=== PATIENT | female | born 1965 | race Caucasian/White ===

== ENCOUNTER 2017-01-21 00:20 | Inpatient (IN) | payer OTHER ==
[~2017-01-21] VITALS: Ht 154.9 cm; Wt 83.4 kg
[2017-01-21] VITALS (8 sets, daily range): BP systolic 112–140; BP diastolic 59–79; PULSE 64–104; RESP 18–20; TEMP 99.7; Ht 154.9 cm; Wt 83.4 kg
[2017-01-21] MEDS ORDERED: SODIUM CHLORIDE 0.9% 1L BAG IV* STA (00:45)
[2017-01-21] MEDS ORDERED: ACETAMINOPHEN 650 MG SUPP PR ONE (01:00)
[2017-01-21] MEDS ORDERED: CEFEPIME 1GM/50 ML (PMX) 50 ML IVPB ONE (01:00)
[2017-01-21] MEDS ORDERED: VANCOMYCIN 1 GM (PMX) 250 ML IVPB SCH (01:00)
--- NOTE | 2017-01-21 01:00 | RADRPT ---
PROCEDURE: XR Chest. CLINICAL INDICATION: Sepsis TECHNIQUE: Single AP portable chest. COMPARISON: None. FINDINGS: The cardiomediastinal silhouette is within normal limits of size. Hypoinflation. Tracheostomy tube and right MediPort catheter in place. Atherosclerotic calcification of the aorta. Bibasilar linear subsegmental atelectasis or scarring greater on the left. No pleural effusion or focal consolidatio n. No pneumothorax. The osseous structures and soft tissues are unremarkable. IMPRESSION: 1. No evidence for active cardiopulmonary disease. 2. Support devices in satisfactory position. RPTAT:AAJJ Dov Stephenson Physician Date Time Electronically viewed and signed by Physician Vaishnavi on 01/21/2017 01:00 CORWIN/
[2017-01-21 01:40] LABS: BASOPHIL # 0.1 10^3/ul (0.0-0.1); BASOPHILS % 0.3 % (0.0-2.0); EOSINOPHILS # 0.3 10^3/ul (0.0-0.5); EOSINOPHILS % 1.6 % (0.0-7.0); HEMATOCRIT 29.5 % (37.0-47.0); HEMOGLOBIN 9.2 g/dl (12.0-16.0); LYMPHOCYTES # 1.9 10^3/ul (0.8-2.9); LYMPHOCYTES % 11.3 % (15.0-51.0); MEAN CORPUSCULAR HEMOGLOBIN 25.8 pg (29.0-33.0); MEAN CORPUSCULAR HGB CONC 31.2 g/dl (32.0-37.0); MEAN CORPUSCULAR VOLUME 82.9 fl (82.0-101.0); MEAN PLATELET VOLUME 11.5 fl (7.4-10.4); MONOCYTE # 1.2 10^3/ul (0.3-0.9); MONOCYTES % 7.1 % (0.0-11.0); NEUTROPHIL # 12.6 10^3/ul (1.6-7.5); NEUTROPHILS % 77.4 % (39.0-77.0); PLATELET COUNT 529 10^3/UL (140-415); RED BLOOD COUNT 3.56 10^6/ul (4.20-5.40); RED CELL DISTRIBUTION WIDTH 18.3 % (11.5-14.5); WHITE BLOOD COUNT 16.3 10^3/ul (4.8-10.8)
[2017-01-21 01:46] LABS: INR 0.95; PROTIME 12.7 Sec (12.2-14.2)
[2017-01-21 01:47] LABS: PARTIAL THROMBOPLASTIN TIME 32.7 Sec (25.0-35.0)
[2017-01-21 01:48] LABS: ALANINE AMINOTRANSFERASE 142 IU/L (13-69); ALBUMIN 3.6 g/dl (3.3-4.9); ALBUMIN/GLOBULIN RATIO 0.92; ALKALINE PHOSPHATASE 1493 IU/L (42-121); ANION GAP 18 (8-16); ASPARTATE AMINO TRANSFERASE 166 IU/L (15-46); BILIRUBIN,INDIRECT 0.4 mg/dl (0-1.1); BILIRUBIN,TOTAL 0.7 mg/dl (0.2-1.3); BLOOD UREA NITROGEN 20 mg/dl (7-20); CALCIUM 9.3 mg/dl (8.4-10.2); CARBON DIOXIDE 32 mmol/L (21-31); CHLORIDE 97 mmol/L (97-110); CREATININE 0.44 mg/dl (0.44-1.00); GLUCOSE 156 mg/dl (70-220); POTASSIUM 4.8 mmol/L (3.5-5.1); SODIUM 142 mmol/L (135-144); TOTAL PROTEIN 7.5 g/dl (6.1-8.1)
--- NOTE | 2017-01-21 01:50 | ERA ---
ER Documentation Chief Complaint Date/Time DATE: 01/21/17 TIME: 01:37 Chief Complaint intermittent fever- sent from [facility] HPI 51-year-old woman brought in by EMS from [facility] for intermittent fevers. Patient has chronic encephalopathy and breathes through the tracheostomy. She has had no vomiting or diarrhea. HPI was limited as patient was nonverbal and [facility] records were scant. Patient was transported here by EMS without further complications. ROS All systems reviewed and are negative except as per history of present illness. Allergies Allergies: Coded Allergies: No Known Allergy (Unverified , 01/21/17) PMhx/Soc Chronic encephalopathy, bedbound, diabetes mellitus, hypothyroidism, COPD History of Surgery: Yes (hx of craniotomy, tracheotomy) Anesthesia Reaction: No Hx Neurological Disorder: No Hx Respiratory Disorders: Yes (COPD) Hx Cardiac Disorders: No Hx Psychiatric Problems: No Hx Miscellaneous Medical Probl: Yes (DM2, hypothyroidism, obesity) Hx Alcohol Use: No Hx Substance Use: No Hx Tobacco Use: No Smoking Status: Never smoker FmHx Family History: No diabetes Physical Exam Vitals Vital Signs Date Time Temp Pulse Resp B/P Pulse Ox O2 Delivery O2 Flow Rate FiO2 01/21/17 01:23 3 01/21/17 01:23 97.5 96 28 117/68 99 Trach Collar 3.0 01/21/17 00:28 99.6 106 18 116/65 99 Physical Exam GENERAL: Well-developed, appears dehydrated, afebrile HEENT: Dry mucous membranes, pink conjunctiva, no cervical spine tenderness or step-off deformities, no goiter, no jaundice or icterus, extraocular movements intact without pain. NEURO: Eyes open, nonverbal, unresponsive, pupils equal round reactive to light , no facial asymmetry CARDIAC: Regular rate and rhythm, no murmurs rubs or gallops LUNGS: Clear bilaterally no wheezing crackles or stridor ABDOMEN: Soft nontender, no guarding, no rigidity, no rebound, no psoas sign no obturator sign. SKIN: Warm and dry to touch, no abrasions, contusions, or hematomas, no lacerations, no ecchymosis, no target lesions, and without ulcers EXTREMITIES: No clubbing cyanosis or edema, calves are bilaterally symmetrical, no Homans sign, no popliteal cord sign. PSYCH: Unable to assess Result Diagram: 01/21/17 0030 01/21/17 0030 Results 24 hrs Laboratory Tests Test 01/21/17 00:30 01/21/17 01:55 White Blood Count 16.310^3/ul Red Blood Count 3.5610^6/ul Hemoglobin 9.2g/dl Hematocrit 29.5% Mean Corpuscular Volume 82.9fl Mean Corpuscular Hemoglobin 25.8pg Mean Corpuscular Hemoglobin Concent 31.2g/dl Red Cell Distribution Width 18.3% Platelet Count 68119^3/UL Mean Platelet Volume 11.5fl Neutrophils % 77.4% Lymphocytes % 11.3% Monocytes % 7.1% Eosinophils % 1.6% Basophils % 0.3% Nucleated Red Blood Cells % 0.0/100WBC Neutrophils # 12.610^3/ul Lymphocytes # 1.910^3/ul Monocytes # 1.210^3/ul Eosinophils # 0.310^3/ul Basophils # 0.110^3/ul Nucleated Red Blood Cells # 0.010^3/ul Prothrombin Time 12.7Sec Prothrombin Time Ratio 1.0 INR International Normalized Ratio 0.95 Activated Partial Thromboplast Time 32.7Sec Sodium Level 142mmol/L Potassium Level 4.8mmol/L Chloride Level 97mmol/L Carbon Dioxide Level 32mmol/L Anion Gap 18 Blood Urea Nitrogen 20mg/dl Creatinine 0.44mg/dl Glucose Level 156mg/dl Lactic Acid Level 1.5mmol/L Calcium Level 9.3mg/dl Total Bilirubin 0.7mg/dl Direct Bilirubin 0.30mg/dl Indirect Bilirubin 0.4mg/dl Aspartate Amino Transf (AST/SGOT) 166IU/L Alanine Aminotransferase (ALT/SGPT) 142IU/L Alkaline Phosphatase 1493IU/L Troponin I < 0.012ng/ml Total Protein 7.5g/dl Albumin 3.6g/dl Globulin 3.90g/dl Albumin/Globulin Ratio 0.92 Lipase 43U/L Urine Color JOHAN Urine Clarity CLOUDY Urine pH 5.0 Urine Specific [place] 1.018 Urine Ketones NEGATIVEmg/dL Urine Nitrite POSITIVEmg/dL Urine Bilirubin NEGATIVEmg/dL Urine Urobilinogen 2+mg/dL Urine Leukocyte Esterase 3+Valeria/ul Urine Microscopic RBC 10/HPF Urine Microscopic WBC > 182/HPF Urine Squamous Epithelial Cells FEW/HPF Urine Bacteria FEW/HPF Urine Mucus FEW/HPF Urine Hemoglobin NEGATIVEmg/dL Urine Glucose NEGATIVEmg/dL Urine Total Protein 1+mg/dl Current Medications Medications (Trade) Dose Ordered Sig/Cami Route PRN Reason Start Time Stop Time Status Last Admin Dose Admin Sodium Chloride 2330 ml 2,330 ml BOLUS OVER 2 HOURS STAT IV* 01/21/17 00:45 01/21/17 00:47 DC 01/21/17 01:30 Cefepime HCl 50 ml @ 100 mls/hr ONCE ONCE IVPB 01/21/17 01:00 01/21/17 01:29 DC 01/21/17 01:30 Vancomycin HCl (Vancocin) 250 ml @ 125 mls/hr ONCE IVPB 01/21/17 01:00 01/21/17 02:59 DC 01/21/17 02:14 Acetaminophen (Tylenol Supp) 650 mg ONCE ONCE NV 01/21/17 01:00 01/21/17 01:01 DC 01/21/17 01:28 Procedures/MDM IV line was established patient was placed on vice president of news rhythm strip revealed a sinus tachycardia at 110 bpm with upright P and T waves. Patient was afebrile. EKG performed, read by me: 97 bpm, normal sinus rhythm, normal axis, no acute ST segment changes, narrow QRS complex, with good R-wave progression in precordial leads. One view chest x-ray performed, read by me revealed a tracheostomy in place, no pneumothorax, no air under the diaphragm, no acute infiltrates I administered about 2 L normal saline intravenously for dehydration, acetaminophen 650 mg per rectum, cefepime 1 g IV, vancomycin 1 g IV. CBC reveals a leukocytosis of 16 and mild anemia with a hemoglobin of 9.2, electrolytes are unremarkable, liver function tests revealed transaminitis and an alkaline phosphatase at about 1500. Troponin negative. Urine analysis is positive for infection. Lactic acid level was low and I do not suspect sepsis. Gallbladder ultrasound was performed and there was absence of gallbladder although common bile duct dilated to 16 mm. Patient will be admitted to telemetry setting for continued medical management, IV hydration, and IV antibiotic therapy. Departure Diagnosis: Primary Impression: Fever Qualified Code: R50.9 - Fever, unspecified fever cause Additional Impressions: UTI (urinary tract infection) Qualified Code: N30.00 - Acute cystitis without hematuria Encephalopathy Functional quadriplegia Choledocholithiasis Condition: Fair CESIA DUMAS MD Jan 21, 2017 01:47
[2017-01-21 02:05] LABS: TROPONIN-I < 0.012 ng/ml (0.00-0.12)
--- NOTE | 2017-01-21 02:34 | RADRPT ---
PROCEDURE: Ultrasound of the abdomen. CLINICAL INDICATION: Right upper quadrant pain. TECHNIQUE: Sonographic images of the abdomen were performed. COMPARISON: No pertinent prior examinations were submitted for comparison. FINDINGS: Liver: The liver is heterogeneously increased in echogenicity and enlarged, measuring approximately 24.6 cm. The hepatic veins and portal veins are patent with appropriate directional flow. No intrah epatic ductal dilatation is seen. There is a 14 x 11 mm echogenic lesion Gallbladder: The gallbladder is not distended and has normal wall thickness. No pericholecystic flu id or gallstones are visualized. The common duct measures 15.7 mm. Pancreas: There is limited evaluation of the pancreatic body and tail. The visualized portions of the pancreas are unremarkable. Kidneys: The right kidney measures 12.7 cm. There is normal corticomedullary differentiation. Ther e is no evidence of renal calculus or hydronephrosis. IVC: The visualized portion of the inferior vena cava is unremarkable. Aorta: Normal in size. Free fluid: None. IMPRESSION: Hepatomegaly and hepatic steatosis. Common bile duct dilatation. Echogenic left hepatic lesion which likely represents a hemangioma although other lesions could have a similar appearance. RPTAT: HIKT .Moshe Busby MD, MD Date Time Electronically viewed and signed by .Moshe Busby MD, on 01/21/2017 02:34 .T/
[2017-01-21 03:22] LABS: ADD UMIC YES; UR ASCORBIC ACID 40 mg/dL (NEGATIVE); UR BACTERIA FEW /HPF (NONE SEEN); UR BILIRUBIN (Dip) NEGATIVE (NEGATIVE); UR BLOOD (Dip) NEGATIVE (NEGATIVE); UR CLARITY CLOUDY (CLEAR); UR COLOR AMBER (YELLOW); UR GLUCOSE (Dip) NEGATIVE (NEGATIVE); UR KETONES (Dip) NEGATIVE (NEGATIVE); UR LEUKOCYTE ESTERASE (Dip) 3+ Leu/ul (NEGATIVE); UR MUCUS FEW /HPF (NONE SEEN); UR NITRITE (Dip) POSITIVE (NEGATIVE); UR RBC 10 /HPF (0-5); UR SPECIFIC GRAVITY (Dip) 1.018 (1.003-1.030); UR SQUAMOUS EPITHELIAL CELL FEW /HPF (FEW); UR TOTAL PROTEIN (Dip) 1+ mg/dl (NEGATIVE); UR UROBILINOGEN (Dip) 2+ mg/dL (NEGATIVE)
[2017-01-21] MEDS ORDERED: DOCU-159 GTB (03:50)
[2017-01-21] MEDS ORDERED: ONDA4TAB95 GTB (03:50)
[2017-01-21] MEDS ORDERED: ACET325S PO (03:50)
[2017-01-21] MEDS ORDERED: CHLO118L3 TOP (03:50)
[2017-01-21] MEDS ORDERED: SENN-53 GTB (03:50)
[2017-01-21] MEDS ORDERED: ACET160O41 PO (03:50)
[2017-01-21] MEDS ORDERED: PANT40TA4 GTB (03:50)
[2017-01-21] MEDS ORDERED: LEVEM SC (03:50)
[2017-01-21] MEDS ORDERED: LABE200T25 GTB (03:50)
[2017-01-21] MEDS ORDERED: MINE3.5O31 BOTH EYES (03:50)
[2017-01-21] MEDS ORDERED: METO10TA96 GTB (03:50)
[2017-01-21] MEDS ORDERED: AMLO-147 PO (03:50)
[2017-01-21] MEDS ORDERED: BISA10SU16 RC (03:50)
[2017-01-21] MEDS ORDERED: ACETAMINOPHEN 650 MG SUPP PR PRN (04:00)
[2017-01-21] MEDS ORDERED: ONDANSETRON 4 MG INJ IV PRN (04:00)
[2017-01-21] MEDS ORDERED: NACL 0.9% 3 ML SYG IV SCH (04:00)
[2017-01-21] MEDS ORDERED: VANCOMYCIN IV PER PHARMACY XX SCH (04:30)
[2017-01-21 05:45] LABS: HAAIG REFLEX REFLEX FILED
[2017-01-21] MEDS ORDERED: HEPARIN 5,000 UNIT/0.5 ML VIAL SC SCH (06:00)
[2017-01-21] MEDS ORDERED: PIPER-TAZO 3.375 GM IV (PMX) 100 ML IVPB SCH (06:00)
[2017-01-21] MEDS: PANTOPRAZOLE 40 MG INJ IV SCH (06:05)
[2017-01-21] MEDS ORDERED: METOCLOPRAMIDE 10 MG TAB GTB PRN (06:30)
[2017-01-21] MEDS ORDERED: ACETAMINOPHEN 160 MG/5ML CUP GTB PRN (06:30)
--- NOTE | 2017-01-21 06:36 | HP ---
Date/Time of Note Date/Time of Note DATE: 01/21/17 TIME: 06:16 Assessment/Plan VTE Prophylaxis VTE Prophylaxis Intervention: SCD's Lines/Catheters Urinary Cath still in place: Yes (16Fr) Reason Cath still needed: other (indicate) (clinical indication) Assessment/Plan Chief Complaint/Hosp Course This is a 51-year-old female being admitted to the telemetry floor for: #1 sepsis: Elevated white blood cell count elevated heart rate along with you a positive for urinary tract infection. At the current time she is on broad- spectrum antibiotics including ciprofloxacin. Will await urine cultures and blood cultures. #2 encephalopathy: Multifactorial in setting of recent brain hemorrhage however if you think at this time it is more likely acute in nature to the infection. # 1. Patient has a history of hemorrhage status post craniotomy however she had regained relative normal mental status up until this last week where she had the fevers and she became more confused. Will continue to monitor patient's mental status through her hospital course. #3 urinary tract infection: UA positive for nitrites and leuk esterase. Currently on broad-spectrum antibiotics including ciprofloxacin. Will continue antibiotics at this time and await urine culture and de-escalate antibiotics based on sensitivities. #4 transaminitis: Patient appears to have an obstructive pattern in her LFTs. Ultrasound did not elicit any acute cholecystitis. Though there was gallbladder duct dilatation of approximately 15 mm. Will obtain an MRCP. And consult GI. #5 hepatic lesion: This likely could be consistent with patient's metastatic colon cancer. The son did confirm that they know that there is metastasis to liver. We will be obtaining an MRCP so we will further evaluate this for confirmation. #6 hypertension: Resume amlodipine through G-tube. #7 brain hemorrhage: Status post craniotomy and RACK MAKER shunt. Continue to follow. Patient likely will need to be discharged back to rehab. Home medications through G-tube. #8 DVT and GI prophylaxis: SCDs, Protonix Further treatment strategy will be implemented as per the clinical course Problems: HPI/ROS Admit Date/Time Admit Date/Time Hx of Present Illness Chief complaint: Intermittent fevers 1 week This is a 51-year-old female who is brought in by EMS and is accompanied by her son for intermittent fevers 1 week. Patient herself is arousable however she is very tired right now and the majority of the history was obtained from the son. Patient currently was at a postacute facility where she has been recovering from her recent brain hemorrhage status post craniotomy. Patient over the last course of the week had been noted to have intermittent fevers. Family had noticed that she had been acting confused over the last few days as well. Prior to that patient was showing relatively normal mentation and able to communicate appropriately. Patient was denying any chest pain or shortness of breath however because of her recent confusion proper history was not able to be obtained from her. Of note, patient was admitted to [facility] in September 2016 for a brain hemorrhage. At that time she had a craniotomy as well as a RACK MAKER shunt. Upon recovery from there she was transferred to [place] and then to a post acute facility where she is currently at for rehab. She is currently on trach collar. Allergies: NKDA Medications: See LOUIE HYATT Subjective hx not possible: pt non-verbal, pt critical, other (Somnolent, arousable, confused) PMH/Family/Social Past Medical History Brain hemorrhage status post craniotomy and RACK MAKER shunt September 2016, colon cancer with metastases to the liver, history of CVA, left-sided weakness status post brain hemorrhage Past Surgical History Craniotomy and RACK MAKER shunt, colon surgery, G-tube placement, IVC filter placement? Social History Alcohol Use: none Smoking Status: Never smoker Drug Use: none Exam/Review of Systems Vital Signs Vitals Vital Signs Date Time Temp Pulse Resp B/P Pulse Ox O2 Delivery O2 Flow Rate FiO2 01/21/17 06:05 98.6 89 28 123/58 98 Trach Collar 3.0 Exam Exam General: Patient lying in bed in no acute distress, somnolent but arousable though she is confused. HEENT: Visible deformity secondary to craniotomy, RACK MAKER shunt the pupils are equal , round and reactive. Extraocular motor are intact, trach collar intact Neck: Supple with full range of motion. No rigidity or meningismus Chest: Nontender Lungs: Clear to auscultation bilaterally no crackles rales or wheezing Heart: Normal S1-S2, Regular rhythm and rate. No overt murmurs appreciated Abdomen: Soft , nontender, nondistended , bowel sounds are present. No guarding no rebound tenderness , No masses or organomegaly. G-tube in place Neurologic: Unable to fully assess secondary to patient's somnolence and confusion Additional Comments PROCEDURE: XR Chest. CLINICAL INDICATION: Sepsis TECHNIQUE: Single AP portable chest. COMPARISON: None. FINDINGS: The cardiomediastinal silhouette is within normal limits of size. Hypoinflation. Tracheostomy tube and right MediPort catheter in place. Atherosclerotic calcification of the aorta. Bibasilar linear subsegmental atelectasis or scarring greater on the left. No pleural effusion or focal consolidation. No pneumothorax. The osseous structures and soft tissues are unremarkable. IMPRESSION: 1. No evidence for active cardiopulmonary disease. 2. Support devices in satisfactory position. RPTAT:AAJJ Dov Stephenson, Physician Date Time Electronically viewed and signed by Dov Stephenson, Physician on 01/21/2017 01:00 CORWIN/ CC: CESIA DUMAS MD PROCEDURE: Ultrasound of the abdomen. CLINICAL INDICATION: Right upper quadrant pain. TECHNIQUE: Sonographic images of the abdomen were performed. COMPARISON: No pertinent prior examinations were submitted for comparison. FINDINGS: Liver: The liver is heterogeneously increased in echogenicity and enlarged, measuring approximately 24.6 cm. The hepatic veins and portal veins are patent with appropriate directional flow. No intrahepatic ductal dilatation is seen. There is a 14 x 11 mm echogenic lesion Gallbladder: The gallbladder is not distended and has normal wall thickness. No pericholecystic fluid or gallstones are visualized. The common duct measures 15.7 mm. Pancreas: There is limited evaluation of the pancreatic body and tail. The visualized portions of the pancreas are unremarkable. Kidneys: The right kidney measures 12.7 cm. There is normal corticomedullary differentiation. There is no evidence of renal calculus or hydronephrosis. IVC: The visualized portion of the inferior vena cava is unremarkable. Aorta: Normal in size. Free fluid: None. IMPRESSION: Hepatomegaly and hepatic steatosis. Common bile duct dilatation. Echogenic left hepatic lesion which likely represents a hemangioma although other lesions could have a similar appearance. RPTAT: HIKT .Moshe Busby MD, MD Date Time Electronically viewed and signed by .Moshe Busby MD, MD on 01/21/2017 02:34 .T/ CC: CESIA DUMAS MD Labs Result Diagram: 01/21/17 00301/21/17 003 Medications Medications Current Medications Sodium Chloride (NS) 1,000 ml @ 75 mls/hr [id number] IV ; Start 01/21/17 at 04:00 Ondansetron HCl (Zofran Inj) 4 mg Q6H PRN IV NAUSEA AND/OR VOMITING; Start at 04:00 Acetaminophen (Tylenol Supp) 650 mg Q6H PRN [place] PAIN LEVEL 1-3 OR FEVER; Start 01/21/17 at 04:00 Pantoprazole (Protonix Iv) 40 mg DAILY@06 IV Last administered on 01/21/17 06: 05; Admin Dose 40 MG; Start 01/21/17 at 06:00 Heparin Sodium (Porcine) 5000 unit 5,000 unit Q8 SC Last administered on 05:59; Admin Dose 5,000 UNIT; Start 01/21/17 at 06:00 Ciprofloxacin/ Dextrose 200 ml @ 200 mls/hr Q12 IVPB ; Start 01/21/17 at 09:00 Vancomycin HCl (Vancocin) 250 ml @ 125 mls/hr Q12H IVPB ; Start 01/21/17 at 10: 00 SON LEE Jan 21, 2017 06:28
[2017-01-21] MEDS: SOD CHLORIDE 0.9% 1,000 ML IV SCH ×2 (07:16→20:00)
[2017-01-21] MEDS ORDERED: LABE300T GTB (07:50)
[2017-01-21] MEDS: AMLODIPINE 10 MG TAB GTB SCH (08:03)
[2017-01-21] MEDS: SENNA TAB GTB SCH ×2 (08:03→21:35)
[2017-01-21] MEDS: BISACODYL 10 MG SUPP PR SCH (08:03)
[2017-01-21] MEDS: LABETALOL 100 MG TAB GTB SCH ×2 (08:04→21:35)
[2017-01-21] MEDS: CIPROFLOXACIN 400MG/D5W 200 ML IVPB SCH ×2 (08:08→21:35)
[2017-01-21] MEDS: ONDANSETRON 4 MG TAB GTB SCH ×6 (08:11→22:24)
[2017-01-21] MEDS ORDERED: LABETALOL 200 MG TAB GTB SCH (09:00)
[2017-01-21] MEDS: VANCOMYCIN 1 GM in NS 250 ML IVPB SCH ×2 (09:16→22:24)
[2017-01-21 11:44] LABS: BASOPHILS % 0.2 % (0.0-2.0); EOSINOPHILS # 0.2 10^3/ul (0.0-0.5); EOSINOPHILS % 1.9 % (0.0-7.0); HEMATOCRIT 24.9 % (37.0-47.0); HEMOGLOBIN 7.6 g/dl (12.0-16.0); LYMPHOCYTES % 15.6 % (15.0-51.0); MEAN CORPUSCULAR HEMOGLOBIN 25.9 pg (29.0-33.0); MEAN CORPUSCULAR HGB CONC 30.5 g/dl (32.0-37.0); MEAN PLATELET VOLUME 11.6 fl (7.4-10.4); MONOCYTES % 8.1 % (0.0-11.0); NEUTROPHILS % 71.7 % (39.0-77.0); PLATELET COUNT 405 10^3/UL (140-415); RED BLOOD COUNT 2.93 10^6/ul (4.20-5.40); RED CELL DISTRIBUTION WIDTH 18.6 % (11.5-14.5); WHITE BLOOD COUNT 12.6 10^3/ul (4.8-10.8)
[2017-01-21 12:03] LABS: ALBUMIN 3.1 g/dl (3.3-4.9); ALBUMIN/GLOBULIN RATIO 0.83; BILIRUBIN,DIRECT 0.2 mg/dl (0.00-0.20); BILIRUBIN,INDIRECT 0.4 mg/dl (0-1.1); BILIRUBIN,TOTAL 0.6 mg/dl (0.2-1.3); CALCIUM 8.1 mg/dl (8.4-10.2); CREATININE 0.47 mg/dl (0.44-1.00); POTASSIUM 3.6 mmol/L (3.5-5.1); TOTAL PROTEIN 6.8 g/dl (6.1-8.1)
--- NOTE | 2017-01-21 16:34 | RADRPT ---
PROCEDURE: MRI MRCP. CLINICAL INDICATION: Fever and transaminitis. Common bile duct dilatation. TECHNIQUE: MRCP was performed without contrast. 3-D/multiplanar reformations and coronal rotating MIP images of the biliary tree were performed by the technologist and at an independent workstation. Evaluation is partially limited due to the patient's body habitus and motion artifact. COMPARISON: Ultrasound dated 01/11/2017. FINDINGS: There is moderate diffuse intra and extrahepatic biliary ductal dilatation. The common bile duct is dilated measuring 14 mm in diameter and there is abrupt tapering of the distal common bile duct. Th ere is mild diffuse decreased signal intensity throughout the intra and extrahepatic ducts, possibly related to sludge. No discrete stone or mass is identified within the biliary tree. There is no pa ncreatic ductal dilatation or intraluminal filling defect. The gallbladder is not clearly identifie d. The liver is enlarged measuring 25 cm in length and there are innumerable masses throughout the live r. There is bulky periportal, portacaval, gastrohepatic ligament, and aortocaval adenopathy. The v entral abdominal hernia is partially visualized. There is a percutaneous gastrostomy tube in place. There is a small right pleural effusion. IMPRESSION: 1. Moderate diffuse intra and extrahepatic biliary ductal dilation with an abrupt transition point at the distal CBD, suspicious for a malignant stricture or underlying occult mass lesion. ERCP can be performed for further evaluation. 2. Hepatomegaly with innumerable masses throughout the liver and bulky periportal, portacaval, extr ahepatic ligament, and aortocaval adenopathy, highly suspicious for metastatic disease from an uncer tain primary. CT scan of the chest, abdomen, and pelvis can be performed for further evaluation. 3. Trace right effusion. 4. Partially visualized ventral abdominal hernia. RPTAT: GG .Tai Reed MD, MD Date Time Electronically viewed and signed by .Tai Reed MD, MD on 01/21/2017 16:34 .P/
--- NOTE | 2017-01-21 17:13 | CONS ---
Date/Time of Note Date/Time of Note DATE: 01/21/17 TIME: 16:53 Assessment/Plan Assessment/Plan Additional Assessment/Plan Assessment * Sepsis UTI vs pneumonia vs others * Elevated transaminitis Obstructive vs hepatocellular in origin * History of craniotomy sec brain aneurysm * History of colon surgery secondary to colonic cancer with liver metastasis * History of chemotherapy * History PEG * History of Tracheostomy Plan * Continue present management * will await MRI results * Trend transaminase levels * Further orders will depend on clinical course Consultation Date/Type/Reason Admit Date/Time Date of Consultation: Jan 21, 2017 Type of Consultation: Gastroenterology Reason for Consultation elevated transaminase Referring Provider: SON LEE Hx of Present Illness 51 year old female with past medical history of craniotomy secondary to ruptured aneurysm(),S/P colon surgery and chemotherapy x2 due to colonic cancer and liver metastasis with recurrence,S/P tracheostomy,S/P G tube insertion presented to emergency room because of intermittent fever x 1 week.Present condition started 1 week ago while at [facility] ,she develop fever with no associated nausea ,vomiting ,diarrhea, abdominal pain,nor altered level of consciousness hence was sent to ER.Emergency room course revealed leukocytosis 16,hemoglobin9.2,hematocrit 29.5 Total bilirubin 8.1,GGT 1066,AST 121,ALT 116,alkaline phosphatase 1134 PT 12.7, INR 0.95 Ultrasound Hepatomegaly and hepatic steatosis.Common bile duct dilatation.Echogenic left hepatic lesion which likely represents a hemangioma although other lesions could have a similar appearance.Awaiting MRI results Information is provided by daughter Past Medical History Medical History: other (aneurysm brain,colonic cancer with liver metastasis) Past Surgical History Past Surgical Hx: bowel resection, other (craniotomy 09/2016,colon surgery Tracheostomy peg) Social History Alcohol Use: none Smoking Status: Never smoker Drug Use: none Exam/Review of Systems Vital Signs Vitals Vital Signs Date Time Temp Pulse Resp B/P Pulse Ox O2 Delivery O2 Flow Rate FiO2 01/21/17 12:00 64 01/21/17 11:24 Simple Mask 6.0 01/21/17 10:25 98.0 112/59 97 01/21/17 09:21 22 Intake and Output 01/20/17 01/20/17 01/21/17 15:00 23:00 07:00 Output Total 400 ml Balance -400 ml Exam Constitutional: frail, other (non verbal) Head: normocephalic Eyes: PERRL, nl conjunctiva, nl sclera ENMT: nl nasal mucosa & septum, other (tracheostomy) Neck: non-tender, supple Respiratory: crackles/rales, diminished breath sounds Cardiovascular: nl pulses, regular rate and rhythm Gastrointestinal: bowel sounds, distended, non-tender, other (g tube), soft, No rebound or guarding Musculoskeletal: muscle weakness, swelling Extremities: normal pulses, pitting pedal edema Neurological: unresponsive Skin: rash or lesions Lymph: nl lymph nodes Results Result Diagram: 01/21/17 1109 01/21/17 1109 Results 24 hrs Laboratory Tests Test 01/21/17 00:30 01/21/17 01:55 01/21/17 05:29 01/21/17 11:09 White Blood Count 16.3 H 12.6 #H Red Blood Count 3.56 L 2.93 L Hemoglobin 9.2 L 7.6 L Hematocrit 29.5 L 24.9 L Mean Corpuscular Volume 82.9 85.0 Mean Corpuscular Hemoglobin 25.8 L 25.9 L Mean Corpuscular Hemoglobin Concent 31.2 L 30.5 L Red Cell Distribution Width 18.3 H 18.6 H Platelet Count 529 H 405 # Mean Platelet Volume 11.5 H 11.6 H Neutrophils % 77.4 H 71.7 Lymphocytes % 11.3 L 15.6 Monocytes % 7.1 8.1 Eosinophils % 1.6 1.9 Basophils % 0.3 0.2 Nucleated Red Blood Cells % 0.0 0.0 Neutrophils # 12.6 H 9.0 H Lymphocytes # 1.9 2.0 Monocytes # 1.2 H 1.0 H Eosinophils # 0.3 0.2 Basophils # 0.1 0.0 Nucleated Red Blood Cells # 0.0 0.0 Prothrombin Time 12.7 Prothrombin Time Ratio 1.0 INR International Normalized Ratio 0.95 Activated Partial Thromboplast Time 32.7 Sodium Level 142 141 Potassium Level 4.8 3.6 Chloride Level 97 102 Carbon Dioxide Level 32 H 28 Anion Gap 18 H 15 Blood Urea Nitrogen 20 15 Creatinine 0.44 0.47 Glucose Level 156 137 Lactic Acid Level 1.5 1.2 Calcium Level 9.3 8.1 L Total Bilirubin 0.7 0.6 Direct Bilirubin 0.30 H 0.20 Indirect Bilirubin 0.4 0.4 Aspartate Amino Transf (AST/SGOT) 166 H 121 H Alanine Aminotransferase (ALT/SGPT) 142 H 116 H Alkaline Phosphatase 1493 H 1134 H Troponin I < 0.012 Total Protein 7.5 6.8 Albumin 3.6 3.1 L Globulin 3.90 H 3.70 H Albumin/Globulin Ratio 0.92 0.83 Lipase 43 Urine Color JOHAN Urine Clarity CLOUDY A Urine pH 5.0 Urine Specific [place] 1.018 Urine Ketones NEGATIVE Urine Nitrite POSITIVE A Urine Bilirubin NEGATIVE Urine Urobilinogen 2+ H Urine Leukocyte Esterase 3+ H Urine Microscopic RBC 10 H Urine Microscopic WBC > 182 H Urine Squamous Epithelial Cells FEW Urine Bacteria FEW A Urine Mucus FEW A Urine Hemoglobin NEGATIVE Urine Glucose NEGATIVE Urine Total Protein 1+ H Gamma Glutamyl Transpeptidase 1066 H Hepatitis A Antibody Total Pending Hepatitis B Surface Antigen Pending Hepatitis B Core Total Antibody Pending Hepatitis C Antibody Pending Medications Medications Current Medications Sodium Chloride (NS) 1,000 ml @ 75 mls/hr [id number] IV Last administered on 01/21 07:16; Admin Dose 75 MLS/HR; Start 01/21/17 at 04:00 Ondansetron HCl (Zofran Inj) 4 mg Q6H PRN IV NAUSEA AND/OR VOMITING; Start at 04:00 Acetaminophen (Tylenol Supp) 650 mg Q6H PRN [place] PAIN LEVEL 1-3 OR FEVER; Start 01/21/17 at 04:00 Pantoprazole 40 mg 40 mg DAILY@06 IV Last administered on 01/21/17 06:05; Admin Dose 40 MG; Start 01/21/17 at 06:00 Ciprofloxacin/ Dextrose 200 ml @ 200 mls/hr Q12 IVPB Last administered on 01/21 08:08; Admin Dose 200 MLS/HR; Start 01/21/17 at 09:00 Vancomycin HCl (Vancocin) 250 ml @ 125 mls/hr Q12H IVPB Last administered on 09:16; Admin Dose 125 MLS/HR; Start 01/21/17 at 10:00 Acetaminophen (Tylenol Liquid) 325 mg Q4H PRN GTB PAIN OR TEMP ABOVE 38C; Start 01/21/17 at 06:30 Amlodipine Besylate (Norvasc) 10 mg DAILY GTB Last administered on 01/21/17 08 :03; Admin Dose 10 MG; Start 01/21/17 at 09:00 Eye Lubricant (Akwa Oint) 1 applic HS BOTH EYES ; Start 01/21/17 at 21:00 Bisacodyl (Dulcolax Supp) 10 mg DAILY [place] ; Start 01/21/17 at 09:00 Metoclopramide HCl (Reglan) 10 mg Q6H PRN GTB NAUSEA AND/OR VOMITING; Start at 06:30 Ondansetron HCl (Zofran Tab) 4 mg Q4H GTB Last administered on 01/21/17 13:45 ; Admin Dose 4 MG; Start 01/21/17 at 06:30 Senna (Senokot) 2 tab BID GTB Last administered on 01/21/17 08:03; Admin Dose 2 TAB; Start 01/21/17 at 09:00 Labetalol HCl (Normodyne) 300 mg BID GTB Last administered on 01/21/17 08:04; Admin Dose 300 MG; Start 01/21/17 at 09:00 YASEMIN ABEBE MD Jan 21, 2017 17:04
[2017-01-21] MEDS: OCULAR LUBRICANT 3.5 GM OPH OINT BOTH EYES SCH (21:54)
[2017-01-21] MEDS: ACETAMINOPHEN 650MG/20.3ML CUP GTB PRN (22:44)
[2017-01-22] VITALS (14 sets, daily range): BP systolic 125–160; BP diastolic 59–76; PULSE 76–90; RESP 18–21
[2017-01-22] MEDS: SOD CHLORIDE 0.9% 1,000 ML IV SCH ×3 (00:03→21:02)
[2017-01-22] MEDS ORDERED: LORAZEPAM 2 MG INJ IV PRN (01:04)
[2017-01-22] MEDS ORDERED: PENDING SANTYL ORDER FOR WOUND CARE XX PRN (02:00)
[2017-01-22] MEDS: ONDANSETRON 4 MG TAB GTB SCH ×6 (03:23→22:10)
[2017-01-22] MEDS: PANTOPRAZOLE 40 MG INJ IV SCH (06:15)
[2017-01-22] MEDS: BISACODYL 10 MG SUPP PR SCH (09:03)
[2017-01-22] MEDS: SENNA TAB GTB SCH ×2 (09:03→21:03)
[2017-01-22] MEDS: CIPROFLOXACIN 400MG/D5W 200 ML IVPB SCH ×2 (09:04→21:02)
[2017-01-22] MEDS: AMLODIPINE 10 MG TAB GTB SCH (09:04)
[2017-01-22] MEDS: LABETALOL 100 MG TAB GTB SCH ×2 (09:04→21:04)
[2017-01-22] MEDS: VANCOMYCIN 1 GM in NS 250 ML IVPB SCH ×2 (10:47→22:10)
--- NOTE | 2017-01-22 11:26 | PN ---
Date/Time of Note Date/Time of Note DATE: 01/22/17 TIME: 11:17 Assessment/Plan VTE Prophylaxis VTE Prophylaxis Intervention: SCD's Lines/Catheters IV Catheter Type (from Nrs): Peripheral IV Urinary Cath still in place: Yes Reason Cath still needed: terminal illness/intractable pain Assessment/Plan Assessment/Plan 1. Sepsis secondary to urinary tract infection -Continue antibiotic. Follow-up final culture results 2. History of intracranial hemorrhage, status post craniotomy -This is chronic issue. Continue care 3. Metastatic liver cancer, with colon being the primary given history -Patient was diagnosed with colon cancer 3 years ago for which she was treated for it. A year ago she was diagnosed with liver metastasis and there has been receiving chemo. According to the sons who are at the bedside, treatment needed to be stopped because of a complication. Family wants to get a second opinion and such will place an oncology consult. Patient had been receiving her chemo with her oncologist Kishore Yen. 4. Elevated transaminases: -GI on board. Appreciate input 5. Trach dependent respiratory failure -Continue trach care. Will place a pulmonary consult 6. Hypertension: Blood pressure not at goal -Adjust BP meds as needed Subjective 24 Hr Interval Summary Free Text/Dictation Patient does not follow any commands. I talked to the sons who are at the bedside. They want to talk to oncology if patient can benefit and also is considered stable enough to receive chemo. Exam/Review of Systems Vital Signs Vitals Vital Signs Date Time Temp Pulse Resp B/P Pulse Ox O2 Delivery O2 Flow Rate FiO2 01/22/17 08:28 90 01/22/17 07:40 98.0 18 160/76 98 01/22/17 05:14 5.0 01/22/17 01:00 Trach Collar Intake and Output 01/21/17 01/21/17 01/22/17 15:00 23:00 07:00 Intake Total 200 ml 925 ml Output Total 200 ml 800 ml Balance -200 ml 200 ml 125 ml Exam Constitutional: other (No acute distress. Patient does not follow commands) Head: other (Status post right-sided craniotomy) Neck: other (Trach tube in place) Respiratory: diminished breath sounds Cardiovascular: other (Tachycardic with regular rhythm) Gastrointestinal: other (G-tube in place), soft Extremities: normal pulses Results Result Diagram: 01/21/17 1109 01/21/17 1109 Results 24 hrs Laboratory Tests Test 01/22/17 01:03 Bedside Glucose 150 Medications Medications Current Medications Sodium Chloride (NS) 1,000 ml @ 75 mls/hr [id number] IV Last administered on 01/22 00:03; Admin Dose 75 MLS/HR; Start 01/21/17 at 04:00 Ondansetron HCl (Zofran Inj) 4 mg Q6H PRN IV NAUSEA AND/OR VOMITING; Start at 04:00 Acetaminophen (Tylenol Supp) 650 mg Q6H PRN [place] PAIN LEVEL 1-3 OR FEVER; Start 01/21/17 at 04:00 Pantoprazole 40 mg 40 mg DAILY@06 IV Last administered on 01/22/17 06:15; Admin Dose 40 MG; Start 01/21/17 at 06:00 Ciprofloxacin/ Dextrose 200 ml @ 200 mls/hr Q12 IVPB Last administered on 01/22 09:04; Admin Dose 200 MLS/HR; Start 01/21/17 at 09:00 Vancomycin HCl (Vancocin) 250 ml @ 125 mls/hr Q12H IVPB Last administered on 10:47; Admin Dose 125 MLS/HR; Start 01/21/17 at 10:00 Acetaminophen (Tylenol Liquid) 325 mg Q4H PRN GTB PAIN OR TEMP ABOVE 38C Last administered on 01/21/17 22:44; Admin Dose 325 MG; Start 01/21/17 at 06:30 Amlodipine Besylate (Norvasc) 10 mg DAILY GTB Last administered on 01/22/17 09 :04; Admin Dose 10 MG; Start 01/21/17 at 09:00 Eye Lubricant (Akwa Oint) 1 applic HS BOTH EYES Last administered on 01/21/17 21:54; Admin Dose 1 APPLIC; Start 01/21/17 at 21:00 Bisacodyl (Dulcolax Supp) 10 mg DAILY [place] Last administered on 01/22/17 09:03; Admin Dose 10 MG; Start 01/21/17 at 09:00 Metoclopramide HCl (Reglan) 10 mg Q6H PRN GTB NAUSEA AND/OR VOMITING; Start at 06:30 Ondansetron HCl (Zofran Tab) 4 mg Q4H GTB Last administered on 01/22/17 10:47 ; Admin Dose 4 MG; Start 01/21/17 at 06:30 Senna (Senokot) 2 tab BID GTB Last administered on 01/22/17 09:03; Admin Dose 2 TAB; Start 01/21/17 at 09:00 Labetalol HCl (Normodyne) 300 mg BID GTB Last administered on 01/22/17 09:04; Admin Dose 300 MG; Start 01/21/17 at 09:00 Lorazepam (Ativan) 2 mg Q4H PRN IV SEIZURES Last administered on 01/22/17 01: 08; Admin Dose 2 MG; Start 01/22/17 at 01:04 Miscellaneous Information (Pending Santyl Order For Wound Care) This patient matos... PRN PRN XX WOUND CARE; Start 01/22/17 at 02:00 LAURYN RASCON MD Jan 22, 2017 11:25
[2017-01-22] MEDS ORDERED: GLUCAGON 1 MG INJ IM PRN (16:00)
[2017-01-22] MEDS ORDERED: GLUCOSE GEL 15 GRAM TUBE BUCCAL PRN (16:00)
[2017-01-22] MEDS ORDERED: GLUCOSE GEL 15 GRAM TUBE PO PRN ×2 (16:00)
[2017-01-22] MEDS ORDERED: DEXTROSE 50% 50 ML SYRINGE IV PRN ×2 (16:00)
[2017-01-22] MEDS: INSULIN ASPART [NOVOLOG] 3 ML PEN SC SCH ×2 (18:47→21:00)
[2017-01-22 19:38] LABS: HEPATITIS B CORE ANTIBODY NEGATIVE (NEGATIVE)
[2017-01-22] MEDS: OCULAR LUBRICANT 3.5 GM OPH OINT BOTH EYES SCH (21:03)
[2017-01-23] VITALS (13 sets, daily range): BP systolic 116–143; BP diastolic 56–70; PULSE 70–85; RESP 18–20
[2017-01-23] MEDS: ACCU-CHEK XX SCH (02:00)
[2017-01-23] MEDS: ONDANSETRON 4 MG TAB GTB SCH ×6 (02:30→22:09)
[2017-01-23 06:09] LABS: BASOPHIL # 0.1 10^3/ul (0.0-0.1); BASOPHILS % 0.4 % (0.0-2.0); EOSINOPHILS # 0.3 10^3/ul (0.0-0.5); EOSINOPHILS % 1.8 % (0.0-7.0); HEMATOCRIT 26.7 % (37.0-47.0); HEMOGLOBIN 8.2 g/dl (12.0-16.0); LYMPHOCYTES # 1.8 10^3/ul (0.8-2.9); LYMPHOCYTES % 12.6 % (15.0-51.0); MEAN CORPUSCULAR HEMOGLOBIN 25.2 pg (29.0-33.0); MEAN CORPUSCULAR HGB CONC 30.7 g/dl (32.0-37.0); MEAN CORPUSCULAR VOLUME 82.2 fl (82.0-101.0); MEAN PLATELET VOLUME 10.8 fl (7.4-10.4); MONOCYTE # 1.1 10^3/ul (0.3-0.9); MONOCYTES % 7.8 % (0.0-11.0); NEUTROPHIL # 10.7 10^3/ul (1.6-7.5); NEUTROPHILS % 74.9 % (39.0-77.0); PLATELET COUNT 509 10^3/UL (140-415); RED BLOOD COUNT 3.25 10^6/ul (4.20-5.40); RED CELL DISTRIBUTION WIDTH 18.5 % (11.5-14.5); WHITE BLOOD COUNT 14.3 10^3/ul (4.8-10.8)
[2017-01-23] MEDS: PANTOPRAZOLE 40 MG INJ IV SCH (06:22)
[2017-01-23 06:30] LABS: ALBUMIN/GLOBULIN RATIO 0.83; BILIRUBIN,DIRECT 2.3 mg/dl (0.00-0.20); BILIRUBIN,INDIRECT 0.6 mg/dl (0-1.1); BILIRUBIN,TOTAL 2.9 mg/dl (0.2-1.3); CALCIUM 8.8 mg/dl (8.4-10.2); CREATININE 0.59 mg/dl (0.44-1.00); POTASSIUM 3.1 mmol/L (3.5-5.1); TOTAL PROTEIN 6.6 g/dl (6.1-8.1)
[2017-01-23] MEDS: BISACODYL 10 MG SUPP PR SCH (09:00)
[2017-01-23] MEDS: SENNA TAB GTB SCH ×2 (09:58→20:38)
[2017-01-23] MEDS: SOD CHLORIDE 0.9% 1,000 ML IV SCH (09:59)
[2017-01-23] MEDS: AMLODIPINE 10 MG TAB GTB SCH (09:59)
[2017-01-23] MEDS: LABETALOL 100 MG TAB GTB SCH ×2 (09:59→20:37)
[2017-01-23] MEDS: CIPROFLOXACIN 400MG/D5W 200 ML IVPB SCH ×2 (09:59→20:38)
[2017-01-23] MEDS: INSULIN ASPART [NOVOLOG] 3 ML PEN SC SCH ×4 (10:13→20:41)
--- NOTE | 2017-01-23 11:33 | CONS ---
Date/Time of Note Date/Time of Note DATE: 01/23/17 TIME: 11:31 Assessment/Plan Assessment/Plan Additional Assessment/Plan Urinalysis is grossly positive for UTI. Chest x-ray was reviewed which is essentially unremarkable. Assessment and recommendations; 1. Patient admitted with UTI and sepsis currently on appropriate antibiotic regimen. 2. Chronic respiratory failure. Patient doing fairly well on tracheal T piece. 3. History of prior sternotomy. Continue current treatment. Consultation Date/Type/Reason Admit Date/Time Date of Consultation: Jan 23, 2017 Type of Consultation: Pulmonary Reason for Consultation Pulmonary consultation requested for evaluation of sepsis. History of presenting any; patient is a 51-year-old lady who was [facility] the [facility] with complaints of fever. One further evaluation patient was found to have UTI with sepsis. Patient has been started on appropriate antibiotic coverage. By the time I saw the patient patient is on T piece via tracheostomy and is essentially unresponsive. History was obtained from medical records as well as from patient's daughter who is currently present in the room. No history of any shortness of breath, or vomiting. Past medical history; 1. Patient with history of subarachnoid hemorrhage with intracranial bleed requiring tenotomy. 2. Chronic respiratory failure. Patient however has been weaned down to tracheal T piece. 3. Hypertension. Medications; reviewed. Family history; patient is has 6 children. Occupation she; patient has been a housewife. No disabled. Review of systems; unable to be obtained. General exam; middle-aged woman, unresponsive, currently in no distress. Past Medical History Medical History: other (aneurysm brain,colonic cancer with liver metastasis) Past Surgical History Past Surgical Hx: bowel resection, other (craniotomy 09/2016,colon surgery Tracheostomy peg) Social History Alcohol Use: none Smoking Status: Never smoker Drug Use: none Exam/Review of Systems Vital Signs Vitals Vital Signs Date Time Temp Pulse Resp B/P Pulse Ox O2 Delivery O2 Flow Rate FiO2 01/23/17 08:12 71 01/23/17 08:00 6.0 01/23/17 07:46 98.0 18 136/63 18 01/23/17 07:35 28 01/23/17 04:54 Aerosol T Tube Intake and Output 01/22/17 01/22/17 01/23/17 15:00 23:00 07:00 Intake Total 75 ml 500 ml Output Total 1200 ml 1300 ml Balance -1125 ml -800 ml Exam HEENT exam; supple neck, no JVD. No lymphadenopathy. Midline trachea. Patient has fair dentition. The colostomy in place with clean insertion site. There is a significant right parietal skull depression. Chest exam; clear to auscultation. S1-S2 audible, no murmurs. Regular rhythm. Abdomen exam; soft, no organomegaly. G-tube in place. Bowel sounds audible. Extremity exam; no peripheral edema. Pulses 1+ bilaterally. [employer] exam; patient is unresponsive. Results Result Diagram: 01/23/1743 01/23/1743 Results 24 hrs Laboratory Tests Test 01/22/17 18:44 01/22/17 20:51 01/22/17 21:00 01/23/17 05:43 Bedside Glucose 153 127 Vancomycin Level Trough 14.3 White Blood Count 14.3 H Red Blood Count 3.25 L Hemoglobin 8.2 L Hematocrit 26.7 L Mean Corpuscular Volume 82.2 Mean Corpuscular Hemoglobin 25.2 L Mean Corpuscular Hemoglobin Concent 30.7 L Red Cell Distribution Width 18.5 H Platelet Count 509 #H Mean Platelet Volume 10.8 H Neutrophils % 74.9 Lymphocytes % 12.6 L Monocytes % 7.8 Eosinophils % 1.8 Basophils % 0.4 Nucleated Red Blood Cells % 0.0 Neutrophils # 10.7 H Lymphocytes # 1.8 Monocytes # 1.1 H Eosinophils # 0.3 Basophils # 0.1 Nucleated Red Blood Cells # 0.0 Sodium Level 143 Potassium Level 3.1 L Chloride Level 98 Carbon Dioxide Level 29 Anion Gap 19 H Blood Urea Nitrogen 12 Creatinine 0.59 Glucose Level 162 Calcium Level 8.8 Total Bilirubin 2.9 #H Direct Bilirubin 2.30 #H Indirect Bilirubin 0.6 Aspartate Amino Transf (AST/SGOT) 145 H Alanine Aminotransferase (ALT/SGPT) 129 H Alkaline Phosphatase 1347 H Ammonia 25 Total Protein 6.6 Albumin 3.0 L Globulin 3.60 H Albumin/Globulin Ratio 0.83 Alpha Fetoprotein 1.83 Test 01/23/17 09:56 Bedside Glucose 155 Medications Medications Current Medications Sodium Chloride (NS) 1,000 ml @ 75 mls/hr [id number] IV Last administered on 01/23t 09:59; Admin Dose 75 MLS/HR; Start 01/21/17 at 04:00 Ondansetron HCl (Zofran Inj) 4 mg Q6H PRN IV NAUSEA AND/OR VOMITING; Start at 04:00 Acetaminophen (Tylenol Supp) 650 mg Q6H PRN [place] PAIN LEVEL 1-3 OR FEVER; Start 01/21/17 at 04:00 Pantoprazole 40 mg 40 mg DAILY@06 IV Last administered on 01/23/17 06:22; Admin Dose 40 MG; Start 01/21/17 at 06:00 Ciprofloxacin/ Dextrose 200 ml @ 200 mls/hr Q12 IVPB Last administered on 01/23 09:59; Admin Dose 200 MLS/HR; Start 01/21/17 at 09:00 Vancomycin HCl (Vancocin) 250 ml @ 125 mls/hr Q12H IVPB Last administered on 22:10; Admin Dose 125 MLS/HR; Start 01/21/17 at 10:00; Stop 01/23/17 at 14:00 Acetaminophen (Tylenol Liquid) 325 mg Q4H PRN GTB PAIN OR TEMP ABOVE 38C Last administered on 01/21/17 22:44; Admin Dose 325 MG; Start 01/21/17 at 06:30 Amlodipine Besylate (Norvasc) 10 mg DAILY GTB Last administered on 01/23/17 09 :59; Admin Dose 10 MG; Start 01/21/17 at 09:00 Eye Lubricant (Akwa Oint) 1 applic HS BOTH EYES Last administered on 01/22/17 21:03; Admin Dose 1 APPLIC; Start 01/21/17 at 21:00 Bisacodyl (Dulcolax Supp) 10 mg DAILY [place] Last administered on 01/22/17 09:03; Admin Dose 10 MG; Start 01/21/17 at 09:00 Metoclopramide HCl (Reglan) 10 mg Q6H PRN GTB NAUSEA AND/OR VOMITING; Start at 06:30 Ondansetron HCl (Zofran Tab) 4 mg Q4H GTB Last administered on 01/23/17 09:58 ; Admin Dose 4 MG; Start 01/21/17 at 06:30 Senna (Senokot) 2 tab BID GTB Last administered on 01/23/17 09:58; Admin Dose 2 TAB; Start 01/21/17 at 09:00 Labetalol HCl (Normodyne) 300 mg BID GTB Last administered on 01/23/17 09:59; Admin Dose 300 MG; Start 01/21/17 at 09:00 Lorazepam (Ativan) 2 mg Q4H PRN IV SEIZURES Last administered on 01/22/17 01: 08; Admin Dose 2 MG; Start 01/22/17 at 01:04 Miscellaneous Information (Pending Santyl Order For Wound Care) This patient matos... PRN PRN XX WOUND CARE; Start 01/22/17 at 02:00 Diagnostic Test (Pha) (Accu-Chek) 1 ea 02 XX ; Start 01/23/17 at 02:00 Miscellaneous Information 1 ea NOTE XX ; Start 01/22/17 at 16:00 Glucose (Glutose) 15 gm Q15M PRN PO DECREASED GLUCOSE; Start 01/22/17 at 16:00 Glucose (Glutose) 22.5 gm Q15M PRN PO DECREASED GLUCOSE; Start 01/22/17 at 16: 00 Dextrose (D50w Syringe) 25 ml Q15M PRN IV DECREASED GLUCOSE; Start 01/22/17 at 16:00 Dextrose (D50w Syringe) 50 ml Q15M PRN IV DECREASED GLUCOSE; Start 01/22/17 at 16:00 Glucagon (Glucagen) 1 mg Q15M PRN IM DECREASED GLUCOSE; Start 01/22/17 at 16:00 Glucose 15 gm 15 gm Q15M PRN BUCCAL DECREASED GLUCOSE; Start 01/22/17 at 16:00 Vancomycin HCl/ Sodium Chloride (Vancocin/NS) 150 ml @ 75 mls/hr Q12H IVPB ; Start 01/23/17 at 22:00 DEAN BELTRAN Jan 23, 2017 11:33
[2017-01-23] MEDS: VANCOMYCIN 1 GM in NS 250 ML IVPB SCH (11:37)
--- NOTE | 2017-01-23 19:52 | PN ---
Date/Time of Note Date/Time of Note DATE: 01/23/17 TIME: 19:52 Assessment/Plan VTE Prophylaxis VTE Prophylaxis Intervention: SCD's Lines/Catheters IV [facility] [place] Urinary Cath still in place: Yes Reason Cath still needed: other (indicate) Assessment/Plan Assessment/Plan 1. Sepsis secondary to urinary tract infection -Continue antibiotic. Follow-up final culture results 2. History of intracranial hemorrhage, status post craniotomy -This is chronic issue. Continue care 3. Metastatic liver cancer, with colon being the primary given history -Patient was diagnosed with colon cancer 3 years ago for which she was treated for it. A year ago she was diagnosed with liver metastasis and there has been receiving chemo. According to the sons who are at the bedside, treatment needed to be stopped because of a complication. Family wants to get a second opinion and such will place an oncology consult. Patient had been receiving her chemo with her oncologist Kishore Yen. 4. Elevated transaminases: -GI on board. Appreciate input 5. Trach dependent respiratory failure - continue trach care. - pulmonary following 6. Hypertension: Blood pressure within goal -Adjust BP meds as needed Subjective 24 Hr Interval Summary Free Text/Dictation no distress. not following commands Exam/Review of Systems Vital Signs Vitals Vital Signs Date Time Temp Pulse Resp B/P Pulse Ox O2 Delivery O2 Flow Rate FiO2 01/23/17 19:26 5.0 01/23/17 19:26 89 22 93 Aerosol 28 T Tube 01/23/17 16:20 98.0 137/65 Intake and Output 01/22/17 01/22/17 01/23/17 15:00 23:00 07:00 Intake Total 75 ml 500 ml Output Total 1200 ml 1300 ml Balance -1125 ml -800 ml Exam Constitutional: other (No acute distress. Patient does not follow commands) Head: other (Status post right-sided craniotomy) Neck: other (Trach tube in place) Respiratory: diminished breath sounds Cardiovascular: other (Tachycardic with regular rhythm) Gastrointestinal: other (G-tube in place), soft Extremities: normal pulses Results Result Diagram: 01/23/17 0543 01/23/17 0543 Results 24 hrs Laboratory Tests Test 01/22/17 20:51 01/22/17 21:00 01/23/17 05:43 01/23/17 09:56 Vancomycin Level Trough 14.3 Bedside Glucose 127 155 White Blood Count 14.3 H Red Blood Count 3.25 L Hemoglobin 8.2 L Hematocrit 26.7 L Mean Corpuscular Volume 82.2 Mean Corpuscular Hemoglobin 25.2 L Mean Corpuscular Hemoglobin Concent 30.7 L Red Cell Distribution Width 18.5 H Platelet Count 509 #H Mean Platelet Volume 10.8 H Neutrophils % 74.9 Lymphocytes % 12.6 L Monocytes % 7.8 Eosinophils % 1.8 Basophils % 0.4 Nucleated Red Blood Cells % 0.0 Neutrophils # 10.7 H Lymphocytes # 1.8 Monocytes # 1.1 H Eosinophils # 0.3 Basophils # 0.1 Nucleated Red Blood Cells # 0.0 Sodium Level 143 Potassium Level 3.1 L Chloride Level 98 Carbon Dioxide Level 29 Anion Gap 19 H Blood Urea Nitrogen 12 Creatinine 0.59 Glucose Level 162 Calcium Level 8.8 Total Bilirubin 2.9 #H Direct Bilirubin 2.30 #H Indirect Bilirubin 0.6 Aspartate Amino Transf (AST/SGOT) 145 H Alanine Aminotransferase (ALT/SGPT) 129 H Alkaline Phosphatase 1347 H Ammonia 25 Total Protein 6.6 Albumin 3.0 L Globulin 3.60 H Albumin/Globulin Ratio 0.83 Alpha Fetoprotein 1.83 Test 01/23/17 12:56 01/23/17 18:13 Bedside Glucose 161 154 Medications Medications Current Medications Sodium Chloride (NS) 1,000 ml @ 75 mls/hr [id number] IV Last administered on 01/23 09:59; Admin Dose 75 MLS/HR; Start 01/21/17 at 04:00 Ondansetron HCl (Zofran Inj) 4 mg Q6H PRN IV NAUSEA AND/OR VOMITING; Start at 04:00 Acetaminophen (Tylenol Supp) 650 mg Q6H PRN [place] PAIN LEVEL 1-3 OR FEVER; Start 01/21/17 at 04:00 Pantoprazole 40 mg 40 mg DAILY@06 IV Last administered on 01/23/17 06:22; Admin Dose 40 MG; Start 01/21/17 at 06:00 Ciprofloxacin/ Dextrose (Cipro Ivpb) 200 ml @ 200 mls/hr Q12 IVPB Last administered on 01/23/17 09:59; Admin Dose 200 MLS/HR; Start 01/21/17 at 09:00 Acetaminophen (Tylenol Liquid) 325 mg Q4H PRN GTB PAIN OR TEMP ABOVE 38C Last administered on 01/21/17 22:44; Admin Dose 325 MG; Start 01/21/17 at 06:30 Amlodipine Besylate (Norvasc) 10 mg DAILY GTB Last administered on 01/23/17 09 :59; Admin Dose 10 MG; Start 01/21/17 at 09:00 Eye Lubricant (Akwa Oint) 1 applic HS BOTH EYES Last administered on 01/22/17 21:03; Admin Dose 1 APPLIC; Start 01/21/17 at 21:00 Bisacodyl (Dulcolax Supp) 10 mg DAILY [place] Last administered on 01/22/17 09:03; Admin Dose 10 MG; Start 01/21/17 at 09:00 Metoclopramide HCl (Reglan) 10 mg Q6H PRN GTB NAUSEA AND/OR VOMITING; Start at 06:30 Ondansetron HCl (Zofran Tab) 4 mg Q4H GTB Last administered on 01/23/17 18:15 ; Admin Dose 4 MG; Start 01/21/17 at 06:30 Senna (Senokot) 2 tab BID GTB Last administered on 01/23/17 09:58; Admin Dose 2 TAB; Start 01/21/17 at 09:00 Labetalol HCl (Normodyne) 300 mg BID GTB Last administered on 01/23/17 09:59; Admin Dose 300 MG; Start 01/21/17 at 09:00 Lorazepam (Ativan) 2 mg Q4H PRN IV SEIZURES Last administered on 01/22/17 01: 08; Admin Dose 2 MG; Start 01/22/17 at 01:04 Miscellaneous Information (Pending Santyl Order For Wound Care) This patient matos... PRN PRN XX WOUND CARE; Start 01/22/17 at 02:00 Diagnostic Test (Pha) (Accu-Chek) 1 ea 02 XX ; Start 01/23/17 at 02:00 Miscellaneous Information 1 ea NOTE XX ; Start 01/22/17 at 16:00 Glucose (Glutose) 15 gm Q15M PRN PO DECREASED GLUCOSE; Start 01/22/17 at 16:00 Glucose (Glutose) 22.5 gm Q15M PRN PO DECREASED GLUCOSE; Start 01/22/17 at 16: 00 Dextrose (D50w Syringe) 25 ml Q15M PRN IV DECREASED GLUCOSE; Start 01/22/17 at 16:00 Dextrose (D50w Syringe) 50 ml Q15M PRN IV DECREASED GLUCOSE; Start 01/22/17 at 16:00 Glucagon (Glucagen) 1 mg Q15M PRN IM DECREASED GLUCOSE; Start 01/22/17 at 16:00 Glucose 15 gm 15 gm Q15M PRN BUCCAL DECREASED GLUCOSE; Start 01/22/17 at 16:00 Vancomycin HCl/ Sodium Chloride (Vancocin/NS) 150 ml @ 75 mls/hr Q12H IVPB ; Start 01/23/17 at 22:00 LAURYN RASCON MD Jan 23, 2017 19:52
[2017-01-23] MEDS: OCULAR LUBRICANT 3.5 GM OPH OINT BOTH EYES SCH (20:38)
[2017-01-23] MEDS: VANCOMYCIN 750 MG in SOD CHLORIDE 0.9% 150 ML IVPB SCH (22:09)
[2017-01-24] VITALS (11 sets, daily range): BP systolic 125–142; BP diastolic 60–70; PULSE 60–82; RESP 18–19
[2017-01-24] MEDS: ACCU-CHEK XX SCH (02:00)
[2017-01-24] MEDS: ONDANSETRON 4 MG TAB GTB SCH ×6 (02:19→22:30)
[2017-01-24] MEDS: PANTOPRAZOLE 40 MG INJ IV SCH (06:25)
[2017-01-24] MEDS: SOD CHLORIDE 0.9% 1,000 ML IV SCH ×2 (08:49→12:00)
[2017-01-24] MEDS: LABETALOL 100 MG TAB GTB SCH ×2 (08:49→21:18)
[2017-01-24] MEDS: CIPROFLOXACIN 400MG/D5W 200 ML IVPB SCH (08:49)
[2017-01-24] MEDS: SENNA TAB GTB SCH ×2 (08:49→21:18)
[2017-01-24] MEDS: AMLODIPINE 10 MG TAB GTB SCH (08:50)
[2017-01-24] MEDS: BISACODYL 10 MG SUPP PR SCH (08:50)
[2017-01-24] MEDS: INSULIN ASPART [NOVOLOG] 3 ML PEN SC SCH ×3 (09:09→18:22)
[2017-01-24] MEDS: VANCOMYCIN 750 MG in SOD CHLORIDE 0.9% 150 ML IVPB SCH ×2 (10:58→22:27)
--- NOTE | 2017-01-24 12:45 | CONS ---
Date/Time of Note Date/Time of Note DATE: 01/24/17 TIME: 12:44 Assessment/Plan Assessment/Plan Additional Assessment/Plan Assessment and recommendations; 1. Patient admitted for UTI and sepsis with significant clinical improvement. 2. History of subarachnoid hemorrhage status post craniotomy. With left hemiplegia. 3. History of hypertension. Next Continue current treatment. Consultation Date/Type/Reason Admit Date/Time Jan 21, 2017 at 02:17 Initial Consult Date 01/23/17 Type of Consultation: Pulmonary Referring Provider: SON LEE 24 HR Interval Summary Free Text/Dictation Patient condition is markedly improved. She is completely awake and alert. Able to talk. Has remained hemodynamically stable. General exam; middle-aged woman, awake alert, maintained on tracheal T piece, currently in no distress. Exam/Review of Systems Vital Signs Vitals Vital Signs Date Time Temp Pulse Resp B/P Pulse Ox O2 Delivery O2 Flow Rate FiO2 01/24/17 12:27 98.0 70 18 133/63 97 01/24/17 08:05 5.0 01/24/17 05:20 Aerosol 28 T Tube Intake and Output 01/23/17 01/23/17 01/24/17 15:00 23:00 07:00 Intake Total 1700 ml 1100 ml Output Total 2300 ml 1500 ml Balance -600 ml -400 ml Exam HEENT exam; supple neck, no JVD. No lymphadenopathy. Midline trachea. No thyromegaly. Patient has fair dentition. Pupils are midsize and reactive to light. Tracheostomy placed with clean insertion site. There is a significant right skull parietal depression. Chest exam; clear to auscultation. S1-S2 audible, no murmurs. Regular rhythm. Abdomen exam; soft, nondistended. No organomegaly. Nontender. G-tube in place. Extremity exam; no peripheral edema. SCADA TECHNICIAN exam; patient has left hemiplegia. Results Result Diagram: 01/23/17 0543 01/23/17 0543 Results 24 hrs Laboratory Tests Test 01/23/17 12:56 01/23/17 18:13 01/23/17 20:40 01/24/17 08:44 Bedside Glucose 161 154 147 171 Medications Medications Current Medications Sodium Chloride (NS) 1,000 ml @ 75 mls/hr [id number] IV Last administered on 01/24t 08:49; Admin Dose 75 MLS/HR; Start 01/21/17 at 04:00 Ondansetron HCl (Zofran Inj) 4 mg Q6H PRN IV NAUSEA AND/OR VOMITING; Start at 04:00 Acetaminophen (Tylenol Supp) 650 mg Q6H PRN [place] PAIN LEVEL 1-3 OR FEVER; Start 01/21/17 at 04:00 Pantoprazole 40 mg 40 mg DAILY@06 IV Last administered on 01/24/17 06:25; Admin Dose 40 MG; Start 01/21/17 at 06:00 Ciprofloxacin/ Dextrose (Cipro Ivpb) 200 ml @ 200 mls/hr Q12 IVPB Last administered on 01/24/17 08:49; Admin Dose 200 MLS/HR; Start 01/21/17 at 09:00 Acetaminophen (Tylenol Liquid) 325 mg Q4H PRN GTB PAIN OR TEMP ABOVE 38C Last administered on 01/21/17 22:44; Admin Dose 325 MG; Start 01/21/17 at 06:30 Amlodipine Besylate (Norvasc) 10 mg DAILY GTB Last administered on 01/24/17 08 :50; Admin Dose 10 MG; Start 01/21/17 at 09:00 Eye Lubricant (Akwa Oint) 1 applic HS BOTH EYES Last administered on 01/23/17 20:38; Admin Dose 1 APPLIC; Start 01/21/17 at 21:00 Bisacodyl (Dulcolax Supp) 10 mg DAILY [place] Last administered on 01/22/17 09:03; Admin Dose 10 MG; Start 01/21/17 at 09:00 Metoclopramide HCl (Reglan) 10 mg Q6H PRN GTB NAUSEA AND/OR VOMITING; Start at 06:30 Ondansetron HCl (Zofran Tab) 4 mg Q4H GTB Last administered on 01/24/17 10:58 ; Admin Dose 4 MG; Start 01/21/17 at 06:30 Senna (Senokot) 2 tab BID GTB Last administered on 01/24/17 08:49; Admin Dose 2 TAB; Start 01/21/17 at 09:00 Labetalol HCl (Normodyne) 300 mg BID GTB Last administered on 01/24/17 08:49; Admin Dose 300 MG; Start 01/21/17 at 09:00 Lorazepam (Ativan) 2 mg Q4H PRN IV SEIZURES Last administered on 01/22/17 01: 08; Admin Dose 2 MG; Start 01/22/17 at 01:04 Miscellaneous Information ([facility] This patient matos... PRN PRN XX WOUND CARE; Start 01/22/17 at 02:00 Diagnostic Test (Pha) (Accu-Chek) 1 ea 02 XX ; Start 01/23/17 at 02:00 Miscellaneous Information 1 ea NOTE XX ; Start 01/22/17 at 16:00 Glucose (Glutose) 15 gm Q15M PRN PO DECREASED GLUCOSE; Start 01/22/17 at 16:00 Glucose (Glutose) 22.5 gm Q15M PRN PO DECREASED GLUCOSE; Start 01/22/17 at 16: 00 Dextrose (D50w Syringe) 25 ml Q15M PRN IV DECREASED GLUCOSE; Start 01/22/17 at 16:00 Dextrose (D50w Syringe) 50 ml Q15M PRN IV DECREASED GLUCOSE; Start 01/22/17 at 16:00 Glucagon (Glucagen) 1 mg Q15M PRN IM DECREASED GLUCOSE; Start 01/22/17 at 16:00 Glucose 15 gm 15 gm Q15M PRN BUCCAL DECREASED GLUCOSE; Start 01/22/17 at 16:00 Vancomycin HCl/ Sodium Chloride (Vancocin/NS) 150 ml @ 75 mls/hr Q12H IVPB Last administered on 01/24/17 10:58; Admin Dose 75 MLS/HR; Start 01/23/17 at 22 :00 DEAN BELTRAN Jan 24, 2017 12:45
--- NOTE | 2017-01-24 16:40 | CONS ---
Date/Time of Note Date/Time of Note DATE: 01/24/17 TIME: 16:39 Consultation Date/Type/Reason Admit Date/Time Jan 21, 2017 at 02:17 Date of Consultation: Jan 24, 2017 Type of Consultation: ID Reason for Consultation Antibiotic management Past Medical History Medical History: other (aneurysm brain,colonic cancer with liver metastasis) Past Surgical History Past Surgical Hx: bowel resection, other (craniotomy 09/2016,colon surgery Tracheostomy peg) Social History Alcohol Use: none Smoking Status: Never smoker Drug Use: none Exam/Review of Systems Vital Signs Vitals Vital Signs Date Time Temp Pulse Resp B/P Pulse Ox O2 Delivery O2 Flow Rate FiO2 01/24/17 16:15 98.0 87 18 135/70 98 01/24/17 13:49 5.0 01/24/17 05:20 Aerosol 28 T Tube Intake and Output 01/23/17 01/23/17 01/24/17 15:00 23:00 07:00 Intake Total 1700 ml 1100 ml Output Total 2300 ml 1500 ml Balance -600 ml -400 ml Results Result Diagram: 01/23/17 0543 01/23/17 0543 Results 24 hrs Laboratory Tests Test 01/23/17 18:13 01/23/17 20:40 01/24/17 08:44 01/24/17 12:51 Bedside Glucose 154 147 171 197 Medications Medications Current Medications Sodium Chloride (NS) 1,000 ml @ 75 mls/hr [id number] IV Last administered on 01/24 08:49; Admin Dose 75 MLS/HR; Start 01/21/17 at 04:00 Ondansetron HCl (Zofran Inj) 4 mg Q6H PRN IV NAUSEA AND/OR VOMITING; Start at 04:00 Acetaminophen (Tylenol Supp) 650 mg Q6H PRN [place] PAIN LEVEL 1-3 OR FEVER; Start 01/21/17 at 04:00 Pantoprazole (Protonix Iv) 40 mg DAILY@06 IV Last administered on 01/24/17 06: 25; Admin Dose 40 MG; Start 01/21/17 at 06:00 Acetaminophen (Tylenol Liquid) 325 mg Q4H PRN GTB PAIN OR TEMP ABOVE 38C Last administered on 01/21/17 22:44; Admin Dose 325 MG; Start 01/21/17 at 06:30 Amlodipine Besylate (Norvasc) 10 mg DAILY GTB Last administered on 01/24/17 08 :50; Admin Dose 10 MG; Start 01/21/17 at 09:00 Eye Lubricant (Akwa Oint) 1 applic HS BOTH EYES Last administered on 01/23/17 20:38; Admin Dose 1 APPLIC; Start 01/21/17 at 21:00 Bisacodyl (Dulcolax Supp) 10 mg DAILY [place] Last administered on 01/22/17 09:03; Admin Dose 10 MG; Start 01/21/17 at 09:00 Metoclopramide HCl (Reglan) 10 mg Q6H PRN GTB NAUSEA AND/OR VOMITING; Start at 06:30 Ondansetron HCl (Zofran Tab) 4 mg Q4H GTB Last administered on 01/24/17 10:58 ; Admin Dose 4 MG; Start 01/21/17 at 06:30 Senna (Senokot) 2 tab BID GTB Last administered on 01/24/17 08:49; Admin Dose 2 TAB; Start 01/21/17 at 09:00 Labetalol HCl (Normodyne) 300 mg BID GTB Last administered on 01/24/17 08:49; Admin Dose 300 MG; Start 01/21/17 at 09:00 Lorazepam (Ativan) 2 mg Q4H PRN IV SEIZURES Last administered on 01/22/17 01: 08; Admin Dose 2 MG; Start 01/22/17 at 01:04 Miscellaneous Information (Pending [facility] Order For Wound Care) This patient matos... PRN PRN XX WOUND CARE; Start 01/22/17 at 02:00 Diagnostic Test (Pha) (Accu-Chek) 1 ea 02 XX ; Start 01/23/17 at 02:00 Miscellaneous Information 1 ea NOTE XX ; Start 01/22/17 at 16:00 Glucose (Glutose) 15 gm Q15M PRN PO DECREASED GLUCOSE; Start 01/22/17 at 16:00 Glucose (Glutose) 22.5 gm Q15M PRN PO DECREASED GLUCOSE; Start 01/22/17 at 16: 00 Dextrose (D50w Syringe) 25 ml Q15M PRN IV DECREASED GLUCOSE; Start 01/22/17 at 16:00 Dextrose (D50w Syringe) 50 ml Q15M PRN IV DECREASED GLUCOSE; Start 01/22/17 at 16:00 Glucagon (Glucagen) 1 mg Q15M PRN IM DECREASED GLUCOSE; Start 01/22/17 at 16:00 Glucose 15 gm 15 gm Q15M PRN BUCCAL DECREASED GLUCOSE; Start 01/22/17 at 16:00 Vancomycin HCl 750 mg/Sodium Chloride 150 ml @ 75 mls/hr Q12H IVPB Last administered on 01/24/17t 10:58; Admin Dose 75 MLS/HR; Start 01/23/17 at 22:00 Cefepime HCl (Maxipime 1gm/50 ml (Pmx)) 50 ml @ 100 mls/hr Q12 IVPB ; Start at 21:00; Status MAGALY MAYO MD Jan 24, 2017 16:40
--- NOTE | 2017-01-24 16:57 | PN ---
Date/Time of Note Date/Time of Note DATE: 01/24/17 TIME: 16:54 Assessment/Plan VTE Prophylaxis VTE Prophylaxis Intervention: SCD's Lines/Catheters IV Catheter Type (from Nrs): Peripheral IV Urinary Cath still in place: Yes Reason Cath still needed: terminal illness/intractable pain Assessment/Plan Chief Complaint/Hosp Course Assessment/Plan 1. Sepsis secondary to urinary tract infection -Continue antibiotic per ID 2. History of intracranial hemorrhage, status post craniotomy -This is chronic issue. Continue care 3. Metastatic liver cancer, with colon being the primary given history -Patient was diagnosed with colon cancer 3 years ago for which she was treated for it. A year ago she was diagnosed with liver metastasis and there has been receiving chemo. According to the sons who are at the bedside, treatment needed to be stopped because of a complication. Family wants to get a second opinion and such will place an oncology consult. Patient had been receiving her chemo with her oncologist Kishore Yen. Dr. Venegas consulted by weekend hospitalist, will wait another 24 hour for consult. no note yet. 4. Elevated transaminases: -GI on board. Appreciate input 5. 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 - continue trach care. - pulmonary following 6. Hypertension: Blood pressure within goal -Adjust BP meds as needed Problems: Subjective 24 Hr Interval Summary Free Text/Dictation no acute changes Exam/Review of Systems Vital Signs Vitals Vital Signs Date Time Temp Pulse Resp B/P Pulse Ox O2 Delivery O2 Flow Rate FiO2 01/24/17 16:15 98.0 87 18 135/70 98 01/24/17 13:49 5.0 01/24/17 05:20 Aerosol 28 T Tube Intake and Output 01/23/17 01/23/17 01/24/17 15:00 23:00 07:00 Intake Total 1700 ml 1100 ml Output Total 2300 ml 1500 ml Balance -600 ml -400 ml Exam Physical exam General: Patient is laying in bed on t-piece trach. Mentation: Patient is alert and oriented, but has difficulty speaking. Head: R sided concavity Eyes: EOMI, pupils reactive to light Neck: Supple, nontender, midline Respiratory: Clear to auscultation bilaterally Cardiovascular: regular rate, no obvious murmurs Gastrointestinal: non-tender to palpation, bowel sounds heard. Neurological: L sided weakness. Skin: No new skin lesions Results Result Diagram: 01/23/17 0543 01/23/17 0543 Results 24 hrs Laboratory Tests Test 01/23/17 18:13 01/23/17 20:40 01/24/17 08:44 01/24/17 12:51 Bedside Glucose 154 147 171 197 Medications Medications Current Medications Sodium Chloride (NS) 1,000 ml @ 75 mls/hr [id number] IV Last administered on 01/24 08:49; Admin Dose 75 MLS/HR; Start 01/21/17 at 04:00 Ondansetron HCl (Zofran Inj) 4 mg Q6H PRN IV NAUSEA AND/OR VOMITING; Start at 04:00 Acetaminophen (Tylenol Supp) 650 mg Q6H PRN [place] PAIN LEVEL 1-3 OR FEVER; Start 01/21/17 at 04:00 Pantoprazole (Protonix Iv) 40 mg DAILY@06 IV Last administered on 01/24/17 06: 25; Admin Dose 40 MG; Start 01/21/17 at 06:00 Acetaminophen (Tylenol Liquid) 325 mg Q4H PRN GTB PAIN OR TEMP ABOVE 38C Last administered on 01/21/17 22:44; Admin Dose 325 MG; Start 01/21/17 at 06:30 Amlodipine Besylate (Norvasc) 10 mg DAILY GTB Last administered on 01/24/17 08 :50; Admin Dose 10 MG; Start 01/21/17 at 09:00 Eye Lubricant (Akwa Oint) 1 applic HS BOTH EYES Last administered on 01/23/17 20:38; Admin Dose 1 APPLIC; Start 01/21/17 at 21:00 Bisacodyl (Dulcolax Supp) 10 mg DAILY [place] Last administered on 01/22/17 09:03; Admin Dose 10 MG; Start 01/21/17 at 09:00 Metoclopramide HCl (Reglan) 10 mg Q6H PRN GTB NAUSEA AND/OR VOMITING; Start at 06:30 Ondansetron HCl (Zofran Tab) 4 mg Q4H GTB Last administered on 01/24/17 10:58 ; Admin Dose 4 MG; Start 01/21/17 at 06:30 Senna (Senokot) 2 tab BID GTB Last administered on 01/24/17 08:49; Admin Dose 2 TAB; Start 01/21/17 at 09:00 Labetalol HCl (Normodyne) 300 mg BID GTB Last administered on 01/24/17 08:49; Admin Dose 300 MG; Start 01/21/17 at 09:00 Lorazepam (Ativan) 2 mg Q4H PRN IV SEIZURES Last administered on 01/22/17 01: 08; Admin Dose 2 MG; Start 01/22/17 at 01:04 [facility]isc[facility] This patient matos... PRN PRN XX WOUND CARE; Start 01/22/17 at 02:00 Diagnostic Test (Pha) (Accu-Chek) 1 ea 02 XX ; Start 01/23/17 at 02:00 Miscellaneous Information 1 ea NOTE XX ; Start 01/22/17 at 16:00 Glucose (Glutose) 15 gm Q15M PRN PO DECREASED GLUCOSE; Start 01/22/17 at 16:00 Glucose (Glutose) 22.5 gm Q15M PRN PO DECREASED GLUCOSE; Start 01/22/17 at 16: 00 Dextrose (D50w Syringe) 25 ml Q15M PRN IV DECREASED GLUCOSE; Start 01/22/17 at 16:00 Dextrose (D50w Syringe) 50 ml Q15M PRN IV DECREASED GLUCOSE; Start 01/22/17 at 16:00 Glucagon (Glucagen) 1 mg Q15M PRN IM DECREASED GLUCOSE; Start 01/22/17 at 16:00 Glucose 15 gm 15 gm Q15M PRN BUCCAL DECREASED GLUCOSE; Start 01/22/17 at 16:00 Vancomycin HCl 750 mg/Sodium Chloride 150 ml @ 75 mls/hr Q12H IVPB Last administered on 01/24/17 10:58; Admin Dose 75 MLS/HR; Start 01/23/17 at 22:00 Cefepime HCl (Maxipime 1gm/50 ml (Pmx)) 50 ml @ 100 mls/hr Q12 IVPB ; Start at 21:00 CESIA ROLLE Jan 24, 2017 16:57
[2017-01-24] MEDS: OCULAR LUBRICANT 3.5 GM OPH OINT BOTH EYES SCH (21:18)
[2017-01-24] MEDS: CEFEPIME 1GM/50 ML (PMX) 50 ML IVPB SCH (21:19)
[2017-01-25] VITALS (13 sets, daily range): BP systolic 109–139; BP diastolic 50–63; PULSE 71–90; RESP 16–20
[2017-01-25] MEDS: INSULIN ASPART [NOVOLOG] 3 ML PEN SC SCH ×5 (00:16→23:58)
[2017-01-25] MEDS ORDERED: ACCU-CHEK XX SCH (02:00)
[2017-01-25] MEDS: ONDANSETRON 4 MG TAB GTB SCH ×6 (02:30→21:42)
[2017-01-25] MEDS: PANTOPRAZOLE 40 MG INJ IV SCH (05:09)
[2017-01-25] MEDS: SOD CHLORIDE 0.9% 1,000 ML IV SCH ×2 (05:09→14:40)
--- NOTE | 2017-01-25 06:14 | CONS ---
DATE OF ADMISSION: 01/21/2017 DATE OF CONSULTATION: 01/24/2017 INFECTIOUS DISEASE CONSULTATION REASON FOR CONSULTATION: Antibiotic management. HISTORY OF PRESENT ILLNESS: Jeanna Pisano is a 51-year-old female who is brought in by EMS with fever for 1 week. The patient is lethargic. She was at a post acute facility where she has been recovering from a recent brain hemorrhage, status post craniotomy. She has been having intermittent fevers and has been acting confused over the last few days as well. Prior to that, she was showing relatively normal mentation. She does not have chest pain or shortness of breath. She was admitted to [facility] in September 2016 for brain hemorrhage. She has had a craniotomy, as well as BOILER ROOM OPERATOR shunt. She was transferred to [place] and then to post acute facility for rehab and is currently on a trach collar. PAST MEDICAL HISTORY: She had a brain hemorrhage, as noted. She has left-sided weakness, status post brain hemorrhage. PAST SURGICAL HISTORY: Craniotomy and BOILER ROOM OPERATOR shunt. She had colon surgery. She had a G-tube placement and IVC filter placement. SOCIAL HISTORY: She does not smoke, drink or abuse drugs. ALLERGIES: NONE TO PENICILLIN, SULFA OR FOODS. MEDICATIONS: Per chart. REVIEW OF SYSTEMS: As per HPI. PHYSICAL EXAMINATION: GENERAL APPEARANCE: The patient is lying in bed, in no acute distress. She is somnolent, but arousable. SKIN: Without generalized rash. HEENT: Within normal limits. NECK: Supple. Lymph nodes nonpalpable. CHEST: Decreased breath sounds at the bases. HEART: Without murmur or gallop. ABDOMEN: Soft, nontender, without organosplenomegaly or masses. She has a G-tube in place. EXTREMITIES: Without cyanosis, clubbing or edema. GENERAL APPEARANCE: Exam deferred. RECTAL: Exam deferred. NEUROLOGIC: No focal neurological abnormality. LABORATORY: On admission, her white count was 16.3, hemoglobin of 9.2, hematocrit 29.5, and platelet count 529,000. Today, BUN is 20 and creatinine 0.44. The patient was started on vancomycin and ciprofloxacin. Her white count today is 14.3. Her urinalysis was positive for leukocyte esterase, 3-plus, positive for nitrites and for white cells greater than 182. Her BUN is 12, creatinine 0.59. She is hepatitis B and C negative. Her liver function tests are slightly elevated; AST 145, ALT 129, alkaline phosphatase was 1347. Her urine is growing E coli and Klebsiella pneumoniae ESBL. She is on vancomycin and Cipro. The E coli is sensitive to cefotaxime, but the Klebsiella pneumoniae is sensitive to cefepime, imipenem, Levaquin. So we could change her over to cefepime 1 g q.12 h. We could also probably discontinue her vancomycin. Her chest x-ray shows no evidence for active cardiopulmonary disease. Gallbladder Ultrasound: Common bile duct dilatation. Echogenic left hepatic lesion, probably hemangioma. Abdominal MRI: Moderate diffuse intra and extrahepatic biliary ductal dilatation with an abrupt transition point at the distal common bile duct suspicious for malignant stricture or underlying occult mass lesion. ERCP can be performed for further evaluation. Hepatomegaly with innumerable masses throughout the liver. Bulky periportal portacaval extrahepatic ligament an aortocaval adenopathy highly suspicious for metastatic disease from an uncertain primary. CT scan of the chest, abdomen and pelvis can be performed for further evaluation. Trace right pleural effusion. Partially visualized ventral abdominal hernia. IMPRESSION AND PLAN: We are going to change her to cefepime from ceftriaxone. I will dictate my findings to the hospitalist and the various consultants (obviously, she will need a GI doctor or a surgeon, or an oncologist to evaluate her metastatic liver cancer). Dictated By: Erick Estrada MD JD/luc/al /Document#: [id number]
[2017-01-25 06:56] LABS: BASOPHIL # 0.1 10^3/ul (0.0-0.1); BASOPHILS % 0.4 % (0.0-2.0); EOSINOPHILS # 0.3 10^3/ul (0.0-0.5); EOSINOPHILS % 1.6 % (0.0-7.0); HEMATOCRIT 25.4 % (37.0-47.0); LYMPHOCYTES # 1.5 10^3/ul (0.8-2.9); LYMPHOCYTES % 8.8 % (15.0-51.0); MEAN CORPUSCULAR HEMOGLOBIN 25.7 pg (29.0-33.0); MEAN CORPUSCULAR HGB CONC 31.5 g/dl (32.0-37.0); MEAN CORPUSCULAR VOLUME 81.7 fl (82.0-101.0); MEAN PLATELET VOLUME 10.9 fl (7.4-10.4); NEUTROPHIL # 13.9 10^3/ul (1.6-7.5); NEUTROPHILS % 81.6 % (39.0-77.0); PLATELET COUNT 509 10^3/UL (140-415); RED BLOOD COUNT 3.11 10^6/ul (4.20-5.40); WHITE BLOOD COUNT 17.1 10^3/ul (4.8-10.8)
[2017-01-25 07:38] LABS: CALCIUM 7.8 mg/dl (8.4-10.2); CREATININE 0.64 mg/dl (0.44-1.00); MAGNESIUM 1.3 mg/dl (1.7-2.5); PHOSPHORUS 2.6 mg/dl (2.5-4.9)
[2017-01-25 07:42] LABS: POTASSIUM 2.6 mmol/L (3.5-5.1)
[2017-01-25] MEDS: SENNA TAB GTB SCH ×2 (09:02→21:43)
[2017-01-25] MEDS: LABETALOL 100 MG TAB GTB SCH ×2 (09:02→21:42)
--- NOTE | 2017-01-25 09:02 | CONS ---
Date/Time of Note Date/Time of Note DATE: 01/25/17 TIME: 08:59 Assessment/Plan Assessment/Plan Additional Assessment/Plan Assessment and recommendations; next 1. Patient admitted for UTI and sepsis with interval improvement. 2. History of subarachnoid hemorrhage and craniotomy. 3. Hypertension. 4. Dense left hemiplegia. Continue current treatment. Consultation Date/Type/Reason Admit Date/Time Jan 21, 2017 at 02:17 Initial Consult Date 01/23/17 Type of Consultation: Pulmonary Referring Provider: SON LEE 24 HR Interval Summary Free Text/Dictation Patient condition stable. Remains awake alert. Able to talk. General exam; middle-aged woman, on T piece via tracheostomy, awake and alert. Currently in no distress. Exam/Review of Systems Vital Signs Vitals Vital Signs Date Time Temp Pulse Resp B/P Pulse Ox O2 Delivery O2 Flow Rate FiO2 01/25/17 07:48 98.9 89 20 135/62 94 01/25/17 00:35 5.0 01/24/17 05:20 Aerosol 28 T Tube Intake and Output 01/24/17 01/24/17 01/25/17 15:00 23:00 07:00 Intake Total 1550 ml 1500 ml Output Total 2300 ml 1500 ml Balance -750 ml 0 ml Exam HEENT exam; supple neck, no JVD. No lymphadenopathy. Midline trachea. No thyromegaly. Tracheostomy in place with clean insertion site. T-piece. There is a significant right parietal skull depression. Patient has fair dentition. Chest exam; clear to auscultation. S1-S2 audible, no murmurs. Regular rhythm. Abdomen exam; soft, G-tube in place. Bowel sounds audible. Nontender. No organomegaly. Extremity exam; no peripheral edema. NIBBLER OPERATOR exam; patient has dense left hemiplegia. Results Result Diagram: 01/25/17 0623 01/25/17 0623 Results 24 hrs Laboratory Tests Test 01/24/17 12:51 01/24/17 18:20 01/25/17 00:12 01/25/17 05:18 Bedside Glucose 197 148 159 171 Test 01/25/17 06:23 White Blood Count 17.1 H Red Blood Count 3.11 L Hemoglobin 8.0 L Hematocrit 25.4 L Mean Corpuscular Volume 81.7 L Mean Corpuscular Hemoglobin 25.7 L Mean Corpuscular Hemoglobin Concent 31.5 L Red Cell Distribution Width 19.0 H Platelet Count 509 H Mean Platelet Volume 10.9 H Neutrophils % 81.6 H Lymphocytes % 8.8 L Monocytes % 6.0 Eosinophils % 1.6 Basophils % 0.4 Nucleated Red Blood Cells % 0.0 Neutrophils # 13.9 H Lymphocytes # 1.5 Monocytes # 1.0 H Eosinophils # 0.3 Basophils # 0.1 Nucleated Red Blood Cells # 0.0 Sodium Level 143 Potassium Level 2.6 *L Chloride Level 100 Carbon Dioxide Level 31 Anion Gap 15 Blood Urea Nitrogen 10 Creatinine 0.64 Glucose Level 168 Calcium Level 7.8 L Phosphorus Level 2.6 Magnesium Level 1.3 L Medications Medications Current Medications Sodium Chloride (NS) 1,000 ml @ 75 mls/hr [id number] IV Last administered on 05:09; Admin Dose 75 MLS/HR; Start 01/21/17 at 04:00 Ondansetron HCl (Zofran Inj) 4 mg Q6H PRN IV NAUSEA AND/OR VOMITING; Start at 04:00 Acetaminophen (Tylenol Supp) 650 mg Q6H PRN [place] PAIN LEVEL 1-3 OR FEVER; Start 01/21/17 at 04:00 Pantoprazole (Protonix Iv) 40 mg DAILY@06 IV Last administered on 01/25/17 05: 09; Admin Dose 40 MG; Start 01/21/17 at 06:00 Acetaminophen (Tylenol Liquid) 325 mg Q4H PRN GTB PAIN OR TEMP ABOVE 38C Last administered on 01/21/17 22:44; Admin Dose 325 MG; Start 01/21/17 at 06:30 Amlodipine Besylate (Norvasc) 10 mg DAILY GTB Last administered on 01/24/17 08 :50; Admin Dose 10 MG; Start 01/21/17 at 09:00 Eye Lubricant (Akwa Oint) 1 applic HS BOTH EYES Last administered on 01/24/17 21:18; Admin Dose 1 APPLIC; Start 01/21/17 at 21:00 Bisacodyl (Dulcolax Supp) 10 mg DAILY [place] Last administered on 01/22/17 09:03; Admin Dose 10 MG; Start 01/21/17 at 09:00 Metoclopramide HCl (Reglan) 10 mg Q6H PRN GTB NAUSEA AND/OR VOMITING; Start at 06:30 Ondansetron HCl (Zofran Tab) 4 mg Q4H GTB Last administered on 01/24/17 18:20 ; Admin Dose 4 MG; Start 01/21/17 at 06:30 Senna (Senokot) 2 tab BID GTB Last administered on 01/24/17 21:18; Admin Dose 2 TAB; Start 01/21/17 at 09:00 Labetalol HCl (Normodyne) 300 mg BID GTB Last administered on 01/24/17 21:18; Admin Dose 300 MG; Start 01/21/17 at 09:00 Lorazepam (Ativan) 2 mg Q4H PRN IV SEIZURES Last administered on 01/22/17 01: 08; Admin Dose 2 MG; Start 01/22/17 at 01:04 [facility] This patient matos... PRN PRN XX WOUND CARE; Start 01/22/17 at 02:00 Miscellaneous Information 1 ea NOTE XX ; Start 01/22/17 at 16:00 Glucose (Glutose) 15 gm Q15M PRN PO DECREASED GLUCOSE; Start 01/22/17 at 16:00 Glucose (Glutose) 22.5 gm Q15M PRN PO DECREASED GLUCOSE; Start 01/22/17 at 16: 00 Dextrose (D50w Syringe) 25 ml Q15M PRN IV DECREASED GLUCOSE; Start 01/22/17 at 16:00 Dextrose (D50w Syringe) 50 ml Q15M PRN IV DECREASED GLUCOSE; Start 01/22/17 at 16:00 Glucagon (Glucagen) 1 mg Q15M PRN IM DECREASED GLUCOSE; Start 01/22/17 at 16:00 Glucose 15 gm 15 gm Q15M PRN BUCCAL DECREASED GLUCOSE; Start 01/22/17 at 16:00 Vancomycin HCl 750 mg/Sodium Chloride 150 ml @ 75 mls/hr Q12H IVPB Last administered on 01/24/17 22:27; Admin Dose 75 MLS/HR; Start 01/23/17 at 22:00 Cefepime HCl (Maxipime 1gm/50 ml (Pmx)) 50 ml @ 100 mls/hr Q12 IVPB Last administered on 01/24/17 21:19; Admin Dose 100 MLS/HR; Start 01/24/17 at 21:00 Insulin Aspart (Novolog Insulin Pen) NOVOLOG *MILD* ALGORI... Q6 SC Last administered on 01/25/17 05:22; Admin Dose 1 UNIT; Start 01/25/17 at 00:00 Collagenase 1 applic 1 applic DAILY PRN TOP PRN; Start 01/25/17 at 01:00 Potassium Chloride (KCl 40 MEQ/250 ML NS) 250 ml @ 62.5 mls/hr Q4H IVPB ; Start 01/25/17 at 09:30; Stop 01/25/17 at 17:29 DEAN BELTRAN Jan 25, 2017 09:01
[2017-01-25] MEDS: AMLODIPINE 10 MG TAB GTB SCH (09:03)
[2017-01-25] MEDS: BISACODYL 10 MG SUPP PR SCH (09:03)
[2017-01-25] MEDS: CEFEPIME 1GM/50 ML (PMX) 50 ML IVPB SCH ×2 (09:04→21:43)
[2017-01-25] MEDS: VANCOMYCIN 750 MG in SOD CHLORIDE 0.9% 150 ML IVPB SCH ×2 (10:20→23:14)
[2017-01-25] MEDS: POTASSIUM CHLORIDE 250 ML IVPB SCH ×2 (11:26→13:30)
--- NOTE | 2017-01-25 14:14 | PN ---
Date/Time of Note Date/Time of Note DATE: 01/25/17 TIME: 14:08 Assessment/Plan VTE Prophylaxis VTE Prophylaxis Intervention: SCD's Lines/Catheters IV Catheter Type (from Nrs): Peripheral IV Central line still needed: Yes Urinary Cath still in place: Yes Reason Cath still needed: urinary retention Assessment/Plan Assessment/Plan Assessment * Sepsis UTI vs pneumonia vs others * Elevated transaminitis Obstructive vs hepatocellular in origin MRI . Moderate diffuse intra and extrahepatic biliary ductal dilation with an abrupt transition point at the distal CBD, suspicious for a malignant stricture or underlying occult mass lesion. ERCP can be performed for further evaluation. Hepatomegaly with innumerable masses throughout the liver and bulky periportal, portacaval, extrahepatic ligament, and aortocaval adenopathy, highly suspicious for metastatic disease from an uncertain primary. Trace right effusion. . Partially visualized ventral abdominal hernia. * History of craniotomy sec brain aneurysm * History of colon surgery secondary to colonic cancer with liver metastasis * History of chemotherapy * History PEG * History of Tracheostomy Plan * Continue present management * suggest hospice evaluation given the MRCP results * Trend transaminase levels * Further orders will depend on clinical course * case discussed with Dr Hdz Subjective 24 Hr Interval Summary Free Text/Dictation * Course reviewed with RN * Patient seen and examined * MRI 1. Moderate diffuse intra and extrahepatic biliary ductal dilation with an abrupt transition point at the distal CBD, suspicious for a malignant stricture or underlying occult mass lesion. ERCP can be performed for further evaluation. 2. Hepatomegaly with innumerable masses throughout the liver and bulky periportal, portacaval, extrahepatic ligament, and aortocaval adenopathy, highly suspicious for metastatic disease from an uncertain primary. CT scan of the chest, abdomen, and pelvis can be performed for further evaluation. 3. Trace right effusion. 4. Partially visualized ventral abdominal hernia. Exam/Review of Systems Vital Signs Vitals Vital Signs Date Time Temp Pulse Resp B/P Pulse Ox O2 Delivery O2 Flow Rate FiO2 01/25/17 13:32 91 18 95 Aerosol 5.0 28 T Tube 01/25/17 11:24 97.4 132/60 Intake and Output 01/24/17 01/24/17 01/25/17 15:00 23:00 07:00 Intake Total 1550 ml 1500 ml Output Total 2300 ml 1500 ml Balance -750 ml 0 ml Exam Constitutional: frail, non-verbal ENMT: other (tracheostomy) Neck: non-tender, supple Respiratory: crackles/rales, diminished breath sounds Cardiovascular: regular rate and rhythm Gastrointestinal: nl liver, spleen, non-tender, other (G tube), soft Musculoskeletal: muscle weakness Extremities: edema, normal pulses Neurological: unresponsive Skin: nl turgor, rash or lesions Lymph: nl lymph nodes Results Result Diagram: 01/25/17 0623 01/25/17 0623 Results 24 hrs Laboratory Tests Test 01/24/17 18:20 01/25/17 00:12 01/25/17 05:18 01/25/17 06:23 Bedside Glucose 148 159 171 White Blood Count 17.1 H Red Blood Count 3.11 L Hemoglobin 8.0 L Hematocrit 25.4 L Mean Corpuscular Volume 81.7 L Mean Corpuscular Hemoglobin 25.7 L Mean Corpuscular Hemoglobin Concent 31.5 L Red Cell Distribution Width 19.0 H Platelet Count 509 H Mean Platelet Volume 10.9 H Neutrophils % 81.6 H Lymphocytes % 8.8 L Monocytes % 6.0 Eosinophils % 1.6 Basophils % 0.4 Nucleated Red Blood Cells % 0.0 Neutrophils # 13.9 H Lymphocytes # 1.5 Monocytes # 1.0 H Eosinophils # 0.3 Basophils # 0.1 Nucleated Red Blood Cells # 0.0 Sodium Level 143 Potassium Level 2.6 *L Chloride Level 100 Carbon Dioxide Level 31 Anion Gap 15 Blood Urea Nitrogen 10 Creatinine 0.64 Glucose Level 168 Calcium Level 7.8 L Phosphorus Level 2.6 Magnesium Level 1.3 L Test 01/25/17 11:46 Bedside Glucose 196 Medications Medications Current Medications Sodium Chloride (NS) 1,000 ml @ 75 mls/hr [id number] IV Last administered on 05:09; Admin Dose 75 MLS/HR; Start 01/21/17 at 04:00 Ondansetron HCl (Zofran Inj) 4 mg Q6H PRN IV NAUSEA AND/OR VOMITING; Start at 04:00 Acetaminophen (Tylenol Supp) 650 mg Q6H PRN [place] PAIN LEVEL 1-3 OR FEVER; Start 01/21/17 at 04:00 Pantoprazole (Protonix Iv) 40 mg DAILY@06 IV Last administered on 01/25/17 05: 09; Admin Dose 40 MG; Start 01/21/17 at 06:00 Acetaminophen (Tylenol Liquid) 325 mg Q4H PRN GTB PAIN OR TEMP ABOVE 38C Last administered on 01/21/17 22:44; Admin Dose 325 MG; Start 01/21/17 at 06:30 Amlodipine Besylate (Norvasc) 10 mg DAILY GTB Last administered on 01/25/17 09: 03; Admin Dose 10 MG; Start 01/21/17 at 09:00 Eye Lubricant (Akwa Oint) 1 applic HS BOTH EYES Last administered on 01/24/17 21:18; Admin Dose 1 APPLIC; Start 01/21/17 at 21:00 Bisacodyl (Dulcolax Supp) 10 mg DAILY [place] Last administered on 01/25/17 09:03; Admin Dose 10 MG; Start 01/21/17 at 09:00 Metoclopramide HCl (Reglan) 10 mg Q6H PRN GTB NAUSEA AND/OR VOMITING; Start at 06:30 Ondansetron HCl (Zofran Tab) 4 mg Q4H GTB Last administered on 01/25/17 10:20; Admin Dose 4 MG; Start 01/21/17 at 06:30 Senna (Senokot) 2 tab BID GTB Last administered on 01/25/17 09:02; Admin Dose 2 TAB; Start 01/21/17 at 09:00 Labetalol HCl (Normodyne) 300 mg BID GTB Last administered on 01/25/17 09:02; Admin Dose 300 MG; Start 01/21/17 at 09:00 Lorazepam (Ativan) 2 mg Q4H PRN IV SEIZURES Last administered on 01/22/17 01: 08; Admin Dose 2 MG; Start 01/22/17 at 01:04 Miscellaneous Information (Pending Santyl Order For Wound Care) This patient matos... PRN PRN XX WOUND CARE; Start 01/22/17 at 02:00 Miscellaneous Information 1 ea NOTE XX ; Start 01/22/17 at 16:00 Glucose (Glutose) 15 gm Q15M PRN PO DECREASED GLUCOSE; Start 01/22/17 at 16:00 Glucose (Glutose) 22.5 gm Q15M PRN PO DECREASED GLUCOSE; Start 01/22/17 at 16: 00 Dextrose (D50w Syringe) 25 ml Q15M PRN IV DECREASED GLUCOSE; Start 01/22/17 at 16:00 Dextrose (D50w Syringe) 50 ml Q15M PRN IV DECREASED GLUCOSE; Start 01/22/17 at 16:00 Glucagon (Glucagen) 1 mg Q15M PRN IM DECREASED GLUCOSE; Start 01/22/17 at 16:00 Glucose 15 gm 15 gm Q15M PRN BUCCAL DECREASED GLUCOSE; Start 01/22/17 at 16:00 Vancomycin HCl 750 mg/Sodium Chloride 150 ml @ 75 mls/hr Q12H IVPB Last administered on 01/25/17 10:20; Admin Dose 75 MLS/HR; Start 01/23/17 at 22:00 Cefepime HCl (Maxipime 1gm/50 ml (Pmx)) 50 ml @ 100 mls/hr Q12 IVPB Last administered on 01/25/17 09:04; Admin Dose 100 MLS/HR; Start 01/24/17 at 21:00 Insulin Aspart (Novolog Insulin Pen) NOVOLOG *MILD* ALGORI... Q6 SC Last administered on 01/25/17 12:05; Admin Dose 2 UNIT; Start 01/25/17 at 00:00 Collagenase 1 applic 1 applic DAILY PRN TOP PRN; Start 01/25/17 at 01:00 Potassium Chloride (KCl 40 MEQ/250 ML NS) 250 ml @ 62.5 mls/hr Q4H IVPB Last administered on 01/25/17 11:26; Admin Dose 62.5 MLS/HR; Start 01/25/17 at 09:30; Stop 01/25/17 at 17:29 TERRY CAMPBELL NP Jan 25, 2017 14:14
--- NOTE | 2017-01-25 14:48 | PN ---
Date/Time of Note Date/Time of Note DATE: 01/25/17 TIME: 14:43 Assessment/Plan VTE Prophylaxis VTE Prophylaxis Intervention: SCD's Lines/Catheters IV C[facility] Type (from [facility]): Peripheral IV Urinary Cath still in place: Yes Reason Cath still needed: urinary retention Assessment/Plan Chief Complaint/Hosp Course Assessment/Plan 1. Sepsis secondary to urinary tract infection -Continue antibiotic per ID 2. History of intracranial hemorrhage, status post craniotomy -This is chronic issue. Continue care 3. Metastatic liver cancer, with colon being the primary given history -Patient was diagnosed with colon cancer 3 years ago for which she was treated for it. A year ago she was diagnosed with liver metastasis and there has been receiving chemo. According to the sons who are at the bedside, treatment needed to be stopped because of a complication. Family wants to get a second opinion and such will place an oncology consult. Dr. Alaina Rivas consulted. 4. Elevated transaminases: -GI on board. will trend enzymes for now. states ERCP if/when stable. 5. 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 - continue trach care. - pulmonary following 6. Hypertension: Blood pressure within goal -Adjust BP meds as needed DISPO: Once ID recs are finalized and with oncology recs, will plan for transfer Problems: Exam/Review of Systems Vital Signs Vitals Vital Signs Date Time Temp Pulse Resp B/P Pulse Ox O2 Delivery O2 Flow Rate FiO2 01/25/17 13:32 91 18 95 Aerosol 5.0 28 T Tube 01/25/17 11:24 97.4 132/60 Intake and Output 01/24/17 01/24/17 01/25/17 14:59 22:59 06:59 Intake Total 1550 ml 1500 ml Output Total 2300 ml 1500 ml Balance -750 ml 0 ml Exam Physical exam General: Patient is laying in bed on t-piece trach. Mentation: Patient is alert and oriented, but has difficulty speaking. Head: R sided concavity Eyes: EOMI, pupils reactive to light Neck: Supple, nontender, midline Respiratory: Clear to auscultation bilaterally Cardiovascular: regular rate, no obvious murmurs Gastrointestinal: non-tender to palpation, bowel sounds heard. Neurological: L sided weakness. Skin: No new skin lesions Results Result Diagram: 01/25/1762201/25/17 0623 Results 24 hrs Laboratory Tests Test 01/24/17 18:20 01/25/17 00:12 01/25/17 05:18 01/25/17 06:23 Bedside Glucose 148 159 171 White Blood Count 17.1 H Red Blood Count 3.11 L Hemoglobin 8.0 L Hematocrit 25.4 L Mean Corpuscular Volume 81.7 L Mean Corpuscular Hemoglobin 25.7 L Mean Corpuscular Hemoglobin Concent 31.5 L Red Cell Distribution Width 19.0 H Platelet Count 509 H Mean Platelet Volume 10.9 H Neutrophils % 81.6 H Lymphocytes % 8.8 L Monocytes % 6.0 Eosinophils % 1.6 Basophils % 0.4 Nucleated Red Blood Cells % 0.0 Neutrophils # 13.9 H Lymphocytes # 1.5 Monocytes # 1.0 H Eosinophils # 0.3 Basophils # 0.1 Nucleated Red Blood Cells # 0.0 Sodium Level 143 Potassium Level 2.6 *L Chloride Level 100 Carbon Dioxide Level 31 Anion Gap 15 Blood Urea Nitrogen 10 Creatinine 0.64 Glucose Level 168 Calcium Level 7.8 L Phosphorus Level 2.6 Magnesium Level 1.3 L Test 01/25/17 11:46 Bedside Glucose 196 Medications Medications Current Medications Sodium Chloride (NS) 1,000 ml @ 75 mls/hr [id number] IV Last administered on 05:09; Admin Dose 75 MLS/HR; Start 01/21/17 at 04:00 Ondansetron HCl (Zofran Inj) 4 mg Q6H PRN IV NAUSEA AND/OR VOMITING; Start at 04:00 Acetaminophen (Tylenol Supp) 650 mg Q6H PRN [place] PAIN LEVEL 1-3 OR FEVER; Start 01/21/17 at 04:00 Pantoprazole (Protonix Iv) 40 mg DAILY@06 IV Last administered on 01/25/17 05: 09; Admin Dose 40 MG; Start 01/21/17 at 06:00 Acetaminophen (Tylenol Liquid) 325 mg Q4H PRN GTB PAIN OR TEMP ABOVE 38C Last administered on 01/21/17 22:44; Admin Dose 325 MG; Start 01/21/17 at 06:30 Amlodipine Besylate (Norvasc) 10 mg DAILY GTB Last administered on 01/25/17 09: 03; Admin Dose 10 MG; Start 01/21/17 at 09:00 Eye Lubricant (Akwa Oint) 1 applic HS BOTH EYES Last administered on 01/24/17 21:18; Admin Dose 1 APPLIC; Start 01/21/17 at 21:00 Bisacodyl (Dulcolax Supp) 10 mg DAILY [place] Last administered on 01/25/17 09:03; Admin Dose 10 MG; Start 01/21/17 at 09:00 Metoclopramide HCl (Reglan) 10 mg Q6H PRN GTB NAUSEA AND/OR VOMITING; Start at 06:30 Ondansetron HCl (Zofran Tab) 4 mg Q4H GTB Last administered on 01/25/17 10:20; Admin Dose 4 MG; Start 01/21/17 at 06:30 Senna (Senokot) 2 tab BID GTB Last administered on 01/25/17 09:02; Admin Dose 2 TAB; Start 01/21/17 at 09:00 Labetalol HCl (Normodyne) 300 mg BID GTB Last administered on 01/25/17 09:02; Admin Dose 300 MG; Start 01/21/17 at 09:00 Lorazepam (Ativan) 2 mg Q4H PRN IV SEIZURES Last administered on 01/22/17 01: 08; Admin Dose 2 MG; Start 01/22/17 at 01:04 Miscellaneous Information (Pending [facility] Order For Wound Care) This patient matos... PRN PRN XX WOUND CARE; Start 01/22/17 at 02:00 Miscellaneous Information 1 ea NOTE XX ; Start 01/22/17 at 16:00 Glucose (Glutose) 15 gm Q15M PRN PO DECREASED GLUCOSE; Start 01/22/17 at 16:00 Glucose (Glutose) 22.5 gm Q15M PRN PO DECREASED GLUCOSE; Start 01/22/17 at 16: 00 Dextrose (D50w Syringe) 25 ml Q15M PRN IV DECREASED GLUCOSE; Start 01/22/17 at 16:00 Dextrose (D50w Syringe) 50 ml Q15M PRN IV DECREASED GLUCOSE; Start 01/22/17 at 16:00 Glucagon (Glucagen) 1 mg Q15M PRN IM DECREASED GLUCOSE; Start 01/22/17 at 16:00 Glucose 15 gm 15 gm Q15M PRN BUCCAL DECREASED GLUCOSE; Start 01/22/17 at 16:00 Vancomycin HCl 750 mg/Sodium Chloride 150 ml @ 75 mls/hr Q12H IVPB Last administered on 01/25/17 10:20; Admin Dose 75 MLS/HR; Start 01/23/17 at 22:00 Cefepime HCl (Maxipime 1gm/50 ml (Pmx)) 50 ml @ 100 mls/hr Q12 IVPB Last administered on 01/25/17 09:04; Admin Dose 100 MLS/HR; Start 01/24/17 at 21:00 Insulin Aspart (Novolog Insulin Pen) NOVOLOG *MILD* ALGORI... Q6 SC Last administered on 01/25/17 12:05; Admin Dose 2 UNIT; Start 01/25/17 at 00:00 Collagenase 1 applic 1 applic DAILY PRN TOP PRN; Start 01/25/17 at 01:00 Potassium Chloride (KCl 40 MEQ/250 ML NS) 250 ml @ 62.5 mls/hr Q4H IVPB Last administered on 01/25/17 11:26; Admin Dose 62.5 MLS/HR; Start 01/25/17 at 09:30; Stop 01/25/17 at 17:29 CESIA ROLLE Jan 25, 2017 14:48
[2017-01-25] MEDS ORDERED: LIDOCAINE 1% (MPF) 5 ML VIAL SC ONE (15:30)
--- NOTE | 2017-01-25 20:59 | CONS ---
Date/Time of Note Date/Time of Note DATE: 01/25/17 TIME: 20:21 Assessment/Plan Assessment/Plan Chief Complaint/Hosp Course ID PROGRESS NOTE CURRENT ABX: DAY #5 => Levaquin 750mg IVPB #1 + Fosfomycin 3mg via GT x1 TOTAL ABX: DAY #5 => Vanco IV #5 + Cefepime #2-> DC 01/25/17 TONIGHT s/p Zosyn x1 01/21 s/p Cefepime x1 01/21 s/p CIPRO 01/21-01/24 24H INTERVAL SUMMARY * No fevers, WBC up today 17.1 * BCx(-); Urine (+) GNR x 2 E.Coli + KP Specimen: [id number] Ewelina: 01/21/17-5 Source: CATHETER U URINE CULTURE Final Organism 1 ESCHERICHIA COLI COLONY COUNT >100,000 CFU/ml Organism 2 K PNEUMO ESBL COLONY COUNT >100,000 CFU/ml . MULTI DRUG RESISTANT ORGANISM E COLI KLEB PNEUM M.I.C. RX M.I.C. RX --------- --- --------- --- AMIKACIN <=2 S AMPICILLIN >=32 R CEFAZOLIN R R CEFEPIME 2 S CEFOTAXIME S R CIPROFLOXACIN <=0.25 S 2 I GENTAMICIN <=1 S >=16 R IMIPENEM <=0.25 S LEVOFLOXACIN <=0.12 S 1 S NITROFURANTOIN <=16 S 64 I TOBRAMYCIN <=1 S >=16 R TRIMETHOPRIM/SULFAMETHOXAZOLE >=320 R >=320 R PIPERACILLIN/TAZOBACTAM 8 S EXAM GEN: Adult F, resting in bed, VSS, NAD VITALS: No fevers HEENT: AT, NC, anicteric, moist oral membranes NECK: TRACH -> Cool mist CHEST:Coarse BS over Trach tubing CV: RRR ABD: Soft, NT EXT: Warm, no C/C/E SKIN: No rash/No diaphoresis ID ASSESSMENT 51 yo F PMHx ICH->s/p Crani +VPS w/chronic encephalopathy, hemiparesis, Trach, Peg admit with: 1. Sepsis on admission due to complicated polymicrobial UTI * 01/21/17 BCx(-) * 01/21/17 Urine Cx (+) URINE CULTURE Final Organism 1 ESCHERICHIA COLI >100,000 CFU/ml Organism 2 K PNEUMO ESBL >100,000 CFU/ml MULTI DRUG RESISTANT ORGANISM 2. Probable neurogenic bladder w/retention 3. Colon cancer w/Mets to liver-> (+)transaminitis 4. Trach dependent respiratory failure => Chronic CURRENT ABX: DAY #5 => Levaquin 750mg IVPB #1 + Fosfomycin 3mg via GT x1 Vanco IV #5 + Cefepime #2-> DC 01/25/17 DC 01/25/17 TONIGHT s/p Zosyn x1 01/21 s/p Cefepime x1 01/21 s/p CIPRO 01/21-01/24 ID RECOMMENDATIONS Per notes: patient it hospice appropriate given the MRI/MRCP findings and remains a full code. 1. DC Vanco IV 2. DC Cefepime -> The KP is an "K PNEUMO ESBL" strain (I suspect Dr. Estrada did not catch that "fine print" as noted on the Micro result as it is hard to see on those reports) * KP-ESBL develops resistance quickly within a matter of hours, days to PCN/ Cephalosporins/Bactrim/and even Carbapenems. * NOTE: she received both Zosyn + Cefepime on 01/21 x1 --- then restarted on with a 48H lapse in between doses == this give the KP ESBL bacteria that survived the first dose of ABX the change to learn those antibiotics and develop resistance. * Both GNR pathogens are sensitive to Quinolones and Aminoglycosides. 3. Will give Fosfomycin 3gm liquid via GT x1 tonight and start high dose Levaquin 750mg IVPB x 7 days 4. May DC on Levaquin 750mg IV vs GT if she is absorbing meds for a total of 7 days = last day 02/01/17 . . Problems: Consultation Date/Type/Reason Admit Date/Time Jan 21, 2017 at 02:17 Initial Consult Date 01/24/17 Type of Consultation: ID Referring Provider: SON LEE Exam/Review of Systems Vital Signs Vitals Vital Signs Date Time Temp Pulse Resp B/P Pulse Ox O2 Delivery O2 Flow Rate FiO2 01/25/17 19:50 98.4 81 16 123/59 96 01/25/17 18:28 5.0 01/25/17 16:25 Aerosol 28 T Tube Intake and Output 01/24/17 01/24/17 01/25/17 14:59 22:59 06:59 Intake Total 1550 ml 1500 ml Output Total 2300 ml 1500 ml Balance -750 ml 0 ml Results Result Diagram: 01/25/17 0623 01/25/17 0623 Results 24 hrs Laboratory Tests Test 01/25/17 00:12 01/25/17 05:18 01/25/17 06:23 01/25/17 11:46 Bedside Glucose 159 171 196 White Blood Count 17.1 H Red Blood Count 3.11 L Hemoglobin 8.0 L Hematocrit 25.4 L Mean Corpuscular Volume 81.7 L Mean Corpuscular Hemoglobin 25.7 L Mean Corpuscular Hemoglobin Concent 31.5 L Red Cell Distribution Width 19.0 H Platelet Count 509 H Mean Platelet Volume 10.9 H Neutrophils % 81.6 H Lymphocytes % 8.8 L Monocytes % 6.0 Eosinophils % 1.6 Basophils % 0.4 Nucleated Red Blood Cells % 0.0 Neutrophils # 13.9 H Lymphocytes # 1.5 Monocytes # 1.0 H Eosinophils # 0.3 Basophils # 0.1 Nucleated Red Blood Cells # 0.0 Sodium Level 143 Potassium Level 2.6 *L Chloride Level 100 Carbon Dioxide Level 31 Anion Gap 15 Blood Urea Nitrogen 10 Creatinine 0.64 Glucose Level 168 Calcium Level 7.8 L Phosphorus Level 2.6 Magnesium Level 1.3 L Test 01/25/17 17:37 Bedside Glucose 168 Medications Medications Current Medications Sodium Chloride (NS) 1,000 ml @ 75 mls/hr [id number] IV Last administered on t 05:09; Admin Dose 75 MLS/HR; Start 01/21/17 at 04:00 Ondansetron HCl (Zofran Inj) 4 mg Q6H PRN IV NAUSEA AND/OR VOMITING; Start at 04:00 Acetaminophen (Tylenol Supp) 650 mg Q6H PRN [place] PAIN LEVEL 1-3 OR FEVER; Start 01/21/17 at 04:00 Pantoprazole (Protonix Iv) 40 mg DAILY@06 IV Last administered on 01/25/17 05: 09; Admin Dose 40 MG; Start 01/21/17 at 06:00 Acetaminophen (Tylenol Liquid) 325 mg Q4H PRN GTB PAIN OR TEMP ABOVE 38C Last administered on 01/21/17 22:44; Admin Dose 325 MG; Start 01/21/17 at 06:30 Amlodipine Besylate (Norvasc) 10 mg DAILY GTB Last administered on 01/25/17 09: 03; Admin Dose 10 MG; Start 01/21/17 at 09:00 Eye Lubricant (Akwa Oint) 1 applic HS BOTH EYES Last administered on 01/24/17 21:18; Admin Dose 1 APPLIC; Start 01/21/17 at 21:00 Bisacodyl (Dulcolax Supp) 10 mg DAILY [place] Last administered on 01/25/17 09:03; Admin Dose 10 MG; Start 01/21/17 at 09:00 Metoclopramide HCl (Reglan) 10 mg Q6H PRN GTB NAUSEA AND/OR VOMITING; Start at 06:30 Ondansetron HCl (Zofran Tab) 4 mg Q4H GTB Last administered on 01/25/17 17:41; Admin Dose 4 MG; Start 01/21/17 at 06:30 Senna (Senokot) 2 tab BID GTB Last administered on 01/25/17 09:02; Admin Dose 2 TAB; Start 01/21/17 at 09:00 Labetalol HCl (Normodyne) 300 mg BID GTB Last administered on 01/25/17 09:02; Admin Dose 300 MG; Start 01/21/17 at 09:00 Lorazepam (Ativan) 2 mg Q4H PRN IV SEIZURES Last administered on 01/22/17 01: 08; Admin Dose 2 MG; Start 01/22/17 at 01:04 Miscellaneous Information ([facility]) This patient matos... PRN PRN XX WOUND CARE; Start 01/22/17 at 02:00 Miscellaneous Information 1 ea NOTE XX ; Start 01/22/17 at 16:00 Glucose (Glutose) 15 gm Q15M PRN PO DECREASED GLUCOSE; Start 01/22/17 at 16:00 Glucose (Glutose) 22.5 gm Q15M PRN PO DECREASED GLUCOSE; Start 01/22/17 at 16: 00 Dextrose (D50w Syringe) 25 ml Q15M PRN IV DECREASED GLUCOSE; Start 01/22/17 at 16:00 Dextrose (D50w Syringe) 50 ml Q15M PRN IV DECREASED GLUCOSE; Start 01/22/17 at 16:00 Glucagon (Glucagen) 1 mg Q15M PRN IM DECREASED GLUCOSE; Start 01/22/17 at 16:00 Glucose 15 gm 15 gm Q15M PRN BUCCAL DECREASED GLUCOSE; Start 01/22/17 at 16:00 Vancomycin HCl 750 mg/Sodium Chloride 150 ml @ 75 mls/hr Q12H IVPB Last administered on 01/25/17 10:20; Admin Dose 75 MLS/HR; Start 01/23/17 at 22:00 Cefepime HCl (Maxipime 1gm/50 ml (Pmx)) 50 ml @ 100 mls/hr Q12 IVPB Last administered on 01/25/17 09:04; Admin Dose 100 MLS/HR; Start 01/24/17 at 21:00 Insulin Aspart (Novolog Insulin Pen) NOVOLOG *MILD* ALGORI... Q6 SC Last administered on 01/25/17 17:45; Admin Dose 1 UNIT; Start 01/25/17 at 00:00 Collagenase (Santyl) 1 applic DAILY PRN TOP PRN; Start 01/25/17 at 01:00 Miscellaneous Information 1 ONCE ONCE XX ; Start 01/26/17 at 09:00; Stop at 09:01 Potassium Chloride (KCl 40 MEQ/250 ML NS) 250 ml @ 62.5 mls/hr Q4H IVPB ; Start 01/25/17 at 21:00; Stop 01/26/17 at 00:59 DARELL YORK NP Jan 25, 2017 20:32
[2017-01-25] MEDS ORDERED: POTASSIUM CHLORIDE 250 ML IVPB SCH (21:00)
--- NOTE | 2017-01-25 21:09 | CONS ---
Date/Time of Note Date/Time of Note DATE: 01/25/17 TIME: 21:08 Assessment/Plan Assessment/Plan Chief Complaint/Hosp Course Metastatic colon cancer with liver mets Patient was diagnosed with colon cancer 3 years ago for which she was treated for it. A year ago she was diagnosed with liver metastasis and there has been receiving chemo. According to the sons who are at the bedside, treatment needed to be stopped because of a complication. Family wants to get a second opinion MRI - innumerable masses throughout the liver and bulky periportal, portacaval, extrahepatic ligament, and aortocaval adenopathy I WILL DISCUSS THIS FINDINGS WITH FAMILY I DON'T THINK THAT PT WITH HER MMP AND POOR PS WILL BENEFIT FROM ADDITIONAL CHEMO ANEMIA- MICROCYTIC WITH INCREASED RDW PROCEED WITH W-UP PRBC NEEDED TO KEEP HB ABOVE 8 LEUKOCYTOSIS REACTIVE, CONT TO MONITOR THROMBOCYTOSIS REACTIVE, CONT TO MONITOR Sepsis secondary to urinary tract infection Continue antibiotic per ID History of intracranial hemorrhage, status post craniotomy This is chronic issue. Continue care Elevated transaminases: GI on board. will trend enzymes for now. states ERCP if/when stable. 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 continue trach care. pulmonary following Hypertension: Blood pressure within goal Adjust BP meds as needed VENT/ PEG/ POOR PS/ [place] STATE Problems: Consultation Date/Type/Reason Admit Date/Time Jan 21, 2017 at 02:17 Date of Consultation: Jan 25, 2017 [facility] Reason for Consultation COLON CANCER Referring Provider: CESIA ROLLE Hx of Present Illness 51 year old female with past medical history of craniotomy secondary to ruptured aneurysm(),S/P colon surgery and chemotherapy x2 due to colonic cancer and liver metastasis with recurrence,S/P tracheostomy,S/P G tube insertion presented to emergency room because of intermittent fever x 1 week.Present condition started 1 week ago while at [facility] rehabilitation ,she develop fever with no associated nausea ,vomiting ,diarrhea, abdominal pain,nor altered level of consciousness hence was sent to ER.Emergency room course revealed leukocytosis 16,hemoglobin9.2,hematocrit 29.5 Total bilirubin 8.1,GGT 1066,AST 121,ALT 116,alkaline phosphatase 1134 PT 12.7, INR 0.95 Ultrasound Hepatomegaly and hepatic steatosis.Common bile duct dilatation.Echogenic left hepatic lesion which likely represents a hemangioma although other lesions could have a similar appearance. ABD MRI results- 1. Moderate diffuse intra and extrahepatic biliary ductal dilation with an abrupt transition point at the distal CBD, suspicious for a malignant stricture or underlying occult mass lesion. ERCP can be performed for further evaluation. 2. Hepatomegaly with innumerable masses throughout the liver and bulky periportal, portacaval, extrahepatic ligament, and aortocaval adenopathy, highly suspicious for metastatic disease from an uncertain primary. CT scan of the chest, abdomen, and pelvis can be performed for further evaluation. 3. Trace right effusion. 4. Partially visualized ventral abdominal hernia. Information is provided by daughter PT IS BEING TREATED FOR SEPSIS I WAS ASKED TO PROVIDE [facility] CONSULT Initial Consultation Hx Past Medical History Medical History: other (aneurysm brain,colonic cancer with liver metastasis) Past Surgical History Past Surgical Hx: bowel resection, other (craniotomy 09/2016,colon surgery Tracheostomy peg) Social History Alcohol Use: none Smoking Status: Never smoker Drug Use: none Past Medical History Medical History: other (aneurysm brain,colonic cancer with liver metastasis) Past Surgical History Past Surgical Hx: bowel resection, other (craniotomy 09/2016,colon surgery Tracheostomy peg) Social History Alcohol Use: none Smoking Status: Never smoker Drug Use: none Exam/Review of Systems Vital Signs Vitals Vital Signs Date Time Temp Pulse Resp B/P Pulse Ox O2 Delivery O2 Flow Rate FiO2 01/25/17 20:59 71 01/25/17 20:51 5.0 01/25/17 19:50 98.4 16 123/59 96 01/25/17 19:20 Aerosol 28 Intake and Output 01/24/17 01/24/17 01/25/17 15:00 23:00 07:00 Intake Total 1550 ml 1500 ml Output Total 2300 ml 1500 ml Balance -750 ml 0 ml Exam General: Patient is laying in bed on t-piece trach. Mentation: Patient is alert and oriented, but has difficulty speaking. Head: R sided concavity Eyes: EOMI, pupils reactive to light Neck: Supple, nontender, midline Respiratory: Clear to auscultation bilaterally Cardiovascular: regular rate, no obvious murmurs Gastrointestinal: non-tender to palpation, bowel sounds heard. Neurological: L sided weakness. Skin: No new skin lesions Results Result Diagram: 01/25/1762201/25/17622 Results 24 hrs Laboratory Tests Test 01/25/17 00:12 01/25/17 05:18 01/25/17 06:23 01/25/17 11:46 Bedside Glucose 159 171 196 White Blood Count 17.1 H Red Blood Count 3.11 L Hemoglobin 8.0 L Hematocrit 25.4 L Mean Corpuscular Volume 81.7 L Mean Corpuscular Hemoglobin 25.7 L Mean Corpuscular Hemoglobin Concent 31.5 L Red Cell Distribution Width 19.0 H Platelet Count 509 H Mean Platelet Volume 10.9 H Neutrophils % 81.6 H Lymphocytes % 8.8 L Monocytes % 6.0 Eosinophils % 1.6 Basophils % 0.4 Nucleated Red Blood Cells % 0.0 Neutrophils # 13.9 H Lymphocytes # 1.5 Monocytes # 1.0 H Eosinophils # 0.3 Basophils # 0.1 Nucleated Red Blood Cells # 0.0 Sodium Level 143 Potassium Level 2.6 *L Chloride Level 100 Carbon Dioxide Level 31 Anion Gap 15 Blood Urea Nitrogen 10 Creatinine 0.64 Glucose Level 168 Calcium Level 7.8 L Phosphorus Level 2.6 Magnesium Level 1.3 L Test 01/25/17 17:37 Bedside Glucose 168 Medications Medications Current Medications Sodium Chloride (NS) 1,000 ml @ 75 mls/hr [id number] IV Last administered on 05:09; Admin Dose 75 MLS/HR; Start 01/21/17 at 04:00 Ondansetron HCl (Zofran Inj) 4 mg Q6H PRN IV NAUSEA AND/OR VOMITING; Start at 04:00 Acetaminophen (Tylenol Supp) 650 mg Q6H PRN [place] PAIN LEVEL 1-3 OR FEVER; Start 01/21/17 at 04:00 Pantoprazole (Protonix Iv) 40 mg DAILY@06 IV Last administered on 01/25/17 05: 09; Admin Dose 40 MG; Start 01/21/17 at 06:00 Acetaminophen (Tylenol Liquid) 325 mg Q4H PRN GTB PAIN OR TEMP ABOVE 38C Last administered on 01/21/17 22:44; Admin Dose 325 MG; Start 01/21/17 at 06:30 Amlodipine Besylate (Norvasc) 10 mg DAILY GTB Last administered on 01/25/17 09: 03; Admin Dose 10 MG; Start 01/21/17 at 09:00 Eye Lubricant (Akwa Oint) 1 applic HS BOTH EYES Last administered on 01/24/17 21:18; Admin Dose 1 APPLIC; Start 01/21/17 at 21:00 Bisacodyl (Dulcolax Supp) 10 mg DAILY [place] Last administered on 01/25/17 09:03; Admin Dose 10 MG; Start 01/21/17 at 09:00 Metoclopramide HCl (Reglan) 10 mg Q6H PRN GTB NAUSEA AND/OR VOMITING; Start at 06:30 Ondansetron HCl (Zofran Tab) 4 mg Q4H GTB Last administered on 01/25/17 17:41; Admin Dose 4 MG; Start 01/21/17 at 06:30 Senna (Senokot) 2 tab BID GTB Last administered on 01/25/17 09:02; Admin Dose 2 TAB; Start 01/21/17 at 09:00 Labetalol HCl (Normodyne) 300 mg BID GTB Last administered on 01/25/17 09:02; Admin Dose 300 MG; Start 01/21/17 at 09:00 Lorazepam (Ativan) 2 mg Q4H PRN IV SEIZURES Last administered on 01/22/17 01: 08; Admin Dose 2 MG; Start 01/22/17 at 01:04 Miscellaneous Information (Pending [facility] Order For Wound Care) This patient matos... PRN PRN XX WOUND CARE; Start 01/22/17 at 02:00 Miscellaneous Information 1 ea NOTE XX ; Start 01/22/17 at 16:00 Glucose (Glutose) 15 gm Q15M PRN PO DECREASED GLUCOSE; Start 01/22/17 at 16:00 Glucose (Glutose) 22.5 gm Q15M PRN PO DECREASED GLUCOSE; Start 01/22/17 at 16: 00 Dextrose (D50w Syringe) 25 ml Q15M PRN IV DECREASED GLUCOSE; Start 01/22/17 at 16:00 Dextrose (D50w Syringe) 50 ml Q15M PRN IV DECREASED GLUCOSE; Start 01/22/17 at 16:00 Glucagon (Glucagen) 1 mg Q15M PRN IM DECREASED GLUCOSE; Start 01/22/17 at 16:00 Glucose 15 gm 15 gm Q15M PRN BUCCAL DECREASED GLUCOSE; Start 01/22/17 at 16:00 Vancomycin HCl 750 mg/Sodium Chloride 150 ml @ 75 mls/hr Q12H IVPB Last administered on 01/25/17 10:20; Admin Dose 75 MLS/HR; Start 01/23/17 at 22:00 Cefepime HCl (Maxipime 1gm/50 ml (Pmx)) 50 ml @ 100 mls/hr Q12 IVPB Last administered on 01/25/17 09:04; Admin Dose 100 MLS/HR; Start 01/24/17 at 21:00 Insulin Aspart (Novolog Insulin Pen) NOVOLOG *MILD* ALGORI... Q6 SC Last administered on 01/25/17 17:45; Admin Dose 1 UNIT; Start 01/25/17 at 00:00 Collagenase (Santyl) 1 applic DAILY PRN TOP PRN; Start 01/25/17 at 01:00 Miscellaneous Information 1 ONCE ONCE XX ; Start 01/26/17 at 09:00; Stop at 09:01 Potassium Chloride (KCl 40 MEQ/250 ML NS) 250 ml @ 62.5 mls/hr Q4H IVPB ; Start 01/25/17 at 21:00; Stop 01/26/17 at 00:59 Fosfomycin Tromethamine 3 gm 3 gm ONCE ONCE PO ; Start 01/25/17 at 22:00; Stop 01/25/17 at 22:01 Levofloxacin/ Dextrose (Levaquin 750 Mg/ D5W 150 ml (Pmx)) 150 ml @ 100 mls/hr Q24H IVPB ; Start 01/25/17 at 21:00 CHANCE MONACO MD Jan 25, 2017 21:09
[2017-01-25] MEDS: OCULAR LUBRICANT 3.5 GM OPH OINT BOTH EYES SCH (21:43)
[2017-01-25] MEDS: LEVOFLOXACIN 750MG/D5W (PMX) 150 ML IVPB SCH (21:44)
[2017-01-25] MEDS ORDERED: FOSFOMYCIN 3 GM PACKET PO ONE (22:00)
[2017-01-26] VITALS (10 sets, daily range): BP systolic 128–137; BP diastolic 59–66; PULSE 77–86; RESP 19–21
[2017-01-26] MEDS: ONDANSETRON 4 MG TAB GTB SCH ×6 (03:21→21:57)
[2017-01-26] MEDS: SOD CHLORIDE 0.9% 1,000 ML IV SCH ×2 (04:00→18:05)
[2017-01-26] MEDS: PANTOPRAZOLE 40 MG INJ IV SCH (05:19)
[2017-01-26] MEDS: INSULIN ASPART [NOVOLOG] 3 ML PEN SC SCH ×3 (06:00→18:16)
[2017-01-26 07:50] LABS: BASOPHILS % 0.2 % (0.0-2.0); EOSINOPHILS # 0.3 10^3/ul (0.0-0.5); EOSINOPHILS % 1.8 % (0.0-7.0); HEMATOCRIT 25.5 % (37.0-47.0); HEMOGLOBIN 8.1 g/dl (12.0-16.0); LYMPHOCYTES # 1.7 10^3/ul (0.8-2.9); LYMPHOCYTES % 9.9 % (15.0-51.0); MEAN CORPUSCULAR HGB CONC 31.8 g/dl (32.0-37.0); MEAN CORPUSCULAR VOLUME 81.7 fl (82.0-101.0); MONOCYTES % 5.9 % (0.0-11.0); NEUTROPHIL # 13.6 10^3/ul (1.6-7.5); NEUTROPHILS % 80.5 % (39.0-77.0); PLATELET COUNT 530 10^3/UL (140-415); RED BLOOD COUNT 3.12 10^6/ul (4.20-5.40); RED CELL DISTRIBUTION WIDTH 19.8 % (11.5-14.5); WHITE BLOOD COUNT 16.9 10^3/ul (4.8-10.8)
[2017-01-26 07:52] LABS: RETICULOCYTE COUNT % 3.2 % (0.5-1.5)
[2017-01-26] MEDS: SENNA TAB GTB SCH ×2 (08:07→21:00)
[2017-01-26] MEDS: AMLODIPINE 10 MG TAB GTB SCH (08:07)
[2017-01-26] MEDS: CEFEPIME 1GM/50 ML (PMX) 50 ML IVPB SCH (08:07)
[2017-01-26] MEDS: LABETALOL 100 MG TAB GTB SCH ×2 (08:07→21:56)
[2017-01-26 08:18] LABS: IRON 62 ug/dl (35-150)
[2017-01-26 08:19] LABS: URIC ACID 4.6 mg/dl (3.1-7.9)
[2017-01-26 08:20] LABS: CREATININE 0.6 mg/dl (0.44-1.00); MAGNESIUM 1.4 mg/dl (1.7-2.5); PHOSPHORUS 2.2 mg/dl (2.5-4.9); POTASSIUM 3.3 mmol/L (3.5-5.1)
[2017-01-26 08:21] LABS: BILIRUBIN,DIRECT 3.5 mg/dl (0.00-0.20); BILIRUBIN,INDIRECT 0.9 mg/dl (0-1.1); BILIRUBIN,TOTAL 4.4 mg/dl (0.2-1.3); TOTAL PROTEIN 6.6 g/dl (6.1-8.1)
[2017-01-26 08:28] LABS: TOTAL IRON BINDING CAPACITY 225 ug/dl (241-421)
[2017-01-26 08:53] LABS: THYROID STIMULATING HORMONE 1.77 MIU/L (0.465-4.680)
[2017-01-26] MEDS: BISACODYL 10 MG SUPP PR SCH (09:00)
[2017-01-26] MEDS ORDERED: POTASSIUM CHLORIDE 250 ML IVPB ONE (10:00)
[2017-01-26] MEDS: VANCOMYCIN 750 MG in SOD CHLORIDE 0.9% 150 ML IVPB SCH (11:14)
--- NOTE | 2017-01-26 12:39 | CONS ---
Date/Time of Note Date/Time of Note DATE: 01/26/17 TIME: 12:34 Assessment/Plan Assessment/Plan Chief Complaint/Hosp Course ID PROGRESS NOTE CURRENT ABX: DAY #6 => Levaquin 750mg IVPB #2 TOTAL ABX: DAY #6 => Vanco IV #5 + Cefepime #2-> DC 8/2 s/p Fosfomycin 3mg via GT x1 s/p Zosyn x1 01/21 s/p Cefepime x1 01/21 s/p CIPRO 01/21-01/24 24H INTERVAL SUMMARY * No fevers, WBC down today * BCx(-); Urine (+) GNR x 2 E.Coli + KP=ESBL Specimen: [id number] Ewelina: 01/21/17-5 Source: CATHETER U URINE CULTURE Final Organism 1 ESCHERICHIA COLI COLONY COUNT >100,000 CFU/ml Organism 2 K PNEUMO ESBL COLONY COUNT >100,000 CFU/ml . MULTI DRUG RESISTANT ORGANISM E COLI KLEB PNEUM M.I.C. RX M.I.C. RX --------- --- --------- --- AMIKACIN <=2 S AMPICILLIN >=32 R CEFAZOLIN R R CEFEPIME 2 S CEFOTAXIME S R CIPROFLOXACIN <=0.25 S 2 I GENTAMICIN <=1 S >=16 R IMIPENEM <=0.25 S LEVOFLOXACIN <=0.12 S 1 S NITROFURANTOIN <=16 S 64 I TOBRAMYCIN <=1 S >=16 R TRIMETHOPRIM/SULFAMETHOXAZOLE >=320 R >=320 R PIPERACILLIN/TAZOBACTAM 8 S EXAM GEN: Adult F, resting in bed, VSS, NAD VITALS: No fevers HEENT: AT, NC, anicteric, moist oral membranes NECK: TRACH -> Cool mist CHEST:Coarse BS over Trach tubing CV: RRR ABD: Soft, NT EXT: Warm, no C/C/E SKIN: No rash/No diaphoresis ID ASSESSMENT 51 yo F PMHx ICH->s/p Crani +VPS w/chronic encephalopathy, hemiparesis, Trach, Peg admit with: 1. Sepsis on admission due to complicated polymicrobial UTI * 01/21/17 BCx(-) * 01/21/17 Urine Cx (+) URINE CULTURE Final Organism 1 ESCHERICHIA COLI >100,000 CFU/ml Organism 2 K PNEUMO ESBL >100,000 CFU/ml MULTI DRUG RESISTANT ORGANISM 2. Probable neurogenic bladder w/retention 3. Colon cancer w/Mets to liver-> (+)transaminitis * Obstructive per MRCP -> poor prognosis to ERCP if/when stable, vs Hospice appropriate 4. 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 STG III decub sacral CURRENT ABX: DAY #6 => Levaquin 750mg IVPB #2 TOTAL ABX: DAY #6 => Vanco IV #5 + Cefepime #2-> DC 8 s/p Fosfomycin 3mg via GT x1 s/p Zosyn x1 01/21 s/p Cefepime x1 01/21 s/p CIPRO 01/21-01/24 ID RECOMMENDATIONS Per notes: patient it hospice appropriate given the MRI/MRCP findings and remains a full code. 1. The KP is an "K PNEUMO ESBL" strain (I suspect Dr. Estrada did not catch that "fine print" as noted on the Micro result as it is hard to see on those reports) * KP-ESBL develops resistance quickly within a matter of hours, days to PCN/ Cephalosporins/Bactrim/and even Carbapenems. * NOTE: she received both Zosyn + Cefepime on 01/21 x1 --- then restarted on with a 48H lapse in between doses == this give the KP ESBL bacteria that survived the first dose of ABX the change to learn those antibiotics and develop resistance. * Both GNR pathogens are sensitive to Quinolones and Aminoglycosides. * s/p Fosfomycin 3gm liquid via GT x 01/25/pm 2. May DC on Levaquin 750mg IV vs GT if she is absorbing meds for a total of 7 days = last day 02/01/17 . . Problems: Consultation Date/Type/Reason Admit Date/Time Jan 21, 2017 at 02:17 Initial Consult Date 01/24/17 Type of Consultation: ID Referring Provider: CESIA ROLLE Exam/Review of Systems Vital Signs Vitals Vital Signs Date Time Temp Pulse Resp B/P Pulse Ox O2 Delivery O2 Flow Rate FiO2 01/26/17 12:32 80 01/26/17 11:38 98.7 19 128/60 93 01/26/17 11:24 5.0 01/26/17 01:56 Aerosol 28 Intake and Output 01/25/17 01/25/17 01/26/17 15:00 23:00 07:00 Intake Total 700 ml 1350 ml Output Total 1000 ml 1700 ml Balance -300 ml -350 ml Results Result Diagram: 01/26/17 0650 01/26/17 0650 Results 24 hrs Laboratory Tests Test 01/25/17 17:37 01/25/17 23:16 01/26/17 05:19 01/26/17 06:50 Bedside Glucose 168 161 134 White Blood Count 16.9 H Red Blood Count 3.12 L Hemoglobin 8.1 L Hematocrit 25.5 L Mean Corpuscular Volume 81.7 L Mean Corpuscular Hemoglobin 26.0 L Mean Corpuscular Hemoglobin Concent 31.8 L Red Cell Distribution Width 19.8 H Platelet Count 530 H Mean Platelet Volume 11.0 H Neutrophils % 80.5 H Lymphocytes % 9.9 L Monocytes % 5.9 Eosinophils % 1.8 Basophils % 0.2 Nucleated Red Blood Cells % 0.0 Neutrophils # 13.6 H Lymphocytes # 1.7 Monocytes # 1.0 H Eosinophils # 0.3 Basophils # 0.0 Nucleated Red Blood Cells # 0.0 Erythrocyte Sedimentation Rate 91 H Absolute Reticulocyte Count 0.100 Percent Reticulocyte Count 3.2 H Sodium Level 144 Potassium Level 3.3 L Chloride Level 99 Carbon Dioxide Level 31 Anion Gap 17 H Blood Urea Nitrogen 11 Creatinine 0.60 Glucose Level 125 # Uric Acid 4.6 Calcium Level 8.0 L Phosphorus Level 2.2 L Magnesium Level 1.4 L Iron Level 62 Total Iron Binding Capacity 225 L Percent Iron Saturation 28 Ferritin 309.0 H Total Bilirubin 4.4 H Direct Bilirubin 3.50 H Indirect Bilirubin 0.9 Aspartate Amino Transf (AST/SGOT) 100 H Alanine Aminotransferase (ALT/SGPT) 102 H Alkaline Phosphatase 1152 H Lactate Dehydrogenase 1425 H Total Protein 6.6 Albumin 3.0 L Carcinoembryonic Antigen 176.0 H Thyroid Stimulating Hormone (TSH) 1.770 Test 01/26/17 09:30 01/26/17 12:03 Vancomycin Level Trough 16.4 Bedside Glucose 180 Medications Medications Current Medications Sodium Chloride (NS) 1,000 ml @ 75 mls/hr [id number] IV Last administered on 05:09; Admin Dose 75 MLS/HR; Start 01/21/17 at 04:00 Ondansetron HCl (Zofran Inj) 4 mg Q6H PRN IV NAUSEA AND/OR VOMITING; Start at 04:00 Acetaminophen (Tylenol Supp) 650 mg Q6H PRN [place] PAIN LEVEL 1-3 OR FEVER Last administered on 01/26/17 08:06; Admin Dose 650 MG; Start 01/21/17 at 04:00 Pantoprazole (Protonix Iv) 40 mg DAILY@06 IV Last administered on 01/26/17 05: 19; Admin Dose 40 MG; Start 01/21/17 at 06:00 Acetaminophen (Tylenol Liquid) 325 mg Q4H PRN GTB PAIN OR TEMP ABOVE 38C Last administered on 01/21/17 22:44; Admin Dose 325 MG; Start 01/21/17 at 06:30 Amlodipine Besylate (Norvasc) 10 mg DAILY GTB Last administered on 01/26/17 08: 07; Admin Dose 10 MG; Start 01/21/17 at 09:00 Eye Lubricant (Akwa Oint) 1 applic HS BOTH EYES Last administered on 01/25/17 21:43; Admin Dose 1 APPLIC; Start 01/21/17 at 21:00 Bisacodyl (Dulcolax Supp) 10 mg DAILY [place] Last administered on 01/25/17 09:03; Admin Dose 10 MG; Start 01/21/17 at 09:00 Metoclopramide HCl (Reglan) 10 mg Q6H PRN GTB NAUSEA AND/OR VOMITING; Start at 06:30 Ondansetron HCl (Zofran Tab) 4 mg Q4H GTB Last administered on 01/26/17 11:09; Admin Dose 4 MG; Start 01/21/17 at 06:30 Senna (Senokot) 2 tab BID GTB Last administered on 01/26/17 08:07; Admin Dose 2 TAB; Start 01/21/17 at 09:00 Labetalol HCl (Normodyne) 300 mg BID GTB Last administered on 01/26/17 08:07; Admin Dose 300 MG; Start 01/21/17 at 09:00 Lorazepam (Ativan) 2 mg Q4H PRN IV SEIZURES Last administered on 01/22/17 01: 08; Admin Dose 2 MG; Start 01/22/17 at 01:04 Miscellaneous Information (Pending Santyl Order For Wound Care) This patient matos... PRN PRN XX WOUND CARE; Start 01/22/17 at 02:00 Miscellaneous Information 1 ea NOTE XX ; Start 01/22/17 at 16:00 Glucose (Glutose) 15 gm Q15M PRN PO DECREASED GLUCOSE; Start 01/22/17 at 16:00 Glucose (Glutose) 22.5 gm Q15M PRN PO DECREASED GLUCOSE; Start 01/22/17 at 16: 00 Dextrose (D50w Syringe) 25 ml Q15M PRN IV DECREASED GLUCOSE; Start 01/22/17 at 16:00 Dextrose (D50w Syringe) 50 ml Q15M PRN IV DECREASED GLUCOSE; Start 01/22/17 at 16:00 Glucagon (Glucagen) 1 mg Q15M PRN IM DECREASED GLUCOSE; Start 01/22/17 at 16:00 Glucose 15 gm 15 gm Q15M PRN BUCCAL DECREASED GLUCOSE; Start 01/22/17 at 16:00 Vancomycin HCl 750 mg/Sodium Chloride 150 ml @ 75 mls/hr Q12H IVPB Last administered on 01/26/17 11:14; Admin Dose 75 MLS/HR; Start 01/23/17 at 22:00 Cefepime HCl (Maxipime 1gm/50 ml (Pmx)) 50 ml @ 100 mls/hr Q12 IVPB Last administered on 01/26/17 08:07; Admin Dose 100 MLS/HR; Start 01/24/17 at 21:00 Insulin Aspart (Novolog Insulin Pen) NOVOLOG *MILD* ALGORI... Q6 SC Last administered on 01/26/17 12:08; Admin Dose 1 UNIT; Start 01/25/17 at 00:00 Collagenase 1 applic 1 applic DAILY PRN TOP PRN; Start 01/25/17 at 01:00 Levofloxacin/ Dextrose 150 ml @ 100 mls/hr Q24H IVPB Last administered on 21:44; Admin Dose 100 MLS/HR; Start 01/25/17 at 21:00 Potassium Chloride (KCl 40 MEQ/250 ML NS) 250 ml @ 62.5 mls/hr ONCE ONCE IVPB Last administered on 01/26/17 11:09; Admin Dose 62.5 MLS/HR; Start 01/26/17 at 10:00; Stop 01/26/17 at 13:59 DARELL YORK NP Jan 26, 2017 12:39
--- NOTE | 2017-01-26 15:28 | PN ---
Date/Time of Note Date/Time of Note DATE: 01/26/17 TIME: 15:25 Assessment/Plan VTE Prophylaxis VTE Prophylaxis Intervention: SCD's Lines/Catheters IV Catheter Type (from Nrs): Saline Lock Urinary Cath still in place: Yes Reason Cath still needed: terminal illness/intractable pain Assessment/Plan Chief Complaint/Hosp Course Assessment/Plan 1. Sepsis secondary to urinary tract infection -Continue antibiotic per ID, IV for total 7 days 2. History of intracranial hemorrhage, status post craniotomy -This is chronic issue. Continue care 3. Metastatic liver cancer, with colon being the primary given history -Patient was diagnosed with colon cancer 3 years ago for which she was treated for it. A year ago she was diagnosed with liver metastasis and there has been receiving chemo. According to the sons who are at the bedside, treatment needed to be stopped because of a complication. Family wants to get a second opinion and such will place an oncology consult. Dr. Alaina Rivas consulted, who agrees with original assessment of no chemo until other issues can be assessed (craniectomy/trach) 4. Elevated transaminases: -GI on board. will trend enzymes for now. states ERCP if/when stable. 5. 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 - continue trach care. - pulmonary following 6. Hypertension: Blood pressure within goal -Adjust BP meds as needed DISPO: plan to transfer to finish out IV abx as able. Problems: Subjective 24 Hr Interval Summary Free Text/Dictation no acute complaints Exam/Review of Systems Vital Signs Vitals Vital Signs Date Time Temp Pulse Resp B/P Pulse Ox O2 Delivery O2 Flow Rate FiO2 01/26/17 15:17 97.2 93 20 137/66 94 01/26/17 11:24 5.0 01/26/17 01:56 Aerosol 28 Intake and Output 01/25/17 01/25/17 01/26/17 15:00 23:00 07:00 Intake Total 700 ml 1350 ml Output Total 1000 ml 1700 ml Balance -300 ml -350 ml Exam Physical exam General: Patient is laying in bed on t-piece trach. Mentation: Patient is alert and oriented, but has difficulty speaking. Head: R sided concavity Eyes: EOMI, pupils reactive to light Neck: Supple, nontender, midline Respiratory: Clear to auscultation bilaterally Cardiovascular: regular rate, no obvious murmurs Gastrointestinal: non-tender to palpation, bowel sounds heard. Neurological: L sided weakness. Skin: No new skin lesions Results Result Diagram: 01/26/17 0650 01/26/17 0650 Results 24 hrs Laboratory Tests Test 01/25/17 17:37 01/25/17 23:16 01/26/17 05:19 01/26/17 06:50 Bedside Glucose 168 161 134 White Blood Count 16.9 H Red Blood Count 3.12 L Hemoglobin 8.1 L Hematocrit 25.5 L Mean Corpuscular Volume 81.7 L Mean Corpuscular Hemoglobin 26.0 L Mean Corpuscular Hemoglobin Concent 31.8 L Red Cell Distribution Width 19.8 H Platelet Count 530 H Mean Platelet Volume 11.0 H Neutrophils % 80.5 H Lymphocytes % 9.9 L Monocytes % 5.9 Eosinophils % 1.8 Basophils % 0.2 Nucleated Red Blood Cells % 0.0 Neutrophils # 13.6 H Lymphocytes # 1.7 Monocytes # 1.0 H Eosinophils # 0.3 Basophils # 0.0 Nucleated Red Blood Cells # 0.0 Erythrocyte Sedimentation Rate 91 H Absolute Reticulocyte Count 0.100 Percent Reticulocyte Count 3.2 H Sodium Level 144 Potassium Level 3.3 L Chloride Level 99 Carbon Dioxide Level 31 Anion Gap 17 H Blood Urea Nitrogen 11 Creatinine 0.60 Glucose Level 125 # Uric Acid 4.6 Calcium Level 8.0 L Phosphorus Level 2.2 L Magnesium Level 1.4 L Iron Level 62 Total Iron Binding Capacity 225 L Percent Iron Saturation 28 Ferritin 309.0 H Total Bilirubin 4.4 H Direct Bilirubin 3.50 H Indirect Bilirubin 0.9 Aspartate Amino Transf (AST/SGOT) 100 H Alanine Aminotransferase (ALT/SGPT) 102 H Alkaline Phosphatase 1152 H Lactate Dehydrogenase 1425 H Total Protein 6.6 Albumin 3.0 L Carcinoembryonic Antigen 176.0 H Thyroid Stimulating Hormone (TSH) 1.770 Test 01/26/17 09:30 01/26/17 12:03 Vancomycin Level Trough 16.4 Bedside Glucose 180 Medications Medications Current Medications Sodium Chloride (NS) 1,000 ml @ 75 mls/hr [id number] IV Last administered on t 05:09; Admin Dose 75 MLS/HR; Start 01/21/17 at 04:00 Ondansetron HCl (Zofran Inj) 4 mg Q6H PRN IV NAUSEA AND/OR VOMITING; Start at 04:00 Acetaminophen (Tylenol Supp) 650 mg Q6H PRN [place] PAIN LEVEL 1-3 OR FEVER Last administered on 01/26/17 08:06; Admin Dose 650 MG; Start 01/21/17 at 04:00 Pantoprazole (Protonix Iv) 40 mg DAILY@06 IV Last administered on 01/26/17 05: 19; Admin Dose 40 MG; Start 01/21/17 at 06:00 Acetaminophen (Tylenol Liquid) 325 mg Q4H PRN GTB PAIN OR TEMP ABOVE 38C Last administered on 01/21/17 22:44; Admin Dose 325 MG; Start 01/21/17 at 06:30 Amlodipine Besylate (Norvasc) 10 mg DAILY GTB Last administered on 01/26/17 08: 07; Admin Dose 10 MG; Start 01/21/17 at 09:00 Eye Lubricant (Akwa Oint) 1 applic HS BOTH EYES Last administered on 01/25/17 21:43; Admin Dose 1 APPLIC; Start 01/21/17 at 21:00 Bisacodyl (Dulcolax Supp) 10 mg DAILY [place] Last administered on 01/25/17 09:03; Admin Dose 10 MG; Start 01/21/17 at 09:00 Metoclopramide HCl (Reglan) 10 mg Q6H PRN GTB NAUSEA AND/OR VOMITING; Start at 06:30 Ondansetron HCl (Zofran Tab) 4 mg Q4H GTB Last administered on 01/26/17 14:56; Admin Dose 4 MG; Start 01/21/17 at 06:30 Senna (Senokot) 2 tab BID GTB Last administered on 01/26/17 08:07; Admin Dose 2 TAB; Start 01/21/17 at 09:00 Labetalol HCl (Normodyne) 300 mg BID GTB Last administered on 01/26/17 08:07; Admin Dose 300 MG; Start 01/21/17 at 09:00 Lorazepam (Ativan) 2 mg Q4H PRN IV SEIZURES Last administered on 01/22/17 01: 08; Admin Dose 2 MG; Start 01/22/17 at 01:04 Miscellaneous Information (Pending Santyl Order For Wound Care) This patient matos... PRN PRN XX WOUND CARE; Start 01/22/17 at 02:00 Miscellaneous Information 1 ea NOTE XX ; Start 01/22/17 at 16:00 Glucose (Glutose) 15 gm Q15M PRN PO DECREASED GLUCOSE; Start 01/22/17 at 16:00 Glucose (Glutose) 22.5 gm Q15M PRN PO DECREASED GLUCOSE; Start 01/22/17 at 16: 00 Dextrose (D50w Syringe) 25 ml Q15M PRN IV DECREASED GLUCOSE; Start 01/22/17 at 16:00 Dextrose (D50w Syringe) 50 ml Q15M PRN IV DECREASED GLUCOSE; Start 01/22/17 at 16:00 Glucagon (Glucagen) 1 mg Q15M PRN IM DECREASED GLUCOSE; Start 01/22/17 at 16:00 Glucose (Glutose) 15 gm Q15M PRN BUCCAL DECREASED GLUCOSE; Start 01/22/17 at 16 :00 Insulin Aspart (Novolog Insulin Pen) NOVOLOG *MILD* ALGORI... Q6 SC Last administered on 01/26/17 12:08; Admin Dose 1 UNIT; Start 01/25/17 at 00:00 Collagenase 1 applic 1 applic DAILY PRN TOP PRN; Start 01/25/17 at 01:00 Levofloxacin/ Dextrose (Levaquin 750 Mg/ D5W 150 ml (Pmx)) 150 ml @ 100 mls/hr Q24H IVPB Last administered on 01/25/17 21:44; Admin Dose 100 MLS/HR; Start 01/25/17 at 21:00 CESIA ROLLE Jan 26, 2017 15:28
--- NOTE | 2017-01-26 17:29 | PN ---
Date/Time of Note Date/Time of Note DATE: 01/26/17 TIME: 17:26 Assessment/Plan VTE Prophylaxis VTE Prophylaxis Intervention: SCD's Lines/Catheters IV [facility]atheter Type (from [facility]): Sal[facility] Lock Urinary Cath still in place: Yes Reason Cath still needed: urinary retention Assessment/Plan Assessment/Plan Assessment * Sepsis UTI vs pneumonia vs others * Elevated transaminitis Obstructive vs hepatocellular in origin MRI . Moderate diffuse intra and extrahepatic biliary ductal dilation with an abrupt transition point at the distal CBD, suspicious for a malignant stricture or underlying occult mass lesion. ERCP can be performed for further evaluation. Hepatomegaly with innumerable masses throughout the liver and bulky periportal, portacaval, extrahepatic ligament, and aortocaval adenopathy, highly suspicious for metastatic disease from an uncertain primary. Trace right effusion. . Partially visualized ventral abdominal hernia. * History of craniotomy sec brain aneurysm * History of colon surgery secondary to colonic cancer with liver metastasis * History of chemotherapy * History PEG * History of Tracheostomy Plan * Plan * Continue present management * suggest hospice evaluation given the MRCP results * Trend transaminase levels * Further orders will depend on clinical course * case discussed with Dr Hdz Subjective 24 Hr Interval Summary Free Text/Dictation * Course reviewed with RN * Patient seen and examined * No untoward events Exam/Review of Systems Vital Signs Vitals Vital Signs Date Time Temp Pulse Resp B/P Pulse Ox O2 Delivery O2 Flow Rate FiO2 01/26/17 16:17 86 01/26/17 15:17 97.2 20 137/66 94 01/26/17 11:24 5.0 01/26/17 01:56 Aerosol 28 Intake and Output 01/25/17 01/25/17 01/26/17 15:00 23:00 07:00 Intake Total 700 ml 1350 ml Output Total 1000 ml 1700 ml Balance -300 ml -350 ml Exam Constitutional: frail Neck: non-tender, supple Respiratory: crackles/rales, diminished breath sounds Cardiovascular: nl pulses, regular rate and rhythm Gastrointestinal: non-tender, soft Musculoskeletal: muscle weakness Extremities: edema, pitting pedal edema Neurological: unresponsive Skin: rash or lesions Lymph: nl lymph nodes Results Result Diagram: 01/26/17 0650 01/26/17 0650 Results 24 hrs Laboratory Tests Test 01/25/17 17:37 01/25/17 23:16 01/26/17 05:19 01/26/17 06:50 Bedside Glucose 168 161 134 White Blood Count 16.9 H Red Blood Count 3.12 L Hemoglobin 8.1 L Hematocrit 25.5 L Mean Corpuscular Volume 81.7 L Mean Corpuscular Hemoglobin 26.0 L Mean Corpuscular Hemoglobin Concent 31.8 L Red Cell Distribution Width 19.8 H Platelet Count 530 H Mean Platelet Volume 11.0 H Neutrophils % 80.5 H Lymphocytes % 9.9 L Monocytes % 5.9 Eosinophils % 1.8 Basophils % 0.2 Nucleated Red Blood Cells % 0.0 Neutrophils # 13.6 H Lymphocytes # 1.7 Monocytes # 1.0 H Eosinophils # 0.3 Basophils # 0.0 Nucleated Red Blood Cells # 0.0 Erythrocyte Sedimentation Rate 91 H Absolute Reticulocyte Count 0.100 Percent Reticulocyte Count 3.2 H Sodium Level 144 Potassium Level 3.3 L Chloride Level 99 Carbon Dioxide Level 31 Anion Gap 17 H Blood Urea Nitrogen 11 Creatinine 0.60 Glucose Level 125 # Uric Acid 4.6 Calcium Level 8.0 L Phosphorus Level 2.2 L Magnesium Level 1.4 L Iron Level 62 Total Iron Binding Capacity 225 L Percent Iron Saturation 28 Ferritin 309.0 H Total Bilirubin 4.4 H Direct Bilirubin 3.50 H Indirect Bilirubin 0.9 Aspartate Amino Transf (AST/SGOT) 100 H Alanine Aminotransferase (ALT/SGPT) 102 H Alkaline Phosphatase 1152 H Lactate Dehydrogenase 1425 H Total Protein 6.6 Albumin 3.0 L Carcinoembryonic Antigen 176.0 H Thyroid Stimulating Hormone (TSH) 1.770 Test 01/26/17 09:30 01/26/17 12:03 Vancomycin Level Trough 16.4 Bedside Glucose 180 Medications Medications Current Medications Sodium Chloride (NS) 1,000 ml @ 75 mls/hr [id number] IV Last administered on 05:09; Admin Dose 75 MLS/HR; Start 01/21/17 at 04:00 Ondansetron HCl (Zofran Inj) 4 mg Q6H PRN IV NAUSEA AND/OR VOMITING; Start at 04:00 Acetaminophen (Tylenol Supp) 650 mg Q6H PRN [place] PAIN LEVEL 1-3 OR FEVER Last administered on 01/26/17 08:06; Admin Dose 650 MG; Start 01/21/17 at 04:00 Pantoprazole (Protonix Iv) 40 mg DAILY@06 IV Last administered on 01/26/17 05: 19; Admin Dose 40 MG; Start 01/21/17 at 06:00 Acetaminophen (Tylenol Liquid) 325 mg Q4H PRN GTB PAIN OR TEMP ABOVE 38C Last administered on 01/21/17 22:44; Admin Dose 325 MG; Start 01/21/17 at 06:30 Amlodipine Besylate (Norvasc) 10 mg DAILY GTB Last administered on 01/26/17 08: 07; Admin Dose 10 MG; Start 01/21/17 at 09:00 Eye Lubricant (Akwa Oint) 1 applic HS BOTH EYES Last administered on 01/25/17 21:43; Admin Dose 1 APPLIC; Start 01/21/17 at 21:00 Bisacodyl (Dulcolax Supp) 10 mg DAILY [place] Last administered on 01/25/17 09:03; Admin Dose 10 MG; Start 01/21/17 at 09:00 Metoclopramide HCl (Reglan) 10 mg Q6H PRN GTB NAUSEA AND/OR VOMITING; Start at 06:30 Ondansetron HCl (Zofran Tab) 4 mg Q4H GTB Last administered on 01/26/17 14:56; Admin Dose 4 MG; Start 01/21/17 at 06:30 Senna (Senokot) 2 tab BID GTB Last administered on 01/26/17 08:07; Admin Dose 2 TAB; Start 01/21/17 at 09:00 Labetalol HCl (Normodyne) 300 mg BID GTB Last administered on 01/26/17 08:07; Admin Dose 300 MG; Start 01/21/17 at 09:00 Lorazepam (Ativan) 2 mg Q4H PRN IV SEIZURES Last administered on 01/22/17 01: 08; Admin Dose 2 MG; Start 01/22/17 at 01:04 Miscellaneous Information (Pending Santyl Order For Wound Care) This patient matos... PRN PRN XX WOUND CARE; Start 01/22/17 at 02:00 Miscellaneous Information 1 ea NOTE XX ; Start 01/22/17 at 16:00 Glucose (Glutose) 15 gm Q15M PRN PO DECREASED GLUCOSE; Start 01/22/17 at 16:00 Glucose (Glutose) 22.5 gm Q15M PRN PO DECREASED GLUCOSE; Start 01/22/17 at 16: 00 Dextrose (D50w Syringe) 25 ml Q15M PRN IV DECREASED GLUCOSE; Start 01/22/17 at 16:00 Dextrose (D50w Syringe) 50 ml Q15M PRN IV DECREASED GLUCOSE; Start 01/22/17 at 16:00 Glucagon (Glucagen) 1 mg Q15M PRN IM DECREASED GLUCOSE; Start 01/22/17 at 16:00 Glucose (Glutose) 15 gm Q15M PRN BUCCAL DECREASED GLUCOSE; Start 01/22/17 at 16 :00 Insulin Aspart (Novolog Insulin Pen) NOVOLOG *MILD* ALGORI... Q6 SC Last administered on 01/26/17 12:08; Admin Dose 1 UNIT; Start 01/25/17 at 00:00 Collagenase 1 applic 1 applic DAILY PRN TOP PRN; Start 01/25/17 at 01:00 Levofloxacin/ Dextrose (Levaquin 750 Mg/ D5W 150 ml (Pmx)) 150 ml @ 100 mls/hr Q24H IVPB Last administered on 01/25/17 21:44; Admin Dose 100 MLS/HR; Start 01/25/17 at 21:00 TERRY CAMPBELL NP Jan 26, 2017 17:29
--- NOTE | 2017-01-26 17:48 | RADRPT ---
PROCEDURE: Ultrasound guidance for placement of needle in right upper extremity vein. CLINICAL INDICATION: Venous access. TECHNIQUE: Limited sonography of the right upper extremity was performed. Ultrasound images were recorded and stored in the patient's medical record. COMPARISON: None. FINDINGS: The ultrasound images demonstrate a patent right upper extremity vein. The PICC line was inserted b y the PICC line nurse. IMPRESSION: 1. Ultrasound guidance for a needle placement in a right upper extremity vein. 2. The visualized right upper extremity vein is patent. RPTAT: QQ .Demetrio Vaughan MD, MD Date Time Electronically viewed and signed by .Demetrio Vaughan MD, MD on 01/26/2017 17:48 .R/
--- NOTE | 2017-01-26 17:52 | RADRPT ---
PROCEDURE: XR Chest. CLINICAL INDICATION: Check PICC line position. TECHNIQUE: Single frontal view. COMPARISON: 01/21/2017. FINDINGS: There is a right arm PICC line with the tip in the lower superior vena cava. The tracheostomy tube and right internal jugular vein central line remain in satisfactory position. The lungs are clear. There are low lung volumes. The heart is enlarged. There is no pleural effusion. There is no pneumothorax. IMPRESSION: 1. Right arm PICC line tip in satisfactory position. 2. Clear lungs. 3. Low lung volumes. 4. Cardiomegaly. RPTAT: QQ .Demetrio Vaughan MD, MD Date Time Electronically viewed and signed by .Demetrio Vaughan MD, MD on 01/26/2017 17:51 .R/
--- NOTE | 2017-01-26 18:55 | CONS ---
Date/Time of Note Date/Time of Note DATE: 01/26/17 TIME: 18:53 Assessment/Plan Assessment/Plan Chief Complaint/Hosp Course Metastatic colon cancer with liver mets Patient was diagnosed with colon cancer 3 years ago for which she was treated for it. A year ago she was diagnosed with liver metastasis and there has been receiving chemo. According to the sons who are at the bedside, treatment needed to be stopped because of a complication. Family wants to get a second opinion MRI - innumerable masses throughout the liver and bulky periportal, portacaval, extrahepatic ligament, and aortocaval adenopathy I WILL DISCUSS THIS FINDINGS WITH FAMILY I DON'T THINK THAT PT WITH HER MMP AND POOR PS WILL BENEFIT FROM ADDITIONAL CHEMO ANEMIA- MICROCYTIC WITH INCREASED RDW complete W-UP PRBC NEEDED TO KEEP HB ABOVE 8 LEUKOCYTOSIS REACTIVE, CONT TO MONITOR THROMBOCYTOSIS REACTIVE, CONT TO MONITOR Sepsis secondary to urinary tract infection Continue antibiotic per ID History of intracranial hemorrhage, status post craniotomy This is chronic issue. Continue care Elevated transaminases: GI on board. will trend enzymes for now. states ERCP if/when stable. 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 continue trach care. pulmonary following Hypertension: Blood pressure within goal Adjust BP meds as needed VENT/ PEG/ POOR PS/ BEDRIDDEN STATE Problems: Consultation Date/Type/Reason Admit Date/Time Jan 21, 2017 at 02:17 Initial Consult Date 01/25/17 [facility] Referring Provider: CESIA ROLLE 24 HR Interval Summary Free Text/Dictation all noted d/w daughter Exam/Review of Systems Vital Signs Vitals Vital Signs Date Time Temp Pulse Resp B/P Pulse Ox O2 Delivery O2 Flow Rate FiO2 01/26/17 16:17 86 01/26/17 15:17 97.2 20 137/66 94 01/26/17 11:24 5.0 01/26/17 01:56 Aerosol 28 Intake and Output 01/25/17 01/25/17 01/26/17 15:00 23:00 07:00 Intake Total 700 ml 1350 ml Output Total 1000 ml 1700 ml Balance -300 ml -350 ml Exam General: Patient is laying in bed on t-piece trach. Mentation: Patient is alert and oriented, but has difficulty speaking. Head: R sided concavity Eyes: EOMI, pupils reactive to light Neck: Supple, nontender, midline Respiratory: Clear to auscultation bilaterally Cardiovascular: regular rate, no obvious murmurs Gastrointestinal: non-tender to palpation, bowel sounds heard. Neurological: L sided weakness. Skin: No new skin lesions Results Result Diagram: 01/26/17 0650 01/26/17 0650 Results 24 hrs Laboratory Tests Test 01/25/17 23:16 01/26/17 05:19 01/26/17 06:50 01/26/17 09:30 Bedside Glucose 161 134 White Blood Count 16.9 H Red Blood Count 3.12 L Hemoglobin 8.1 L Hematocrit 25.5 L Mean Corpuscular Volume 81.7 L Mean Corpuscular Hemoglobin 26.0 L Mean Corpuscular Hemoglobin Concent 31.8 L Red Cell Distribution Width 19.8 H Platelet Count 530 H Mean Platelet Volume 11.0 H Neutrophils % 80.5 H Lymphocytes % 9.9 L Monocytes % 5.9 Eosinophils % 1.8 Basophils % 0.2 Nucleated Red Blood Cells % 0.0 Neutrophils # 13.6 H Lymphocytes # 1.7 Monocytes # 1.0 H Eosinophils # 0.3 Basophils # 0.0 Nucleated Red Blood Cells # 0.0 Erythrocyte Sedimentation Rate 91 H Absolute Reticulocyte Count 0.100 Percent Reticulocyte Count 3.2 H Sodium Level 144 Potassium Level 3.3 L Chloride Level 99 Carbon Dioxide Level 31 Anion Gap 17 H Blood Urea Nitrogen 11 Creatinine 0.60 Glucose Level 125 # Uric Acid 4.6 Calcium Level 8.0 L Phosphorus Level 2.2 L Magnesium Level 1.4 L Iron Level 62 Total Iron Binding Capacity 225 L Percent Iron Saturation 28 Ferritin 309.0 H Total Bilirubin 4.4 H Direct Bilirubin 3.50 H Indirect Bilirubin 0.9 Aspartate Amino Transf (AST/SGOT) 100 H Alanine Aminotransferase (ALT/SGPT) 102 H Alkaline Phosphatase 1152 H Lactate Dehydrogenase 1425 H Total Protein 6.6 Albumin 3.0 L Carcinoembryonic Antigen 176.0 H Thyroid Stimulating Hormone (TSH) 1.770 Vancomycin Level Trough 16.4 Test 01/26/17 12:03 01/26/17 18:05 Bedside Glucose 180 150 Medications Medications Current Medications Sodium Chloride (NS) 1,000 ml @ 75 mls/hr [id number] IV Last administered on t 18:05; Admin Dose 75 MLS/HR; Start 01/21/17 at 04:00 Ondansetron HCl (Zofran Inj) 4 mg Q6H PRN IV NAUSEA AND/OR VOMITING; Start at 04:00 Acetaminophen (Tylenol Supp) 650 mg Q6H PRN [place] PAIN LEVEL 1-3 OR FEVER Last administered on 01/26/17 08:06; Admin Dose 650 MG; Start 01/21/17 at 04:00 Pantoprazole (Protonix Iv) 40 mg DAILY@06 IV Last administered on 01/26/17 05: 19; Admin Dose 40 MG; Start 01/21/17 at 06:00 Acetaminophen (Tylenol Liquid) 325 mg Q4H PRN GTB PAIN OR TEMP ABOVE 38C Last administered on 01/21/17 22:44; Admin Dose 325 MG; Start 01/21/17 at 06:30 Amlodipine Besylate (Norvasc) 10 mg DAILY GTB Last administered on 01/26/17 08: 07; Admin Dose 10 MG; Start 01/21/17 at 09:00 Eye Lubricant (Akwa Oint) 1 applic HS BOTH EYES Last administered on 01/25/17 21:43; Admin Dose 1 APPLIC; Start 01/21/17 at 21:00 Bisacodyl (Dulcolax Supp) 10 mg DAILY [place] Last administered on 01/25/17 09:03; Admin Dose 10 MG; Start 01/21/17 at 09:00 Metoclopramide HCl (Reglan) 10 mg Q6H PRN GTB NAUSEA AND/OR VOMITING; Start at 06:30 Ondansetron HCl (Zofran Tab) 4 mg Q4H GTB Last administered on 01/26/17 18:05; Admin Dose 4 MG; Start 01/21/17 at 06:30 Senna (Senokot) 2 tab BID GTB Last administered on 01/26/17 08:07; Admin Dose 2 TAB; Start 01/21/17 at 09:00 Labetalol HCl (Normodyne) 300 mg BID GTB Last administered on 01/26/17 08:07; Admin Dose 300 MG; Start 01/21/17 at 09:00 Lorazepam (Ativan) 2 mg Q4H PRN IV SEIZURES Last administered on 01/22/17 01: 08; Admin Dose 2 MG; Start 01/22/17 at 01:04 Miscellaneous Information (Pending Santyl Order For Wound Care) This patient matos... PRN PRN XX WOUND CARE; Start 01/22/17 at 02:00 Miscellaneous Information 1 ea NOTE XX ; Start 01/22/17 at 16:00 Glucose (Glutose) 15 gm Q15M PRN PO DECREASED GLUCOSE; Start 01/22/17 at 16:00 Glucose (Glutose) 22.5 gm Q15M PRN PO DECREASED GLUCOSE; Start 01/22/17 at 16: 00 Dextrose (D50w Syringe) 25 ml Q15M PRN IV DECREASED GLUCOSE; Start 01/22/17 at 16:00 Dextrose (D50w Syringe) 50 ml Q15M PRN IV DECREASED GLUCOSE; Start 01/22/17 at 16:00 Glucagon (Glucagen) 1 mg Q15M PRN IM DECREASED GLUCOSE; Start 01/22/17 at 16:00 Glucose (Glutose) 15 gm Q15M PRN BUCCAL DECREASED GLUCOSE; Start 01/22/17 at 16 :00 Insulin Aspart (Novolog Insulin Pen) NOVOLOG *MILD* ALGORI... Q6 SC Last administered on 01/26/17 18:16; Admin Dose 1 UNIT; Start 01/25/17 at 00:00 Collagenase 1 applic 1 applic DAILY PRN TOP PRN; Start 01/25/17 at 01:00 Levofloxacin/ Dextrose (Levaquin 750 Mg/ D5W 150 ml (Pmx)) 150 ml @ 100 mls/hr Q24H IVPB Last administered on 01/25/17 21:44; Admin Dose 100 MLS/HR; Start 01/25/17 at 21:00 IV Flush (NS 10 ml) 10 ml PRN PRN IV IV PROTOCOL; Start 01/26/17 at 19:00 CHANCE MONACO MD Jan 26, 2017 18:55
--- NOTE | 2017-01-26 19:43 | CONS ---
Date/Time of Note Date/Time of Note DATE: 01/26/17 TIME: 19:41 Assessment/Plan Assessment/Plan Chief Complaint/Hosp Course ID PROGRESS NOTE CURRENT ABX: => Levaquin 750mg IVPB #3 TOTAL ABX: DAY #7 => Vanco IV #5 + Cefepime #2-> DC 8/ s/p Fosfomycin 3mg via GT x1 s/p Zosyn x1 01/21 s/p Cefepime x1 01/21 s/p CIPRO 01/21-01/24 24H INTERVAL SUMMARY * No fevers, WBC down today * BCx(-); Urine (+) GNR x 2 E.Coli + KP=ESBL Specimen: [id number] Ewel[place]: 01/21/17 Source: CATHETER U URINE CULTURE Final Organism 1 ESCHERICHIA COLI COLONY COUNT >100,000 CFU/ml Organism 2 K PNEUMO ESBL COLONY COUNT >100,000 CFU/ml . MULTI DRUG RESISTANT ORGANISM E COLI KLEB PNEUM M.I.C. RX M.I.C. RX --------- --- --------- --- AMIKACIN <=2 S AMPICILLIN >=32 R CEFAZOLIN R R CEFEPIME 2 S CEFOTAXIME S R CIPROFLOXACIN <=0.25 S 2 I GENTAMICIN <=1 S >=16 R IMIPENEM <=0.25 S LEVOFLOXACIN <=0.12 S 1 S NITROFURANTOIN <=16 S 64 I TOBRAMYCIN <=1 S >=16 R TRIMETHOPRIM/SULFAMETHOXAZOLE >=320 R >=320 R PIPERACILLIN/TAZOBACTAM 8 S EXAM GEN: Adult F, resting in bed, VSS, NAD VITALS: No fevers HEENT: AT, NC, anicteric, moist oral membranes NECK: TRACH -> Cool mist CHEST:Coarse BS over Trach tubing CV: RRR ABD: Soft, NT EXT: Warm, no C/C/E SKIN: No rash/No diaphoresis ID ASSESSMENT 51 yo F PMHx ICH->s/p Crani +VPS w/chronic encephalopathy, hemiparesis, Trach, Peg admit with: 1. Sepsis on admission due to complicated polymicrobial UTI * 01/21/17 BCx(-) * 01/21/17 Urine Cx (+) URINE CULTURE Final Organism 1 ESCHERICHIA COLI >100,000 CFU/ml Organism 2 K PNEUMO ESBL >100,000 CFU/ml MULTI DRUG RESISTANT ORGANISM 2. Probable neurogenic bladder w/retention 3. Colon cancer w/Mets to liver-> (+)transaminitis * Obstructive per MRCP -> poor prognosis to ERCP if/when stable, vs Hospice appropriate 4. 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 STG III decub sacral CURRENT ABX: => Levaquin 750mg IVPB #3 TOTAL ABX: DAY #7 * => Vanco IV #5 + Cefepime #2-> DC 01/26 * s/p Fosfomycin 3mg via GT x1 * s/p Zosyn x1 01/21 * s/p Cefepime x1 01/21 * s/p CIPRO 01/21-01/24 ID RECOMMENDATIONS Per notes: patient it hospice appropriate given the MRI/MRCP findings and remains a full code. 1. The KP is an "K PNEUMO ESBL" strain (I suspect Dr. Estrada did not catch that "fine print" as noted on the Micro result as it is hard to see on those reports) * KP-ESBL develops resistance quickly within a matter of hours, days to PCN/ Cephalosporins/Bactrim/and even Carbapenems. 2. May DC on Levaquin 750mg IV vs GT if she is absorbing meds for a total of 7 days = last day 02/01/17 . . Problems: Consultation Date/Type/Reason Admit Date/Time Jan 21, 2017 at 02:17 Initial Consult Date 01/24/17 Type of Consultation: ID Referring Provider: CESIA ROLLE Exam/Review of Systems Vital Signs Vitals Vital Signs Date Time Temp Pulse Resp B/P Pulse Ox O2 Delivery O2 Flow Rate FiO2 01/26/17 16:17 86 01/26/17 15:17 97.2 20 137/66 94 01/26/17 11:24 5.0 01/26/17 01:56 Aerosol 28 Intake and Output 01/25/17 01/25/17 01/26/17 15:00 23:00 07:00 Intake Total 700 ml 1350 ml Output Total 1000 ml 1700 ml Balance -300 ml -350 ml Results Result Diagram: 01/26/17 0650 01/26/17 0650 Results 24 hrs Laboratory Tests Test 01/25/17 23:16 01/26/17 05:19 01/26/17 06:50 01/26/17 09:30 Bedside Glucose 161 134 White Blood Count 16.9 H Red Blood Count 3.12 L Hemoglobin 8.1 L Hematocrit 25.5 L Mean Corpuscular Volume 81.7 L Mean Corpuscular Hemoglobin 26.0 L Mean Corpuscular Hemoglobin Concent 31.8 L Red Cell Distribution Width 19.8 H Platelet Count 530 H Mean Platelet Volume 11.0 H Neutrophils % 80.5 H Lymphocytes % 9.9 L Monocytes % 5.9 Eosinophils % 1.8 Basophils % 0.2 Nucleated Red Blood Cells % 0.0 Neutrophils # 13.6 H Lymphocytes # 1.7 Monocytes # 1.0 H Eosinophils # 0.3 Basophils # 0.0 Nucleated Red Blood Cells # 0.0 Erythrocyte Sedimentation Rate 91 H Absolute Reticulocyte Count 0.100 Percent Reticulocyte Count 3.2 H Sodium Level 144 Potassium Level 3.3 L Chloride Level 99 Carbon Dioxide Level 31 Anion Gap 17 H Blood Urea Nitrogen 11 Creatinine 0.60 Glucose Level 125 # Uric Acid 4.6 Calcium Level 8.0 L Phosphorus Level 2.2 L Magnesium Level 1.4 L Iron Level 62 Total Iron Binding Capacity 225 L Percent Iron Saturation 28 Ferritin 309.0 H Total Bilirubin 4.4 H Direct Bilirubin 3.50 H Indirect Bilirubin 0.9 Aspartate Amino Transf (AST/SGOT) 100 H Alanine Aminotransferase (ALT/SGPT) 102 H Alkaline Phosphatase 1152 H Lactate Dehydrogenase 1425 H Total Protein 6.6 Albumin 3.0 L Carcinoembryonic Antigen 176.0 H Thyroid Stimulating Hormone (TSH) 1.770 Vancomycin Level Trough 16.4 Test 01/26/17 12:03 01/26/17 18:05 Bedside Glucose 180 150 Medications Medications Current Medications Sodium Chloride (NS) 1,000 ml @ 75 mls/hr [id number] IV Last administered on 18:05; Admin Dose 75 MLS/HR; Start 01/21/17 at 04:00 Ondansetron HCl (Zofran Inj) 4 mg Q6H PRN IV NAUSEA AND/OR VOMITING; Start at 04:00 Acetaminophen (Tylenol Supp) 650 mg Q6H PRN [place] PAIN LEVEL 1-3 OR FEVER Last administered on 01/26/17 08:06; Admin Dose 650 MG; Start 01/21/17 at 04:00 Pantoprazole (Protonix Iv) 40 mg DAILY@06 IV Last administered on 01/26/17 05: 19; Admin Dose 40 MG; Start 01/21/17 at 06:00 Acetaminophen (Tylenol Liquid) 325 mg Q4H PRN GTB PAIN OR TEMP ABOVE 38C Last administered on 01/21/17 22:44; Admin Dose 325 MG; Start 01/21/17 at 06:30 Amlodipine Besylate (Norvasc) 10 mg DAILY GTB Last administered on 01/26/17 08: 07; Admin Dose 10 MG; Start 01/21/17 at 09:00 Eye Lubricant (Akwa Oint) 1 applic HS BOTH EYES Last administered on 01/25/17 21:43; Admin Dose 1 APPLIC; Start 01/21/17 at 21:00 Bisacodyl (Dulcolax Supp) 10 mg DAILY [place] Last administered on 01/25/17 09:03; Admin Dose 10 MG; Start 01/21/17 at 09:00 Metoclopramide HCl (Reglan) 10 mg Q6H PRN GTB NAUSEA AND/OR VOMITING; Start at 06:30 Ondansetron HCl (Zofran Tab) 4 mg Q4H GTB Last administered on 01/26/17 18:05; Admin Dose 4 MG; Start 01/21/17 at 06:30 Senna (Senokot) 2 tab BID GTB Last administered on 01/26/17 08:07; Admin Dose 2 TAB; Start 01/21/17 at 09:00 Labetalol HCl (Normodyne) 300 mg BID GTB Last administered on 01/26/17 08:07; Admin Dose 300 MG; Start 01/21/17 at 09:00 Lorazepam (Ativan) 2 mg Q4H PRN IV SEIZURES Last administered on 01/22/17 01: 08; Admin Dose 2 MG; Start 01/22/17 at 01:04 Miscellaneous Information (Pending [facility] Order For Wound Care) This patient matos... PRN PRN XX WOUND CARE; Start 01/22/17 at 02:00 Miscellaneous Information 1 ea NOTE XX ; Start 01/22/17 at 16:00 Glucose (Glutose) 15 gm Q15M PRN PO DECREASED GLUCOSE; Start 01/22/17 at 16:00 Glucose (Glutose) 22.5 gm Q15M PRN PO DECREASED GLUCOSE; Start 01/22/17 at 16: 00 Dextrose (D50w Syringe) 25 ml Q15M PRN IV DECREASED GLUCOSE; Start 01/22/17 at 16:00 Dextrose (D50w Syringe) 50 ml Q15M PRN IV DECREASED GLUCOSE; Start 01/22/17 at 16:00 Glucagon (Glucagen) 1 mg Q15M PRN IM DECREASED GLUCOSE; Start 01/22/17 at 16:00 Glucose (Glutose) 15 gm Q15M PRN BUCCAL DECREASED GLUCOSE; Start 01/22/17 at 16 :00 Insulin Aspart (Novolog Insulin Pen) NOVOLOG *MILD* ALGORI... Q6 SC Last administered on 01/26/17 18:16; Admin Dose 1 UNIT; Start 01/25/17 at 00:00 Collagenase 1 applic 1 applic DAILY PRN TOP PRN; Start 01/25/17 at 01:00 Levofloxacin/ Dextrose (Levaquin 750 Mg/ D5W 150 ml (Pmx)) 150 ml @ 100 mls/hr Q24H IVPB Last administered on 01/25/17 21:44; Admin Dose 100 MLS/HR; Start 01/25/17 at 21:00 IV Flush (NS 10 ml) 10 ml PRN PRN IV IV PROTOCOL; Start 01/26/17 at 19:00 DARELL YORK NP Jan 26, 2017 19:43
[2017-01-26] MEDS: OCULAR LUBRICANT 3.5 GM OPH OINT BOTH EYES SCH (21:56)
[2017-01-26] MEDS: LEVOFLOXACIN 750MG/D5W (PMX) 150 ML IVPB SCH (21:56)
[2017-01-27] VITALS (12 sets, daily range): BP systolic 115–128; BP diastolic 53–63; PULSE 75–87; RESP 18–22
[2017-01-27] MEDS: INSULIN ASPART [NOVOLOG] 3 ML PEN SC SCH ×4 (00:39→17:48)
[2017-01-27] MEDS: ONDANSETRON 4 MG TAB GTB SCH ×5 (03:22→20:42)
[2017-01-27] MEDS: PANTOPRAZOLE 40 MG INJ IV SCH (06:03)
[2017-01-27] MEDS: SOD CHLORIDE 0.9% 1,000 ML IV SCH ×3 (06:04→22:39)
[2017-01-27 06:48] LABS: BASOPHILS % 0.2 % (0.0-2.0); EOSINOPHILS # 0.2 10^3/ul (0.0-0.5); EOSINOPHILS % 1.3 % (0.0-7.0); HEMOGLOBIN 7.5 g/dl (12.0-16.0); LYMPHOCYTES # 1.6 10^3/ul (0.8-2.9); LYMPHOCYTES % 8.7 % (15.0-51.0); MEAN CORPUSCULAR HEMOGLOBIN 25.8 pg (29.0-33.0); MEAN CORPUSCULAR HGB CONC 31.3 g/dl (32.0-37.0); MEAN CORPUSCULAR VOLUME 82.5 fl (82.0-101.0); MEAN PLATELET VOLUME 11.3 fl (7.4-10.4); MONOCYTE # 1.3 10^3/ul (0.3-0.9); NEUTROPHIL # 14.6 10^3/ul (1.6-7.5); NEUTROPHILS % 81.1 % (39.0-77.0); PLATELET COUNT 490 10^3/UL (140-415); RED BLOOD COUNT 2.91 10^6/ul (4.20-5.40); RED CELL DISTRIBUTION WIDTH 20.5 % (11.5-14.5)
[2017-01-27 07:26] LABS: CALCIUM 7.7 mg/dl (8.4-10.2); CREATININE 0.59 mg/dl (0.44-1.00); MAGNESIUM 1.3 mg/dl (1.7-2.5); PHOSPHORUS 2.3 mg/dl (2.5-4.9); POTASSIUM 3.1 mmol/L (3.5-5.1)
[2017-01-27] MEDS: BISACODYL 10 MG SUPP PR SCH (09:00)
[2017-01-27] MEDS: SENNA TAB GTB SCH (09:00)
[2017-01-27] MEDS: LABETALOL 100 MG TAB GTB SCH ×2 (09:19→20:43)
[2017-01-27] MEDS: AMLODIPINE 10 MG TAB GTB SCH (09:19)
[2017-01-27] MEDS ORDERED: POTASSIUM CHLORIDE 20 MEQ POWDER FOR ORAL SOLN NGT ONE (10:30)
[2017-01-27] MEDS ORDERED: BISACODYL 10 MG SUPP PR PRN (11:10)
[2017-01-27] MEDS ORDERED: SENNA TAB GTB PRN (11:30)
[2017-01-27] MEDS ORDERED: POTASSIUM CHLORIDE 250 ML IVPB ONE (11:30)
[2017-01-27] MEDS: COLLAGENASE 30 GM TUBE TOP PRN ×2 (12:03→23:30)
[2017-01-27] MEDS ORDERED: MAGNESIUM SULFATE 1 GM/D5W 100 ML IVPB ONE (13:00)
--- NOTE | 2017-01-27 14:29 | CONS ---
Date/Time of Note Date/Time of Note DATE: 01/27/17 TIME: 14:27 Assessment/Plan Assessment/Plan Additional Assessment/Plan Assessment and recommendations; 1. Patient admitted with UTI and sepsis with significant clinical improvement. 2. Chronic respiratory failure, patient maintained on tracheal T piece no 3. Subarachnoid hemorrhage with right parietal skull surgery. Continue current treatment. Consider discharge. Consultation Date/Type/Reason Admit Date/Time Jan 21, 2017 at 02:17 Initial Consult Date 01/23/17 Type of Consultation: Pulmonary Referring Provider: CESIA ROLLE 24 HR Interval Summary Free Text/Dictation Patient condition is stable. Remains awake and able to talk. Has remained hemodynamically stable. General exam; middle-aged woman, awake and alert. Maintained on tracheostomy on T-piece. Currently in no distress. Exam/Review of Systems Vital Signs Vitals Vital Signs Date Time Temp Pulse Resp B/P Pulse Ox O2 Delivery O2 Flow Rate FiO2 01/27/17 14:02 5.0 28 01/27/17 12:30 75 01/27/17 11:37 99.3 20 115/56 93 01/27/17 05:24 Aerosol T Tube Intake and Output 01/26/17 01/26/17 01/27/17 15:00 23:00 07:00 Intake Total 200 ml 1125 ml 1075 ml Output Total 1500 ml Balance 200 ml -375 ml 1075 ml Exam HEENT exam; supple neck, no JVD. No lymphadenopathy. Midline trachea. No thyromegaly. Tracheostomy in place. Patient has fair dentition. There is a large right parietal skull depression. Chest exam; clear to auscultation. S1-S2 audible, no murmurs. Regular rhythm. Abdomen exam; soft, G-tube in place. Bowel sounds audible. No organomegaly. Extremity exam; no peripheral edema. RECREATION THERAPY AIDE examination; patient has dense left hemiplegia. Results Result Diagram: 01/27/17 0615 01/27/17 0627 Results 24 hrs Laboratory Tests Test 01/26/17 18:05 01/27/17 00:35 01/27/17 05:59 01/27/17 06:15 Bedside Glucose 150 144 114 White Blood Count 18.0 H Red Blood Count 2.91 L Hemoglobin 7.5 L Hematocrit 24.0 L Mean Corpuscular Volume 82.5 Mean Corpuscular Hemoglobin 25.8 L Mean Corpuscular Hemoglobin Concent 31.3 L Red Cell Distribution Width 20.5 H Platelet Count 490 H Mean Platelet Volume 11.3 H Neutrophils % 81.1 H Lymphocytes % 8.7 L Monocytes % 7.0 Eosinophils % 1.3 Basophils % 0.2 Nucleated Red Blood Cells % 0.0 Neutrophils # 14.6 H Lymphocytes # 1.6 Monocytes # 1.3 H Eosinophils # 0.2 Basophils # 0.0 Nucleated Red Blood Cells # 0.0 Test 01/27/17 06:27 01/27/17 12:02 Sodium Level 143 Potassium Level 3.1 L Chloride Level 97 Carbon Dioxide Level 33 H Anion Gap 16 Blood Urea Nitrogen 11 Creatinine 0.59 Glucose Level 113 Calcium Level 7.7 L Phosphorus Level 2.3 L Magnesium Level 1.3 L Bedside Glucose 147 Medications Medications Current Medications Sodium Chloride (NS) 1,000 ml @ 75 mls/hr [id number] IV Last administered on 06:04; Admin Dose 75 MLS/HR; Start 01/21/17 at 04:00 Ondansetron HCl (Zofran Inj) 4 mg Q6H PRN IV NAUSEA AND/OR VOMITING; Start at 04:00 Acetaminophen (Tylenol Supp) 650 mg Q6H PRN IN PAIN LEVEL 1-3 OR FEVER Last administered on 01/26/17 08:06; Admin Dose 650 MG; Start 01/21/17 at 04:00 Pantoprazole (Protonix Iv) 40 mg DAILY@06 IV Last administered on 01/27/17 06: 03; Admin Dose 40 MG; Start 01/21/17 at 06:00 Acetaminophen (Tylenol Liquid) 325 mg Q4H PRN GTB PAIN OR TEMP ABOVE 38C Last administered on 01/21/17 22:44; Admin Dose 325 MG; Start 01/21/17 at 06:30 Amlodipine Besylate (Norvasc) 10 mg DAILY GTB Last administered on 01/27/17 09: 19; Admin Dose 10 MG; Start 01/21/17 at 09:00 Eye Lubricant (Akwa Oint) 1 applic HS BOTH EYES Last administered on 01/26/17 21:56; Admin Dose 1 APPLIC; Start 01/21/17 at 21:00 Metoclopramide HCl (Reglan) 10 mg Q6H PRN GTB NAUSEA AND/OR VOMITING; Start at 06:30 Ondansetron HCl (Zofran Tab) 4 mg Q4H GTB Last administered on 01/27/17 12:02; Admin Dose 4 MG; Start 01/21/17 at 06:30 Labetalol HCl (Normodyne) 300 mg BID GTB Last administered on 01/27/17 09:19; Admin Dose 300 MG; Start 01/21/17 at 09:00 Lorazepam (Ativan) 2 mg Q4H PRN IV SEIZURES Last administered on 01/22/17 01: 08; Admin Dose 2 MG; Start 01/22/17 at 01:04 [facility] This patient matos... PRN PRN XX WOUND CARE; Start 01/22/17 at 02:00 Miscellaneous Information 1 ea NOTE XX ; Start 01/22/17 at 16:00 Glucose (Glutose) 15 gm Q15M PRN PO DECREASED GLUCOSE; Start 01/22/17 at 16:00 Glucose (Glutose) 22.5 gm Q15M PRN PO DECREASED GLUCOSE; Start 01/22/17 at 16: 00 Dextrose (D50w Syringe) 25 ml Q15M PRN IV DECREASED GLUCOSE; Start 01/22/17 at 16:00 Dextrose (D50w Syringe) 50 ml Q15M PRN IV DECREASED GLUCOSE; Start 01/22/17 at 16:00 Glucagon (Glucagen) 1 mg Q15M PRN IM DECREASED GLUCOSE; Start 01/22/17 at 16:00 Glucose (Glutose) 15 gm Q15M PRN BUCCAL DECREASED GLUCOSE; Start 01/22/17 at 16 :00 Insulin Aspart (Novolog Insulin Pen) NOVOLOG *MILD* ALGORI... Q6 SC Last administered on 01/27/17 12:04; Admin Dose 1 UNIT; Start 01/25/17 at 00:00 Collagenase 1 applic 1 applic DAILY PRN TOP PRN Last administered on 01/27/17 12:03; Admin Dose 1 APPLIC; Start 01/25/17 at 01:00 Levofloxacin/ Dextrose (Levaquin 750 Mg/ D5W 150 ml (Pmx)) 150 ml @ 100 mls/hr Q24H IVPB Last administered on 01/26/17 21:56; Admin Dose 100 MLS/HR; Start 01/25/17 at 21:00 IV Flush 10 ml 10 ml PRN PRN IV IV PROTOCOL; Start 01/26/17 at 19:00 Potassium Chloride (KCl 40 MEQ/250 ML NS) 250 ml @ 62.5 mls/hr ONCE ONCE IVPB Last administered on 01/27/17 12:03; Admin Dose 62.5 MLS/HR; Start 01/27/17 at 11:30; Stop 01/27/17 at 15:29 Bisacodyl (Dulcolax Supp) 10 mg Q24H PRN IN CONSTIPATION; Start 01/27/17 at 11: 10 Senna (Senokot) 2 tab BID PRN GTB CONSTIPATION; Start 01/27/17 at 11:30 DEAN BELTRAN Jan 27, 2017 14:29
--- NOTE | 2017-01-27 14:54 | PN ---
Date/Time of Note Date/Time of Note DATE: 01/27/17 TIME: 14:51 Assessment/Plan VTE Prophylaxis VTE Prophylaxis Intervention: SCD's Lines/Catheters IV Catheter Type (from Nrsg): PICC Line Central line still needed: Yes Urinary Cath still in place: Yes Reason Cath still needed: terminal illness/intractable pain Assessment/Plan Chief Complaint/Hosp Course Patient is a 51-year-old female with a past medical history significant for intracranial hemorrhage status post craniectomy and trach placement who presented for fevers found to have UTI. Sepsis secondary to UTI, resolving Intracranial hemorrhage status post craniectomy, stable Metastatic liver cancer, ongoing Elevated transaminases Chronic respiratory failure, trach dependent, on T-piece Hypertension Leukocytosis Hypokalemia Metabolic alkalosis Left-sided hemiplegia secondary to intracranial hemorrhage Plan -Continue antibiotic per ID will need levofloxacin for total 7 days -Monitor white count for now, will transfer to facility once white count is decreasing -Hematology and oncology also agree with primary oncologist of holding off on acute treatment for liver cancer until current issues with craniectomy and tracheostomy are resolved -GI recommends hospice evaluation given MRCP results -Continue trach management per pulmonology Disposition: Awaiting transfer to facility Problems: Subjective 24 Hr Interval Summary Free Text/Dictation residual in peg tube feeding, held for now, Exam/Review of Systems Vital Signs Vitals Vital Signs Date Time Temp Pulse Resp B/P Pulse Ox O2 Delivery O2 Flow Rate FiO2 01/27/17 14:02 5.0 28 01/27/17 12:30 75 01/27/17 11:37 99.3 20 115/56 93 01/27/17 05:24 Aerosol T Tube Intake and Output 01/26/17 01/26/17 01/27/17 15:00 23:00 07:00 Intake Total 200 ml 1125 ml 1075 ml Output Total 1500 ml Balance 200 ml -375 ml 1075 ml Exam Physical exam General: Patient is laying in bed on t-piece trach. Mentation: Patient is alert and oriented, but has difficulty speaking. Head: R sided concavity Eyes: EOMI, pupils reactive to light Neck: Supple, nontender, midline Respiratory: Clear to auscultation bilaterally Cardiovascular: regular rate, no obvious murmurs Gastrointestinal: non-tender to palpation, bowel sounds heard. Neurological: L sided weakness. Skin: No new skin lesions Results Result Diagram: 01/27/17 0615 01/27/17 0627 Results 24 hrs Laboratory Tests Test 01/26/17 18:05 01/27/17 00:35 01/27/17 05:59 01/27/17 06:15 Bedside Glucose 150 144 114 White Blood Count 18.0 H Red Blood Count 2.91 L Hemoglobin 7.5 L Hematocrit 24.0 L Mean Corpuscular Volume 82.5 Mean Corpuscular Hemoglobin 25.8 L Mean Corpuscular Hemoglobin Concent 31.3 L Red Cell Distribution Width 20.5 H Platelet Count 490 H Mean Platelet Volume 11.3 H Neutrophils % 81.1 H Lymphocytes % 8.7 L Monocytes % 7.0 Eosinophils % 1.3 Basophils % 0.2 Nucleated Red Blood Cells % 0.0 Neutrophils # 14.6 H Lymphocytes # 1.6 Monocytes # 1.3 H Eosinophils # 0.2 Basophils # 0.0 Nucleated Red Blood Cells # 0.0 Test 01/27/17 06:27 01/27/17 12:02 Sodium Level 143 Potassium Level 3.1 L Chloride Level 97 Carbon Dioxide Level 33 H Anion Gap 16 Blood Urea Nitrogen 11 Creatinine 0.59 Glucose Level 113 Calcium Level 7.7 L Phosphorus Level 2.3 L Magnesium Level 1.3 L Bedside Glucose 147 Medications Medications Current Medications Sodium Chloride (NS) 1,000 ml @ 75 mls/hr [id number] IV Last administered on 06:04; Admin Dose 75 MLS/HR; Start 01/21/17 at 04:00 Ondansetron HCl (Zofran Inj) 4 mg Q6H PRN IV NAUSEA AND/OR VOMITING; Start at 04:00 Acetaminophen (Tylenol Supp) 650 mg Q6H PRN MA PAIN LEVEL 1-3 OR FEVER Last administered on 01/26/17 08:06; Admin Dose 650 MG; Start 01/21/17 at 04:00 Pantoprazole (Protonix Iv) 40 mg DAILY@06 IV Last administered on 01/27/17 06: 03; Admin Dose 40 MG; Start 01/21/17 at 06:00 Acetaminophen (Tylenol Liquid) 325 mg Q4H PRN GTB PAIN OR TEMP ABOVE 38C Last administered on 01/21/17 22:44; Admin Dose 325 MG; Start 01/21/17 at 06:30 Amlodipine Besylate (Norvasc) 10 mg DAILY GTB Last administered on 01/27/17 09: 19; Admin Dose 10 MG; Start 01/21/17 at 09:00 Eye Lubricant (Akwa Oint) 1 applic HS BOTH EYES Last administered on 01/26/17 21:56; Admin Dose 1 APPLIC; Start 01/21/17 at 21:00 Metoclopramide HCl (Reglan) 10 mg Q6H PRN GTB NAUSEA AND/OR VOMITING; Start at 06:30 Ondansetron HCl (Zofran Tab) 4 mg Q4H GTB Last administered on 01/27/17 12:02; Admin Dose 4 MG; Start 01/21/17 at 06:30 Labetalol HCl (Normodyne) 300 mg BID GTB Last administered on 01/27/17 09:19; Admin Dose 300 MG; Start 01/21/17 at 09:00 Lorazepam (Ativan) 2 mg Q4H PRN IV SEIZURES Last administered on 01/22/17 01: 08; Admin Dose 2 MG; Start 01/22/17 at 01:04 Miscellaneous Information (Pending [facility] Order For Wound Care) This patient matos... PRN PRN XX WOUND CARE; Start 01/22/17 at 02:00 Miscellaneous Information 1 ea NOTE XX ; Start 01/22/17 at 16:00 Glucose (Glutose) 15 gm Q15M PRN PO DECREASED GLUCOSE; Start 01/22/17 at 16:00 Glucose (Glutose) 22.5 gm Q15M PRN PO DECREASED GLUCOSE; Start 01/22/17 at 16: 00 Dextrose (D50w Syringe) 25 ml Q15M PRN IV DECREASED GLUCOSE; Start 01/22/17 at 16:00 Dextrose (D50w Syringe) 50 ml Q15M PRN IV DECREASED GLUCOSE; Start 01/22/17 at 16:00 Glucagon (Glucagen) 1 mg Q15M PRN IM DECREASED GLUCOSE; Start 01/22/17 at 16:00 Glucose (Glutose) 15 gm Q15M PRN BUCCAL DECREASED GLUCOSE; Start 01/22/17 at 16 :00 Insulin Aspart (Novolog Insulin Pen) NOVOLOG *MILD* ALGORI... Q6 SC Last administered on 01/27/17 12:04; Admin Dose 1 UNIT; Start 01/25/17 at 00:00 Collagenase 1 applic 1 applic DAILY PRN TOP PRN Last administered on 01/27/17 12:03; Admin Dose 1 APPLIC; Start 01/25/17 at 01:00 Levofloxacin/ Dextrose (Levaquin 750 Mg/ D5W 150 ml (Pmx)) 150 ml @ 100 mls/hr Q24H IVPB Last administered on 01/26/17 21:56; Admin Dose 100 MLS/HR; Start 01/25/17 at 21:00 IV Flush 10 ml 10 ml PRN PRN IV IV PROTOCOL; Start 01/26/17 at 19:00 Potassium Chloride (KCl 40 MEQ/250 ML NS) 250 ml @ 62.5 mls/hr ONCE ONCE IVPB Last administered on 01/27/17 12:03; Admin Dose 62.5 MLS/HR; Start 01/27/17 at 11:30; Stop 01/27/17 at 15:29 Bisacodyl (Dulcolax Supp) 10 mg Q24H PRN [place] CONSTIPATION; Start 01/27/17 at 11: 10 Senna (Senokot) 2 tab BID PRN GTB CONSTIPATION; Start 01/27/17 at 11:30 CESIA ROLLE Jan 27, 2017 14:54
--- NOTE | 2017-01-27 15:14 | PN ---
Date/Time of Note Date/Time of Note DATE: 01/27/17 TIME: 15:12 Assessment/Plan VTE Prophylaxis VTE Prophylaxis Intervention: heparin Lines/Catheters IV Catheter Type (from [facility]): PICC Line Central line still needed: Yes Urinary Cath still in place: Yes Reason Cath still needed: urinary retention Assessment/Plan Assessment/Plan Assessment * Sepsis UTI vs pneumonia vs others * Elevated transaminitis Obstructive vs hepatocellular in origin MRI . Moderate diffuse intra and extrahepatic biliary ductal dilation with an abrupt transition point at the distal CBD, suspicious for a malignant stricture or underlying occult mass lesion. ERCP can be performed for further evaluation. Hepatomegaly with innumerable masses throughout the liver and bulky periportal, portacaval, extrahepatic ligament, and aortocaval adenopathy, highly suspicious for metastatic disease from an uncertain primary. Trace right effusion. . Partially visualized ventral abdominal hernia. * History of craniotomy sec brain aneurysm * History of colon surgery secondary to colonic cancer with liver metastasis * History of chemotherapy * History PEG * History of Tracheostomy Plan * Plan * Continue present management * suggest hospice evaluation given the MRCP results * Trend transaminase levels * Further orders will depend on clinical course * case discussed with Dr Hdz Subjective 24 Hr Interval Summary Free Text/Dictation * Course reviewed with RN * Patient seen and examined * no untoward events overnight Exam/Review of Systems Vital Signs Vitals Vital Signs Date Time Temp Pulse Resp B/P Pulse Ox O2 Delivery O2 Flow Rate FiO2 01/27/17 14:02 5.0 28 01/27/17 12:30 75 01/27/17 11:37 99.3 20 115/56 93 01/27/17 05:24 Aerosol T Tube Intake and Output 01/26/17 01/26/17 01/27/17 15:00 23:00 07:00 Intake Total 200 ml 1125 ml 1075 ml Output Total 1500 ml Balance 200 ml -375 ml 1075 ml Exam Constitutional: frail ENMT: other (tracheostomy) Neck: non-tender, supple Respiratory: crackles/rales, diminished breath sounds Cardiovascular: nl pulses, regular rate and rhythm Gastrointestinal: non-tender, soft Musculoskeletal: muscle weakness Extremities: edema, normal pulses Neurological: lethargic Skin: rash or lesions Lymph: nl lymph nodes Results Result Diagram: 01/27/17 0615 01/27/17 0627 Results 24 hrs Laboratory Tests Test 01/26/17 18:05 01/27/17 00:35 01/27/17 05:59 01/27/17 06:15 Bedside Glucose 150 144 114 White Blood Count 18.0 H Red Blood Count 2.91 L Hemoglobin 7.5 L Hematocrit 24.0 L Mean Corpuscular Volume 82.5 Mean Corpuscular Hemoglobin 25.8 L Mean Corpuscular Hemoglobin Concent 31.3 L Red Cell Distribution Width 20.5 H Platelet Count 490 H Mean Platelet Volume 11.3 H Neutrophils % 81.1 H Lymphocytes % 8.7 L Monocytes % 7.0 Eosinophils % 1.3 Basophils % 0.2 Nucleated Red Blood Cells % 0.0 Neutrophils # 14.6 H Lymphocytes # 1.6 Monocytes # 1.3 H Eosinophils # 0.2 Basophils # 0.0 Nucleated Red Blood Cells # 0.0 Test 01/27/17 06:27 01/27/17 12:02 Sodium Level 143 Potassium Level 3.1 L Chloride Level 97 Carbon Dioxide Level 33 H Anion Gap 16 Blood Urea Nitrogen 11 Creatinine 0.59 Glucose Level 113 Calcium Level 7.7 L Phosphorus Level 2.3 L Magnesium Level 1.3 L Bedside Glucose 147 Medications Medications Current Medications Sodium Chloride (NS) 1,000 ml @ 75 mls/hr [id number] IV Last administered on 06:04; Admin Dose 75 MLS/HR; Start 01/21/17 at 04:00 Ondansetron HCl (Zofran Inj) 4 mg Q6H PRN IV NAUSEA AND/OR VOMITING; Start at 04:00 Acetaminophen (Tylenol Supp) 650 mg Q6H PRN PA PAIN LEVEL 1-3 OR FEVER Last administered on 01/26/17 08:06; Admin Dose 650 MG; Start 01/21/17 at 04:00 Pantoprazole (Protonix Iv) 40 mg DAILY@06 IV Last administered on 01/27/17 06: 03; Admin Dose 40 MG; Start 01/21/17 at 06:00 Acetaminophen (Tylenol Liquid) 325 mg Q4H PRN GTB PAIN OR TEMP ABOVE 38C Last administered on 01/21/17 22:44; Admin Dose 325 MG; Start 01/21/17 at 06:30 Amlodipine Besylate (Norvasc) 10 mg DAILY GTB Last administered on 01/27/17 09: 19; Admin Dose 10 MG; Start 01/21/17 at 09:00 Eye Lubricant (Akwa Oint) 1 applic HS BOTH EYES Last administered on 01/26/17 21:56; Admin Dose 1 APPLIC; Start 01/21/17 at 21:00 Metoclopramide HCl (Reglan) 10 mg Q6H PRN GTB NAUSEA AND/OR VOMITING; Start at 06:30 Ondansetron HCl (Zofran Tab) 4 mg Q4H GTB Last administered on 01/27/17 12:02; Admin Dose 4 MG; Start 01/21/17 at 06:30 Labetalol HCl (Normodyne) 300 mg BID GTB Last administered on 01/27/17 09:19; Admin Dose 300 MG; Start 01/21/17 at 09:00 Lorazepam (Ativan) 2 mg Q4H PRN IV SEIZURES Last administered on 01/22/17 01: 08; Admin Dose 2 MG; Start 01/22/17 at 01:04 Miscellaneous Information (Pending [facility] Order For Wound Care) This patient matos... PRN PRN XX WOUND CARE; Start 01/22/17 at 02:00 Miscellaneous Information 1 ea NOTE XX ; Start 01/22/17 at 16:00 Glucose (Glutose) 15 gm Q15M PRN PO DECREASED GLUCOSE; Start 01/22/17 at 16:00 Glucose (Glutose) 22.5 gm Q15M PRN PO DECREASED GLUCOSE; Start 01/22/17 at 16: 00 Dextrose (D50w Syringe) 25 ml Q15M PRN IV DECREASED GLUCOSE; Start 01/22/17 at 16:00 Dextrose (D50w Syringe) 50 ml Q15M PRN IV DECREASED GLUCOSE; Start 01/22/17 at 16:00 Glucagon (Glucagen) 1 mg Q15M PRN IM DECREASED GLUCOSE; Start 01/22/17 at 16:00 Glucose (Glutose) 15 gm Q15M PRN BUCCAL DECREASED GLUCOSE; Start 01/22/17 at 16 :00 Insulin Aspart (Novolog Insulin Pen) NOVOLOG *MILD* ALGORI... Q6 SC Last administered on 01/27/17 12:04; Admin Dose 1 UNIT; Start 01/25/17 at 00:00 Collagenase 1 applic 1 applic DAILY PRN TOP PRN Last administered on 01/27/17 12:03; Admin Dose 1 APPLIC; Start 01/25/17 at 01:00 Levofloxacin/ Dextrose (Levaquin 750 Mg/ D5W 150 ml (Pmx)) 150 ml @ 100 mls/hr Q24H IVPB Last administered on 01/26/17 21:56; Admin Dose 100 MLS/HR; Start 01/25/17 at 21:00 IV Flush 10 ml 10 ml PRN PRN IV IV PROTOCOL; Start 01/26/17 at 19:00 Potassium Chloride (KCl 40 MEQ/250 ML NS) 250 ml @ 62.5 mls/hr ONCE ONCE IVPB Last administered on 01/27/17 12:03; Admin Dose 62.5 MLS/HR; Start 01/27/17 at 11:30; Stop 01/27/17 at 15:29 Bisacodyl (Dulcolax Supp) 10 mg Q24H PRN [place] CONSTIPATION; Start 01/27/17 at 11: 10 Senna (Senokot) 2 tab BID PRN GTB CONSTIPATION; Start 01/27/17 at 11:30 TERRY CAMPBELL NP Jan 27, 2017 15:14
[2017-01-27] MEDS: METOCLOPRAMIDE 10 MG INJ IV SCH (17:55)
--- NOTE | 2017-01-27 21:48 | CONS ---
Date/Time of Note Date/Time of Note DATE: 01/27/17 TIME: 21:43 Assessment/Plan Assessment/Plan Chief Complaint/Hosp Course ID PROGRESS NOTE CURRENT ABX: => Levaquin 750mg IVPB #3 TOTAL ABX: DAY #8 => Vanco IV #5 + Cefepime #2-> DC 8/2 s/p Fosfomycin 3mg via GT x1 s/p Zosyn x1 01/21 s/p Cefepime x1 01/21 s/p CIPRO 01/21-01/24 24H INTERVAL SUMMARY * WBC remains elevated -- Concern is for intra-ABD, hepatic, biliary sepsis * BCx(-); Urine (+) GNR x 2 E.Coli + KP=ESBL Specimen: [id number] Ewelina: 01/21/17-0155 Source: CATHETER U URINE CULTURE Final Organism 1 ESCHERICHIA COLI COLONY COUNT >100,000 CFU/ml Organism 2 K PNEUMO ESBL COLONY COUNT >100,000 CFU/ml . MULTI DRUG RESISTANT ORGANISM E COLI KLEB PNEUM M.I.C. RX M.I.C. RX --------- --- --------- --- AMIKACIN <=2 S AMPICILLIN >=32 R CEFAZOLIN R R CEFEPIME 2 S CEFOTAXIME S R CIPROFLOXACIN <=0.25 S 2 I GENTAMICIN <=1 S >=16 R IMIPENEM <=0.25 S LEVOFLOXACIN <=0.12 S 1 S NITROFURANTOIN <=16 S 64 I TOBRAMYCIN <=1 S >=16 R TRIMETHOPRIM/SULFAMETHOXAZOLE >=320 R >=320 R PIPERACILLIN/TAZOBACTAM 8 S EXAM GEN: Adult F, resting in bed, VSS, NAD VITALS: No fevers HEENT: AT, NC, anicteric, moist oral membranes NECK: TRACH -> Cool mist CHEST:Coarse BS over Trach tubing CV: RRR ABD: Soft, NT EXT: Warm, no C/C/E SKIN: No rash/No diaphoresis ID ASSESSMENT 51 yo F PMHx ICH->s/p Crani +VPS w/chronic encephalopathy, hemiparesis, Trach, Peg admit with: 1. Sepsis on admission due to complicated polymicrobial UTI + ABD/Liver/ Biliary sepsis * 01/21/17 BCx(-) * 01/21/17 Urine Cx (+) URINE CULTURE Final Organism 1 ESCHERICHIA COLI >100,000 CFU/ml Organism 2 K PNEUMO ESBL >100,000 CFU/ml MULTI DRUG RESISTANT ORGANISM 2. Probable neurogenic bladder w/retention 3. Colon cancer w/Mets to liver-> (+)transaminitis * Obstructive per MRCP -> poor prognosis to ERCP if/when stable, vs Hospice appropriate 4. 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 STG III decub sacral CURRENT ABX: => Levaquin 750mg IVPB #3 + restart Vanco IV + Merrem TOTAL ABX: DAY #8 ID RECOMMENDATIONS 1. WBC remains elevated -- Concern is for intra-ABD, hepatic, biliary sepsis * She has obstruction on CT and masses seen probably carcinamatosis; nevertheless without needle aspiration vs I&D cannot r/o liver abscess, biliary sepsis * I discussed concern with Dr. Etsrada who advised to restart Vanco + Merrem until possible CT guided needle aspiration w/sample sent for micro C&S . . . Problems: Consultation Date/Type/Reason Admit Date/Time Jan 21, 2017 at 02:17 Initial Consult Date 01/24/17 Type of Consultation: ID Referring Provider: CESIA ROLLE Exam/Review of Systems Vital Signs Vitals Vital Signs Date Time Temp Pulse Resp B/P Pulse Ox O2 Delivery O2 Flow Rate FiO2 01/27/17 20:48 83 20 95 Aerosol 5.0 28 T Tube 01/27/17 19:48 99.2 120/56 Intake and Output 01/26/17 01/26/17 01/27/17 15:00 23:00 07:00 Intake Total 200 ml 1125 ml 1075 ml Output Total 1500 ml Balance 200 ml -375 ml 1075 ml Results Result Diagram: 01/27/17 0615 01/27/17 0627 Results 24 hrs Laboratory Tests Test 01/27/17 00:35 01/27/17 05:59 01/27/17 06:15 01/27/17 06:27 Bedside Glucose 144 114 White Blood Count 18.0 H Red Blood Count 2.91 L Hemoglobin 7.5 L Hematocrit 24.0 L Mean Corpuscular Volume 82.5 Mean Corpuscular Hemoglobin 25.8 L Mean Corpuscular Hemoglobin Concent 31.3 L Red Cell Distribution Width 20.5 H Platelet Count 490 H Mean Platelet Volume 11.3 H Neutrophils % 81.1 H Lymphocytes % 8.7 L Monocytes % 7.0 Eosinophils % 1.3 Basophils % 0.2 Nucleated Red Blood Cells % 0.0 Neutrophils # 14.6 H Lymphocytes # 1.6 Monocytes # 1.3 H Eosinophils # 0.2 Basophils # 0.0 Nucleated Red Blood Cells # 0.0 Sodium Level 143 Potassium Level 3.1 L Chloride Level 97 Carbon Dioxide Level 33 H Anion Gap 16 Blood Urea Nitrogen 11 Creatinine 0.59 Glucose Level 113 Calcium Level 7.7 L Phosphorus Level 2.3 L Magnesium Level 1.3 L Test 01/27/17 12:02 01/27/17 17:47 Bedside Glucose 147 137 Medications Medications Current Medications Sodium Chloride (NS) 1,000 ml @ 75 mls/hr [id number] IV Last administered on 06:04; Admin Dose 75 MLS/HR; Start 01/21/17 at 04:00 Ondansetron HCl (Zofran Inj) 4 mg Q6H PRN IV NAUSEA AND/OR VOMITING; Start at 04:00 Acetaminophen (Tylenol Supp) 650 mg Q6H PRN [place] PAIN LEVEL 1-3 OR FEVER Last administered on 01/26/17 08:06; Admin Dose 650 MG; Start 01/21/17 at 04:00 Pantoprazole (Protonix Iv) 40 mg DAILY@06 IV Last administered on 01/27/17 06: 03; Admin Dose 40 MG; Start 01/21/17 at 06:00 Acetaminophen (Tylenol Liquid) 325 mg Q4H PRN GTB PAIN OR TEMP ABOVE 38C Last administered on 01/21/17 22:44; Admin Dose 325 MG; Start 01/21/17 at 06:30 Amlodipine Besylate (Norvasc) 10 mg DAILY GTB Last administered on 01/27/17 09: 19; Admin Dose 10 MG; Start 01/21/17 at 09:00 Eye Lubricant (Akwa Oint) 1 applic HS BOTH EYES Last administered on 01/26/17 21:56; Admin Dose 1 APPLIC; Start 01/21/17 at 21:00 Ondansetron HCl (Zofran Tab) 4 mg Q4H GTB Last administered on 01/27/17 20:42; Admin Dose 4 MG; Start 01/21/17 at 06:30 Labetalol HCl (Normodyne) 300 mg BID GTB Last administered on 01/27/17 20:43; Admin Dose 300 MG; Start 01/21/17 at 09:00 Lorazepam (Ativan) 2 mg Q4H PRN IV SEIZURES Last administered on 01/22/17 01: 08; Admin Dose 2 MG; Start 01/22/17 at 01:04 Miscellaneous Information (Pending [facility] Order For Wound Care) This patient matos... PRN PRN XX WOUND CARE; Start 01/22/17 at 02:00 Miscellaneous Information 1 ea NOTE XX ; Start 01/22/17 at 16:00 Glucose (Glutose) 15 gm Q15M PRN PO DECREASED GLUCOSE; Start 01/22/17 at 16:00 Glucose (Glutose) 22.5 gm Q15M PRN PO DECREASED GLUCOSE; Start 01/22/17 at 16: 00 Dextrose (D50w Syringe) 25 ml Q15M PRN IV DECREASED GLUCOSE; Start 01/22/17 at 16:00 Dextrose (D50w Syringe) 50 ml Q15M PRN IV DECREASED GLUCOSE; Start 01/22/17 at 16:00 Glucagon (Glucagen) 1 mg Q15M PRN IM DECREASED GLUCOSE; Start 01/22/17 at 16:00 Glucose (Glutose) 15 gm Q15M PRN BUCCAL DECREASED GLUCOSE; Start 01/22/17 at 16 :00 Insulin Aspart (Novolog Insulin Pen) NOVOLOG *MILD* ALGORI... Q6 SC Last administered on 01/27/17 12:04; Admin Dose 1 UNIT; Start 01/25/17 at 00:00 Collagenase 1 applic 1 applic DAILY PRN TOP PRN Last administered on 01/27/17 12:03; Admin Dose 1 APPLIC; Start 01/25/17 at 01:00 Levofloxacin/ Dextrose (Levaquin 750 Mg/ D5W 150 ml (Pmx)) 150 ml @ 100 mls/hr Q24H IVPB Last administered on 01/26/17 21:56; Admin Dose 100 MLS/HR; Start 01/25/17 at 21:00 IV Flush (NS 10 ml) 10 ml PRN PRN IV IV PROTOCOL; Start 01/26/17 at 19:00 Bisacodyl (Dulcolax Supp) 10 mg Q24H PRN [place] CONSTIPATION; Start 01/27/17 at 11: 10 Senna (Senokot) 2 tab BID PRN GTB CONSTIPATION; Start 01/27/17 at 11:30 Metoclopramide HCl 10 mg 10 mg Q6 IV Last administered on 01/27/17 17:55; Admin Dose 10 MG; Start 01/27/17 at 18:00 Meropenem/Sodium Chloride (Merrem/NS) 100 ml @ 200 mls/hr Q8 IVPB ; Start at 22:00; Status DARELL ROBERTS NP Jan 27, 2017 21:48
[2017-01-27] MEDS ORDERED: VANCOMYCIN IV PER PHARMACY XX SCH (22:00)
[2017-01-27] MEDS ORDERED: VANCOMYCIN 1 GM in NS 250 ML IVPB SCH (22:04)
[2017-01-27] MEDS: LEVOFLOXACIN 750MG/D5W (PMX) 150 ML IVPB SCH (22:36)
[2017-01-27] MEDS: OCULAR LUBRICANT 3.5 GM OPH OINT BOTH EYES SCH (22:36)
--- NOTE | 2017-01-27 23:14 | CONS ---
Date/Time of Note Date/Time of Note DATE: 01/27/17 TIME: 23:14 Assessment/Plan Assessment/Plan Chief Complaint/Hosp Course Metastatic colon cancer with liver mets Patient was diagnosed with colon cancer 3 years ago for which she was treated for it. A year ago she was diagnosed with liver metastasis and there has been receiving chemo. According to the sons who are at the bedside, treatment needed to be stopped because of a complication. Family wants to get a second opinion MRI - innumerable masses throughout the liver and bulky periportal, portacaval, extrahepatic ligament, and aortocaval adenopathy I DISCUSSED THIS FINDINGS WITH FAMILY I DON'T THINK THAT PT WITH HER MMP AND POOR PS WILL BENEFIT FROM ADDITIONAL CHEMO ANEMIA- MICROCYTIC WITH INCREASED RDW complete W-UP PRBC NEEDED TO KEEP HB ABOVE 8 LEUKOCYTOSIS REACTIVE, CONT TO MONITOR THROMBOCYTOSIS REACTIVE, CONT TO MONITOR Sepsis secondary to urinary tract infection Continue antibiotic per ID History of intracranial hemorrhage, status post craniotomy This is chronic issue. Continue care Elevated transaminases: GI on board. will trend enzymes for now. states ERCP if/when stable. 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 continue trach care. pulmonary following Hypertension: Blood pressure within goal Adjust BP meds as needed VENT/ PEG/ POOR PS/ BEDRIDDEN STATE Problems: Consultation Date/Type/Reason Admit Date/Time Jan 21, 2017 at 02:17 Initial Consult Date 01/25/17 [facility] Referring Provider: CESIA ROLLE 24 HR Interval Summary Free Text/Dictation all noted septic on ATB ID ON CASE Exam/Review of Systems Vital Signs Vitals Vital Signs Date Time Temp Pulse Resp B/P Pulse Ox O2 Delivery O2 Flow Rate FiO2 01/27/17 20:48 83 20 95 Aerosol 5.0 28 T Tube 01/27/17 19:48 99.2 120/56 Intake and Output 01/26/17 01/26/17 01/27/17 15:00 23:00 07:00 Intake Total 200 ml 1125 ml 1075 ml Output Total 1500 ml Balance 200 ml -375 ml 1075 ml Exam General: Patient is laying in bed on t-piece trach. Mentation: Patient is alert and oriented, but has difficulty speaking. Head: R sided concavity Eyes: EOMI, pupils reactive to light Neck: Supple, nontender, midline Respiratory: Clear to auscultation bilaterally Cardiovascular: regular rate, no obvious murmurs Gastrointestinal: non-tender to palpation, bowel sounds heard. Neurological: L sided weakness. Skin: No new skin lesions Results Result Diagram: 01/27/17 0615 01/27/17 0627 Results 24 hrs Laboratory Tests Test 01/27/17 00:35 01/27/17 05:59 01/27/17 06:15 01/27/17 06:27 Bedside Glucose 144 114 White Blood Count 18.0 H Red Blood Count 2.91 L Hemoglobin 7.5 L Hematocrit 24.0 L Mean Corpuscular Volume 82.5 Mean Corpuscular Hemoglobin 25.8 L Mean Corpuscular Hemoglobin Concent 31.3 L Red Cell Distribution Width 20.5 H Platelet Count 490 H Mean Platelet Volume 11.3 H Neutrophils % 81.1 H Lymphocytes % 8.7 L Monocytes % 7.0 Eosinophils % 1.3 Basophils % 0.2 Nucleated Red Blood Cells % 0.0 Neutrophils # 14.6 H Lymphocytes # 1.6 Monocytes # 1.3 H Eosinophils # 0.2 Basophils # 0.0 Nucleated Red Blood Cells # 0.0 Sodium Level 143 Potassium Level 3.1 L Chloride Level 97 Carbon Dioxide Level 33 H Anion Gap 16 Blood Urea Nitrogen 11 Creatinine 0.59 Glucose Level 113 Calcium Level 7.7 L Phosphorus Level 2.3 L Magnesium Level 1.3 L Test 01/27/17 12:02 01/27/17 17:47 Bedside Glucose 147 137 Medications Medications Current Medications Sodium Chloride (NS) 1,000 ml @ 75 mls/hr [id number] IV Last administered on 22:39; Admin Dose 75 MLS/HR; Start 01/21/17 at 04:00 Ondansetron HCl (Zofran Inj) 4 mg Q6H PRN IV NAUSEA AND/OR VOMITING; Start at 04:00 Acetaminophen (Tylenol Supp) 650 mg Q6H PRN [place] PAIN LEVEL 1-3 OR FEVER Last administered on 01/26/17 08:06; Admin Dose 650 MG; Start 01/21/17 at 04:00 Pantoprazole (Protonix Iv) 40 mg DAILY@06 IV Last administered on 01/27/17 06: 03; Admin Dose 40 MG; Start 01/21/17 at 06:00 Acetaminophen (Tylenol Liquid) 325 mg Q4H PRN GTB PAIN OR TEMP ABOVE 38C Last administered on 01/21/17 22:44; Admin Dose 325 MG; Start 01/21/17 at 06:30 Amlodipine Besylate (Norvasc) 10 mg DAILY GTB Last administered on 01/27/17 09: 19; Admin Dose 10 MG; Start 01/21/17 at 09:00 Eye Lubricant (Akwa Oint) 1 applic HS BOTH EYES Last administered on 01/27/17 22:36; Admin Dose 1 APPLIC; Start 01/21/17 at 21:00 Ondansetron HCl (Zofran Tab) 4 mg Q4H GTB Last administered on 01/27/17 20:42; Admin Dose 4 MG; Start 01/21/17 at 06:30 Labetalol HCl (Normodyne) 300 mg BID GTB Last administered on 01/27/17 20:43; Admin Dose 300 MG; Start 01/21/17 at 09:00 Lorazepam (Ativan) 2 mg Q4H PRN IV SEIZURES Last administered on 01/22/17 01: 08; Admin Dose 2 MG; Start 01/22/17 at 01:04 Miscellaneous Information (Pending [facility] Order For Wound Care) This patient matos... PRN PRN XX WOUND CARE; Start 01/22/17 at 02:00 Miscellaneous Information 1 ea NOTE XX ; Start 01/22/17 at 16:00 Glucose (Glutose) 15 gm Q15M PRN PO DECREASED GLUCOSE; Start 01/22/17 at 16:00 Glucose (Glutose) 22.5 gm Q15M PRN PO DECREASED GLUCOSE; Start 01/22/17 at 16: 00 Dextrose (D50w Syringe) 25 ml Q15M PRN IV DECREASED GLUCOSE; Start 01/22/17 at 16:00 Dextrose (D50w Syringe) 50 ml Q15M PRN IV DECREASED GLUCOSE; Start 01/22/17 at 16:00 Glucagon (Glucagen) 1 mg Q15M PRN IM DECREASED GLUCOSE; Start 01/22/17 at 16:00 Glucose (Glutose) 15 gm Q15M PRN BUCCAL DECREASED GLUCOSE; Start 01/22/17 at 16 :00 Insulin Aspart (Novolog Insulin Pen) NOVOLOG *MILD* ALGORI... Q6 SC Last administered on 01/27/17 12:04; Admin Dose 1 UNIT; Start 01/25/17 at 00:00 Collagenase 1 applic 1 applic DAILY PRN TOP PRN Last administered on 01/27/17 12:03; Admin Dose 1 APPLIC; Start 01/25/17 at 01:00 Levofloxacin/ Dextrose (Levaquin 750 Mg/ D5W 150 ml (Pmx)) 150 ml @ 100 mls/hr Q24H IVPB Last administered on 01/27/17 22:36; Admin Dose 100 MLS/HR; Start 01/25/17 at 21:00 IV Flush (NS 10 ml) 10 ml PRN PRN IV IV PROTOCOL; Start 01/26/17 at 19:00 Bisacodyl (Dulcolax Supp) 10 mg Q24H PRN [place] CONSTIPATION; Start 01/27/17 at 11: 10 Senna (Senokot) 2 tab BID PRN GTB CONSTIPATION; Start 01/27/17 at 11:30 Metoclopramide HCl 10 mg 10 mg Q6 IV Last administered on 01/27/17 17:55; Admin Dose 10 MG; Start 01/27/17 at 18:00 Meropenem 1 gm/ Sodium Chloride 100 ml @ 200 mls/hr Q8 IVPB ; Start 01/27/17 at 22:00 Vancomycin HCl (Vancocin) 250 ml @ 125 mls/hr NOW IVPB ; Start 01/27/17 at 22:04 ; Stop 01/27/17 at 23:59 CHANCE MONACO MD Jan 27, 2017 23:14
[2017-01-28] MEDS: METOCLOPRAMIDE 10 MG INJ IV SCH ×4 (00:04→17:20)
[2017-01-28] MEDS: ONDANSETRON 4 MG TAB GTB SCH ×6 (00:04→20:36)
[2017-01-28] MEDS: MEROPENEM 1 GM in SOD CHLORIDE 0.9% 100 ML IVPB SCH ×2 (00:12→05:51)
[2017-01-28] MEDS: INSULIN ASPART [NOVOLOG] 3 ML PEN SC SCH ×4 (01:06→17:33)
[2017-01-28 01:40] VITALS: BP 121/58; RESP 16
[2017-01-28] MEDS: PANTOPRAZOLE 40 MG INJ IV SCH (05:51)
[2017-01-28 06:27] LABS: BASOPHILS % 0.2 % (0.0-2.0); EOSINOPHILS # 0.3 10^3/ul (0.0-0.5); EOSINOPHILS % 1.6 % (0.0-7.0); HEMATOCRIT 23.4 % (37.0-47.0); HEMOGLOBIN 7.3 g/dl (12.0-16.0); LYMPHOCYTES # 1.5 10^3/ul (0.8-2.9); LYMPHOCYTES % 8.8 % (15.0-51.0); MEAN CORPUSCULAR HEMOGLOBIN 25.8 pg (29.0-33.0); MEAN CORPUSCULAR HGB CONC 31.2 g/dl (32.0-37.0); MEAN CORPUSCULAR VOLUME 82.7 fl (82.0-101.0); MEAN PLATELET VOLUME 11.1 fl (7.4-10.4); MONOCYTE # 0.9 10^3/ul (0.3-0.9); MONOCYTES % 5.1 % (0.0-11.0); NEUTROPHIL # 14.3 10^3/ul (1.6-7.5); NEUTROPHILS % 82.5 % (39.0-77.0); PLATELET COUNT 437 10^3/UL (140-415); RED BLOOD COUNT 2.83 10^6/ul (4.20-5.40); WHITE BLOOD COUNT 17.4 10^3/ul (4.8-10.8)
[2017-01-28 06:49] LABS: CALCIUM 7.5 mg/dl (8.4-10.2); CREATININE 0.65 mg/dl (0.44-1.00); MAGNESIUM 1.5 mg/dl (1.7-2.5); PHOSPHORUS 2.1 mg/dl (2.5-4.9); POTASSIUM 3.4 mmol/L (3.5-5.1)
[2017-01-28 08:07] VITALS: BP 127/58; RESP 20
[2017-01-28] MEDS: AMLODIPINE 10 MG TAB GTB SCH (09:00)
[2017-01-28] MEDS: LABETALOL 100 MG TAB GTB SCH ×2 (09:00→20:36)
[2017-01-28] MEDS ORDERED: MAGNESIUM SULFATE 1 GM/D5W 100 ML IVPB SCH (09:30)
[2017-01-28] MEDS ORDERED: POTASSIUM PHOSPHATE 30 MM in SOD CHLORIDE 0.9% 250 ML IVPB SCH (09:30)
--- NOTE | 2017-01-28 11:20 | PN ---
Date/Time of Note Date/Time of Note DATE: 01/28/17 TIME: 11:16 Assessment/Plan VTE Prophylaxis VTE Prophylaxis Intervention: SCD's Lines/Catheters IV Catheter Type (from Nrs): PICC Line Central line still needed: Yes Urinary Cath still in place: Yes Reason Cath still needed: urinary retention Assessment/Plan Assessment/Plan Assessment * Sepsis UTI vs pneumonia vs others * Elevated transaminitis Obstructive vs hepatocellular in origin MRI . Moderate diffuse intra and extrahepatic biliary ductal dilation with an abrupt transition point at the distal CBD, suspicious for a malignant stricture or underlying occult mass lesion Hepatomegaly with innumerable masses throughout the liver and bulky periportal, portacaval, extrahepatic ligament, and aortocaval adenopathy, highly suspicious for metastatic disease from an uncertain primary. * History of craniotomy sec brain aneurysm * History of colon surgery secondary to colonic cancer with liver metastasis * History of chemotherapy * History PEG * History of Tracheostomy Plan * Plan * Continue present management * suggest hospice evaluation given the MRCP results * Trend transaminase levels * Further orders will depend on clinical course * case discussed with Dr Hdz Subjective 24 Hr Interval Summary Free Text/Dictation * Course reviewed with RN * Patient seen and examined * Tolerating G tube feeding * No untoward events overnight Exam/Review of Systems Vital Signs Vitals Vital Signs Date Time Temp Pulse Resp B/P Pulse Ox O2 Delivery O2 Flow Rate FiO2 01/28/17 08:07 98.3 98 20 127/58 94 01/28/17 05:38 Aerosol 5.0 28 T Tube Intake and Output 01/27/17 01/27/17 01/28/17 15:00 23:00 07:00 Intake Total 2310 ml 750 ml Output Total 1100 ml 1000 ml Balance 1210 ml -250 ml Exam Constitutional: frail Head: normocephalic ENMT: other (tracheostomy) Neck: non-tender, supple Respiratory: crackles/rales, diminished breath sounds Cardiovascular: nl pulses, regular rate and rhythm Gastrointestinal: non-tender, other (G tube), soft Musculoskeletal: muscle weakness Extremities: edema Neurological: lethargic Skin: rash or lesions Lymph: nl lymph nodes Results Result Diagram: 01/28/17 0557 01/28/17 0557 Results 24 hrs Laboratory Tests Test 01/27/17 12:02 01/27/17 17:47 01/28/17 00:03 01/28/17 01:03 Bedside Glucose 147 137 168 161 Test 01/28/17 05:57 01/28/17 06:02 White Blood Count 17.4 H Red Blood Count 2.83 L Hemoglobin 7.3 L Hematocrit 23.4 L Mean Corpuscular Volume 82.7 Mean Corpuscular Hemoglobin 25.8 L Mean Corpuscular Hemoglobin Concent 31.2 L Red Cell Distribution Width 21.0 H Platelet Count 437 H Mean Platelet Volume 11.1 H Neutrophils % 82.5 H Lymphocytes % 8.8 L Monocytes % 5.1 Eosinophils % 1.6 Basophils % 0.2 Nucleated Red Blood Cells % 0.0 Neutrophils # 14.3 H Lymphocytes # 1.5 Monocytes # 0.9 Eosinophils # 0.3 Basophils # 0.0 Nucleated Red Blood Cells # 0.0 Sodium Level 143 Potassium Level 3.4 L Chloride Level 101 Carbon Dioxide Level 30 Anion Gap 15 Blood Urea Nitrogen 10 Creatinine 0.65 Glucose Level 130 Calcium Level 7.5 L Phosphorus Level 2.1 L Magnesium Level 1.5 L Lipase 20 L Bedside Glucose 143 Medications Medications Current Medications Sodium Chloride (NS) 1,000 ml @ 75 mls/hr [id number] IV Last administered on 22:39; Admin Dose 75 MLS/HR; Start 01/21/17 at 04:00 Ondansetron HCl (Zofran Inj) 4 mg Q6H PRN IV NAUSEA AND/OR VOMITING; Start at 04:00 Acetaminophen (Tylenol Supp) 650 mg Q6H PRN [place] PAIN LEVEL 1-3 OR FEVER Last administered on 01/26/17 08:06; Admin Dose 650 MG; Start 01/21/17 at 04:00 Pantoprazole (Protonix Iv) 40 mg DAILY@06 IV Last administered on 01/28/17 05: 51; Admin Dose 40 MG; Start 01/21/17 at 06:00 Acetaminophen (Tylenol Liquid) 325 mg Q4H PRN GTB PAIN OR TEMP ABOVE 38C Last administered on 01/21/17 22:44; Admin Dose 325 MG; Start 01/21/17 at 06:30 Amlodipine Besylate (Norvasc) 10 mg DAILY GTB Last administered on 01/28/17 09: 00; Admin Dose 10 MG; Start 01/21/17 at 09:00 Eye Lubricant (Akwa Oint) 1 applic HS BOTH EYES Last administered on 01/27/17 22:36; Admin Dose 1 APPLIC; Start 01/21/17 at 21:00 Labetalol HCl (Normodyne) 300 mg BID GTB Last administered on 01/28/17 09:00; Admin Dose 300 MG; Start 01/21/17 at 09:00 Lorazepam (Ativan) 2 mg Q4H PRN IV SEIZURES Last administered on 01/22/17 01: 08; Admin Dose 2 MG; Start 01/22/17 at 01:04 [facility] This patient matos... PRN PRN XX WOUND CARE; Start 01/22/17 at 02:00 Miscellaneous Information 1 ea NOTE XX ; Start 01/22/17 at 16:00 Glucose (Glutose) 15 gm Q15M PRN PO DECREASED GLUCOSE; Start 01/22/17 at 16:00 Glucose (Glutose) 22.5 gm Q15M PRN PO DECREASED GLUCOSE; Start 01/22/17 at 16: 00 Dextrose (D50w Syringe) 25 ml Q15M PRN IV DECREASED GLUCOSE; Start 01/22/17 at 16:00 Dextrose (D50w Syringe) 50 ml Q15M PRN IV DECREASED GLUCOSE; Start 01/22/17 at 16:00 Glucagon (Glucagen) 1 mg Q15M PRN IM DECREASED GLUCOSE; Start 01/22/17 at 16:00 Glucose (Glutose) 15 gm Q15M PRN BUCCAL DECREASED GLUCOSE; Start 01/22/17 at 16 :00 Insulin Aspart (Novolog Insulin Pen) NOVOLOG *MILD* ALGORI... Q6 SC Last administered on 01/28/17 06:22; Admin Dose 1 UNIT; Start 01/25/17 at 00:00 Collagenase 1 applic 1 applic DAILY PRN TOP PRN Last administered on 01/27/17 12:03; Admin Dose 1 APPLIC; Start 01/25/17 at 01:00 Levofloxacin/ Dextrose (Levaquin 750 Mg/ D5W 150 ml (Pmx)) 150 ml @ 100 mls/hr Q24H IVPB Last administered on 01/27/17 22:36; Admin Dose 100 MLS/HR; Start 01/25/17 at 21:00 IV Flush (NS 10 ml) 10 ml PRN PRN IV IV PROTOCOL; Start 01/26/17 at 19:00 Bisacodyl (Dulcolax Supp) 10 mg Q24H PRN [place] CONSTIPATION; Start 01/27/17 at 11: 10 Senna (Senokot) 2 tab BID PRN GTB CONSTIPATION; Start 01/27/17 at 11:30 Metoclopramide HCl 10 mg 10 mg Q6 IV Last administered on 01/28/17 05:51; Admin Dose 10 MG; Start 01/27/17 at 18:00 Meropenem 1 gm/ Sodium Chloride 100 ml @ 200 mls/hr Q8 IVPB Last administered on 01/28/17 05:51; Admin Dose 200 MLS/HR; Start 01/27/17 at 22:00 Vancomycin HCl (Vancocin) 100 ml @ 100 mls/hr Q12H IVPB ; Start 01/28/17 at 13: 00 Ondansetron HCl 4 mg 4 mg Q4H GTB Last administered on 01/28/17 09:00; Admin Dose 4 MG; Start 01/28/17 at 08:30 Potassium Phosphate/Sodium Chloride (K Phos (Mm)/NS) 260 ml @ 65 mls/hr ONCE IVPB ; Start 01/28/17 at 09:30; Stop 01/28/17 at 13:29 TERRY CAMPBELL NP Jan 28, 2017 11:20
--- NOTE | 2017-01-28 12:09 | CONS ---
Date/Time of Note Date/Time of Note DATE: 01/28/17 TIME: 12:02 Assessment/Plan Assessment/Plan Chief Complaint/Hosp Course Assessment/Plan Chief Complaint/Hosp Course ID PROGRESS NOTE CURRENT ABX: => Levaquin 750mg IVPB #3 TOTAL ABX: DAY #8 => Vanco IV #5 + Cefepime #2-> DC 8/2 s/p Fosfomycin 3mg via GT x1 s/p Zosyn x1 01/21 s/p Cefepime x1 01/21 s/p CIPRO 01/21-01/24 24H INTERVAL SUMMARY 1. Alert. Awake. No Acute Distress. * BCx(-); Urine (+) GNR x 2 E.Coli + KP=ESBL Specimen: [id number] Ewelina: 01/21/17-0155 Source: CATHETER U URINE CULTURE Final Organism 1 ESCHERICHIA COLI COLONY COUNT >100,000 CFU/ml Organism 2 K PNEUMO ESBL COLONY COUNT >100,000 CFU/ml . MULTI DRUG RESISTANT ORGANISM E COLI KLEB PNEUM M.I.C. RX M.I.C. RX --------- --- --------- --- AMIKACIN <=2 S AMPICILLIN >=32 R CEFAZOLIN R R CEFEPIME 2 S CEFOTAXIME S R CIPROFLOXACIN <=0.25 S 2 I GENTAMICIN <=1 S >=16 R IMIPENEM <=0.25 S LEVOFLOXACIN <=0.12 S 1 S NITROFURANTOIN <=16 S 64 I TOBRAMYCIN <=1 S >=16 R TRIMETHOPRIM/SULFAMETHOXAZOLE >=320 R >=320 R PIPERACILLIN/TAZOBACTAM 8 S EXAM GEN: Adult F, resting in bed, VSS, NAD VITALS: No fevers HEENT: AT, NC, anicteric, moist oral membranes NECK: TRACH -> Cool mist CHEST:Coarse BS over Trach tubing CV: RRR ABD: Soft, NT EXT: Warm, no C/C/E SKIN: No rash/No diaphoresis ID ASSESSMENT 51 yo F PMHx ICH->s/p Crani +VPS w/chronic encephalopathy, hemiparesis, Trach, Peg admit with: 1. Sepsis on admission due to complicated polymicrobial UTI + ABD/Liver/ Biliary sepsis * 01/21/17 BCx(-) * 01/21/17 Urine Cx (+) URINE CULTURE Final Organism 1 ESCHERICHIA COLI >100,000 CFU/ml Organism 2 K PNEUMO ESBL >100,000 CFU/ml MULTI DRUG RESISTANT ORGANISM 2. Probable neurogenic bladder w/retention 3. Colon cancer w/Mets to liver-> (+)transaminitis * Obstructive per MRCP -> poor prognosis to ERCP if/when stable, vs Hospice appropriate 4. 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 STG III decub sacral CURRENT ABX: => Levaquin 750mg IVPB #3 + restart Vanco IV + Merrem TOTAL ABX: DAY #8 ID RECOMMENDATIONS 1. Continue Antibiotics. Monitor Labs. 2. GI Prophylaxis. DVT Prophylaxis. Problems: Consultation Date/Type/Reason Admit Date/Time Jan 21, 2017 at 02:17 Initial Consult Date 01/25/17 Type of Consultation: id Referring Provider: CESIA ROLLE Exam/Review of Systems Vital Signs Vitals Vital Signs Date Time Temp Pulse Resp B/P Pulse Ox O2 Delivery O2 Flow Rate FiO2 01/28/17 11:33 5.0 01/28/17 08:07 98.3 98 20 127/58 94 01/28/17 05:38 Aerosol 28 T Tube Intake and Output 01/27/17 01/27/17 01/28/17 14:59 22:59 06:59 Intake Total 2310 ml 750 ml Output Total 1100 ml 1000 ml Balance 1210 ml -250 ml Results Result Diagram: 01/28/17 0557 01/28/17 0557 Results 24 hrs Laboratory Tests Test 01/27/17 17:47 01/28/17 00:03 01/28/17 01:03 01/28/17 05:57 Bedside Glucose 137 168 161 White Blood Count 17.4 H Red Blood Count 2.83 L Hemoglobin 7.3 L Hematocrit 23.4 L Mean Corpuscular Volume 82.7 Mean Corpuscular Hemoglobin 25.8 L Mean Corpuscular Hemoglobin Concent 31.2 L Red Cell Distribution Width 21.0 H Platelet Count 437 H Mean Platelet Volume 11.1 H Neutrophils % 82.5 H Lymphocytes % 8.8 L Monocytes % 5.1 Eosinophils % 1.6 Basophils % 0.2 Nucleated Red Blood Cells % 0.0 Neutrophils # 14.3 H Lymphocytes # 1.5 Monocytes # 0.9 Eosinophils # 0.3 Basophils # 0.0 Nucleated Red Blood Cells # 0.0 Sodium Level 143 Potassium Level 3.4 L Chloride Level 101 Carbon Dioxide Level 30 Anion Gap 15 Blood Urea Nitrogen 10 Creatinine 0.65 Glucose Level 130 Calcium Level 7.5 L Phosphorus Level 2.1 L Magnesium Level 1.5 L Lipase 20 L Test 01/28/17 06:02 Bedside Glucose 143 Medications Medications Current Medications Sodium Chloride (NS) 1,000 ml @ 75 mls/hr [id number] IV Last administered on 22:39; Admin Dose 75 MLS/HR; Start 01/21/17 at 04:00 Ondansetron HCl (Zofran Inj) 4 mg Q6H PRN IV NAUSEA AND/OR VOMITING; Start at 04:00 Acetaminophen (Tylenol Supp) 650 mg Q6H PRN [place] PAIN LEVEL 1-3 OR FEVER Last administered on 01/26/17 08:06; Admin Dose 650 MG; Start 01/21/17 at 04:00 Pantoprazole (Protonix Iv) 40 mg DAILY@06 IV Last administered on 01/28/17 05: 51; Admin Dose 40 MG; Start 01/21/17 at 06:00 Acetaminophen (Tylenol Liquid) 325 mg Q4H PRN GTB PAIN OR TEMP ABOVE 38C Last administered on 01/21/17 22:44; Admin Dose 325 MG; Start 01/21/17 at 06:30 Amlodipine Besylate (Norvasc) 10 mg DAILY GTB Last administered on 01/28/17 09: 00; Admin Dose 10 MG; Start 01/21/17 at 09:00 Eye Lubricant (Akwa Oint) 1 applic HS BOTH EYES Last administered on 01/27/17 22:36; Admin Dose 1 APPLIC; Start 01/21/17 at 21:00 Labetalol HCl (Normodyne) 300 mg BID GTB Last administered on 01/28/17 09:00; Admin Dose 300 MG; Start 01/21/17 at 09:00 Lorazepam (Ativan) 2 mg Q4H PRN IV SEIZURES Last administered on 01/22/17 01: 08; Admin Dose 2 MG; Start 01/22/17 at 01:04 Miscellaneous Information (Pending [facility] Order For Wound Care) This patient matos... PRN PRN XX WOUND CARE; Start 01/22/17 at 02:00 Miscellaneous Information 1 ea NOTE XX ; Start 01/22/17 at 16:00 Glucose (Glutose) 15 gm Q15M PRN PO DECREASED GLUCOSE; Start 01/22/17 at 16:00 Glucose (Glutose) 22.5 gm Q15M PRN PO DECREASED GLUCOSE; Start 01/22/17 at 16: 00 Dextrose (D50w Syringe) 25 ml Q15M PRN IV DECREASED GLUCOSE; Start 01/22/17 at 16:00 Dextrose (D50w Syringe) 50 ml Q15M PRN IV DECREASED GLUCOSE; Start 01/22/17 at 16:00 Glucagon (Glucagen) 1 mg Q15M PRN IM DECREASED GLUCOSE; Start 01/22/17 at 16:00 Glucose (Glutose) 15 gm Q15M PRN BUCCAL DECREASED GLUCOSE; Start 01/22/17 at 16 :00 Insulin Aspart (Novolog Insulin Pen) NOVOLOG *MILD* ALGORI... Q6 SC Last administered on 01/28/17 06:22; Admin Dose 1 UNIT; Start 01/25/17 at 00:00 Collagenase 1 applic 1 applic DAILY PRN TOP PRN Last administered on 01/27/17 12:03; Admin Dose 1 APPLIC; Start 01/25/17 at 01:00 Levofloxacin/ Dextrose (Levaquin 750 Mg/ D5W 150 ml (Pmx)) 150 ml @ 100 mls/hr Q24H IVPB Last administered on 01/27/17 22:36; Admin Dose 100 MLS/HR; Start 01/25/17 at 21:00 IV Flush (NS 10 ml) 10 ml PRN PRN IV IV PROTOCOL; Start 01/26/17 at 19:00 Bisacodyl (Dulcolax Supp) 10 mg Q24H PRN [place] CONSTIPATION; Start 01/27/17 at 11: 10 Senna (Senokot) 2 tab BID PRN GTB CONSTIPATION; Start 01/27/17 at 11:30 Metoclopramide HCl 10 mg 10 mg Q6 IV Last administered on 01/28/17 05:51; Admin Dose 10 MG; Start 01/27/17 at 18:00 Vancomycin HCl (Vancocin) 100 ml @ 100 mls/hr Q12H IVPB ; Start 01/28/17 at 13: 00 Ondansetron HCl 4 mg 4 mg Q4H GTB Last administered on 01/28/17 09:00; Admin Dose 4 MG; Start 01/28/17 at 08:30 Potassium Phosphate 30 mm/ Sodium Chloride 260 ml @ 65 mls/hr ONCE IVPB ; Start 01/28/17 at 09:30; Stop 01/28/17 at 13:29 Meropenem/Sodium Chloride (Merrem/NS) 50 ml @ 200 mls/hr Q8 IVPB ; Start at 14:00 ABIODUN WRIGHT NP Jan 28, 2017 12:09
[2017-01-28] MEDS ORDERED: VANCOMYCIN 500MG/NS (PMX) 100 ML IVPB SCH (13:00)
[2017-01-28] MEDS: MEROPENEM 1 GM in SOD CHLORIDE 0.9% 50 ML IVPB SCH ×2 (13:23→22:42)
[2017-01-28 14:00] VITALS: BP 123/58; RESP 18
--- NOTE | 2017-01-28 14:37 | PN ---
Date/Time of Note Date/Time of Note DATE: 01/28/17 TIME: 14:36 Assessment/Plan VTE Prophylaxis VTE Prophylaxis Intervention: SCD's Lines/Catheters IV Catheter Type (from Nrsg): PICC Line Central line still needed: Yes Urinary Cath still in place: Yes Reason Cath still needed: urinary retention Assessment/Plan Chief Complaint/Hosp Course Patient is a 51-year-old female with a past medical history significant for intracranial hemorrhage status post craniectomy and trach placement who presented for fevers found to have UTI. Sepsis secondary to UTI, resolving Intracranial hemorrhage status post craniectomy, stable Metastatic liver cancer, ongoing Elevated transaminases Chronic respiratory failure, trach dependent, on T-piece Hypertension Leukocytosis Hypokalemia Metabolic alkalosis Left-sided hemiplegia secondary to intracranial hemorrhage Plan -Continue antibiotic per ID will need levofloxacin for total 7 days -Monitor white count for now, will transfer to facility once white count is decreasing, may have to biopsy liver mass if white count continues to increase, ?abscess. will repeat CT scan tomorrow. -Hematology and oncology also agree with primary oncologist of holding off on acute treatment for liver cancer until current issues with craniectomy and tracheostomy are resolved -GI recommends hospice evaluation given MRCP results -Continue trach management per pulmonology Disposition: pending white count Problems: Exam/Review of Systems Vital Signs Vitals Vital Signs Date Time Temp Pulse Resp B/P Pulse Ox O2 Delivery O2 Flow Rate FiO2 01/28/17 11:33 5.0 01/28/17 08:07 98.3 98 20 127/58 94 01/28/17 05:38 Aerosol 28 T Tube Intake and Output 01/27/17 01/27/17 01/28/17 15:00 23:00 07:00 Intake Total 2310 ml 750 ml Output Total 1100 ml 1000 ml Balance 1210 ml -250 ml Exam Physical exam General: Patient is laying in bed on t-piece trach. Mentation: Patient is alert and oriented, but has difficulty speaking. Head: R sided concavity Eyes: EOMI, pupils reactive to light Neck: Supple, nontender, midline Respiratory: Clear to auscultation bilaterally Cardiovascular: regular rate, no obvious murmurs Gastrointestinal: non-tender to palpation, bowel sounds heard. Neurological: L sided weakness. Skin: No new skin lesions Results Result Diagram: 01/28/17 0557 01/28/17 0557 Results 24 hrs Laboratory Tests Test 01/27/17 17:47 01/28/17 00:03 01/28/17 01:03 01/28/17 05:57 Bedside Glucose 137 168 161 White Blood Count 17.4 H Red Blood Count 2.83 L Hemoglobin 7.3 L Hematocrit 23.4 L Mean Corpuscular Volume 82.7 Mean Corpuscular Hemoglobin 25.8 L Mean Corpuscular Hemoglobin Concent 31.2 L Red Cell Distribution Width 21.0 H Platelet Count 437 H Mean Platelet Volume 11.1 H Neutrophils % 82.5 H Lymphocytes % 8.8 L Monocytes % 5.1 Eosinophils % 1.6 Basophils % 0.2 Nucleated Red Blood Cells % 0.0 Neutrophils # 14.3 H Lymphocytes # 1.5 Monocytes # 0.9 Eosinophils # 0.3 Basophils # 0.0 Nucleated Red Blood Cells # 0.0 Sodium Level 143 Potassium Level 3.4 L Chloride Level 101 Carbon Dioxide Level 30 Anion Gap 15 Blood Urea Nitrogen 10 Creatinine 0.65 Glucose Level 130 Calcium Level 7.5 L Phosphorus Level 2.1 L Magnesium Level 1.5 L Lipase 20 L Test 01/28/17 06:02 01/28/17 12:25 Bedside Glucose 143 190 Medications Medications Current Medications Sodium Chloride (NS) 1,000 ml @ 75 mls/hr [id number] IV Last administered on 22:39; Admin Dose 75 MLS/HR; Start 01/21/17 at 04:00 Ondansetron HCl (Zofran Inj) 4 mg Q6H PRN IV NAUSEA AND/OR VOMITING; Start at 04:00 Acetaminophen (Tylenol Supp) 650 mg Q6H PRN [place] PAIN LEVEL 1-3 OR FEVER Last administered on 01/26/17 08:06; Admin Dose 650 MG; Start 01/21/17 at 04:00 Pantoprazole (Protonix Iv) 40 mg DAILY@06 IV Last administered on 01/28/17 05: 51; Admin Dose 40 MG; Start 01/21/17 at 06:00 Acetaminophen (Tylenol Liquid) 325 mg Q4H PRN GTB PAIN OR TEMP ABOVE 38C Last administered on 01/21/17 22:44; Admin Dose 325 MG; Start 01/21/17 at 06:30 Amlodipine Besylate (Norvasc) 10 mg DAILY GTB Last administered on 01/28/17 09: 00; Admin Dose 10 MG; Start 01/21/17 at 09:00 Eye Lubricant (Akwa Oint) 1 applic HS BOTH EYES Last administered on 01/27/17 22:36; Admin Dose 1 APPLIC; Start 01/21/17 at 21:00 Labetalol HCl (Normodyne) 300 mg BID GTB Last administered on 01/28/17 09:00; Admin Dose 300 MG; Start 01/21/17 at 09:00 Lorazepam (Ativan) 2 mg Q4H PRN IV SEIZURES Last administered on 01/22/17 01: 08; Admin Dose 2 MG; Start 01/22/17 at 01:04 Miscellaneous Information (Pending [facility] Order For Wound Care) This patient matos... PRN PRN XX WOUND CARE; Start 01/22/17 at 02:00 Miscellaneous Information 1 ea NOTE XX ; Start 01/22/17 at 16:00 Glucose (Glutose) 15 gm Q15M PRN PO DECREASED GLUCOSE; Start 01/22/17 at 16:00 Glucose (Glutose) 22.5 gm Q15M PRN PO DECREASED GLUCOSE; Start 01/22/17 at 16: 00 Dextrose (D50w Syringe) 25 ml Q15M PRN IV DECREASED GLUCOSE; Start 01/22/17 at 16:00 Dextrose (D50w Syringe) 50 ml Q15M PRN IV DECREASED GLUCOSE; Start 01/22/17 at 16:00 Glucagon (Glucagen) 1 mg Q15M PRN IM DECREASED GLUCOSE; Start 01/22/17 at 16:00 Glucose (Glutose) 15 gm Q15M PRN BUCCAL DECREASED GLUCOSE; Start 01/22/17 at 16 :00 Insulin Aspart (Novolog Insulin Pen) NOVOLOG *MILD* ALGORI... Q6 SC Last administered on 01/28/17 12:40; Admin Dose 2 UNIT; Start 01/25/17 at 00:00 Collagenase 1 applic 1 applic DAILY PRN TOP PRN Last administered on 01/27/17 12:03; Admin Dose 1 APPLIC; Start 01/25/17 at 01:00 Levofloxacin/ Dextrose (Levaquin 750 Mg/ D5W 150 ml (Pmx)) 150 ml @ 100 mls/hr Q24H IVPB Last administered on 01/27/17 22:36; Admin Dose 100 MLS/HR; Start 01/25/17 at 21:00 IV Flush (NS 10 ml) 10 ml PRN PRN IV IV PROTOCOL; Start 01/26/17 at 19:00 Bisacodyl (Dulcolax Supp) 10 mg Q24H PRN [place] CONSTIPATION; Start 01/27/17 at 11: 10 Senna (Senokot) 2 tab BID PRN GTB CONSTIPATION; Start 01/27/17 at 11:30 Metoclopramide HCl 10 mg 10 mg Q6 IV Last administered on 01/28/17 12:26; Admin Dose 10 MG; Start 01/27/17 at 18:00 Vancomycin HCl (Vancocin) 100 ml @ 100 mls/hr Q12H IVPB Last administered on 12:28; Admin Dose 100 MLS/HR; Start 01/28/17 at 13:00 Ondansetron HCl 4 mg 4 mg Q4H GTB Last administered on 01/28/17 12:26; Admin Dose 4 MG; Start 01/28/17 at 08:30 Meropenem/Sodium Chloride (Merrem/NS) 50 ml @ 200 mls/hr Q8 IVPB Last administered on 01/28/17 13:23; Admin Dose 200 MLS/HR; Start 01/28/17 at 14:00 CESIA ROLLE Jan 28, 2017 14:37
--- NOTE | 2017-01-28 15:44 | CONS ---
Date/Time of Note Date/Time of Note DATE: 01/28/17 TIME: 15:42 Assessment/Plan Assessment/Plan Chief Complaint/Hosp Course Metastatic colon cancer with liver mets Patient was diagnosed with colon cancer 3 years ago for which she was treated for it. A year ago she was diagnosed with liver metastasis and there has been receiving chemo. According to the sons who are at the bedside, treatment needed to be stopped because of a complication. Family wants to get a second opinion MRI - innumerable masses throughout the liver and bulky periportal, portacaval, extrahepatic ligament, and aortocaval adenopathy I DISCUSSED THIS FINDINGS WITH FAMILY I DON'T THINK THAT PT WITH HER MMP AND POOR PS WILL BENEFIT FROM ADDITIONAL CHEMO ANEMIA- MICROCYTIC WITH INCREASED RDW + ACD PRBC NEEDED TO KEEP HB ABOVE 8 LEUKOCYTOSIS REACTIVE, CONT TO MONITOR THROMBOCYTOSIS REACTIVE, CONT TO MONITOR Sepsis secondary to urinary tract infection Continue antibiotic per ID History of intracranial hemorrhage, status post craniotomy This is chronic issue. Continue care Elevated transaminases: GI on board. will trend enzymes for now. states ERCP if/when stable. 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 continue trach care. pulmonary following Hypertension: Blood pressure within goal Adjust BP meds as needed VENT/ PEG/ POOR PS/ [place]ID[place] STATE Problems: Consultation Date/Type/Reason Admit Date/Time Jan 21, 2017 at 02:17 Initial Consult Date 01/25/17 Type of Consultation: [facility] Referring Provider: CESIA ROLLE 24 HR Interval Summary Free Text/Dictation ALL NOTED Exam/Review of Systems Vital Signs Vitals Vital Signs Date Time Temp Pulse Resp B/P Pulse Ox O2 Delivery O2 Flow Rate FiO2 01/28/17 11:33 5.0 01/28/17 08:07 98.3 98 20 127/58 94 01/28/17 05:38 Aerosol 28 T Tube Intake and Output 01/27/17 01/27/17 01/28/17 15:00 23:00 07:00 Intake Total 2310 ml 750 ml Output Total 1100 ml 1000 ml Balance 1210 ml -250 ml Exam General: Patient is laying in bed on t-piece trach. Mentation: Patient is alert and oriented, but has difficulty speaking. Head: R sided concavity Eyes: EOMI, pupils reactive to light Neck: Supple, nontender, midline Respiratory: Clear to auscultation bilaterally Cardiovascular: regular rate, no obvious murmurs Gastrointestinal: non-tender to palpation, bowel sounds heard. Neurological: L sided weakness. Skin: No new skin lesions Results Result Diagram: 01/28/17 0557 01/28/17 0557 Results 24 hrs Laboratory Tests Test 01/27/17 17:47 01/28/17 00:03 01/28/17 01:03 01/28/17 05:57 Bedside Glucose 137 168 161 White Blood Count 17.4 H Red Blood Count 2.83 L Hemoglobin 7.3 L Hematocrit 23.4 L Mean Corpuscular Volume 82.7 Mean Corpuscular Hemoglobin 25.8 L Mean Corpuscular Hemoglobin Concent 31.2 L Red Cell Distribution Width 21.0 H Platelet Count 437 H Mean Platelet Volume 11.1 H Neutrophils % 82.5 H Lymphocytes % 8.8 L Monocytes % 5.1 Eosinophils % 1.6 Basophils % 0.2 Nucleated Red Blood Cells % 0.0 Neutrophils # 14.3 H Lymphocytes # 1.5 Monocytes # 0.9 Eosinophils # 0.3 Basophils # 0.0 Nucleated Red Blood Cells # 0.0 Sodium Level 143 Potassium Level 3.4 L Chloride Level 101 Carbon Dioxide Level 30 Anion Gap 15 Blood Urea Nitrogen 10 Creatinine 0.65 Glucose Level 130 Calcium Level 7.5 L Phosphorus Level 2.1 L Magnesium Level 1.5 L Lipase 20 L Test 01/28/17 06:02 01/28/17 12:25 Bedside Glucose 143 190 Medications Medications Current Medications Sodium Chloride (NS) 1,000 ml @ 75 mls/hr [id number] IV Last administered on 22:39; Admin Dose 75 MLS/HR; Start 01/21/17 at 04:00 Ondansetron HCl (Zofran Inj) 4 mg Q6H PRN IV NAUSEA AND/OR VOMITING; Start at 04:00 Acetaminophen (Tylenol Supp) 650 mg Q6H PRN [place] PAIN LEVEL 1-3 OR FEVER Last administered on 01/26/17 08:06; Admin Dose 650 MG; Start 01/21/17 at 04:00 Pantoprazole (Protonix Iv) 40 mg DAILY@06 IV Last administered on 01/28/17 05: 51; Admin Dose 40 MG; Start 01/21/17 at 06:00 Acetaminophen (Tylenol Liquid) 325 mg Q4H PRN GTB PAIN OR TEMP ABOVE 38C Last administered on 01/21/17 22:44; Admin Dose 325 MG; Start 01/21/17 at 06:30 Amlodipine Besylate (Norvasc) 10 mg DAILY GTB Last administered on 01/28/17 09: 00; Admin Dose 10 MG; Start 01/21/17 at 09:00 Eye Lubricant (Akwa Oint) 1 applic HS BOTH EYES Last administered on 01/27/17 22:36; Admin Dose 1 APPLIC; Start 01/21/17 at 21:00 Labetalol HCl (Normodyne) 300 mg BID GTB Last administered on 01/28/17 09:00; Admin Dose 300 MG; Start 01/21/17 at 09:00 Lorazepam (Ativan) 2 mg Q4H PRN IV SEIZURES Last administered on 01/22/17 01: 08; Admin Dose 2 MG; Start 01/22/17 at 01:04 Miscellaneous Information (Pending [facility] Order For Wound Care) This patient matos... PRN PRN XX WOUND CARE; Start 01/22/17 at 02:00 Miscellaneous Information 1 ea NOTE XX ; Start 01/22/17 at 16:00 Glucose (Glutose) 15 gm Q15M PRN PO DECREASED GLUCOSE; Start 01/22/17 at 16:00 Glucose (Glutose) 22.5 gm Q15M PRN PO DECREASED GLUCOSE; Start 01/22/17 at 16: 00 Dextrose (D50w Syringe) 25 ml Q15M PRN IV DECREASED GLUCOSE; Start 01/22/17 at 16:00 Dextrose (D50w Syringe) 50 ml Q15M PRN IV DECREASED GLUCOSE; Start 01/22/17 at 16:00 Glucagon (Glucagen) 1 mg Q15M PRN IM DECREASED GLUCOSE; Start 01/22/17 at 16:00 Glucose (Glutose) 15 gm Q15M PRN BUCCAL DECREASED GLUCOSE; Start 01/22/17 at 16 :00 Insulin Aspart (Novolog Insulin Pen) NOVOLOG *MILD* ALGORI... Q6 SC Last administered on 01/28/17 12:40; Admin Dose 2 UNIT; Start 01/25/17 at 00:00 Collagenase 1 applic 1 applic DAILY PRN TOP PRN Last administered on 01/27/17 12:03; Admin Dose 1 APPLIC; Start 01/25/17 at 01:00 Levofloxacin/ Dextrose (Levaquin 750 Mg/ D5W 150 ml (Pmx)) 150 ml @ 100 mls/hr Q24H IVPB Last administered on 01/27/17 22:36; Admin Dose 100 MLS/HR; Start 01/25/17 at 21:00 IV Flush (NS 10 ml) 10 ml PRN PRN IV IV PROTOCOL; Start 01/26/17 at 19:00 Bisacodyl (Dulcolax Supp) 10 mg Q24H PRN [place] CONSTIPATION; Start 01/27/17 at 11: 10 Senna (Senokot) 2 tab BID PRN GTB CONSTIPATION; Start 01/27/17 at 11:30 Metoclopramide HCl 10 mg 10 mg Q6 IV Last administered on 01/28/17 12:26; Admin Dose 10 MG; Start 01/27/17 at 18:00 Vancomycin HCl (Vancocin) 100 ml @ 100 mls/hr Q12H IVPB Last administered on 12:28; Admin Dose 100 MLS/HR; Start 01/28/17 at 13:00 Ondansetron HCl 4 mg 4 mg Q4H GTB Last administered on 01/28/17 12:26; Admin Dose 4 MG; Start 01/28/17 at 08:30 Meropenem/Sodium Chloride (Merrem/NS) 50 ml @ 200 mls/hr Q8 IVPB Last administered on 01/28/17 13:23; Admin Dose 200 MLS/HR; Start 01/28/17 at 14:00 CHANCE MONACO MD Jan 28, 2017 15:44
[2017-01-28] MEDS ORDERED: SOD CHLORIDE 0.9% IVPB SCH (18:30)
[2017-01-28] MEDS ORDERED: VANCOMYCIN IVPB SCH (18:30)
[2017-01-28 20:20] VITALS: BP 135/66; RESP 20
[2017-01-28] MEDS: ACETAMINOPHEN 650MG/20.3ML CUP GTB PRN (20:35)
[2017-01-28] MEDS: LEVOFLOXACIN 750MG/D5W (PMX) 150 ML IVPB SCH (20:36)
[2017-01-28] MEDS: OCULAR LUBRICANT 3.5 GM OPH OINT BOTH EYES SCH (20:46)
[2017-01-29] MEDS: METOCLOPRAMIDE 10 MG INJ IV SCH ×4 (00:08→17:35)
[2017-01-29] MEDS: SOD CHLORIDE 0.9% IVPB SCH ×3 (01:00→12:52)
[2017-01-29] MEDS: VANCOMYCIN IVPB SCH ×3 (01:00→12:52)
[2017-01-29] MEDS ORDERED: SOD CHLORIDE 0.9% IVPB SCH (01:00)
[2017-01-29] MEDS ORDERED: VANCOMYCIN IVPB SCH (01:00)
[2017-01-29] MEDS: INSULIN ASPART [NOVOLOG] 3 ML PEN SC SCH ×4 (01:09→17:26)
[2017-01-29] MEDS: COLLAGENASE 30 GM TUBE TOP PRN (01:09)
[2017-01-29] MEDS: ONDANSETRON 4 MG TAB GTB SCH ×6 (01:18→20:30)
[2017-01-29] MEDS: SOD CHLORIDE 0.9% 1,000 ML IV SCH ×3 (01:19→20:28)
[2017-01-29 05:38] LABS: BASOPHILS % 0.2 % (0.0-2.0); EOSINOPHILS # 0.3 10^3/ul (0.0-0.5); HEMATOCRIT 26.3 % (37.0-47.0); HEMOGLOBIN 8.2 g/dl (12.0-16.0); LYMPHOCYTES # 1.5 10^3/ul (0.8-2.9); LYMPHOCYTES % 8.7 % (15.0-51.0); MEAN CORPUSCULAR HEMOGLOBIN 25.9 pg (29.0-33.0); MEAN CORPUSCULAR HGB CONC 31.2 g/dl (32.0-37.0); MEAN PLATELET VOLUME 11.2 fl (7.4-10.4); MONOCYTES % 5.6 % (0.0-11.0); NEUTROPHIL # 13.9 10^3/ul (1.6-7.5); NEUTROPHILS % 81.4 % (39.0-77.0); PLATELET COUNT 425 10^3/UL (140-415); RED BLOOD COUNT 3.17 10^6/ul (4.20-5.40); RED CELL DISTRIBUTION WIDTH 21.1 % (11.5-14.5); WHITE BLOOD COUNT 17.1 10^3/ul (4.8-10.8)
[2017-01-29 06:08] LABS: CALCIUM 7.5 mg/dl (8.4-10.2); CREATININE 0.59 mg/dl (0.44-1.00); MAGNESIUM 1.7 mg/dl (1.7-2.5); PHOSPHORUS 2.6 mg/dl (2.5-4.9); POTASSIUM 3.5 mmol/L (3.5-5.1)
[2017-01-29] MEDS: MEROPENEM 1 GM in SOD CHLORIDE 0.9% 50 ML IVPB SCH ×2 (06:15→14:28)
[2017-01-29] MEDS: PANTOPRAZOLE 40 MG INJ IV SCH (06:16)
[2017-01-29 07:51] VITALS: BP 163/77; RESP 20
[2017-01-29 09:19] VITALS: BP 120/61; PULSE 93; RESP 18
[2017-01-29] MEDS: LABETALOL 100 MG TAB GTB SCH ×2 (09:22→20:30)
[2017-01-29] MEDS: AMLODIPINE 10 MG TAB GTB SCH (09:22)
--- NOTE | 2017-01-29 11:39 | PN ---
Date/Time of Note Date/Time of Note DATE: 01/29/17 TIME: 11:34 Assessment/Plan VTE Prophylaxis VTE Prophylaxis Intervention: SCD's Lines/Catheters IV Catheter Type (from Nrs): PICC Line Central line still needed: Yes Urinary Cath still in place: Yes Reason Cath still needed: urinary retention Assessment/Plan Assessment/Plan Assessment * Sepsis UTI vs pneumonia vs others * Abnormal liver function tests Extensive metastatic disease * History of craniotomy sec brain aneurysm * History of colon surgery secondary to colonic cancer with liver metastasis * History of chemotherapy * History PEG * History of Tracheostomy Plan * Plan * Palliative care * Will follow upon request Subjective 24 Hr Interval Summary Free Text/Dictation Course reviewed with nursing staff Case reviewed with Dr. Siegel Patient barely responsive Oncology deems the patient and feed for further chemotherapy Nothing that I can offer from the GI point of view Patient should be on palliative care, unfortunately sounds appear not to comprehend the situation We will sign off and follow as needed Exam/Review of Systems Vital Signs Vitals Vital Signs Date Time Temp Pulse Resp B/P Pulse Ox O2 Delivery O2 Flow Rate FiO2 01/29/17 09:19 98.8 93 18 120/61 01/29/17 08:29 5.0 28 01/29/17 08:29 94 Aerosol T Tube Intake and Output 01/28/17 01/28/17 01/29/17 15:00 23:00 07:00 Intake Total 250 ml 1660 ml 1260 ml Output Total 1600 ml 1000 ml Balance 250 ml 60 ml 260 ml Exam Constitutional: frail Head: normocephalic ENMT: other (tracheostomy) Neck: non-tender, supple Respiratory: crackles/rales, diminished breath sounds Cardiovascular: nl pulses, regular rate and rhythm Gastrointestinal: non-tender, other (G tube), soft Musculoskeletal: muscle weakness Extremities: edema Neurological: lethargic Skin: rash or lesions Lymph: nl lymph nodes Results Result Diagram: 01/29/17 0458 01/29/17 0458 Results 24 hrs Laboratory Tests Test 01/28/17 12:25 01/28/17 17:22 01/29/17 00:53 01/29/17 04:58 Bedside Glucose 190 163 157 White Blood Count 17.1 H Red Blood Count 3.17 L Hemoglobin 8.2 L Hematocrit 26.3 L Mean Corpuscular Volume 83.0 Mean Corpuscular Hemoglobin 25.9 L Mean Corpuscular Hemoglobin Concent 31.2 L Red Cell Distribution Width 21.1 H Platelet Count 425 H Mean Platelet Volume 11.2 H Neutrophils % 81.4 H Lymphocytes % 8.7 L Monocytes % 5.6 Eosinophils % 2.0 Basophils % 0.2 Nucleated Red Blood Cells % 0.0 Neutrophils # 13.9 H Lymphocytes # 1.5 Monocytes # 1.0 H Eosinophils # 0.3 Basophils # 0.0 Nucleated Red Blood Cells # 0.0 Sodium Level 143 Potassium Level 3.5 Chloride Level 99 Carbon Dioxide Level 30 Anion Gap 18 H Blood Urea Nitrogen 13 Creatinine 0.59 Glucose Level 143 Calcium Level 7.5 L Phosphorus Level 2.6 Magnesium Level 1.7 Test 01/29/17 06:26 Bedside Glucose 156 Medications Medications Current Medications Sodium Chloride (NS) 1,000 ml @ 75 mls/hr [id number] IV Last administered on 03:39; Admin Dose 75 MLS/HR; Start 01/21/17 at 04:00 Ondansetron HCl (Zofran Inj) 4 mg Q6H PRN IV NAUSEA AND/OR VOMITING; Start at 04:00 Acetaminophen (Tylenol Supp) 650 mg Q6H PRN MD PAIN LEVEL 1-3 OR FEVER Last administered on 01/26/17 08:06; Admin Dose 650 MG; Start 01/21/17 at 04:00 Pantoprazole (Protonix Iv) 40 mg DAILY@06 IV Last administered on 01/29/17 06: 16; Admin Dose 40 MG; Start 01/21/17 at 06:00 Acetaminophen (Tylenol Liquid) 325 mg Q4H PRN GTB PAIN OR TEMP ABOVE 38C Last administered on 01/28/17 20:35; Admin Dose 325 MG; Start 01/21/17 at 06:30 Amlodipine Besylate (Norvasc) 10 mg DAILY GTB Last administered on 01/29/17 09: 22; Admin Dose 10 MG; Start 01/21/17 at 09:00 Eye Lubricant (Akwa Oint) 1 applic HS BOTH EYES Last administered on 01/28/17 20:46; Admin Dose 1 APPLIC; Start 01/21/17 at 21:00 Labetalol HCl (Normodyne) 300 mg BID GTB Last administered on 01/29/17 09:22; Admin Dose 300 MG; Start 01/21/17 at 09:00 Lorazepam (Ativan) 2 mg Q4H PRN IV SEIZURES Last administered on 01/22/17 01: 08; Admin Dose 2 MG; Start 01/22/17 at 01:04 Miscellaneous Information (Pending Santyl Order For Wound Care) This patient matos... PRN PRN XX WOUND CARE; Start 01/22/17 at 02:00 Miscellaneous Information 1 ea NOTE XX ; Start 01/22/17 at 16:00 Glucose (Glutose) 15 gm Q15M PRN PO DECREASED GLUCOSE; Start 01/22/17 at 16:00 Glucose (Glutose) 22.5 gm Q15M PRN PO DECREASED GLUCOSE; Start 01/22/17 at 16: 00 Dextrose (D50w Syringe) 25 ml Q15M PRN IV DECREASED GLUCOSE; Start 01/22/17 at 16:00 Dextrose (D50w Syringe) 50 ml Q15M PRN IV DECREASED GLUCOSE; Start 01/22/17 at 16:00 Glucagon (Glucagen) 1 mg Q15M PRN IM DECREASED GLUCOSE; Start 01/22/17 at 16:00 Glucose (Glutose) 15 gm Q15M PRN BUCCAL DECREASED GLUCOSE; Start 01/22/17 at 16 :00 Insulin Aspart (Novolog Insulin Pen) NOVOLOG *MILD* ALGORI... Q6 SC Last administered on 01/29/17 06:30; Admin Dose 1 UNIT; Start 01/25/17 at 00:00 Collagenase 1 applic 1 applic DAILY PRN TOP PRN Last administered on 01/29/17 01:09; Admin Dose 1 APPLIC; Start 01/25/17 at 01:00 Levofloxacin/ Dextrose (Levaquin 750 Mg/ D5W 150 ml (Pmx)) 150 ml @ 100 mls/hr Q24H IVPB Last administered on 01/28/17 20:36; Admin Dose 100 MLS/HR; Start 01/25/17 at 21:00 IV Flush (NS 10 ml) 10 ml PRN PRN IV IV PROTOCOL; Start 01/26/17 at 19:00 Bisacodyl (Dulcolax Supp) 10 mg Q24H PRN MD CONSTIPATION; Start 01/27/17 at 11: 10 Senna (Senokot) 2 tab BID PRN GTB CONSTIPATION; Start 01/27/17 at 11:30 Metoclopramide HCl (Reglan) 10 mg Q6 IV Last administered on 01/29/17 06:15; Admin Dose 10 MG; Start 01/27/17 at 18:00 Ondansetron HCl 4 mg 4 mg Q4H GTB Last administered on 01/29/17 09:22; Admin Dose 4 MG; Start 01/28/17 at 08:30 Meropenem 1 gm/ Sodium Chloride 50 ml @ 200 mls/hr Q8 IVPB Last administered on 01/29/17 06:15; Admin Dose 200 MLS/HR; Start 01/28/17 at 14:00 Vancomycin HCl/ Sodium Chloride (Vancocin/NS) 100 ml @ 100 mls/hr Q12H IVPB Last administered on 01/29/17 03:36; Admin Dose 100 MLS/HR; Start 01/29/17 at 01: 00 YASEMIN ABEBE MD Jan 29, 2017 11:39
--- NOTE | 2017-01-29 13:58 | PN ---
Date/Time of Note Date/Time of Note DATE: 01/29/17 TIME: 13:57 Assessment/Plan VTE Prophylaxis VTE Prophylaxis Intervention: SCD's Lines/Catheters IV Catheter Type (from Nrsg): PICC Line Central line still needed: Yes Urinary Cath still in place: Yes Reason Cath still needed: terminal illness/intractable pain Assessment/Plan Chief Complaint/Hosp Course Patient is a 51-year-old female with a past medical history significant for intracranial hemorrhage status post craniectomy and trach placement who presented for fevers found to have UTI. Sepsis secondary to UTI, resolving Intracranial hemorrhage status post craniectomy, stable Metastatic liver cancer, ongoing Elevated transaminases Chronic respiratory failure, trach dependent, on T-piece Hypertension Leukocytosis Hypokalemia Metabolic alkalosis Left-sided hemiplegia secondary to intracranial hemorrhage Plan -Continue antibiotic per ID will need levofloxacin for total 7 days -Monitor white count for now, will transfer to facility once white count is decreasing, may have to biopsy liver mass if white count continues to increase, ?abscess. will repeat CT scan today. -Hematology and oncology also agree with primary oncologist of holding off on acute treatment for liver cancer until current issues with craniectomy and tracheostomy are resolved -GI recommends hospice evaluation given MRCP results -Continue trach management per pulmonology Disposition: pending white count Problems: Subjective 24 Hr Interval Summary Free Text/Dictation no acute issues Exam/Review of Systems Vital Signs Vitals Vital Signs Date Time Temp Pulse Resp B/P Pulse Ox O2 Delivery O2 Flow Rate FiO2 01/29/17 09:19 98.8 93 18 120/61 01/29/17 08:29 5.0 28 01/29/17 08:29 94 Aerosol T Tube Intake and Output 01/28/17 01/28/17 01/29/17 15:00 23:00 07:00 Intake Total 250 ml 1660 ml 1260 ml Output Total 1600 ml 1000 ml Balance 250 ml 60 ml 260 ml Exam Physical exam General: Patient is laying in bed on t-piece trach. Mentation: Patient is alert and oriented, but has difficulty speaking. Head: R sided concavity Eyes: EOMI, pupils reactive to light Neck: Supple, nontender, midline Respiratory: Clear to auscultation bilaterally Cardiovascular: regular rate, no obvious murmurs Gastrointestinal: non-tender to palpation, bowel sounds heard. Neurological: L sided weakness. Skin: No new skin lesions Results Result Diagram: 01/29/17 0458 01/29/17 0458 Results 24 hrs Laboratory Tests Test 01/28/17 17:22 01/29/17 00:53 01/29/17 04:58 01/29/17 06:26 Bedside Glucose 163 157 156 White Blood Count 17.1 H Red Blood Count 3.17 L Hemoglobin 8.2 L Hematocrit 26.3 L Mean Corpuscular Volume 83.0 Mean Corpuscular Hemoglobin 25.9 L Mean Corpuscular Hemoglobin Concent 31.2 L Red Cell Distribution Width 21.1 H Platelet Count 425 H Mean Platelet Volume 11.2 H Neutrophils % 81.4 H Lymphocytes % 8.7 L Monocytes % 5.6 Eosinophils % 2.0 Basophils % 0.2 Nucleated Red Blood Cells % 0.0 Neutrophils # 13.9 H Lymphocytes # 1.5 Monocytes # 1.0 H Eosinophils # 0.3 Basophils # 0.0 Nucleated Red Blood Cells # 0.0 Sodium Level 143 Potassium Level 3.5 Chloride Level 99 Carbon Dioxide Level 30 Anion Gap 18 H Blood Urea Nitrogen 13 Creatinine 0.59 Glucose Level 143 Calcium Level 7.5 L Phosphorus Level 2.6 Magnesium Level 1.7 Test 01/29/17 12:10 Bedside Glucose 161 Medications Medications Current Medications Sodium Chloride (NS) 1,000 ml @ 75 mls/hr [id number] IV Last administered on 03:39; Admin Dose 75 MLS/HR; Start 01/21/17 at 04:00 Ondansetron HCl (Zofran Inj) 4 mg Q6H PRN IV NAUSEA AND/OR VOMITING; Start at 04:00 Acetaminophen (Tylenol Supp) 650 mg Q6H PRN SC PAIN LEVEL 1-3 OR FEVER Last administered on 01/26/17 08:06; Admin Dose 650 MG; Start 01/21/17 at 04:00 Pantoprazole (Protonix Iv) 40 mg DAILY@06 IV Last administered on 01/29/17 06: 16; Admin Dose 40 MG; Start 01/21/17 at 06:00 Acetaminophen (Tylenol Liquid) 325 mg Q4H PRN GTB PAIN OR TEMP ABOVE 38C Last administered on 01/28/17 20:35; Admin Dose 325 MG; Start 01/21/17 at 06:30 Amlodipine Besylate (Norvasc) 10 mg DAILY GTB Last administered on 01/29/17 09: 22; Admin Dose 10 MG; Start 01/21/17 at 09:00 Eye Lubricant (Akwa Oint) 1 applic HS BOTH EYES Last administered on 01/28/17 20:46; Admin Dose 1 APPLIC; Start 01/21/17 at 21:00 Labetalol HCl (Normodyne) 300 mg BID GTB Last administered on 01/29/17 09:22; Admin Dose 300 MG; Start 01/21/17 at 09:00 Lorazepam (Ativan) 2 mg Q4H PRN IV SEIZURES Last administered on 01/22/17 01: 08; Admin Dose 2 MG; Start 01/22/17 at 01:04 Miscellaneous Information (Pending [facility] Order For Wound Care) This patient matos... PRN PRN XX WOUND CARE; Start 01/22/17 at 02:00 Miscellaneous Information 1 ea NOTE XX ; Start 01/22/17 at 16:00 Glucose (Glutose) 15 gm Q15M PRN PO DECREASED GLUCOSE; Start 01/22/17 at 16:00 Glucose (Glutose) 22.5 gm Q15M PRN PO DECREASED GLUCOSE; Start 01/22/17 at 16: 00 Dextrose (D50w Syringe) 25 ml Q15M PRN IV DECREASED GLUCOSE; Start 01/22/17 at 16:00 Dextrose (D50w Syringe) 50 ml Q15M PRN IV DECREASED GLUCOSE; Start 01/22/17 at 16:00 Glucagon (Glucagen) 1 mg Q15M PRN IM DECREASED GLUCOSE; Start 01/22/17 at 16:00 Glucose (Glutose) 15 gm Q15M PRN BUCCAL DECREASED GLUCOSE; Start 01/22/17 at 16 :00 Insulin Aspart (Novolog Insulin Pen) NOVOLOG *MILD* ALGORI... Q6 SC Last administered on 01/29/17 12:25; Admin Dose 1 UNIT; Start 01/25/17 at 00:00 Collagenase 1 applic 1 applic DAILY PRN TOP PRN Last administered on 01/29/17 01:09; Admin Dose 1 APPLIC; Start 01/25/17 at 01:00 Levofloxacin/ Dextrose (Levaquin 750 Mg/ D5W 150 ml (Pmx)) 150 ml @ 100 mls/hr Q24H IVPB Last administered on 01/28/17 20:36; Admin Dose 100 MLS/HR; Start 01/25/17 at 21:00 IV Flush (NS 10 ml) 10 ml PRN PRN IV IV PROTOCOL; Start 01/26/17 at 19:00 Bisacodyl (Dulcolax Supp) 10 mg Q24H PRN SC CONSTIPATION; Start 01/27/17 at 11: 10 Senna (Senokot) 2 tab BID PRN GTB CONSTIPATION; Start 01/27/17 at 11:30 Metoclopramide HCl (Reglan) 10 mg Q6 IV Last administered on 01/29/17 12:25; Admin Dose 10 MG; Start 01/27/17 at 18:00 Ondansetron HCl 4 mg 4 mg Q4H GTB Last administered on 01/29/17 12:26; Admin Dose 4 MG; Start 01/28/17 at 08:30 Meropenem 1 gm/ Sodium Chloride 50 ml @ 200 mls/hr Q8 IVPB Last administered on 01/29/17 06:15; Admin Dose 200 MLS/HR; Start 01/28/17 at 14:00 Vancomycin HCl/ Sodium Chloride (Vancocin/NS) 100 ml @ 100 mls/hr Q12H IVPB Last administered on 01/29/17 12:52; Admin Dose 100 MLS/HR; Start 01/29/17 at 01: 00 CESIA ROLLE Jan 29, 2017 13:58
[2017-01-29] MEDS ORDERED: BARIUM SULF 2% 450 ML BTL (BERRY SMOOTHIE) PO ONE (14:00)
[2017-01-29 14:40] VITALS: BP 146/63; RESP 20
[2017-01-29 19:21] VITALS: BP 147/75; RESP 18
[2017-01-29] MEDS: LEVOFLOXACIN 750MG/D5W (PMX) 150 ML IVPB SCH (20:28)
[2017-01-29] MEDS: OCULAR LUBRICANT 3.5 GM OPH OINT BOTH EYES SCH (20:29)
--- NOTE | 2017-01-29 20:33 | CONS ---
Date/Time of Note Date/Time of Note DATE: 01/29/17 TIME: 20:21 Assessment/Plan Assessment/Plan Chief Complaint/Hosp Course ID PROGRESS NOTE CURRENT ABX: => Levaquin 750mg IVPB #5 + Vanco IV #3 + Merrem #3 TOTAL ABX: DAY #10 => Vanco IV #5 + Cefepime #2-> DC 8/2 s/p Fosfomycin 3mg via GT x1 s/p Zosyn x1 01/21 s/p Cefepime x1 01/21 s/p CIPRO 01/21-01/24 24H INTERVAL SUMMARY * Patient remains barely arousable -- GI surgery recommending hospice, family/ patient maintain aggressive medical interventions * WBC remains elevated, Low grade temps persisting == Urine has been treated * Unclear where the source of leukocytosis is == there remain a concern is for intra-ABD, hepatic, biliary sepsis * BCx(-); Urine (+) GNR x 2 E.Coli + KP=ESBL Specimen: [id number] Ewelina: 01/21/17-0155 Source: CATHETER U URINE CULTURE Final Organism 1 ESCHERICHIA COLI COLONY COUNT >100,000 CFU/ml Organism 2 K PNEUMO ESBL COLONY COUNT >100,000 CFU/ml . MULTI DRUG RESISTANT ORGANISM E COLI KLEB PNEUM M.I.C. RX M.I.C. RX --------- --- --------- --- AMIKACIN <=2 S AMPICILLIN >=32 R CEFAZOLIN R R CEFEPIME 2 S CEFOTAXIME S R CIPROFLOXACIN <=0.25 S 2 I GENTAMICIN <=1 S >=16 R IMIPENEM <=0.25 S LEVOFLOXACIN <=0.12 S 1 S NITROFURANTOIN <=16 S 64 I TOBRAMYCIN <=1 S >=16 R TRIMETHOPRIM/SULFAMETHOXAZOLE >=320 R >=320 R PIPERACILLIN/TAZOBACTAM 8 S EXAM GEN: Adult F, resting in bed, VSS, NAD VITALS: No fevers HEENT: AT, NC, anicteric, moist oral membranes NECK: TRACH -> Cool mist CHEST:Coarse BS over Trach tubing CV: RRR ABD: Soft, NT EXT: Warm, no C/C/E SKIN: No rash/No diaphoresis ID ASSESSMENT 51 yo F PMHx ICH->s/p Crani +VPS w/chronic encephalopathy, hemiparesis, Trach, Peg admit with: 1. Sepsis on admission due to complicated polymicrobial UTI + ABD/Liver/ Biliary sepsis => STABLE * SIRS w/low grade temps 99.+ and leukocytosis persisting=> * SOURCE UNCLEAR ? Biliary sepsis vs Liver Abscess? vs Paraneoplastic process? * 01/21/17 BCx(-) * 01/21/17 Urine Cx (+) URINE CULTURE Final Organism 1 ESCHERICHIA COLI >100,000 CFU/ml Organism 2 K PNEUMO ESBL >100,000 CFU/ml MULTI DRUG RESISTANT ORGANISM 2. Probable neurogenic bladder w/retention 3. Colon cancer w/Mets to liver-> (+)transaminitis * Obstructive per MRCP -> poor prognosis to ERCP if/when stable, vs Hospice appropriate 4. 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 STG III decub sacral CURRENT ABX: => Levaquin 750mg IVPB #5 + Vanco IV #3 + Merrem #3 TOTAL ABX: DAY #10 ID RECOMMENDATIONS 1. Persisting leukocytosis source unclear -- UTI has been treated * SOURCE DDX? Biliary sepsis vs Liver Abscess? vs Paraneoplastic process? * She has obstruction on CT and masses seen probably carcinomatosis; nevertheless without needle aspiration vs I&D cannot r/o liver abscess, biliary sepsis * I discussed concern with Dr. Estrada who advised to restart Vanco + Merrem until possible CT guided needle aspiration w/sample sent for micro C&S 2. Patient with advanced metastatic carcinoma on aggressive medical plan of care. * Request [facility] input on persistent leukocytosis -> Paraneoplastic MDS ? Would bone marrow biopsy assist the diagnostic process? * Per discussion with Dr. Siegel -- continue ABX and consider repeat imaging on Tuesday or Tuesday to see if there is any change or evidence of infection. * We can consider Nuc Med WBC Indium Scan to look for source of infection. 3. Will send procalcitonin level in am to help determine if WBC related to bacterial infection or not. . . . Problems: Consultation Date/Type/Reason Admit Date/Time Jan 21, 2017 at 02:17 Initial Consult Date 01/24/17 Type of Consultation: ID Referring Provider: CESIA SIEGEL Exam/Review of Systems Vital Signs Vitals Vital Signs Date Time Temp Pulse Resp B/P Pulse Ox O2 Delivery O2 Flow Rate FiO2 01/29/17 19:56 5.0 28 01/29/17 19:56 83 20 96 Aerosol T Tube 01/29/17 19:21 98.8 147/75 Intake and Output 01/28/17 01/28/17 01/29/17 15:00 23:00 07:00 Intake Total 250 ml 1660 ml 1260 ml Output Total 1600 ml 1000 ml Balance 250 ml 60 ml 260 ml Results Result Diagram: 01/29/17 0458 01/29/17 0458 Results 24 hrs Laboratory Tests Test 01/29/17 00:53 01/29/17 04:58 01/29/17 06:26 01/29/17 12:10 Bedside Glucose 157 156 161 White Blood Count 17.1 H Red Blood Count 3.17 L Hemoglobin 8.2 L Hematocrit 26.3 L Mean Corpuscular Volume 83.0 Mean Corpuscular Hemoglobin 25.9 L Mean Corpuscular Hemoglobin Concent 31.2 L Red Cell Distribution Width 21.1 H Platelet Count 425 H Mean Platelet Volume 11.2 H Neutrophils % 81.4 H Lymphocytes % 8.7 L Monocytes % 5.6 Eosinophils % 2.0 Basophils % 0.2 Nucleated Red Blood Cells % 0.0 Neutrophils # 13.9 H Lymphocytes # 1.5 Monocytes # 1.0 H Eosinophils # 0.3 Basophils # 0.0 Nucleated Red Blood Cells # 0.0 Sodium Level 143 Potassium Level 3.5 Chloride Level 99 Carbon Dioxide Level 30 Anion Gap 18 H Blood Urea Nitrogen 13 Creatinine 0.59 Glucose Level 143 Calcium Level 7.5 L Phosphorus Level 2.6 Magnesium Level 1.7 Test 01/29/17 17:22 Bedside Glucose 152 Medications Medications Current Medications Sodium Chloride (NS) 1,000 ml @ 75 mls/hr [id number] IV Last administered on t 03:39; Admin Dose 75 MLS/HR; Start 01/21/17 at 04:00 Ondansetron HCl (Zofran Inj) 4 mg Q6H PRN IV NAUSEA AND/OR VOMITING; Start at 04:00 Acetaminophen (Tylenol Supp) 650 mg Q6H PRN CO PAIN LEVEL 1-3 OR FEVER Last administered on 01/26/17 08:06; Admin Dose 650 MG; Start 01/21/17 at 04:00 Pantoprazole (Protonix Iv) 40 mg DAILY@06 IV Last administered on 01/29/17 06: 16; Admin Dose 40 MG; Start 01/21/17 at 06:00 Acetaminophen (Tylenol Liquid) 325 mg Q4H PRN GTB PAIN OR TEMP ABOVE 38C Last administered on 01/28/17 20:35; Admin Dose 325 MG; Start 01/21/17 at 06:30 Amlodipine Besylate (Norvasc) 10 mg DAILY GTB Last administered on 01/29/17 09: 22; Admin Dose 10 MG; Start 01/21/17 at 09:00 Eye Lubricant (Akwa Oint) 1 applic HS BOTH EYES Last administered on 01/28/17 20:46; Admin Dose 1 APPLIC; Start 01/21/17 at 21:00 Labetalol HCl (Normodyne) 300 mg BID GTB Last administered on 01/29/17 09:22; Admin Dose 300 MG; Start 01/21/17 at 09:00 Lorazepam (Ativan) 2 mg Q4H PRN IV SEIZURES Last administered on 01/22/17 01: 08; Admin Dose 2 MG; Start 01/22/17 at 01:04 Miscellaneous Information (Pending Santyl Order For Wound Care) This patient matos... PRN PRN XX WOUND CARE; Start 01/22/17 at 02:00 Miscellaneous Information 1 ea NOTE XX ; Start 01/22/17 at 16:00 Glucose (Glutose) 15 gm Q15M PRN PO DECREASED GLUCOSE; Start 01/22/17 at 16:00 Glucose (Glutose) 22.5 gm Q15M PRN PO DECREASED GLUCOSE; Start 01/22/17 at 16: 00 Dextrose (D50w Syringe) 25 ml Q15M PRN IV DECREASED GLUCOSE; Start 01/22/17 at 16:00 Dextrose (D50w Syringe) 50 ml Q15M PRN IV DECREASED GLUCOSE; Start 01/22/17 at 16:00 Glucagon (Glucagen) 1 mg Q15M PRN IM DECREASED GLUCOSE; Start 01/22/17 at 16:00 Glucose (Glutose) 15 gm Q15M PRN BUCCAL DECREASED GLUCOSE; Start 01/22/17 at 16 :00 Insulin Aspart (Novolog Insulin Pen) NOVOLOG *MILD* ALGORI... Q6 SC Last administered on 01/29/17 17:26; Admin Dose 1 UNIT; Start 01/25/17 at 00:00 Collagenase 1 applic 1 applic DAILY PRN TOP PRN Last administered on 01/29/17 01:09; Admin Dose 1 APPLIC; Start 01/25/17 at 01:00 Levofloxacin/ Dextrose (Levaquin 750 Mg/ D5W 150 ml (Pmx)) 150 ml @ 100 mls/hr Q24H IVPB Last administered on 01/28/17 20:36; Admin Dose 100 MLS/HR; Start 01/25/17 at 21:00 IV Flush (NS 10 ml) 10 ml PRN PRN IV IV PROTOCOL; Start 01/26/17 at 19:00 Bisacodyl (Dulcolax Supp) 10 mg Q24H PRN CO CONSTIPATION; Start 01/27/17 at 11: 10 Senna (Senokot) 2 tab BID PRN GTB CONSTIPATION; Start 01/27/17 at 11:30 Metoclopramide HCl (Reglan) 10 mg Q6 IV Last administered on 01/29/17 17:35; Admin Dose 10 MG; Start 01/27/17 at 18:00 Ondansetron HCl (Zofran Tab) 4 mg Q4H GTB Last administered on 01/29/17 16:30; Admin Dose 4 MG; Start 01/28/17 at 08:30 Miscellaneous Information VANCO TROUGH @ 0,000 ON... ONCE ONCE XX ; Start 01/30 at 00:00; Stop 01/30/17 at 00:01 Vancomycin HCl 100 ml @ 100 mls/hr Q12H IVPB ; Start 01/30/17 at 01:00 Meropenem/Sodium Chloride (Merrem 1 Gm/50 ml (Pmx)) 50 ml @ 100 mls/hr Q8 IVPB ; Start 01/29/17 at 22:00 DARELL YORK NP Jan 29, 2017 20:33
[2017-01-29] MEDS ORDERED: MEROPENEM 500MG/50 ML (PMX) 50 ML IVPB SCH (22:00)
[2017-01-29] MEDS ORDERED: IOHEXOL 300MG/ML 150 ML BTL ONE (22:06)
[2017-01-29] MEDS ORDERED: SOD CHLORIDE 0.9% 100 ML ONE (22:06)
[2017-01-29] MEDS: MEROPENEM 1 GM/50ML(PMX) 50 ML IVPB SCH (23:24)
[2017-01-30] MEDS: METOCLOPRAMIDE 10 MG INJ IV SCH ×4 (00:15→17:47)
[2017-01-30] MEDS: ONDANSETRON 4 MG TAB GTB SCH ×6 (00:51→21:34)
[2017-01-30] MEDS: VANCOMYCIN 500MG/NS (PMX) 100 ML IVPB SCH ×2 (01:00→03:01)
[2017-01-30] MEDS: SOD CHLORIDE 0.9% 1,000 ML IV SCH ×2 (01:20→14:36)
[2017-01-30 02:57] VITALS: BP 125/56; RESP 20
[2017-01-30 05:35] LABS: BASOPHIL # 0.1 10^3/ul (0.0-0.1); BASOPHILS % 0.3 % (0.0-2.0); EOSINOPHILS # 0.3 10^3/ul (0.0-0.5); HEMATOCRIT 25.8 % (37.0-47.0); HEMOGLOBIN 8.3 g/dl (12.0-16.0); LYMPHOCYTES # 1.8 10^3/ul (0.8-2.9); LYMPHOCYTES % 11.2 % (15.0-51.0); MEAN CORPUSCULAR HEMOGLOBIN 26.8 pg (29.0-33.0); MEAN CORPUSCULAR HGB CONC 32.2 g/dl (32.0-37.0); MEAN CORPUSCULAR VOLUME 83.2 fl (82.0-101.0); MEAN PLATELET VOLUME 11.2 fl (7.4-10.4); MONOCYTE # 1.1 10^3/ul (0.3-0.9); MONOCYTES % 6.6 % (0.0-11.0); NEUTROPHIL # 12.6 10^3/ul (1.6-7.5); NEUTROPHILS % 78.2 % (39.0-77.0); PLATELET COUNT 404 10^3/UL (140-415); RED CELL DISTRIBUTION WIDTH 21.3 % (11.5-14.5); WHITE BLOOD COUNT 16.1 10^3/ul (4.8-10.8)
[2017-01-30 06:20] LABS: CALCIUM 7.8 mg/dl (8.4-10.2); CREATININE 0.61 mg/dl (0.44-1.00); MAGNESIUM 1.6 mg/dl (1.7-2.5); PHOSPHORUS 2.2 mg/dl (2.5-4.9); POTASSIUM 3.5 mmol/L (3.5-5.1)
[2017-01-30] MEDS: PANTOPRAZOLE 40 MG INJ IV SCH (06:29)
[2017-01-30] MEDS: INSULIN ASPART [NOVOLOG] 3 ML PEN SC SCH ×4 (06:33→17:45)
[2017-01-30] MEDS: MEROPENEM 1 GM/50ML(PMX) 50 ML IVPB SCH ×3 (06:35→21:34)
--- NOTE | 2017-01-30 08:01 | RADRPT ---
PROCEDURE: CT Abdomen and Pelvis with contrast. CLINICAL INDICATION: Abdominal pain, evaluate for abscess TECHNIQUE: CT of the abdomen and pelvis was performed on a multi-detector scanner following the un complicated IV administration of 100 cc of Omnipaque 300. Coronal and sagittal images were reformat marina from the axial data set. One or more of the following dose reduction techniques were used: auto mated exposure control, adjustment of the mA and/or kV according to patient size, use of iterative reconstruction technique. CTDI = 21.56 mGy. DLP = 1336.5 mGy-cm. COMPARISON: MRI and ultrasound, 01/21/2017 FINDINGS: CT abdomen: There are small to mild bilateral pleural effusions, larger on the right. The heart size is normal, without pericardial effusion. Innumerable hepatic masses are identified, compatible with diffuse h epatic metastatic disease. Gallbladder is surgically absent. There is moderate dilatation of the i ntra and extrahepatic biliary tree - common bile duct diameter is 13 mm. Pancreas, spleen, adrenal glands and right kidney are unremarkable. Indeterminate 1.5 cm cortical hyperdensity is seen in the left renal mid pole (3-92). There is no urolithiasis or obstructive uropathy. Gastrostomy tube ti p is in the proximal jejunum. There is no abdominal aortic aneurysm or dissection. Multiple enlarged celiac access, elise hepatis , and periaortic retroperitoneal lymph nodes are identified measuring up to 42 x 20 mm (3-87), furth er compatible with metastatic disease. CT pelvis: No bowel obstruction, free intraperitoneal air or abscess is identified. Small amount of peritoneal free fluid is present. The patient is status post right hemicolectomy, with unremarkable appearanc e of the surgical staple line. Ventriculoperitoneal shunt tubing is identified in the anterior abdo remi wall and pelvis. Bowel containing periumbilical ventral hernia is identified. Mandel catheter balloon is within the urinary bladder. Uterus and adnexa are grossly unremarkable. Right iliac ly mphadenopathy is identified measuring up to 37 x 29 mm (3-166), further compatible with metastatic d isease. The surrounding osseous structures are remarkable for degenerative enthesopathy of the spine. No os teolytic or osteoblastic lesion is detected. IMPRESSION: 1. Extensive hepatic metastatic disease is seen, as well as metastatic lymphadenopathy in the gwendolyn c axis, elise hepatis, periaortic retroperitoneum, and right pelvis. 2. Nonspecific small amount of peritoneal free fluid is present. No evidence of bowel obstruction, perforation or abscess is identified. 3. There is moderate dilatation of the biliary tree, as described above, stable in appearance when compared to recent prior MRCP. 4. Indeterminate 1.5 cm cortical hyperdensity is seen arising from the left renal mid pole, incompl etely characterized on this exam. Primary renal neoplasm is not excluded. 5. Bowel containing periumbilical ventral hernia is identified, without obstruction or incarceratio n. 6. The patient is status post cholecystectomy and right hemicolectomy. Gastrostomy tube and Mandel catheter are in place. 7. Small to mild bilateral pleural effusions are seen, larger on the right. RPTAT: PP .Flaco Chen MD, MD Date Time Electronically viewed and signed by .Flaco Chen MD, on 01/30/2017 08:00 .R/
[2017-01-30 08:18] VITALS: BP 130/60; RESP 20
[2017-01-30] MEDS: LABETALOL 100 MG TAB GTB SCH ×2 (09:47→21:35)
[2017-01-30] MEDS: AMLODIPINE 10 MG TAB GTB SCH (09:47)
[2017-01-30 09:56] VITALS: BP 132/63; PULSE 97
[2017-01-30] MEDS ORDERED: MAGNESIUM SULFATE 1 GM/D5W 100 ML IVPB ONE (12:00)
--- NOTE | 2017-01-30 12:49 | PN ---
Date/Time of Note Date/Time of Note DATE: 01/30/17 TIME: 12:46 Assessment/Plan VTE Prophylaxis VTE Prophylaxis Intervention: SCD's Lines/Catheters IV Catheter Type (from Nrsg): PICC Line Central line still needed: Yes Urinary Cath still in place: Yes Reason Cath still needed: terminal illness/intractable pain Assessment/Plan Chief Complaint/Hosp Course Patient is a 51-year-old female with a past medical history significant for intracranial hemorrhage status post craniectomy and trach placement who presented for fevers found to have UTI. Sepsis secondary to UTI, resolving Intracranial hemorrhage status post craniectomy, stable Metastatic liver cancer, ongoing Elevated transaminases Chronic respiratory failure, trach dependent, on T-piece Hypertension Leukocytosis Hypokalemia Metabolic alkalosis Left-sided hemiplegia secondary to intracranial hemorrhage Plan -Continue antibiotic per ID will need levofloxacin for total 7 days -Monitor white count for now, will transfer to facility once white count is decreasing, may have to biopsy liver mass if white count continues to increase, no apparent abscess on repeat CT, however found to have pleural fluid. pulmonology consulted for drainage. -Hematology and oncology also agree with primary oncologist of holding off on acute treatment for liver cancer until current issues with craniectomy and tracheostomy are resolved -GI recommends hospice evaluation given MRCP results -Continue trach management per pulmonology -patient is palliative care/hospice appropriate, however patient's family is not agreeable to hospice/palliative as they want 100% treatment. Disposition: pending white count Problems: Subjective 24 Hr Interval Summary Free Text/Dictation no new complaints, family at bedside. explained plans Exam/Review of Systems Vital Signs Vitals Vital Signs Date Time Temp Pulse Resp B/P Pulse Ox O2 Delivery O2 Flow Rate FiO2 01/30/17 09:56 97 132/63 01/30/17 08:18 98.7 20 97 01/30/17 01:45 5.0 28 01/29/17 19:56 Aerosol T Tube Intake and Output 01/29/17 01/29/17 01/30/17 15:00 23:00 07:00 Intake Total 150 ml 1040 ml 750 ml Output Total 2850 ml Balance 150 ml -1810 ml 750 ml Exam Physical exam General: Patient is laying in bed on t-piece trach. Mentation: Patient is alert and oriented, but has difficulty speaking. Head: R sided concavity Eyes: EOMI, pupils reactive to light Neck: Supple, nontender, midline Respiratory: Clear to auscultation bilaterally Cardiovascular: regular rate, no obvious murmurs Gastrointestinal: non-tender to palpation, bowel sounds heard. Neurological: L sided weakness. Skin: No new skin lesions Results Result Diagram: 01/30/17 0501 01/30/17 0501 Results 24 hrs Laboratory Tests Test 01/29/17 17:22 01/30/17 00:14 01/30/17 00:53 01/30/17 05:01 Bedside Glucose 152 125 Vancomycin Level Trough 10.3 White Blood Count 16.1 H Red Blood Count 3.10 L Hemoglobin 8.3 L Hematocrit 25.8 L Mean Corpuscular Volume 83.2 Mean Corpuscular Hemoglobin 26.8 L Mean Corpuscular Hemoglobin Concent 32.2 Red Cell Distribution Width 21.3 H Platelet Count 404 Mean Platelet Volume 11.2 H Neutrophils % 78.2 H Lymphocytes % 11.2 L Monocytes % 6.6 Eosinophils % 2.0 Basophils % 0.3 Nucleated Red Blood Cells % 0.0 Neutrophils # 12.6 H Lymphocytes # 1.8 Monocytes # 1.1 H Eosinophils # 0.3 Basophils # 0.1 Nucleated Red Blood Cells # 0.0 Sodium Level 143 Potassium Level 3.5 Chloride Level 101 Carbon Dioxide Level 30 Anion Gap 16 Blood Urea Nitrogen 13 Creatinine 0.61 Glucose Level 141 Calcium Level 7.8 L Phosphorus Level 2.2 L Magnesium Level 1.6 L Test 01/30/17 05:34 01/30/17 06:30 01/30/17 12:07 Lab Scanned Report BLOOD TRANSFUSION Bedside Glucose 143 156 Medications Medications Current Medications Sodium Chloride (NS) 1,000 ml @ 75 mls/hr [id number] IV Last administered on 20:28; Admin Dose 75 MLS/HR; Start 01/21/17 at 04:00 Ondansetron HCl (Zofran Inj) 4 mg Q6H PRN IV NAUSEA AND/OR VOMITING; Start at 04:00 Acetaminophen (Tylenol Supp) 650 mg Q6H PRN [place] PAIN LEVEL 1-3 OR FEVER Last administered on 01/26/17 08:06; Admin Dose 650 MG; Start 01/21/17 at 04:00 Pantoprazole (Protonix Iv) 40 mg DAILY@06 IV Last administered on 01/30/17 06: 29; Admin Dose 40 MG; Start 01/21/17 at 06:00 Acetaminophen (Tylenol Liquid) 325 mg Q4H PRN GTB PAIN OR TEMP ABOVE 38C Last administered on 01/28/17 20:35; Admin Dose 325 MG; Start 01/21/17 at 06:30 Amlodipine Besylate (Norvasc) 10 mg DAILY GTB Last administered on 01/30/17 09: 47; Admin Dose 10 MG; Start 01/21/17 at 09:00 Eye Lubricant (Akwa Oint) 1 applic HS BOTH EYES Last administered on 01/29/17 20:29; Admin Dose 1 APPLIC; Start 01/21/17 at 21:00 Labetalol HCl (Normodyne) 300 mg BID GTB Last administered on 01/30/17 09:47; Admin Dose 300 MG; Start 01/21/17 at 09:00 Lorazepam (Ativan) 2 mg Q4H PRN IV SEIZURES Last administered on 01/22/17 01: 08; Admin Dose 2 MG; Start 01/22/17 at 01:04 Miscellaneous Information ([facility]) This patient matos... PRN PRN XX WOUND CARE; Start 01/22/17 at 02:00 Miscellaneous Information 1 ea NOTE XX ; Start 01/22/17 at 16:00 Glucose (Glutose) 15 gm Q15M PRN PO DECREASED GLUCOSE; Start 01/22/17 at 16:00 Glucose (Glutose) 22.5 gm Q15M PRN PO DECREASED GLUCOSE; Start 01/22/17 at 16: 00 Dextrose (D50w Syringe) 25 ml Q15M PRN IV DECREASED GLUCOSE; Start 01/22/17 at 16:00 Dextrose (D50w Syringe) 50 ml Q15M PRN IV DECREASED GLUCOSE; Start 01/22/17 at 16:00 Glucagon (Glucagen) 1 mg Q15M PRN IM DECREASED GLUCOSE; Start 01/22/17 at 16:00 Glucose (Glutose) 15 gm Q15M PRN BUCCAL DECREASED GLUCOSE; Start 01/22/17 at 16 :00 Insulin Aspart (Novolog Insulin Pen) NOVOLOG *MILD* ALGORI... Q6 SC Last administered on 01/30/17 12:15; Admin Dose 1 UNIT; Start 01/25/17 at 00:00 Collagenase 1 applic 1 applic DAILY PRN TOP PRN Last administered on 01/29/17 01:09; Admin Dose 1 APPLIC; Start 01/25/17 at 01:00 Levofloxacin/ Dextrose (Levaquin 750 Mg/ D5W 150 ml (Pmx)) 150 ml @ 100 mls/hr Q24H IVPB Last administered on 01/29/17 20:28; Admin Dose 100 MLS/HR; Start 01/25/17 at 21:00 IV Flush (NS 10 ml) 10 ml PRN PRN IV IV PROTOCOL; Start 01/26/17 at 19:00 Bisacodyl (Dulcolax Supp) 10 mg Q24H PRN [place] CONSTIPATION; Start 01/27/17 at 11: 10 Senna (Senokot) 2 tab BID PRN GTB CONSTIPATION; Start 01/27/17 at 11:30 Metoclopramide HCl (Reglan) 10 mg Q6 IV Last administered on 01/30/17 12:10; Admin Dose 10 MG; Start 01/27/17 at 18:00 Ondansetron HCl 4 mg 4 mg Q4H GTB Last administered on 01/30/17 12:10; Admin Dose 4 MG; Start 01/28/17 at 08:30 Meropenem/Sodium Chloride 50 ml @ 100 mls/hr Q8 IVPB Last administered on 06:35; Admin Dose 100 MLS/HR; Start 01/29/17 at 22:00 Vancomycin HCl 750 mg/Sodium Chloride 150 ml @ 75 mls/hr Q12H IVPB ; Start 01/30 at 15:00 Potassium Phosphate 30 mm/ Sodium Chloride 260 ml @ 65 mls/hr ONCE ONCE IVPB ; Start 01/30/17 at 13:00; Stop 01/30/17 at 16:59 Magnesium Sulfate/ Dextrose (Magnesium Sulfate 1 Gm/D5W) 100 ml @ 100 mls/hr ONCE ONCE IVPB Last administered on 01/30/17 11:56; Admin Dose 100 MLS/HR; Start 01/30/17 at 12:00; Stop 01/30/17 at 12:59 CESIA ROLLE Jan 30, 2017 12:49
[2017-01-30] MEDS ORDERED: POTASSIUM PHOSPHATE 30 MM in SOD CHLORIDE 0.9% 250 ML IVPB ONE (13:00)
[2017-01-30 14:18] VITALS: BP 141/66; RESP 22
[2017-01-30] MEDS: VANCOMYCIN 750 MG in SOD CHLORIDE 0.9% 150 ML IVPB SCH (14:36)
--- NOTE | 2017-01-30 15:54 | CONS ---
Date/Time of Note Date/Time of Note DATE: 01/30/17 TIME: 15:44 Assessment/Plan Assessment/Plan Chief Complaint/Hosp Course ID PROGRESS NOTE CURRENT ABX: => + Vanco IV #4 + Merrem #4 TOTAL ABX: DAY #11 Levaquin 750mg IVPB #6 => DC 8/6 => Vanco IV #5 + Cefepime #2-> DC 8/2 s/p Fosfomycin 3mg via GT x1 s/p Zosyn x1 01/21 s/p Cefepime x1 01/21 s/p CIPRO 01/21-01/24 24H INTERVAL SUMMARY * More awake/alert today -- family is present, Tmax 99.0, WBC 16.1 * 01/29/17 CT ABD/Pelvis * 1. Extensive hepatic metastatic disease is seen, as well as metastatic lymphadenopathy in the celiac axis, elise hepatis, periaortic retroperitoneum, and right pelvis. * 2. Nonspecific small amount of peritoneal free fluid is present. No evidence of bowel obstruction, perforation or abscess is identified. * 3. There is moderate dilatation of the biliary tree, as described above, stable in appearance when compared to recent prior MRCP. * 4. Indeterminate 1.5 cm cortical hyperdensity is seen arising from the left renal mid pole, incompletely characterized on this exam. Primary renal neoplasm is not excluded. * 5. Bowel containing periumbilical ventral hernia is identified, without obstruction or incarceration. * 6. The patient is status post cholecystectomy and right hemicolectomy. Gastrostomy tube and Mandel catheter are in place. * 7. Small to mild bilateral pleural effusions are seen, larger on the right. * BCx(-); Urine (+) GNR x 2 E.Coli + KP=ESBL Specimen: [id number] Ewelina: 01/21/17-0155 Source: CATHETER U URINE CULTURE Final Organism 1 ESCHERICHIA COLI COLONY COUNT >100,000 CFU/ml Organism 2 K PNEUMO ESBL COLONY COUNT >100,000 CFU/ml . MULTI DRUG RESISTANT ORGANISM E COLI KLEB PNEUM M.I.C. RX M.I.C. RX --------- --- --------- --- AMIKACIN <=2 S AMPICILLIN >=32 R CEFAZOLIN R R CEFEPIME 2 S CEFOTAXIME S R CIPROFLOXACIN <=0.25 S 2 I GENTAMICIN <=1 S >=16 R IMIPENEM <=0.25 S LEVOFLOXACIN <=0.12 S 1 S NITROFURANTOIN <=16 S 64 I TOBRAMYCIN <=1 S >=16 R TRIMETHOPRIM/SULFAMETHOXAZOLE >=320 R >=320 R PIPERACILLIN/TAZOBACTAM 8 S EXAM GEN: Adult F, resting in bed, VSS, NAD VITALS: No fevers HEENT: AT, NC, anicteric, moist oral membranes NECK: TRACH -> Cool mist CHEST:Coarse BS over Trach tubing CV: RRR ABD: Soft, NT EXT: Warm, no C/C/E SKIN: No rash/No diaphoresis ID ASSESSMENT 51 yo F PMHx ICH->s/p Crani +VPS w/chronic encephalopathy, hemiparesis, Trach, Peg admit with: 1. Sepsis on admission due to complicated polymicrobial UTI + ABD/Liver/ Biliary sepsis => STABLE * SIRS w/low grade temps 99.+ and leukocytosis persisting=> * DDX HCAP w/BLL Effusions vs GI biliary hepatic source vs MDS paraneoplastic ? * 01/21/17 BCx(-) * 01/21/17 Urine Cx (+) URINE CULTURE Final Organism 1 ESCHERICHIA COLI >100,000 CFU/ml Organism 2 K PNEUMO ESBL >100,000 CFU/ml MULTI DRUG RESISTANT ORGANISM 2. Probable neurogenic bladder w/retention 3. Colon cancer w/Mets to liver-> (+)transaminitis * Obstructive per MRCP -> poor prognosis to ERCP if/when stable, vs Hospice appropriate 4. 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 STG III decub sacral CURRENT ABX: => + Vanco IV #3 + Merrem #3 TOTAL ABX: DAY #11 ID RECOMMENDATIONS 1. DC Levaquin => Continue Vanco + Zosyn 2. CT ABD: Bilateral * SOURCE DDX: DDX HCAP w/BLL Effusions vs GI biliary hepatic source vs MDS paraneoplastic ? 3. Check UA C&S, sputum, stool C.Diff 3. Will send procalcitonin level in am to help determine if WBC related to bacterial infection or not. . . . Problems: Consultation Date/Type/Reason Admit Date/Time Jan 21, 2017 at 02:17 Initial Consult Date 01/24/17 Type of Consultation: ID Referring Provider: CESIA ROLLE Exam/Review of Systems Vital Signs Vitals Vital Signs Date Time Temp Pulse Resp B/P Pulse Ox O2 Delivery O2 Flow Rate FiO2 01/30/17 14:18 99.2 88 22 141/66 94 01/30/17 14:00 Aerosol 5.0 28 Intake and Output 01/29/17 01/29/17 01/30/17 15:00 23:00 07:00 Intake Total 150 ml 1040 ml 750 ml Output Total 2850 ml Balance 150 ml -1810 ml 750 ml Results Result Diagram: 01/30/17 0501 01/30/17 0501 Results 24 hrs Laboratory Tests Test 01/29/17 17:22 01/30/17 00:14 01/30/17 00:53 01/30/17 05:01 Bedside Glucose 152 125 Vancomycin Level Trough 10.3 White Blood Count 16.1 H Red Blood Count 3.10 L Hemoglobin 8.3 L Hematocrit 25.8 L Mean Corpuscular Volume 83.2 Mean Corpuscular Hemoglobin 26.8 L Mean Corpuscular Hemoglobin Concent 32.2 Red Cell Distribution Width 21.3 H Platelet Count 404 Mean Platelet Volume 11.2 H Neutrophils % 78.2 H Lymphocytes % 11.2 L Monocytes % 6.6 Eosinophils % 2.0 Basophils % 0.3 Nucleated Red Blood Cells % 0.0 Neutrophils # 12.6 H Lymphocytes # 1.8 Monocytes # 1.1 H Eosinophils # 0.3 Basophils # 0.1 Nucleated Red Blood Cells # 0.0 Sodium Level 143 Potassium Level 3.5 Chloride Level 101 Carbon Dioxide Level 30 Anion Gap 16 Blood Urea Nitrogen 13 Creatinine 0.61 Glucose Level 141 Calcium Level 7.8 L Phosphorus Level 2.2 L Magnesium Level 1.6 L Test 01/30/17 05:34 01/30/17 06:30 01/30/17 12:07 Lab Scanned Report BLOOD TRANSFUSION Bedside Glucose 143 156 Medications Medications Current Medications Sodium Chloride (NS) 1,000 ml @ 75 mls/hr [id number] IV Last administered on 20:28; Admin Dose 75 MLS/HR; Start 01/21/17 at 04:00 Ondansetron HCl (Zofran Inj) 4 mg Q6H PRN IV NAUSEA AND/OR VOMITING; Start at 04:00 Acetaminophen (Tylenol Supp) 650 mg Q6H PRN [place] PAIN LEVEL 1-3 OR FEVER Last administered on 01/26/17 08:06; Admin Dose 650 MG; Start 01/21/17 at 04:00 Pantoprazole (Protonix Iv) 40 mg DAILY@06 IV Last administered on 01/30/17 06: 29; Admin Dose 40 MG; Start 01/21/17 at 06:00 Acetaminophen (Tylenol Liquid) 325 mg Q4H PRN GTB PAIN OR TEMP ABOVE 38C Last administered on 01/28/17 20:35; Admin Dose 325 MG; Start 01/21/17 at 06:30 Amlodipine Besylate (Norvasc) 10 mg DAILY GTB Last administered on 01/30/17 09: 47; Admin Dose 10 MG; Start 01/21/17 at 09:00 Eye Lubricant (Akwa Oint) 1 applic HS BOTH EYES Last administered on 01/29/17 20:29; Admin Dose 1 APPLIC; Start 01/21/17 at 21:00 Labetalol HCl (Normodyne) 300 mg BID GTB Last administered on 01/30/17 09:47; Admin Dose 300 MG; Start 01/21/17 at 09:00 Lorazepam (Ativan) 2 mg Q4H PRN IV SEIZURES Last administered on 01/22/17 01: 08; Admin Dose 2 MG; Start 01/22/17 at 01:04 Miscellaneous Information (Pending [facility] Order For Wound Care) This patient matos... PRN PRN XX WOUND CARE; Start 01/22/17 at 02:00 Miscellaneous Information 1 ea NOTE XX ; Start 01/22/17 at 16:00 Glucose (Glutose) 15 gm Q15M PRN PO DECREASED GLUCOSE; Start 01/22/17 at 16:00 Glucose (Glutose) 22.5 gm Q15M PRN PO DECREASED GLUCOSE; Start 01/22/17 at 16: 00 Dextrose (D50w Syringe) 25 ml Q15M PRN IV DECREASED GLUCOSE; Start 01/22/17 at 16:00 Dextrose (D50w Syringe) 50 ml Q15M PRN IV DECREASED GLUCOSE; Start 01/22/17 at 16:00 Glucagon (Glucagen) 1 mg Q15M PRN IM DECREASED GLUCOSE; Start 01/22/17 at 16:00 Glucose (Glutose) 15 gm Q15M PRN BUCCAL DECREASED GLUCOSE; Start 01/22/17 at 16 :00 Insulin Aspart (Novolog Insulin Pen) NOVOLOG *MILD* ALGORI... Q6 SC Last administered on 01/30/17 12:15; Admin Dose 1 UNIT; Start 01/25/17 at 00:00 Collagenase 1 applic 1 applic DAILY PRN TOP PRN Last administered on 01/29/17 01:09; Admin Dose 1 APPLIC; Start 01/25/17 at 01:00 Levofloxacin/ Dextrose (Levaquin 750 Mg/ D5W 150 ml (Pmx)) 150 ml @ 100 mls/hr Q24H IVPB Last administered on 01/29/17 20:28; Admin Dose 100 MLS/HR; Start 01/25/17 at 21:00 IV Flush (NS 10 ml) 10 ml PRN PRN IV IV PROTOCOL; Start 01/26/17 at 19:00 Bisacodyl (Dulcolax Supp) 10 mg Q24H PRN [place] CONSTIPATION; Start 01/27/17 at 11: 10 Senna (Senokot) 2 tab BID PRN GTB CONSTIPATION; Start 01/27/17 at 11:30 Metoclopramide HCl (Reglan) 10 mg Q6 IV Last administered on 01/30/17 12:10; Admin Dose 10 MG; Start 01/27/17 at 18:00 Ondansetron HCl 4 mg 4 mg Q4H GTB Last administered on 01/30/17 12:10; Admin Dose 4 MG; Start 01/28/17 at 08:30 Meropenem/Sodium Chloride 50 ml @ 100 mls/hr Q8 IVPB Last administered on 13:57; Admin Dose 100 MLS/HR; Start 8/5/17 at 22:00 Vancomycin HCl 750 mg/Sodium Chloride 150 ml @ 75 mls/hr Q12H IVPB Last administered on 01/30/17 14:36; Admin Dose 75 MLS/HR; Start 01/30/17 at 15:00 Potassium Phosphate/Sodium Chloride (K Phos (Mm)/NS) 260 ml @ 65 mls/hr ONCE ONCE IVPB Last administered on 01/30/17 13:44; Admin Dose 65 MLS/HR; Start 01/30 at 13:00; Stop 01/30/17 at 16:59 DARELL [employer] Jan 30, 2017 15:54
[2017-01-30 18:54] LABS: ADD UMIC NO; UR ASCORBIC ACID NEGATIVE (NEGATIVE); UR BILIRUBIN (Dip) 1+ mg/dL (NEGATIVE); UR BLOOD (Dip) NEGATIVE (NEGATIVE); UR CLARITY CLEAR (CLEAR); UR COLOR AMBER (YELLOW); UR GLUCOSE (Dip) NEGATIVE (NEGATIVE); UR KETONES (Dip) NEGATIVE (NEGATIVE); UR LEUKOCYTE ESTERASE (Dip) NEGATIVE Leu/ul (NEGATIVE); UR NITRITE (Dip) NEGATIVE (NEGATIVE); UR SPECIFIC GRAVITY (Dip) 1.012 (1.003-1.030); UR TOTAL PROTEIN (Dip) NEGATIVE (NEGATIVE); UR UROBILINOGEN (Dip) NEGATIVE (NEGATIVE)
[2017-01-30 19:24] LABS: ADD UMIC NO; UR ASCORBIC ACID NEGATIVE (NEGATIVE); UR BILIRUBIN (Dip) 1+ mg/dL (NEGATIVE); UR BLOOD (Dip) NEGATIVE (NEGATIVE); UR CLARITY CLEAR (CLEAR); UR COLOR AMBER (YELLOW); UR GLUCOSE (Dip) NEGATIVE (NEGATIVE); UR KETONES (Dip) NEGATIVE (NEGATIVE); UR LEUKOCYTE ESTERASE (Dip) NEGATIVE Leu/ul (NEGATIVE); UR NITRITE (Dip) NEGATIVE (NEGATIVE); UR SPECIFIC GRAVITY (Dip) 1.013 (1.003-1.030); UR TOTAL PROTEIN (Dip) NEGATIVE (NEGATIVE); UR UROBILINOGEN (Dip) NEGATIVE (NEGATIVE)
[2017-01-30 19:46] VITALS: BP 130/62; RESP 18
[2017-01-30] MEDS: OCULAR LUBRICANT 3.5 GM OPH OINT BOTH EYES SCH (21:36)
[2017-01-31] MEDS: METOCLOPRAMIDE 10 MG INJ IV SCH ×5 (00:21→23:41)
[2017-01-31] MEDS: INSULIN ASPART [NOVOLOG] 3 ML PEN SC SCH ×5 (00:27→23:59)
[2017-01-31] MEDS: ONDANSETRON 4 MG TAB GTB SCH ×7 (00:30→23:42)
[2017-01-31 02:28] VITALS: BP 128/61; RESP 18
[2017-01-31] MEDS: SOD CHLORIDE 0.9% 1,000 ML IV SCH ×3 (04:00→17:20)
[2017-01-31] MEDS: VANCOMYCIN 750 MG in SOD CHLORIDE 0.9% 150 ML IVPB SCH ×2 (04:23→15:34)
[2017-01-31 05:21] LABS: BASOPHIL # 0.1 10^3/ul (0.0-0.1); BASOPHILS % 0.3 % (0.0-2.0); EOSINOPHILS # 0.3 10^3/ul (0.0-0.5); EOSINOPHILS % 1.9 % (0.0-7.0); HEMATOCRIT 25.2 % (37.0-47.0); HEMOGLOBIN 8.1 g/dl (12.0-16.0); MEAN CORPUSCULAR HEMOGLOBIN 26.3 pg (29.0-33.0); MEAN CORPUSCULAR HGB CONC 32.1 g/dl (32.0-37.0); MEAN CORPUSCULAR VOLUME 81.8 fl (82.0-101.0); MEAN PLATELET VOLUME 11.4 fl (7.4-10.4); MONOCYTES % 6.9 % (0.0-11.0); NEUTROPHIL # 11.3 10^3/ul (1.6-7.5); NEUTROPHILS % 75.4 % (39.0-77.0); PLATELET COUNT 397 10^3/UL (140-415); RED BLOOD COUNT 3.08 10^6/ul (4.20-5.40); RED CELL DISTRIBUTION WIDTH 21.6 % (11.5-14.5)
[2017-01-31 06:01] LABS: CALCIUM 8.1 mg/dl (8.4-10.2); CREATININE 0.59 mg/dl (0.44-1.00); MAGNESIUM 1.7 mg/dl (1.7-2.5); PHOSPHORUS 2.8 mg/dl (2.5-4.9); POTASSIUM 3.7 mmol/L (3.5-5.1)
[2017-01-31] MEDS: MEROPENEM 1 GM/50ML(PMX) 50 ML IVPB SCH ×3 (06:14→23:42)
[2017-01-31] MEDS: PANTOPRAZOLE 40 MG INJ IV SCH (06:14)
[2017-01-31 07:48] VITALS: BP 139/68; RESP 20
[2017-01-31] MEDS: AMLODIPINE 10 MG TAB GTB SCH (08:59)
[2017-01-31] MEDS: LABETALOL 100 MG TAB GTB SCH ×2 (09:00→20:46)
[2017-01-31 09:08] VITALS: BP 132/62; PULSE 92
[2017-01-31 13:33] VITALS: BP 133/63; RESP 18
--- NOTE | 2017-01-31 18:13 | PN ---
Date/Time of Note Date/Time of Note DATE: 01/31/17 TIME: 18:10 Assessment/Plan VTE Prophylaxis VTE Prophylaxis Intervention: heparin Lines/Catheters IV Catheter Type (from Nrsg): PICC Line Central line still needed: No Urinary Cath still in place: Yes Reason Cath still needed: urinary retention Assessment/Plan Chief Complaint/Hosp Course 51 yo female with respriatoyr failure s/p trach/PEG 2/2 ICH presenting with metastatic colon cancer and urosepsis Sepsis secondary to UTI, resolving Intracranial hemorrhage status post craniectomy, stable Metastatic liver cancer, ongoing Elevated transaminases Chronic respiratory failure, trach dependent, on T-piece Hypertension Leukocytosis Hypokalemia Metabolic alkalosis Left-sided hemiplegia secondary to intracranial hemorrhage Plan -Continue antibiotic per ID will need levofloxacin for total 7 days -Monitor white count for now, will transfer to facility once white count is decreasing, may have to biopsy liver mass if white count continues to increase, no apparent abscess on repeat CT, however found to have pleural fluid. pulmonology consulted for drainage. -Hematology and oncology also agree with primary oncologist of holding off on acute treatment for liver cancer until current issues with craniectomy and tracheostomy are resolved -GI recommends hospice evaluation given MRCP results -Continue trach management per pulmonology -patient is palliative care/hospice appropriate, however patient's family is not agreeable to hospice/palliative as they want 100% treatment. - Dismal prognosis. Will require further convesration regarding goals of care Problems: Subjective 24 Hr Interval Summary Free Text/Dictation No events, stable Exam/Review of Systems Vital Signs Vitals Vital Signs Date Time Temp Pulse Resp B/P Pulse Ox O2 Delivery O2 Flow Rate FiO2 01/31/17 14:52 95 18 98 Aerosol 5.0 28 T Tube 01/31/17 13:33 99.8 133/63 Intake and Output 01/30/17 01/30/17 01/31/17 14:59 22:59 06:59 Intake Total 50 ml 1760 ml 1385 ml Output Total 1900 ml 2000 ml 1600 ml Balance -1850 ml -240 ml -215 ml Exam Jaundiced skin and eyes Alert, comfortable appearing Trach/PEG Lungs clear anteriorly No RUQ tenderness No edema Results Result Diagram: 01/31/17 0452 01/31/17 0451 Results 24 hrs Laboratory Tests Test 01/31/17 00:23 01/31/17 04:51 01/31/17 04:52 01/31/17 06:18 Bedside Glucose 153 158 Sodium Level 142 Potassium Level 3.7 Chloride Level 101 Carbon Dioxide Level 30 Anion Gap 15 Blood Urea Nitrogen 15 Creatinine 0.59 Glucose Level 153 Calcium Level 8.1 L Phosphorus Level 2.8 Magnesium Level 1.7 White Blood Count 15.0 H Red Blood Count 3.08 L Hemoglobin 8.1 L Hematocrit 25.2 L Mean Corpuscular Volume 81.8 L Mean Corpuscular Hemoglobin 26.3 L Mean Corpuscular Hemoglobin Concent 32.1 Red Cell Distribution Width 21.6 H Platelet Count 397 Mean Platelet Volume 11.4 H Neutrophils % 75.4 Lymphocytes % 13.0 L Monocytes % 6.9 Eosinophils % 1.9 Basophils % 0.3 Nucleated Red Blood Cells % 0.0 Neutrophils # 11.3 H Lymphocytes # 2.0 Monocytes # 1.0 H Eosinophils # 0.3 Basophils # 0.1 Nucleated Red Blood Cells # 0.0 Test 01/31/17 12:20 01/31/17 17:49 Bedside Glucose 173 173 Medications Medications Current Medications Sodium Chloride (NS) 1,000 ml @ 75 mls/hr [id number] IV Last administered on 07:11; Admin Dose 75 MLS/HR; Start 01/21/17 at 04:00 Ondansetron HCl (Zofran Inj) 4 mg Q6H PRN IV NAUSEA AND/OR VOMITING; Start at 04:00 Acetaminophen (Tylenol Supp) 650 mg Q6H PRN [place] PAIN LEVEL 1-3 OR FEVER Last administered on 01/26/17 08:06; Admin Dose 650 MG; Start 01/21/17 at 04:00 Pantoprazole (Protonix Iv) 40 mg DAILY@06 IV Last administered on 01/31/17 06: 14; Admin Dose 40 MG; Start 01/21/17 at 06:00 Acetaminophen (Tylenol Liquid) 325 mg Q4H PRN GTB PAIN OR TEMP ABOVE 38C Last administered on 01/28/17 20:35; Admin Dose 325 MG; Start 01/21/17 at 06:30 Amlodipine Besylate (Norvasc) 10 mg DAILY GTB Last administered on 01/31/17 08: 59; Admin Dose 10 MG; Start 01/21/17 at 09:00 Eye Lubricant (Akwa Oint) 1 applic HS BOTH EYES Last administered on 01/30/17 21:36; Admin Dose 1 APPLIC; Start 01/21/17 at 21:00 Labetalol HCl (Normodyne) 300 mg BID GTB Last administered on 01/31/17 09:00; Admin Dose 300 MG; Start 01/21/17 at 09:00 Lorazepam (Ativan) 2 mg Q4H PRN IV SEIZURES Last administered on 01/22/17 01: 08; Admin Dose 2 MG; Start 01/22/17 at 01:04 Miscellaneous Information (Pending [facility] Order For Wound Care) This patient matos... PRN PRN XX WOUND CARE; Start 01/22/17 at 02:00 Miscellaneous Information 1 ea NOTE XX ; Start 01/22/17 at 16:00 Glucose (Glutose) 15 gm Q15M PRN PO DECREASED GLUCOSE; Start 01/22/17 at 16:00 Glucose (Glutose) 22.5 gm Q15M PRN PO DECREASED GLUCOSE; Start 01/22/17 at 16: 00 Dextrose (D50w Syringe) 25 ml Q15M PRN IV DECREASED GLUCOSE; Start 01/22/17 at 16:00 Dextrose (D50w Syringe) 50 ml Q15M PRN IV DECREASED GLUCOSE; Start 01/22/17 at 16:00 Glucagon (Glucagen) 1 mg Q15M PRN IM DECREASED GLUCOSE; Start 01/22/17 at 16:00 Glucose (Glutose) 15 gm Q15M PRN BUCCAL DECREASED GLUCOSE; Start 01/22/17 at 16 :00 Insulin Aspart (Novolog Insulin Pen) NOVOLOG *MILD* ALGORI... Q6 SC Last administered on 01/31/17 18:05; Admin Dose 1 UNIT; Start 01/25/17 at 00:00 Collagenase (Santyl) 1 applic DAILY PRN TOP PRN Last administered on 01/29/17 01:09; Admin Dose 1 APPLIC; Start 01/25/17 at 01:00 IV Flush (NS 10 ml) 10 ml PRN PRN IV IV PROTOCOL; Start 01/26/17 at 19:00 Bisacodyl (Dulcolax Supp) 10 mg Q24H PRN [place] CONSTIPATION; Start 01/27/17 at 11: 10 Senna (Senokot) 2 tab BID PRN GTB CONSTIPATION; Start 01/27/17 at 11:30 Metoclopramide HCl (Reglan) 10 mg Q6 IV Last administered on 01/31/17 17:55; Admin Dose 10 MG; Start 01/27/17 at 18:00 Ondansetron HCl 4 mg 4 mg Q4H GTB Last administered on 01/31/17 17:55; Admin Dose 4 MG; Start 01/28/17 at 08:30 Meropenem/Sodium Chloride 50 ml @ 100 mls/hr Q8 IVPB Last administered on 13:51; Admin Dose 100 MLS/HR; Start 01/29/17 at 22:00 Vancomycin HCl/ Sodium Chloride (Vancocin/NS) 150 ml @ 75 mls/hr Q12H IVPB Last administered on 01/31/17 15:34; Admin Dose 75 MLS/HR; Start 01/30/17 at 15: 00 CAROL ROSARIO MD Jan 31, 2017 18:13
--- NOTE | 2017-01-31 19:58 | CONS ---
Date/Time of Note Date/Time of Note DATE: 01/31/17 TIME: 19:53 Assessment/Plan Assessment/Plan Chief Complaint/Hosp Course ID PROGRESS NOTE CURRENT ABX: => + Vanco IV #5 + Merrem #5 TOTAL ABX: DAY #12 24H INTERVAL SUMMARY * Low grade temps persist today 99.8; WBC down to 15.0 * BCx(-); Urine (+) GNR x 2 E.Coli + KP=ESBL EXAM GEN: Adult F, resting in bed, VSS, NAD VITALS: No fevers HEENT: AT, NC, anicteric, moist oral membranes NECK: TRACH -> Cool mist CHEST:Coarse BS over Trach tubing CV: RRR ABD: Soft, NT EXT: Warm, no C/C/E SKIN: No rash/No diaphoresis ID ASSESSMENT 51 yo F PMHx ICH->s/p Crani +VPS w/chronic encephalopathy, hemiparesis, Trach, Peg admit with: 1. Sepsis on admission due to complicated polymicrobial UTI + ABD/Liver/ Biliary sepsis => STABLE * SIRS w/low grade temps 99.+ and leukocytosis ==> Persisting ? * DDX HCAP w/BLL Effusions vs GI biliary hepatic source vs MDS paraneoplastic ? * 01/21/17 BCx(-) * 01/21/17 Urine Cx (+) URINE CULTURE Final Organism 1 ESCHERICHIA COLI >100,000 CFU/ml Organism 2 K PNEUMO ESBL >100,000 CFU/ml MULTI DRUG RESISTANT ORGANISM 2. Probable neurogenic bladder w/retention 3. Colon cancer w/Mets to liver-> (+)transaminitis * Obstructive per MRCP -> poor prognosis to ERCP if/when stable, vs Hospice appropriate 4. 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 STG III decub sacral CURRENT ABX: => + Vanco IV #5 + Merrem #5 TOTAL ABX: DAY #12 Levaquin 750mg IVPB #6 => DC 8/6 => Vanco IV #5 + Cefepime #2-> DC 8/ s/p Fosfomycin 3mg via GT x1 s/p Zosyn x1 01/21 s/p Cefepime x1 01/21 s/p CIPRO 01/21-01/24 ID RECOMMENDATIONS 1. Continue Vanco + Merrem 2. SOURCE DDx is unclear: DDX HCAP w/BLL Effusions vs GI biliary hepatic source vs MDS paraneoplastic ? 3. Check UA C&S, sputum, stool C.Diff -> Pending 3. Procalcitonin level ordered to help determine if WBC related to bacterial infection or not. . . . Problems: Consultation Date/Type/Reason Admit Date/Time Jan 21, 2017 at 02:17 Initial Consult Date 01/24/17 Type of Consultation: ID Referring Provider: CESIA ROLLE Exam/Review of Systems Vital Signs Vitals Vital Signs Date Time Temp Pulse Resp B/P Pulse Ox O2 Delivery O2 Flow Rate FiO2 01/31/17 19:38 96 5.0 28 01/31/17 19:38 90 18 Aerosol T Tube 01/31/17 13:33 99.8 133/63 Intake and Output 01/30/17 01/30/17 01/31/17 15:00 23:00 07:00 Intake Total 50 ml 1760 ml 1585 ml Output Total 1900 ml 2000 ml 1600 ml Balance -1850 ml -240 ml -15 ml Results Result Diagram: 01/31/17 0452 01/31/17 0451 Results 24 hrs Laboratory Tests Test 01/31/17 00:23 01/31/17 04:51 01/31/17 04:52 01/31/17 06:18 Bedside Glucose 153 158 Sodium Level 142 Potassium Level 3.7 Chloride Level 101 Carbon Dioxide Level 30 Anion Gap 15 Blood Urea Nitrogen 15 Creatinine 0.59 Glucose Level 153 Calcium Level 8.1 L Phosphorus Level 2.8 Magnesium Level 1.7 White Blood Count 15.0 H Red Blood Count 3.08 L Hemoglobin 8.1 L Hematocrit 25.2 L Mean Corpuscular Volume 81.8 L Mean Corpuscular Hemoglobin 26.3 L Mean Corpuscular Hemoglobin Concent 32.1 Red Cell Distribution Width 21.6 H Platelet Count 397 Mean Platelet Volume 11.4 H Neutrophils % 75.4 Lymphocytes % 13.0 L Monocytes % 6.9 Eosinophils % 1.9 Basophils % 0.3 Nucleated Red Blood Cells % 0.0 Neutrophils # 11.3 H Lymphocytes # 2.0 Monocytes # 1.0 H Eosinophils # 0.3 Basophils # 0.1 Nucleated Red Blood Cells # 0.0 Test 01/31/17 12:20 01/31/17 17:49 Bedside Glucose 173 173 Medications Medications Current Medications Sodium Chloride (NS) 1,000 ml @ 75 mls/hr [id number] IV Last administered on 07:11; Admin Dose 75 MLS/HR; Start 01/21/17 at 04:00 Ondansetron HCl (Zofran Inj) 4 mg Q6H PRN IV NAUSEA AND/OR VOMITING; Start at 04:00 Acetaminophen (Tylenol Supp) 650 mg Q6H PRN [place] PAIN LEVEL 1-3 OR FEVER Last administered on 01/26/17 08:06; Admin Dose 650 MG; Start 01/21/17 at 04:00 Pantoprazole (Protonix Iv) 40 mg DAILY@06 IV Last administered on 01/31/17 06: 14; Admin Dose 40 MG; Start 01/21/17 at 06:00 Acetaminophen (Tylenol Liquid) 325 mg Q4H PRN GTB PAIN OR TEMP ABOVE 38C Last administered on 01/28/17 20:35; Admin Dose 325 MG; Start 01/21/17 at 06:30 Amlodipine Besylate (Norvasc) 10 mg DAILY GTB Last administered on 01/31/17 08: 59; Admin Dose 10 MG; Start 01/21/17 at 09:00 Eye Lubricant (Akwa Oint) 1 applic HS BOTH EYES Last administered on 01/30/17 21:36; Admin Dose 1 APPLIC; Start 01/21/17 at 21:00 Labetalol HCl (Normodyne) 300 mg BID GTB Last administered on 01/31/17 09:00; Admin Dose 300 MG; Start 01/21/17 at 09:00 Lorazepam (Ativan) 2 mg Q4H PRN IV SEIZURES Last administered on 01/22/17 01: 08; Admin Dose 2 MG; Start 01/22/17 at 01:04 Miscellaneous Information (Pending [facility] Order For Wound Care) This patient matos... PRN PRN XX WOUND CARE; Start 01/22/17 at 02:00 Miscellaneous Information 1 ea NOTE XX ; Start 01/22/17 at 16:00 Glucose (Glutose) 15 gm Q15M PRN PO DECREASED GLUCOSE; Start 01/22/17 at 16:00 Glucose (Glutose) 22.5 gm Q15M PRN PO DECREASED GLUCOSE; Start 01/22/17 at 16: 00 Dextrose (D50w Syringe) 25 ml Q15M PRN IV DECREASED GLUCOSE; Start 01/22/17 at 16:00 Dextrose (D50w Syringe) 50 ml Q15M PRN IV DECREASED GLUCOSE; Start 01/22/17 at 16:00 Glucagon (Glucagen) 1 mg Q15M PRN IM DECREASED GLUCOSE; Start 01/22/17 at 16:00 Glucose (Glutose) 15 gm Q15M PRN BUCCAL DECREASED GLUCOSE; Start 01/22/17 at 16 :00 Insulin Aspart (Novolog Insulin Pen) NOVOLOG *MILD* ALGORI... Q6 SC Last administered on 01/31/17 18:05; Admin Dose 1 UNIT; Start 01/25/17 at 00:00 Collagenase (Santyl) 1 applic DAILY PRN TOP PRN Last administered on 01/29/17 01:09; Admin Dose 1 APPLIC; Start 01/25/17 at 01:00 IV Flush (NS 10 ml) 10 ml PRN PRN IV IV PROTOCOL; Start 01/26/17 at 19:00 Bisacodyl (Dulcolax Supp) 10 mg Q24H PRN [place] CONSTIPATION; Start 01/27/17 at 11: 10 Senna (Senokot) 2 tab BID PRN GTB CONSTIPATION; Start 01/27/17 at 11:30 Metoclopramide HCl (Reglan) 10 mg Q6 IV Last administered on 01/31/17 17:55; Admin Dose 10 MG; Start 01/27/17 at 18:00 Ondansetron HCl 4 mg 4 mg Q4H GTB Last administered on 01/31/17 17:55; Admin Dose 4 MG; Start 01/28/17 at 08:30 Meropenem/Sodium Chloride 50 ml @ 100 mls/hr Q8 IVPB Last administered on 13:51; Admin Dose 100 MLS/HR; Start 01/29/17 at 22:00 Vancomycin HCl/ Sodium Chloride (Vancocin/NS) 150 ml @ 75 mls/hr Q12H IVPB Last administered on 8/7/17at 15:34; Admin Dose 75 MLS/HR; Start 01/30/17 at 15: 00 DARELL YORK NP Jan 31, 2017 19:58
[2017-01-31 20:25] VITALS: BP 137/67; RESP 18
[2017-01-31] MEDS: OCULAR LUBRICANT 3.5 GM OPH OINT BOTH EYES SCH (20:46)
[2017-02-01 02:24] VITALS: BP 117/56; RESP 18
[2017-02-01] MEDS: SOD CHLORIDE 0.9% 1,000 ML IV SCH (02:54)
[2017-02-01] MEDS: VANCOMYCIN 750 MG in SOD CHLORIDE 0.9% 150 ML IVPB SCH ×2 (03:00→15:44)
[2017-02-01] MEDS: ONDANSETRON 4 MG TAB GTB SCH ×5 (04:40→21:19)
[2017-02-01] MEDS: METOCLOPRAMIDE 10 MG INJ IV SCH ×3 (05:22→17:54)
[2017-02-01] MEDS: PANTOPRAZOLE 40 MG INJ IV SCH (05:22)
[2017-02-01] MEDS: MEROPENEM 1 GM/50ML(PMX) 50 ML IVPB SCH ×3 (05:22→21:20)
[2017-02-01] MEDS: INSULIN ASPART [NOVOLOG] 3 ML PEN SC SCH ×3 (05:42→17:54)
[2017-02-01 05:43] LABS: BASOPHILS % 0.3 % (0.0-2.0); EOSINOPHILS # 0.3 10^3/ul (0.0-0.5); EOSINOPHILS % 2.1 % (0.0-7.0); HEMATOCRIT 23.9 % (37.0-47.0); HEMOGLOBIN 7.6 g/dl (12.0-16.0); LYMPHOCYTES # 1.9 10^3/ul (0.8-2.9); LYMPHOCYTES % 11.9 % (15.0-51.0); MEAN CORPUSCULAR HGB CONC 31.8 g/dl (32.0-37.0); MEAN CORPUSCULAR VOLUME 84.8 fl (82.0-101.0); MEAN PLATELET VOLUME 10.8 fl (7.4-10.4); MONOCYTE # 1.2 10^3/ul (0.3-0.9); MONOCYTES % 7.4 % (0.0-11.0); NEUTROPHILS % 76.3 % (39.0-77.0); PLATELET COUNT 372 10^3/UL (140-415); RED BLOOD COUNT 2.82 10^6/ul (4.20-5.40); RED CELL DISTRIBUTION WIDTH 21.2 % (11.5-14.5); WHITE BLOOD COUNT 15.7 10^3/ul (4.8-10.8)
[2017-02-01 06:21] LABS: ALBUMIN 2.9 g/dl (3.3-4.9); ALBUMIN/GLOBULIN RATIO 0.76; BILIRUBIN,DIRECT 5.2 mg/dl (0.00-0.20); BILIRUBIN,INDIRECT 1.2 mg/dl (0-1.1); BILIRUBIN,TOTAL 6.4 mg/dl (0.2-1.3); CALCIUM 8.3 mg/dl (8.4-10.2); CREATININE 0.63 mg/dl (0.44-1.00); POTASSIUM 3.9 mmol/L (3.5-5.1); TOTAL PROTEIN 6.7 g/dl (6.1-8.1)
[2017-02-01 08:46] VITALS: BP 135/65; RESP 22
[2017-02-01] MEDS: LABETALOL 100 MG TAB GTB SCH ×2 (09:17→21:20)
[2017-02-01] MEDS: AMLODIPINE 10 MG TAB GTB SCH (09:18)
[2017-02-01] MEDS: ACETAMINOPHEN 650MG/20.3ML CUP GTB PRN (11:49)
[2017-02-01 14:08] VITALS: BP 117/58; RESP 20
--- NOTE | 2017-02-01 18:36 | CONS ---
Date/Time of Note Date/Time of Note DATE: 02/01/17 TIME: 18:29 Assessment/Plan Assessment/Plan Chief Complaint/Hosp Course ID PROGRESS NOTE CURRENT ABX: => + Vanco IV #6 + Merrem #6 TOTAL ABX: DAY #13 24H INTERVAL SUMMARY * Resting, family says she has fevers, TMax 99.9,WBC remains elevated 15.7 * BCx(-); Urine (+) GNR x 2 E.Coli + KP=ESBL * SPUTUM CX (+)GNR -> Pending EXAM GEN: Adult F, resting in bed, VSS, NAD VITALS: No fevers HEENT: AT, NC, anicteric, moist oral membranes NECK: TRACH -> Cool mist CHEST:Coarse BS over Trach tubing CV: RRR ABD: Soft, NT EXT: Warm, no C/C/E SKIN: No rash/No diaphoresis ID ASSESSMENT 51 yo F PMHx ICH->s/p Crani +VPS w/chronic encephalopathy, hemiparesis, Trach, Peg admit with: 1. Sepsis on admission due to complicated polymicrobial UTI + ABD/Liver/ Biliary sepsis * SIRS w/low grade temps 99.+ and leukocytosis ==> Persisting ? * DDX HCAP w/BLL Effusions vs GI biliary hepatic source vs MDS paraneoplastic ? * 01/21/17 BCx(-) * 01/21/17 Urine Cx (+) URINE CULTURE Final Organism 1 ESCHERICHIA COLI >100,000 CFU/ml Organism 2 K PNEUMO ESBL >100,000 CFU/ml MULTI DRUG RESISTANT ORGANISM 2. Probable neurogenic bladder w/retention 3. Colon cancer w/Mets to liver-> (+)transaminitis * Obstructive per MRCP -> poor prognosis to ERCP if/when stable, vs Hospice appropriate 4. 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 Trachobronchitis vs silent aspiration pneumonitis * (+)GNR -> Pending 6. STG III decub sacral 7. Hx of Hepatitis A CURRENT ABX: => + Vanco IV #6 + Merrem #6 TOTAL ABX: DAY #12 Levaquin 750mg IVPB #6 => DC 8/6 => Vanco IV #5 + Cefepime #2-> DC 01/26 s/p Fosfomycin 3mg via GT x1 s/p Zosyn x1 01/21 s/p Cefepime x1 01/21 s/p CIPRO 01/21-01/24 ID RECOMMENDATIONS 1. Continue Vanco + Merrem 2. Send sacral decub wound cx 3. f/u on GNR sputum -> Pending 4. Send stool for VRE screen - maybe she needs VRE coverage . . . . Problems: Consultation Date/Type/Reason Admit Date/Time Jan 21, 2017 at 02:17 Initial Consult Date 01/24/17 Type of Consultation: ID Referring Provider: CESIA ROLLE Exam/Review of Systems Vital Signs Vitals Vital Signs Date Time Temp Pulse Resp B/P Pulse Ox O2 Delivery O2 Flow Rate FiO2 02/01/17 14:08 98.9 89 20 117/58 96 02/01/17 13:15 5.0 28 02/01/17 12:53 Aerosol Intake and Output 01/31/17 01/31/17 02/01/17 15:00 23:00 07:00 Intake Total 1500 ml 790 ml Output Total 1600 ml 950 ml Balance -100 ml -160 ml Results Result Diagram: 02/01/17 0530 02/01/17 0530 Results 24 hrs Laboratory Tests Test 01/31/17 23:43 02/01/17 05:28 02/01/17 05:30 02/01/17 12:28 Bedside Glucose 157 152 190 White Blood Count 15.7 H Red Blood Count 2.82 L Hemoglobin 7.6 L Hematocrit 23.9 L Mean Corpuscular Volume 84.8 Mean Corpuscular Hemoglobin 27.0 L Mean Corpuscular Hemoglobin Concent 31.8 L Red Cell Distribution Width 21.2 H Platelet Count 372 Mean Platelet Volume 10.8 H Neutrophils % 76.3 Lymphocytes % 11.9 L Monocytes % 7.4 Eosinophils % 2.1 Basophils % 0.3 Nucleated Red Blood Cells % 0.0 Neutrophils # 12.0 H Lymphocytes # 1.9 Monocytes # 1.2 H Eosinophils # 0.3 Basophils # 0.0 Nucleated Red Blood Cells # 0.0 Sodium Level 142 Potassium Level 3.9 Chloride Level 101 Carbon Dioxide Level 30 Anion Gap 15 Blood Urea Nitrogen 16 Creatinine 0.63 Glucose Level 156 Calcium Level 8.3 L Total Bilirubin 6.4 H Direct Bilirubin 5.20 H Indirect Bilirubin 1.2 H Aspartate Amino Transf (AST/SGOT) 147 H Alanine Aminotransferase (ALT/SGPT) 81 H Alkaline Phosphatase 1083 H Total Protein 6.7 Albumin 2.9 L Globulin 3.80 H Albumin/Globulin Ratio 0.76 Test 02/01/17 17:52 Bedside Glucose 139 Medications Medications Current Medications Ondansetron HCl (Zofran Inj) 4 mg Q6H PRN IV NAUSEA AND/OR VOMITING; Start at 04:00 Acetaminophen (Tylenol Supp) 650 mg Q6H PRN [place] PAIN LEVEL 1-3 OR FEVER Last administered on 01/26/17 08:06; Admin Dose 650 MG; Start 01/21/17 at 04:00 Acetaminophen (Tylenol Liquid) 325 mg Q4H PRN GTB PAIN OR TEMP ABOVE 38C Last administered on 02/01/17 11:49; Admin Dose 325 MG; Start 01/21/17 at 06:30 Amlodipine Besylate (Norvasc) 10 mg DAILY GTB Last administered on 02/01/17 09: 18; Admin Dose 10 MG; Start 01/21/17 at 09:00 Eye Lubricant (Akwa Oint) 1 applic HS BOTH EYES Last administered on 01/31/17 20:46; Admin Dose 1 APPLIC; Start 01/21/17 at 21:00 Labetalol HCl (Normodyne) 300 mg BID GTB Last administered on 02/01/17 09:17; Admin Dose 300 MG; Start 01/21/17 at 09:00 Lorazepam (Ativan) 2 mg Q4H PRN IV SEIZURES Last administered on 01/22/17 01: 08; Admin Dose 2 MG; Start 01/22/17 at 01:04 Miscellaneous Information (Pending Santyl Order For Wound Care) This patient matos... PRN PRN XX WOUND CARE; Start 01/22/17 at 02:00 Miscellaneous Information 1 ea NOTE XX ; Start 01/22/17 at 16:00 Glucose (Glutose) 15 gm Q15M PRN PO DECREASED GLUCOSE; Start 01/22/17 at 16:00 Glucose (Glutose) 22.5 gm Q15M PRN PO DECREASED GLUCOSE; Start 01/22/17 at 16: 00 Dextrose (D50w Syringe) 25 ml Q15M PRN IV DECREASED GLUCOSE; Start 01/22/17 at 16:00 Dextrose (D50w Syringe) 50 ml Q15M PRN IV DECREASED GLUCOSE; Start 01/22/17 at 16:00 Glucagon (Glucagen) 1 mg Q15M PRN IM DECREASED GLUCOSE; Start 01/22/17 at 16:00 Glucose (Glutose) 15 gm Q15M PRN BUCCAL DECREASED GLUCOSE; Start 01/22/17 at 16 :00 Insulin Aspart (Novolog Insulin Pen) NOVOLOG *MILD* ALGORI... Q6 SC Last administered on 02/01/17 12:33; Admin Dose 2 UNIT; Start 01/25/17 at 00:00 Collagenase (Santyl) 1 applic DAILY PRN TOP PRN Last administered on 01/29/17 01:09; Admin Dose 1 APPLIC; Start 01/25/17 at 01:00 IV Flush (NS 10 ml) 10 ml PRN PRN IV IV PROTOCOL; Start 01/26/17 at 19:00 Bisacodyl (Dulcolax Supp) 10 mg Q24H PRN [place] CONSTIPATION; Start 01/27/17 at 11: 10 Senna (Senokot) 2 tab BID PRN GTB CONSTIPATION; Start 01/27/17 at 11:30 Metoclopramide HCl (Reglan) 10 mg Q6 IV Last administered on 02/01/17 17:54; Admin Dose 10 MG; Start 01/27/17 at 18:00 Ondansetron HCl 4 mg 4 mg Q4H GTB Last administered on 02/01/17 15:44; Admin Dose 4 MG; Start 01/28/17 at 08:30 Meropenem/Sodium Chloride 50 ml @ 100 mls/hr Q8 IVPB Last administered on 14:52; Admin Dose 100 MLS/HR; Start 01/29/17 at 22:00 Vancomycin HCl/ Sodium Chloride (Vancocin/NS) 150 ml @ 75 mls/hr Q12H IVPB Last administered on 02/01/17 15:44; Admin Dose 75 MLS/HR; Start 01/30/17 at 15: 00 Lansoprazole (Prevacid) 30 mg DAILY@06 GTB ; Start 02/02/17 at 06:00 Miscellaneous Information (*Rx Drug Level Order Reminder*) 1 ONCE ONCE XX ; Start 02/02/17 at 02:00; Stop 02/02/17 at 02:01 DARELL YORK NP Feb 01, 2017 18:36
--- NOTE | 2017-02-01 18:41 | PN ---
Date/Time of Note Date/Time of Note DATE: 02/01/17 TIME: 18:39 Assessment/Plan VTE Prophylaxis VTE Prophylaxis Intervention: heparin Lines/Catheters IV Catheter Type (from Nrs): Central Line Central line still needed: Yes Urinary Cath still in place: Yes Reason Cath still needed: urinary retention Assessment/Plan Chief Complaint/Hosp Course 51 yo female with respriatoyr failure s/p trach/PEG 2/2 ICH, ESRD on HD, presenting with metastatic colon cancer and urosepsis Sepsis secondary to UTI, resolving Intracranial hemorrhage status post craniectomy, stable Metastatic liver cancer, ongoing Elevated transaminases Chronic respiratory failure, trach dependent, on T-piece Hypertension Leukocytosis Hypokalemia Metabolic alkalosis Left-sided hemiplegia secondary to intracranial hemorrhage Plan -Continue antibiotic per ID - No options for therapy for her malignancy, hospice is most appropriate - Continue HD per renal for now, but will discuss stopping these given dismal prognosis - Palliaitve on board Problems: Subjective 24 Hr Interval Summary Free Text/Dictation No change to clinical status Family worried about worsening jaundice Exam/Review of Systems Vital Signs Vitals Vital Signs Date Time Temp Pulse Resp B/P Pulse Ox O2 Delivery O2 Flow Rate FiO2 02/01/17 14:08 98.9 89 20 117/58 96 02/01/17 13:15 5.0 28 02/01/17 12:53 Aerosol Intake and Output 01/31/17 01/31/17 02/01/17 14:59 22:59 06:59 Intake Total 200 ml 1500 ml 790 ml Output Total 1600 ml 950 ml Balance 200 ml -100 ml -160 ml Results Result Diagram: 02/01/17 0530 02/01/17 0530 Results 24 hrs Laboratory Tests Test 01/31/17 23:43 02/01/17 05:28 02/01/17 05:30 02/01/17 12:28 Bedside Glucose 157 152 190 White Blood Count 15.7 H Red Blood Count 2.82 L Hemoglobin 7.6 L Hematocrit 23.9 L Mean Corpuscular Volume 84.8 Mean Corpuscular Hemoglobin 27.0 L Mean Corpuscular Hemoglobin Concent 31.8 L Red Cell Distribution Width 21.2 H Platelet Count 372 Mean Platelet Volume 10.8 H Neutrophils % 76.3 Lymphocytes % 11.9 L Monocytes % 7.4 Eosinophils % 2.1 Basophils % 0.3 Nucleated Red Blood Cells % 0.0 Neutrophils # 12.0 H Lymphocytes # 1.9 Monocytes # 1.2 H Eosinophils # 0.3 Basophils # 0.0 Nucleated Red Blood Cells # 0.0 Sodium Level 142 Potassium Level 3.9 Chloride Level 101 Carbon Dioxide Level 30 Anion Gap 15 Blood Urea Nitrogen 16 Creatinine 0.63 Glucose Level 156 Calcium Level 8.3 L Total Bilirubin 6.4 H Direct Bilirubin 5.20 H Indirect Bilirubin 1.2 H Aspartate Amino Transf (AST/SGOT) 147 H Alanine Aminotransferase (ALT/SGPT) 81 H Alkaline Phosphatase 1083 H Total Protein 6.7 Albumin 2.9 L Globulin 3.80 H Albumin/Globulin Ratio 0.76 Test 02/01/17 17:52 Bedside Glucose 139 Medications Medications Current Medications Ondansetron HCl (Zofran Inj) 4 mg Q6H PRN IV NAUSEA AND/OR VOMITING; Start at 04:00 Acetaminophen (Tylenol Supp) 650 mg Q6H PRN [place] PAIN LEVEL 1-3 OR FEVER Last administered on 01/26/17 08:06; Admin Dose 650 MG; Start 01/21/17 at 04:00 Acetaminophen (Tylenol Liquid) 325 mg Q4H PRN GTB PAIN OR TEMP ABOVE 38C Last administered on 02/01/17 11:49; Admin Dose 325 MG; Start 01/21/17 at 06:30 Amlodipine Besylate (Norvasc) 10 mg DAILY GTB Last administered on 02/01/17 09: 18; Admin Dose 10 MG; Start 01/21/17 at 09:00 Eye Lubricant (Akwa Oint) 1 applic HS BOTH EYES Last administered on 01/31/17 20:46; Admin Dose 1 APPLIC; Start 01/21/17 at 21:00 Labetalol HCl (Normodyne) 300 mg BID GTB Last administered on 02/01/17 09:17; Admin Dose 300 MG; Start 01/21/17 at 09:00 Lorazepam (Ativan) 2 mg Q4H PRN IV SEIZURES Last administered on 01/22/17 01: 08; Admin Dose 2 MG; Start 01/22/17 at 01:04 Miscellaneous Information (Pending [facility] Order For Wound Care) This patient matos... PRN PRN XX WOUND CARE; Start 01/22/17 at 02:00 Miscellaneous Information 1 ea NOTE XX ; Start 01/22/17 at 16:00 Glucose (Glutose) 15 gm Q15M PRN PO DECREASED GLUCOSE; Start 01/22/17 at 16:00 Glucose (Glutose) 22.5 gm Q15M PRN PO DECREASED GLUCOSE; Start 01/22/17 at 16: 00 Dextrose (D50w Syringe) 25 ml Q15M PRN IV DECREASED GLUCOSE; Start 01/22/17 at 16:00 Dextrose (D50w Syringe) 50 ml Q15M PRN IV DECREASED GLUCOSE; Start 01/22/17 at 16:00 Glucagon (Glucagen) 1 mg Q15M PRN IM DECREASED GLUCOSE; Start 01/22/17 at 16:00 Glucose (Glutose) 15 gm Q15M PRN BUCCAL DECREASED GLUCOSE; Start 01/22/17 at 16 :00 Insulin Aspart (Novolog Insulin Pen) NOVOLOG *MILD* ALGORI... Q6 SC Last administered on 02/01/17 12:33; Admin Dose 2 UNIT; Start 01/25/17 at 00:00 Collagenase (Santyl) 1 applic DAILY PRN TOP PRN Last administered on 01/29/17 01:09; Admin Dose 1 APPLIC; Start 01/25/17 at 01:00 IV Flush (NS 10 ml) 10 ml PRN PRN IV IV PROTOCOL; Start 01/26/17 at 19:00 Bisacodyl (Dulcolax Supp) 10 mg Q24H PRN [place] CONSTIPATION; Start 01/27/17 at 11: 10 Senna (Senokot) 2 tab BID PRN GTB CONSTIPATION; Start 01/27/17 at 11:30 Metoclopramide HCl (Reglan) 10 mg Q6 IV Last administered on 02/01/17 17:54; Admin Dose 10 MG; Start 01/27/17 at 18:00 Ondansetron HCl 4 mg 4 mg Q4H GTB Last administered on 02/01/17 15:44; Admin Dose 4 MG; Start 01/28/17 at 08:30 Meropenem/Sodium Chloride 50 ml @ 100 mls/hr Q8 IVPB Last administered on 14:52; Admin Dose 100 MLS/HR; Start 01/29/17 at 22:00 Vancomycin HCl/ Sodium Chloride (Vancocin/NS) 150 ml @ 75 mls/hr Q12H IVPB Last administered on 02/01/17t 15:44; Admin Dose 75 MLS/HR; Start 01/30/17 at 15: 00 Lansoprazole (Prevacid) 30 mg DAILY@06 GTB ; Start 02/02/17 at 06:00 Miscellaneous Information (*Rx Drug Level Order Reminder*) 1 ONCE ONCE XX ; Start 02/02/17 at 02:00; Stop 02/02/17 at 02:01 CAROL ROSARIO MD Feb 01, 2017 18:40
[2017-02-01 20:00] VITALS: BP 144/70; RESP 20
[2017-02-01] MEDS: OCULAR LUBRICANT 3.5 GM OPH OINT BOTH EYES SCH (21:31)
[2017-02-02] MEDS: ONDANSETRON 4 MG TAB GTB SCH ×6 (00:22→21:40)
[2017-02-02] MEDS: METOCLOPRAMIDE 10 MG INJ IV SCH ×4 (00:22→18:14)
[2017-02-02] MEDS: INSULIN ASPART [NOVOLOG] 3 ML PEN SC SCH ×4 (00:29→18:00)
[2017-02-02 02:00] VITALS: BP 139/66; RESP 18
[2017-02-02] MEDS: VANCOMYCIN 750 MG in SOD CHLORIDE 0.9% 150 ML IVPB SCH ×2 (03:00→04:35)
[2017-02-02] MEDS: MEROPENEM 1 GM/50ML(PMX) 50 ML IVPB SCH (06:12)
[2017-02-02] MEDS: LANSOPRAZOLE 30 MG CAP GTB SCH (06:13)
[2017-02-02 07:31] VITALS: BP 134/60; RESP 18
[2017-02-02] MEDS: LABETALOL 100 MG TAB GTB SCH ×2 (09:02→21:40)
[2017-02-02] MEDS: AMLODIPINE 10 MG TAB GTB SCH (09:03)
[2017-02-02] MEDS: ACETAMINOPHEN 650MG/20.3ML CUP GTB PRN (09:04)
--- NOTE | 2017-02-02 13:09 | CONS ---
Date/Time of Note Date/Time of Note DATE: 02/02/17 TIME: 12:57 Assessment/Plan Assessment/Plan Chief Complaint/Hosp Course ID PROGRESS NOTE CURRENT ABX: => Start Flagyl 250mg Q8H via GT + Start Amikacin IV x 14 days + Doxy 100mg Q12 x 14 days TOTAL ABX: DAY #14 DC Merrem + DC Vanco IV #7 -> DC 8/9 24H INTERVAL SUMMARY * Resting, family says she has fevers, TMax 99.9,WBC remains elevated 15.7 * BCx(-); Urine (+) GNR x 2 E.Coli + KP=ESBL * SPUTUM CX (+)GNR -> (+)PSAR = MDRO RESPIRATORY CULTURE Final Organism 1 PSEUDOMONAS AERUGINOSA QUANTITY 3+ P.AERUG M.I.C. RX --------- --- AMIKACIN 16 S AZTREONAM I CEFEPIME 16 I CEFTAZIDIME 4 S CIPROFLOXACIN >=4 R GENTAMICIN 8 I IMIPENEM >=16 R LEVOFLOXACIN >=8 R TOBRAMYCIN <=1 S PIPERACILLIN/TAZOBACTAM 32 S EXAM GEN: Adult F, resting in bed, VSS, NAD VITALS: No fevers HEENT: AT, NC, anicteric, moist oral membranes NECK: TRACH -> Cool mist CHEST:Coarse BS over Trach tubing CV: RRR ABD: Soft, NT EXT: Warm, no C/C/E SKIN: No rash/No diaphoresis ID ASSESSMENT 51 yo F PMHx ICH->s/p Crani +VPS w/chronic encephalopathy, hemiparesis, Trach, Peg admit with: 1. Sepsis on admission due to complicated polymicrobial UTI + ABD/Liver/ Biliary sepsis * SIRS w/low grade temps 99.+ and leukocytosis ==> Persisting despite ABX with repeat Cx (-) * DDX HCAP w/BLL Effusions vs GI biliary hepatic source vs MDS paraneoplastic ? * 01/21/17 BCx(-) * 01/21/17 Urine Cx (+) URINE CULTURE Final Organism 1 ESCHERICHIA COLI >100,000 CFU/ml Organism 2 K PNEUMO ESBL >100,000 CFU/ml MULTI DRUG RESISTANT ORGANISM 2. Probable neurogenic bladder w/retention 3. Colon cancer w/Mets to liver-> (+)transaminitis * Obstructive per MRCP -> poor prognosis to ERCP if/when stable, vs Hospice appropriate 4. 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 Trachobronchitis vs silent aspiration pneumonitis * (+)GNR -> Pending RESPIRATORY CULTURE Final Organism 1 PSEUDOMONAS AERUGINOSA QUANTITY 3+ P.AERUG M.I.C. RX --------- --- AMIKACIN 16 S AZTREONAM I CEFEPIME 16 I CEFTAZIDIME 4 S CIPROFLOXACIN >=4 R GENTAMICIN 8 I IMIPENEM >=16 R LEVOFLOXACIN >=8 R TOBRAMYCIN <=1 S PIPERACILLIN/TAZOBACTAM 32 S 6. STG III decub sacral 7. Hx of Hepatitis A 8. Hx of renal failure => apparently recovered -- no longer on HD CURRENT ABX: => Start Flagyl 250mg Q8H via GT + Start Amikacin IV x 14 days + Doxy 100mg Q12 x 14 days TOTAL ABX: DAY #14 Vanco IV #7 -> DC 8/9 Merrem #7-> DC 8/9 Levaquin 750mg IVPB #6 => DC 8/6 => Vanco IV #5 + Cefepime #2-> DC 8/2 s/p Fosfomycin 3mg via GT x1 s/p Zosyn x1 01/21 s/p Cefepime x1 01/21 s/p CIPRO 01/21-01/24 ID RECOMMENDATIONS MAY DC TO SNF or Hospice on ABX to complete 14 days as below: 1. Doxycycline 100mg Q12H via GT x 14 days 2. Amikacin post x 14 days 3. Flagyl 250mg Q8H via GT x 14 days (empiric anaerobic coverage) . . . . . Problems: Consultation Date/Type/Reason Admit Date/Time Jan 21, 2017 at 02:17 Initial Consult Date 01/24/17 Type of Consultation: ID Referring Provider: CESIA ROLLE Exam/Review of Systems Vital Signs Vitals Vital Signs Date Time Temp Pulse Resp B/P Pulse Ox O2 Delivery O2 Flow Rate FiO2 02/02/17 07:44 5.0 28 02/02/17 07:42 95 20 97 Aerosol 02/02/17 07:31 99.7 134/60 Intake and Output 02/01/17 02/01/17 02/02/17 15:00 23:00 07:00 Intake Total 1250 ml 1060 ml Output Total 1700 ml 900 ml Balance -450 ml 160 ml Results Result Diagram: 02/01/17 0530 02/01/17 0530 Results 24 hrs Laboratory Tests Test 02/01/17 17:52 02/02/17 00:22 02/02/17 02:23 02/02/17 06:11 Bedside Glucose 139 158 163 Vancomycin Level Trough 14.5 Test 02/02/17 12:39 Bedside Glucose 186 Medications Medications Current Medications Ondansetron HCl (Zofran Inj) 4 mg Q6H PRN IV NAUSEA AND/OR VOMITING; Start at 04:00 Acetaminophen (Tylenol Supp) 650 mg Q6H PRN [place] PAIN LEVEL 1-3 OR FEVER Last administered on 01/26/17 08:06; Admin Dose 650 MG; Start 01/21/17 at 04:00 Acetaminophen (Tylenol Liquid) 325 mg Q4H PRN GTB PAIN OR TEMP ABOVE 38C Last administered on 02/02/17 09:04; Admin Dose 325 MG; Start 01/21/17 at 06:30 Amlodipine Besylate (Norvasc) 10 mg DAILY GTB Last administered on 02/02/17 09: 03; Admin Dose 10 MG; Start 01/21/17 at 09:00 Eye Lubricant (Akwa Oint) 1 applic HS BOTH EYES Last administered on 02/01/17 21:31; Admin Dose 1 APPLIC; Start 01/21/17 at 21:00 Labetalol HCl (Normodyne) 300 mg BID GTB Last administered on 02/02/17 09:02; Admin Dose 300 MG; Start 01/21/17 at 09:00 Lorazepam (Ativan) 2 mg Q4H PRN IV SEIZURES Last administered on 01/22/17 01: 08; Admin Dose 2 MG; Start 01/22/17 at 01:04 Miscellaneous Information (Pending Santyl Order For Wound Care) This patient matos... PRN PRN XX WOUND CARE; Start 01/22/17 at 02:00 Miscellaneous Information 1 ea NOTE XX ; Start 01/22/17 at 16:00 Glucose (Glutose) 15 gm Q15M PRN PO DECREASED GLUCOSE; Start 01/22/17 at 16:00 Glucose (Glutose) 22.5 gm Q15M PRN PO DECREASED GLUCOSE; Start 01/22/17 at 16: 00 Dextrose (D50w Syringe) 25 ml Q15M PRN IV DECREASED GLUCOSE; Start 01/22/17 at 16:00 Dextrose (D50w Syringe) 50 ml Q15M PRN IV DECREASED GLUCOSE; Start 01/22/17 at 16:00 Glucagon (Glucagen) 1 mg Q15M PRN IM DECREASED GLUCOSE; Start 01/22/17 at 16:00 Glucose (Glutose) 15 gm Q15M PRN BUCCAL DECREASED GLUCOSE; Start 01/22/17 at 16 :00 Insulin Aspart (Novolog Insulin Pen) NOVOLOG *MILD* ALGORI... Q6 SC Last administered on 02/02/17 06:20; Admin Dose 1 UNIT; Start 01/25/17 at 00:00 Collagenase (Santyl) 1 applic DAILY PRN TOP PRN Last administered on 01/29/17 01:09; Admin Dose 1 APPLIC; Start 01/25/17 at 01:00 IV Flush (NS 10 ml) 10 ml PRN PRN IV IV PROTOCOL; Start 01/26/17 at 19:00 Bisacodyl (Dulcolax Supp) 10 mg Q24H PRN [place] CONSTIPATION; Start 01/27/17 at 11: 10 Senna (Senokot) 2 tab BID PRN GTB CONSTIPATION; Start 01/27/17 at 11:30 Metoclopramide HCl (Reglan) 10 mg Q6 IV Last administered on 02/02/17 06:12; Admin Dose 10 MG; Start 01/27/17 at 18:00 Ondansetron HCl 4 mg 4 mg Q4H GTB Last administered on 02/02/17 09:02; Admin Dose 4 MG; Start 01/28/17 at 08:30 Meropenem/Sodium Chloride (Merrem 1 Gm/50 ml (Pmx)) 50 ml @ 100 mls/hr Q8 IVPB Last administered on 02/02/17 06:12; Admin Dose 100 MLS/HR; Start 01/29/17 at 22:00 Lansoprazole 30 mg 30 mg DAILY@06 GTB Last administered on 02/02/17 06:13; Admin Dose 30 MG; Start 02/02/17 at 06:00 Vancomycin HCl/ Sodium Chloride (Vancocin/NS) 150 ml @ 75 mls/hr Q12H IVPB ; Start 02/02/17 at 16:30 DARELL YORK NP Feb 02, 2017 13:08
[2017-02-02] MEDS ORDERED: AMIKACIN 500 MG in DEXTROSE 5% 100 ML IVPB PRN (13:30)
[2017-02-02 14:04] VITALS: BP 124/58
[2017-02-02] MEDS: metroNIDAZOLE 250 MG TAB GTB SCH ×2 (14:29→21:41)
[2017-02-02] MEDS ORDERED: AMIKACIN IV PER PHARMACY XX SCH (14:30)
[2017-02-02] MEDS ORDERED: VANCOMYCIN 750 MG in SOD CHLORIDE 0.9% 150 ML IVPB SCH (16:30)
--- NOTE | 2017-02-02 17:34 | PN ---
Date/Time of Note Date/Time of Note DATE: 02/02/17 TIME: 17:33 Assessment/Plan VTE Prophylaxis VTE Prophylaxis Intervention: heparin Lines/Catheters IV Catheter Type (from Nrsg): PICC Line Central line still needed: Yes Urinary Cath still in place: Yes Reason Cath still needed: urinary retention Assessment/Plan Chief Complaint/Hosp Course 51 yo female with respriatoyr failure s/p trach/PEG 2/2 ICH, ESRD on HD, presenting with metastatic colon cancer and urosepsis Sepsis secondary to UTI, resolving Intracranial hemorrhage status post craniectomy, stable Metastatic liver cancer, ongoing Elevated transaminases Chronic respiratory failure, trach dependent, on T-piece Hypertension Leukocytosis Hypokalemia Metabolic alkalosis Left-sided hemiplegia secondary to intracranial hemorrhage Plan -Continue antibiotics per ID - No options for therapy for her malignancy, hospice is most appropriate - Continue HD per renal for now, but will discuss stopping these given dismal prognosis - Palliaitve on board - Anticipate discharge to inpatient hospice Problems: Subjective 24 Hr Interval Summary Free Text/Dictation No change to clinical status Family unavailable to discuss GOC Exam/Review of Systems Vital Signs Vitals Vital Signs Date Time Temp Pulse Resp B/P Pulse Ox O2 Delivery O2 Flow Rate FiO2 02/02/17 14:04 99.0 77 124/58 96 02/02/17 13:56 5.0 02/02/17 13:55 20 Aerosol 28 Intake and Output 02/01/17 02/01/17 02/02/17 15:00 23:00 07:00 Intake Total 1250 ml 1060 ml Output Total 1700 ml 900 ml Balance -450 ml 160 ml Results Result Diagram: 02/01/17 0530 02/01/17 0530 Results 24 hrs Laboratory Tests Test 02/01/17 17:52 02/02/17 00:22 02/02/17 02:23 02/02/17 06:11 Bedside Glucose 139 158 163 Vancomycin Level Trough 14.5 Test 02/02/17 12:39 Bedside Glucose 186 Medications Medications Current Medications Ondansetron HCl (Zofran Inj) 4 mg Q6H PRN IV NAUSEA AND/OR VOMITING; Start at 04:00 Acetaminophen (Tylenol Supp) 650 mg Q6H PRN [place] PAIN LEVEL 1-3 OR FEVER Last administered on 01/26/17t 08:06; Admin Dose 650 MG; Start 01/21/17 at 04:00 Acetaminophen (Tylenol Liquid) 325 mg Q4H PRN GTB PAIN OR TEMP ABOVE 38C Last administered on 02/02/17 09:04; Admin Dose 325 MG; Start 01/21/17 at 06:30 Amlodipine Besylate (Norvasc) 10 mg DAILY GTB Last administered on 02/02/17 09: 03; Admin Dose 10 MG; Start 01/21/17 at 09:00 Eye Lubricant (Akwa Oint) 1 applic HS BOTH EYES Last administered on 02/01/17 21:31; Admin Dose 1 APPLIC; Start 01/21/17 at 21:00 Labetalol HCl (Normodyne) 300 mg BID GTB Last administered on 02/02/17 09:02; Admin Dose 300 MG; Start 01/21/17 at 09:00 Lorazepam (Ativan) 2 mg Q4H PRN IV SEIZURES Last administered on 01/22/17 01: 08; Admin Dose 2 MG; Start 01/22/17 at 01:04 Miscellaneous Information (Pending Santyl Order For Wound Care) This patient matos... PRN PRN XX WOUND CARE; Start 01/22/17 at 02:00 Miscellaneous Information 1 ea NOTE XX ; Start 01/22/17 at 16:00 Glucose (Glutose) 15 gm Q15M PRN PO DECREASED GLUCOSE; Start 01/22/17 at 16:00 Glucose (Glutose) 22.5 gm Q15M PRN PO DECREASED GLUCOSE; Start 01/22/17 at 16: 00 Dextrose (D50w Syringe) 25 ml Q15M PRN IV DECREASED GLUCOSE; Start 01/22/17 at 16:00 Dextrose (D50w Syringe) 50 ml Q15M PRN IV DECREASED GLUCOSE; Start 01/22/17 at 16:00 Glucagon (Glucagen) 1 mg Q15M PRN IM DECREASED GLUCOSE; Start 01/22/17 at 16:00 Glucose (Glutose) 15 gm Q15M PRN BUCCAL DECREASED GLUCOSE; Start 01/22/17 at 16 :00 Insulin Aspart (Novolog Insulin Pen) NOVOLOG *MILD* ALGORI... Q6 SC Last administered on 02/02/17 12:57; Admin Dose 2 UNIT; Start 01/25/17 at 00:00 Collagenase (Santyl) 1 applic DAILY PRN TOP PRN Last administered on 01/29/17 01:09; Admin Dose 1 APPLIC; Start 01/25/17 at 01:00 IV Flush (NS 10 ml) 10 ml PRN PRN IV IV PROTOCOL; Start 01/26/17 at 19:00 Bisacodyl (Dulcolax Supp) 10 mg Q24H PRN [place] CONSTIPATION; Start 01/27/17 at 11: 10 Senna (Senokot) 2 tab BID PRN GTB CONSTIPATION; Start 01/27/17 at 11:30 Metoclopramide HCl (Reglan) 10 mg Q6 IV Last administered on 02/02/17 12:42; Admin Dose 10 MG; Start 01/27/17 at 18:00 Ondansetron HCl (Zofran Tab) 4 mg Q4H GTB Last administered on 02/02/17 12:43; Admin Dose 4 MG; Start 01/28/17 at 08:30 Lansoprazole (Prevacid) 30 mg DAILY@06 GTB Last administered on 02/02/17 06:13 ; Admin Dose 30 MG; Start 02/02/17 at 06:00 Metronidazole (Flagyl) 250 mg Q8 GTB Last administered on 02/02/17 14:29; Admin Dose 250 MG; Start 02/02/17 at 14:00; Stop 02/16/17 at 13:59 Doxycycline Hyclate (Vibramycin) 100 mg BID GTB ; Start 02/02/17 at 21:00; Stop 02/16/17 at 20:59 Amikacin Sulfate PER PHARMACY DOSING NOTE XX ; Start 02/02/17 at 14:30 Amikacin Sulfate/ Sodium Chloride (Amikacin/NS) 103.7 ml @ 102 mls/hr Q24H IVPB ; Start 02/02/17 at 17:00 Miscellaneous Information (*Rx Drug Level Order Reminder*) AMIKACIN RANDOM AT 0, 200 ON... ONCE ONCE XX ; Start 02/03/17 at 02:00; Stop 02/03/17 at 02:01 CAROL ROSARIO MD Feb 02, 2017 17:34
[2017-02-02] MEDS: AMIKACIN IVPB SCH (18:14)
[2017-02-02] MEDS: SOD CHLORIDE 0.9% IVPB SCH (18:14)
[2017-02-02 20:00] VITALS: BP 172/77; RESP 20
[2017-02-02 21:38] VITALS: BP 118/59; PULSE 94; RESP 18
[2017-02-02] MEDS: DOXYCYCLINE 100 MG TAB GTB SCH (21:39)
[2017-02-02] MEDS: OCULAR LUBRICANT 3.5 GM OPH OINT BOTH EYES SCH (21:40)
[2017-02-03] MEDS: ONDANSETRON 4 MG TAB GTB SCH ×6 (00:16→20:53)
[2017-02-03] MEDS: METOCLOPRAMIDE 10 MG INJ IV SCH ×4 (00:16→17:36)
[2017-02-03] MEDS: INSULIN ASPART [NOVOLOG] 3 ML PEN SC SCH ×4 (00:25→17:43)
[2017-02-03 02:33] VITALS: BP 99/53; RESP 20
[2017-02-03] MEDS: metroNIDAZOLE 250 MG TAB GTB SCH ×2 (05:33→14:04)
[2017-02-03] MEDS: LANSOPRAZOLE 30 MG CAP GTB SCH (05:33)
[2017-02-03 06:06] LABS: CREATININE 0.55 mg/dl (0.44-1.00)
[2017-02-03 08:22] VITALS: BP 103/55; RESP 18
[2017-02-03] MEDS: DOXYCYCLINE 100 MG TAB GTB SCH (09:17)
[2017-02-03] MEDS: AMLODIPINE 10 MG TAB GTB SCH (09:18)
[2017-02-03] MEDS: LABETALOL 100 MG TAB GTB SCH ×2 (09:18→20:55)
[2017-02-03] MEDS ORDERED: AMIKACIN 500 MG in DEXTROSE 5% 100 ML IVPB PRN (13:30)
[2017-02-03 14:36] VITALS: BP 124/58; RESP 20
--- NOTE | 2017-02-03 14:58 | PN ---
Date/Time of Note Date/Time of Note DATE: 02/03/17 TIME: 14:50 Assessment/Plan VTE Prophylaxis VTE Prophylaxis Intervention: LMWH Lines/Catheters IV Catheter Type (from Nrsg): PICC Line Central line still needed: Yes Urinary Cath still in place: Yes Reason Cath still needed: urinary retention Assessment/Plan Chief Complaint/Hosp Course 51 yo female with respriatory failure s/p trach/PEG 2/2 ICH, ESRD on HD, presenting with metastatic colon cancer and urosepsis Sepsis secondary to UTI - Continue abx per ID Intracranial hemorrhage status post craniectomy leading to chronic respiratory failure and trach/vent - Contineu MV as needed Metastatic colon cancer - No further options for chemotherapy ESRD: - Continue HD per renal Left-sided hemiplegia secondary to intracranial hemorrhage Patient with dismal prognosis, demise imminent. Palliative care consulted I have advised inpatient hospice referral Problems: Subjective 24 Hr Interval Summary Free Text/Dictation No change to patient's status Remains gravely ill I spoke to her children at bedside about her grave prognosis and my recommendation for inpatient hospice transfer Exam/Review of Systems Vital Signs Vitals Vital Signs Date Time Temp Pulse Resp B/P Pulse Ox O2 Delivery O2 Flow Rate FiO2 02/03/17 14:36 99.4 68 20 124/58 90 02/03/17 09:00 5.0 02/03/17 04:30 28 02/02/17 21:38 T Tube Intake and Output 02/02/17 02/02/17 02/03/17 15:00 23:00 07:00 Intake Total 103.7 ml 860 ml Output Total 700 ml 700 ml Balance -596.3 ml 160 ml Exam Alert, interactive Jaundiced RRR Comfortable appearing Constitutional: alert Results Result Diagram: 02/01/17 0530 02/03/17 0525 Results 24 hrs Laboratory Tests Test 02/02/17 18:24 02/03/17 00:15 02/03/17 02:10 02/03/17 05:25 Bedside Glucose 140 149 Random Amikacin Level Blood Urea Nitrogen 19 Creatinine 0.55 Test 02/03/17 05:27 02/03/17 10:00 02/03/17 11:53 Bedside Glucose 146 162 Lab Scanned Report REFERENCE LAB Medications Medications Current Medications Ondansetron HCl (Zofran Inj) 4 mg Q6H PRN IV NAUSEA AND/OR VOMITING; Start at 04:00 Acetaminophen (Tylenol Supp) 650 mg Q6H PRN [place] PAIN LEVEL 1-3 OR FEVER Last administered on 01/26/17 08:06; Admin Dose 650 MG; Start 01/21/17 at 04:00 Acetaminophen (Tylenol Liquid) 325 mg Q4H PRN GTB PAIN OR TEMP ABOVE 38C Last administered on 02/02/17 09:04; Admin Dose 325 MG; Start 01/21/17 at 06:30 Amlodipine Besylate (Norvasc) 10 mg DAILY GTB Last administered on 02/03/17 09 :18; Admin Dose 10 MG; Start 01/21/17 at 09:00 Eye Lubricant (Akwa Oint) 1 applic HS BOTH EYES Last administered on 02/02/17 21:40; Admin Dose 1 APPLIC; Start 01/21/17 at 21:00 Labetalol HCl (Normodyne) 300 mg BID GTB Last administered on 02/03/17 09:18; Admin Dose 300 MG; Start 01/21/17 at 09:00 Lorazepam (Ativan) 2 mg Q4H PRN IV SEIZURES Last administered on 01/22/17 01: 08; Admin Dose 2 MG; Start 01/22/17 at 01:04 Miscellaneous Information (Pending [facility] Order For Wound Care) This patient matos... PRN PRN XX WOUND CARE; Start 01/22/17 at 02:00 Miscellaneous Information 1 ea NOTE XX ; Start 01/22/17 at 16:00 Glucose (Glutose) 15 gm Q15M PRN PO DECREASED GLUCOSE; Start 01/22/17 at 16:00 Glucose (Glutose) 22.5 gm Q15M PRN PO DECREASED GLUCOSE; Start 01/22/17 at 16: 00 Dextrose (D50w Syringe) 25 ml Q15M PRN IV DECREASED GLUCOSE; Start 01/22/17 at 16:00 Dextrose (D50w Syringe) 50 ml Q15M PRN IV DECREASED GLUCOSE; Start 01/22/17 at 16:00 Glucagon (Glucagen) 1 mg Q15M PRN IM DECREASED GLUCOSE; Start 01/22/17 at 16:00 Glucose (Glutose) 15 gm Q15M PRN BUCCAL DECREASED GLUCOSE; Start 01/22/17 at 16 :00 Insulin Aspart (Novolog Insulin Pen) NOVOLOG *MILD* ALGORI... Q6 SC Last administered on 02/03/17 12:40; Admin Dose 1 UNIT; Start 01/25/17 at 00:00 Collagenase (Santyl) 1 applic DAILY PRN TOP PRN Last administered on 01/29/17 01:09; Admin Dose 1 APPLIC; Start 01/25/17 at 01:00 IV Flush (NS 10 ml) 10 ml PRN PRN IV IV PROTOCOL; Start 01/26/17 at 19:00 Bisacodyl (Dulcolax Supp) 10 mg Q24H PRN [place] CONSTIPATION; Start 01/27/17 at 11: 10 Senna (Senokot) 2 tab BID PRN GTB CONSTIPATION; Start 01/27/17 at 11:30 Metoclopramide HCl (Reglan) 10 mg Q6 IV Last administered on 02/03/17 12:39; Admin Dose 10 MG; Start 01/27/17 at 18:00 Ondansetron HCl (Zofran Tab) 4 mg Q4H GTB Last administered on 02/03/17 12:39 ; Admin Dose 4 MG; Start 01/28/17 at 08:30 Lansoprazole (Prevacid) 30 mg DAILY@06 GTB Last administered on 02/03/17 05:33 ; Admin Dose 30 MG; Start 02/02/17 at 06:00 Metronidazole (Flagyl) 250 mg Q8 GTB Last administered on 02/03/17 14:04; Admin Dose 250 MG; Start 02/02/17 at 14:00; Stop 02/16/17 at 13:59 Doxycycline Hyclate (Vibramycin) 100 mg BID GTB Last administered on 02/03/17 09:17; Admin Dose 100 MG; Start 02/02/17 at 21:00; Stop 02/16/17 at 20:59 Amikacin Sulfate PER PHARMACY DOSING NOTE XX ; Start 02/02/17 at 14:30 Amikacin Sulfate/ Sodium Chloride (Amikacin/NS) 103.7 ml @ 102 mls/hr Q24H IVPB Last administered on 02/02/17 18:14; Admin Dose 102 MLS/HR; Start 02/02/17 at 17:00 CAROL ROSARIO MD Feb 03, 2017 14:58
--- NOTE | 2017-02-03 17:26 | CONS ---
Date/Time of Note Date/Time of Note DATE: 02/03/17 TIME: 17:17 Assessment/Plan Assessment/Plan Chief Complaint/Hosp Course ID PROGRESS NOTE CURRENT ABX: => Start Flagyl 250mg Q8H via GT + Start Amikacin IV x 14 days + Doxy 100mg Q12 x 14 days TOTAL ABX: DAY #14 DC Merrem + DC Vanco IV #7 -> DC 8/9 24H INTERVAL SUMMARY * Clinically status quo -> STG IV metastatic carcinoma w/extensive mets to liver * BCx(-); Urine (+) GNR x 2 E.Coli + KP=ESBL * SPUTUM CX (+)GNR -> (+)PSAR = MDRO RESPIRATORY CULTURE Final Organism 1 PSEUDOMONAS AERUGINOSA QUANTITY 3+ P.AERUG M.I.C. RX --------- --- AMIKACIN 16 S AZTREONAM I CEFEPIME 16 I CEFTAZIDIME 4 S CIPROFLOXACIN >=4 R GENTAMICIN 8 I IMIPENEM >=16 R LEVOFLOXACIN >=8 R TOBRAMYCIN <=1 S PIPERACILLIN/TAZOBACTAM 32 S EXAM GEN: Adult F, resting in bed, VSS, NAD VITALS: No fevers HEENT: AT, NC, anicteric, moist oral membranes NECK: TRACH -> Cool mist CHEST:Coarse BS over Trach tubing CV: RRR ABD: Soft, NT, PEG EXT: Warm, no C/C/E SKIN: No rash/No diaphoresis ID ASSESSMENT 51 yo F PMHx ICH->s/p Crani +VPS w/chronic encephalopathy, hemiparesis, Trach, Peg admit with: 1. Sepsis on admission due to complicated polymicrobial UTI + ABD/Liver/ Biliary sepsis ?infected VPS? * Procalcitonin 01/30 0.29 = elevated * SIRS w/low grade temps 99.+ and leukocytosis ==> Persisting despite ABX with repeat Cx (-) * DDX HCAP w/BLL Effusions vs GI biliary hepatic source * 01/21/17 BCx(-) * 01/21/17 Urine Cx (+) URINE CULTURE Final Organism 1 ESCHERICHIA COLI >100,000 CFU/ml Organism 2 K PNEUMO ESBL >100,000 CFU/ml MULTI DRUG RESISTANT ORGANISM 2. Probable neurogenic bladder w/retention 3. Colon cancer w/Mets to liver-> (+)transaminitis * Obstructive per MRCP -> poor prognosis to ERCP if/when stable, vs Hospice appropriate 4. 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 Tracheobronchitis vs silent aspiration pneumonitis * (+)GNR -> Pending RESPIRATORY CULTURE Final Organism 1 PSEUDOMONAS AERUGINOSA 6. STG III decub sacral 7. Hx of Hepatitis A 8. Hx of renal failure => apparently recovered -- no longer on HD CURRENT ABX: => Flagyl 250mg Q8H via GT #08/10 + Amikacin IV x 14 days # + Doxy 100mg Q12 x 14 days #08/10 TOTAL ABX: DAY #14 Vanco IV #7 -> DC 8/9 Merrem #7-> DC 8/9 Levaquin 750mg IVPB #6 => DC 8/6 => Vanco IV #5 + Cefepime #2-> DC 8/ s/p Fosfomycin 3mg via GT x1 s/p Zosyn x1 01/21 s/p Cefepime x1 01/21 s/p CIPRO 01/21-01/24 ID RECOMMENDATIONS Poor prognosis => Dr. Andrade discussed this with patient and family today Per discussion w/Dr. Langley -> Let's DC ABX today and she how she tolerates off ABX . . . . . Problems: Consultation Date/Type/Reason Admit Date/Time Jan 21, 2017 at 02:17 Initial Consult Date 01/24/17 Type of Consultation: ID Referring Provider: CESIA ROLLE Exam/Review of Systems Vital Signs Vitals Vital Signs Date Time Temp Pulse Resp B/P Pulse Ox O2 Delivery O2 Flow Rate FiO2 02/03/17 14:36 99.4 68 20 124/58 90 02/03/17 09:00 5.0 02/03/17 04:30 28 02/02/17 21:38 T Tube Intake and Output 02/02/17 02/02/17 02/03/17 15:00 23:00 07:00 Intake Total 103.7 ml 860 ml Output Total 700 ml 700 ml Balance -596.3 ml 160 ml Results Result Diagram: 02/01/17 0530 02/03/17 0525 Results 24 hrs Laboratory Tests Test 02/02/17 18:24 02/03/17 00:15 02/03/17 02:10 02/03/17 05:25 Bedside Glucose 140 149 Random Amikacin Level Blood Urea Nitrogen 19 Creatinine 0.55 Test 02/03/17 05:27 02/03/17 10:00 02/03/17 11:53 Bedside Glucose 146 162 Lab Scanned Report REFERENCE LAB Medications Medications Current Medications Ondansetron HCl (Zofran Inj) 4 mg Q6H PRN IV NAUSEA AND/OR VOMITING; Start at 04:00 Acetaminophen (Tylenol Supp) 650 mg Q6H PRN [place] PAIN LEVEL 1-3 OR FEVER Last administered on 01/26/17 08:06; Admin Dose 650 MG; Start 01/21/17 at 04:00 Acetaminophen (Tylenol Liquid) 325 mg Q4H PRN GTB PAIN OR TEMP ABOVE 38C Last administered on 02/02/17 09:04; Admin Dose 325 MG; Start 01/21/17 at 06:30 Amlodipine Besylate (Norvasc) 10 mg DAILY GTB Last administered on 02/03/17 09 :18; Admin Dose 10 MG; Start 01/21/17 at 09:00 Eye Lubricant (Akwa Oint) 1 applic HS BOTH EYES Last administered on 02/02/17 21:40; Admin Dose 1 APPLIC; Start 01/21/17 at 21:00 Labetalol HCl (Normodyne) 300 mg BID GTB Last administered on 02/03/17 09:18; Admin Dose 300 MG; Start 01/21/17 at 09:00 Lorazepam (Ativan) 2 mg Q4H PRN IV SEIZURES Last administered on 01/22/17 01: 08; Admin Dose 2 MG; Start 01/22/17 at 01:04 Miscellaneous Information (Pending Santyl Order For Wound Care) This patient matos... PRN PRN XX WOUND CARE; Start 01/22/17 at 02:00 Miscellaneous Information 1 ea NOTE XX ; Start 01/22/17 at 16:00 Glucose (Glutose) 15 gm Q15M PRN PO DECREASED GLUCOSE; Start 01/22/17 at 16:00 Glucose (Glutose) 22.5 gm Q15M PRN PO DECREASED GLUCOSE; Start 01/22/17 at 16: 00 Dextrose (D50w Syringe) 25 ml Q15M PRN IV DECREASED GLUCOSE; Start 01/22/17 at 16:00 Dextrose (D50w Syringe) 50 ml Q15M PRN IV DECREASED GLUCOSE; Start 01/22/17 at 16:00 Glucagon (Glucagen) 1 mg Q15M PRN IM DECREASED GLUCOSE; Start 01/22/17 at 16:00 Glucose (Glutose) 15 gm Q15M PRN BUCCAL DECREASED GLUCOSE; Start 01/22/17 at 16 :00 Insulin Aspart (Novolog Insulin Pen) NOVOLOG *MILD* ALGORI... Q6 SC Last administered on 02/03/17 12:40; Admin Dose 1 UNIT; Start 01/25/17 at 00:00 Collagenase (Santyl) 1 applic DAILY PRN TOP PRN Last administered on 01/29/17 01:09; Admin Dose 1 APPLIC; Start 01/25/17 at 01:00 IV Flush (NS 10 ml) 10 ml PRN PRN IV IV PROTOCOL; Start 01/26/17 at 19:00 Bisacodyl (Dulcolax Supp) 10 mg Q24H PRN [place] CONSTIPATION; Start 01/27/17 at 11: 10 Senna (Senokot) 2 tab BID PRN GTB CONSTIPATION; Start 01/27/17 at 11:30 Metoclopramide HCl (Reglan) 10 mg Q6 IV Last administered on 02/03/17 12:39; Admin Dose 10 MG; Start 01/27/17 at 18:00 Ondansetron HCl (Zofran Tab) 4 mg Q4H GTB Last administered on 02/03/17 12:39 ; Admin Dose 4 MG; Start 01/28/17 at 08:30 Lansoprazole (Prevacid) 30 mg DAILY@06 GTB Last administered on 02/03/17 05:33 ; Admin Dose 30 MG; Start 02/02/17 at 06:00 Metronidazole (Flagyl) 250 mg Q8 GTB Last administered on 02/03/17 14:04; Admin Dose 250 MG; Start 02/02/17 at 14:00; Stop 02/16/17 at 13:59 Doxycycline Hyclate (Vibramycin) 100 mg BID GTB Last administered on 02/03/17 09:17; Admin Dose 100 MG; Start 02/02/17 at 21:00; Stop 02/16/17 at 20:59 Amikacin Sulfate PER PHARMACY DOSING NOTE XX ; Start 02/02/17 at 14:30 Amikacin Sulfate/ Sodium Chloride (Amikacin/NS) 103.7 ml @ 102 mls/hr Q24H IVPB Last administered on 02/02/17 18:14; Admin Dose 102 MLS/HR; Start 02/02/17 at 17:00 DARELL YORK NP Feb 03, 2017 17:26 09:17; Admin Dose 100 MG; Start 02/02/17 at 21:00; Stop 02/16/17 at 20:59 Amikacin Sulfate PER PHARMACY DOSING NOTE XX ; Start 02/02/17 at 14:30 Amikacin Sulfate/ Sodium Chloride (Amikacin/NS) 103.7 ml @ 102 mls/hr Q24H IVPB Last administered on 02/02/17 18:14; Admin Dose 102 MLS/HR; Start 02/02/17 at 17:00 DARELL YORK NP Feb 03, 2017 17:26
[2017-02-03] MEDS: AMIKACIN IVPB SCH (17:36)
[2017-02-03] MEDS: SOD CHLORIDE 0.9% IVPB SCH (17:36)
[2017-02-03 20:25] VITALS: BP 124/58; RESP 18
[2017-02-03] MEDS: OCULAR LUBRICANT 3.5 GM OPH OINT BOTH EYES SCH (20:53)
[2017-02-03 21:00] VITALS: BP 126/62
[2017-02-04] VITALS: PULSE 88
[2017-02-04] MEDS: ONDANSETRON 4 MG TAB GTB SCH ×6 (00:02→21:39)
[2017-02-04] MEDS: INSULIN ASPART [NOVOLOG] 3 ML PEN SC SCH ×4 (00:04→17:33)
[2017-02-04] MEDS: METOCLOPRAMIDE 10 MG INJ IV SCH ×4 (00:08→17:18)
[2017-02-04 02:03] VITALS: BP 102/51; RESP 18
[2017-02-04 04:58] VITALS: PULSE 86
[2017-02-04] MEDS: LANSOPRAZOLE 30 MG CAP GTB SCH (05:30)
[2017-02-04 07:56] VITALS: BP 122/58; RESP 18
[2017-02-04] MEDS: ACETAMINOPHEN 650MG/20.3ML CUP GTB PRN (08:16)
[2017-02-04] MEDS: LABETALOL 100 MG TAB GTB SCH (08:17)
[2017-02-04] MEDS: AMLODIPINE 10 MG TAB GTB SCH (08:17)
[2017-02-04 12:22] LABS: ABNORMAL IP MESSAGE 1; BASOPHILS % 0.3 % (0.0-2.0); EOSINOPHILS # 0.3 10^3/ul (0.0-0.5); EOSINOPHILS % 2.3 % (0.0-7.0); HEMATOCRIT 21.6 % (37.0-47.0); LYMPHOCYTES # 1.7 10^3/ul (0.8-2.9); LYMPHOCYTES % 12.5 % (15.0-51.0); MEAN CORPUSCULAR HEMOGLOBIN 26.1 pg (29.0-33.0); MEAN PLATELET VOLUME 10.8 fl (7.4-10.4); MONOCYTES % 7.3 % (0.0-11.0); NEUTROPHIL # 10.4 10^3/ul (1.6-7.5); NEUTROPHILS % 75.6 % (39.0-77.0); PLATELET COUNT 359 10^3/UL (140-415); RED BLOOD COUNT 2.57 10^6/ul (4.20-5.40); RED CELL DISTRIBUTION WIDTH 20.8 % (11.5-14.5); WHITE BLOOD COUNT 13.7 10^3/ul (4.8-10.8)
[2017-02-04 12:27] LABS: HEMOGLOBIN 6.7 g/dl (12.0-16.0); POSITIVE DIFF @See below
[2017-02-04 12:56] LABS: ALBUMIN 2.7 g/dl (3.3-4.9); ALBUMIN/GLOBULIN RATIO 0.69; BILIRUBIN,DIRECT 5.5 mg/dl (0.00-0.20); BILIRUBIN,INDIRECT 1.2 mg/dl (0-1.1); BILIRUBIN,TOTAL 6.7 mg/dl (0.2-1.3); CALCIUM 7.9 mg/dl (8.4-10.2); CREATININE 0.57 mg/dl (0.44-1.00); POTASSIUM 3.8 mmol/L (3.5-5.1); TOTAL PROTEIN 6.6 g/dl (6.1-8.1)
[2017-02-04 13:37] VITALS: BP 116/57; RESP 18
[2017-02-04] MEDS ORDERED: SOD CHLORIDE 0.9% 500 ML IV ONE (15:30)
--- NOTE | 2017-02-04 15:55 | PN ---
Date/Time of Note Date/Time of Note DATE: 02/04/17 TIME: 15:50 Assessment/Plan VTE Prophylaxis VTE Prophylaxis Intervention: LMWH Lines/Catheters [facility] PICC Line Central line still needed: Yes Urinary Cath still in place: Yes Reason Cath still needed: urinary retention Assessment/Plan Chief Complaint/Hosp Course 51 yo female with h/o colon cancer w recurrence and metastatic disease to liver unamenable to further therapy, TBI with ICH s/p hemicraniectomy and trach/PEG who presented with sepsis. Found to have UTI. Marked progression of colon cancer to liver leading to jaundice. Plan for palliative/hospice transfer Sepsis - Holding further abx and monitoring as no localizing source Metastatic colon cancer to liver leading o jaundice - No further options for chemotherapy Left-sided hemiplegia secondary to intracranial hemorrhage, s/p CUSTOMER SUPPORT ANALYST shunt and hemicraniectomy, trach/PEG: - stable, continue trach Patient with dismal prognosis, demise imminent. Palliative care consulted I have advised inpatient hospice referral. In progress Will discuss code status and comfort measures in coming days as family processes devastating information Problems: Subjective 24 Hr Interval Summary Free Text/Dictation I had a long discussion with the patient's family at bedside yesterday about the progression of her cancer and that her prognosis is terminal. Advised them that there is no hope for cure given the extensive metastatic disease she has and that chemotherapy has been deemed not an option for her by oncology given her comorbitditis. I suggested that hospice/palliative would be the most appopriate thing for her. This AM, family in agreement and request home hospice if possible Abx have been stopped, patient's condition unchanged Exam/Review of Systems Vital Signs Vitals Vital Signs Date Time Temp Pulse Resp B/P Pulse Ox O2 Delivery O2 Flow Rate FiO2 02/04/17 13:37 98.9 80 18 116/57 93 02/04/17 08:00 5.0 02/04/17 04:30 Aerosol 28 T Tube Intake and Output 02/03/17 02/03/17 02/04/17 15:00 23:00 07:00 Intake Total 850 ml Output Total 1700 ml 820 ml Balance -850 ml -820 ml Exam s/p hemicraniectomy trach collar jaundiced lethargic, appears comfortable Clear lungs anteriorly Belly soft PEG No edema Results Result Diagram: 02/04/17 1205 02/04/17 1205 Results 24 hrs Laboratory Tests Test 02/03/17 17:34 02/04/17 00:02 02/04/17 05:29 02/04/17 12:05 Bedside Glucose 157 191 142 White Blood Count 13.7 H Red Blood Count 2.57 L Hemoglobin 6.7 *L Hematocrit 21.6 L Mean Corpuscular Volume 84.0 Mean Corpuscular Hemoglobin 26.1 L Mean Corpuscular Hemoglobin Concent 31.0 L Red Cell Distribution Width 20.8 H Platelet Count 359 Mean Platelet Volume 10.8 H Neutrophils % 75.6 Lymphocytes % 12.5 L Monocytes % 7.3 Eosinophils % 2.3 Basophils % 0.3 Nucleated Red Blood Cells % 0.0 Neutrophils # 10.4 H Lymphocytes # 1.7 Monocytes # 1.0 H Eosinophils # 0.3 Basophils # 0.0 Nucleated Red Blood Cells # 0.0 Sodium Level 140 Potassium Level 3.8 Chloride Level 100 Carbon Dioxide Level 27 Anion Gap 17 H Blood Urea Nitrogen 18 Creatinine 0.57 Glucose Level 143 Calcium Level 7.9 L Total Bilirubin 6.7 H Direct Bilirubin 5.50 H Indirect Bilirubin 1.2 H Aspartate Amino Transf (AST/SGOT) 121 H Alanine Aminotransferase (ALT/SGPT) 73 H Alkaline Phosphatase 1114 H Total Protein 6.6 Albumin 2.7 L Globulin 3.90 H Albumin/Globulin Ratio 0.69 Test 02/04/17 12:23 Bedside Glucose 156 Medications Medications Current Medications Ondansetron HCl (Zofran Inj) 4 mg Q6H PRN IV NAUSEA AND/OR VOMITING; Start at 04:00 Acetaminophen (Tylenol Supp) 650 mg Q6H PRN [place] PAIN LEVEL 1-3 OR FEVER Last administered on 01/26/17 08:06; Admin Dose 650 MG; Start 01/21/17 at 04:00 Acetaminophen (Tylenol Liquid) 325 mg Q4H PRN GTB PAIN OR TEMP ABOVE 38C Last administered on 02/04/17 08:16; Admin Dose 325 MG; Start 01/21/17 at 06:30 Eye Lubricant (Akwa Oint) 1 applic HS BOTH EYES Last administered on 02/03/17 20:53; Admin Dose 1 APPLIC; Start 01/21/17 at 21:00 Lorazepam (Ativan) 2 mg Q4H PRN IV SEIZURES Last administered on 01/22/17 01: 08; Admin Dose 2 MG; Start 01/22/17 at 01:04 Miscellaneous Information (Pending Santyl Order For Wound Care) This patient matos... PRN PRN XX WOUND CARE; Start 01/22/17 at 02:00 Miscellaneous Information 1 ea NOTE XX ; Start 01/22/17 at 16:00 Glucose (Glutose) 15 gm Q15M PRN PO DECREASED GLUCOSE; Start 01/22/17 at 16:00 Glucose (Glutose) 22.5 gm Q15M PRN PO DECREASED GLUCOSE; Start 01/22/17 at 16: 00 Dextrose (D50w Syringe) 25 ml Q15M PRN IV DECREASED GLUCOSE; Start 01/22/17 at 16:00 Dextrose (D50w Syringe) 50 ml Q15M PRN IV DECREASED GLUCOSE; Start 01/22/17 at 16:00 Glucagon (Glucagen) 1 mg Q15M PRN IM DECREASED GLUCOSE; Start 01/22/17 at 16:00 Glucose (Glutose) 15 gm Q15M PRN BUCCAL DECREASED GLUCOSE; Start 01/22/17 at 16 :00 Insulin Aspart (Novolog Insulin Pen) NOVOLOG *MILD* ALGORI... Q6 SC Last administered on 02/04/17 12:32; Admin Dose 1 UNIT; Start 01/25/17 at 00:00 Collagenase (Santyl) 1 applic DAILY PRN TOP PRN Last administered on 01/29/17 01:09; Admin Dose 1 APPLIC; Start 01/25/17 at 01:00 IV Flush (NS 10 ml) 10 ml PRN PRN IV IV PROTOCOL; Start 01/26/17 at 19:00 Bisacodyl (Dulcolax Supp) 10 mg Q24H PRN [place] CONSTIPATION; Start 01/27/17 at 11: 10 Senna (Senokot) 2 tab BID PRN GTB CONSTIPATION; Start 01/27/17 at 11:30 Metoclopramide HCl (Reglan) 10 mg Q6 IV Last administered on 02/04/17 12:14; Admin Dose 10 MG; Start 01/27/17 at 18:00 Ondansetron HCl (Zofran Tab) 4 mg Q4H GTB Last administered on 8/11/17at 12:14 ; Admin Dose 4 MG; Start 01/28/17 at 08:30 Lansoprazole (Prevacid) 30 mg DAILY@06 GTB Last administered on 02/04/17t 05:30 ; Admin Dose 30 MG; Start 02/02/17 at 06:00 CAROL ROSARIO MD Feb 04, 2017 15:55
[2017-02-04 20:22] VITALS: BP 122/62; RESP 20
[2017-02-04] MEDS: OCULAR LUBRICANT 3.5 GM OPH OINT BOTH EYES SCH (21:39)
--- NOTE | 2017-02-04 23:03 | CONS ---
Date/Time of Note Date/Time of Note DATE: 02/04/17 TIME: 22:58 Assessment/Plan Assessment/Plan Chief Complaint/Hosp Course ID PROGRESS NOTE CURRENT ABX: => OFF ABX DAY #1 -> no localized source of infection TOTAL ABX: DAY #14 Flagyl 250mg Q8H via GT + Start Amikacin IV x 14 days + Doxy 100mg Q12 x 14 days DC Merrem + DC Vanco IV #7 -> DC 8/9 24H INTERVAL SUMMARY * Sleeping, low grade temps persist, poor prognosis > STG IV metastatic carcinoma w/extensive mets to liver * Has completed 14 days ABX -- DC planning to SNF OFF ABX * BCx(-); Urine (+) GNR x 2 E.Coli + KP=ESBL * SPUTUM CX (+)GNR -> (+)PSAR = MDRO RESPIRATORY CULTURE Final Organism 1 PSEUDOMONAS AERUGINOSA QUANTITY 3+ P.AERUG M.I.C. RX --------- --- AMIKACIN 16 S AZTREONAM I CEFEPIME 16 I CEFTAZIDIME 4 S CIPROFLOXACIN >=4 R GENTAMICIN 8 I IMIPENEM >=16 R LEVOFLOXACIN >=8 R TOBRAMYCIN <=1 S PIPERACILLIN/TAZOBACTAM 32 S EXAM GEN: Adult F, resting in bed, VSS, NAD VITALS: No fevers HEENT: AT, NC, anicteric, moist oral membranes NECK: TRACH -> Cool mist CHEST:Coarse BS over Trach tubing CV: RRR ABD: Soft, NT, PEG EXT: Warm, no C/C/E SKIN: No rash/No diaphoresis ID ASSESSMENT 51 yo F PMHx ICH->s/p Crani +VPS w/chronic encephalopathy, hemiparesis, Trach, Peg admit with: 1. Sepsis on admission due to complicated polymicrobial UTI + ABD/Liver/ Biliary sepsis ?infected VPS? * Procalcitonin 8/6 0.29 = elevated * SIRS w/low grade temps 99.+ and leukocytosis ==> Persisting despite ABX with repeat Cx (-) * DDX HCAP w/BLL Effusions vs GI biliary hepatic source * 01/21/17 BCx(-) * 01/21/17 Urine Cx (+) URINE CULTURE Final Organism 1 ESCHERICHIA COLI >100,000 CFU/ml Organism 2 K PNEUMO ESBL >100,000 CFU/ml MULTI DRUG RESISTANT ORGANISM 2. Probable neurogenic bladder w/retention 3. Colon cancer w/Mets to liver-> (+)transaminitis * Obstructive per MRCP -> poor prognosis to ERCP if/when stable, vs Hospice appropriate 4. 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 Tracheobronchitis vs silent aspiration pneumonitis * (+)GNR -> Pending RESPIRATORY CULTURE Final Organism 1 PSEUDOMONAS AERUGINOSA 6. STG III decub sacral 7. Hx of Hepatitis A 8. Hx of renal failure => apparently recovered -- no longer on HD CURRENT ABX: => OFF ABX DAY #1 -> no localized source of infection TOTAL ABX: DAY #14 completed ID RECOMMENDATIONS Poor prognosis => Dr. Andrade discussed this with patient and family 02/03/17 Per discussion w/Dr. Langley -> ABX DC'd 02/03 She has completed 14 day course -- SIRS continues due to her underlying co- morbidities end-stage cancer. She is not a candidate for surgical, nor chemo, no radiation Tx Recommendation is for conservative care vs Hospice care . . . . . Problems: Consultation Date/Type/Reason Admit Date/Time Jan 21, 2017 at 02:17 Initial Consult Date 01/24/17 Type of Consultation: ID Referring Provider: CESIA ROLLE Exam/Review of Systems Vital Signs Vitals Vital Signs Date Time Temp Pulse Resp B/P Pulse Ox O2 Delivery O2 Flow Rate FiO2 02/04/17 20:22 99.3 92 20 122/62 95 02/04/17 19:42 Aerosol 5.0 28 T Tube Intake and Output 02/03/17 02/03/17 02/04/17 15:00 23:00 07:00 Intake Total 850 ml Output Total 1700 ml 820 ml Balance -850 ml -820 ml Results Result Diagram: 02/04/17 1205 02/04/17 1205 Results 24 hrs Laboratory Tests Test 02/04/17 00:02 02/04/17 05:29 02/04/17 12:05 02/04/17 12:23 Bedside Glucose 191 142 156 White Blood Count 13.7 H Red Blood Count 2.57 L Hemoglobin 6.7 *L Hematocrit 21.6 L Mean Corpuscular Volume 84.0 Mean Corpuscular Hemoglobin 26.1 L Mean Corpuscular Hemoglobin Concent 31.0 L Red Cell Distribution Width 20.8 H Platelet Count 359 Mean Platelet Volume 10.8 H Neutrophils % 75.6 Lymphocytes % 12.5 L Monocytes % 7.3 Eosinophils % 2.3 Basophils % 0.3 Nucleated Red Blood Cells % 0.0 Neutrophils # 10.4 H Lymphocytes # 1.7 Monocytes # 1.0 H Eosinophils # 0.3 Basophils # 0.0 Nucleated Red Blood Cells # 0.0 Sodium Level 140 Potassium Level 3.8 Chloride Level 100 Carbon Dioxide Level 27 Anion Gap 17 H Blood Urea Nitrogen 18 Creatinine 0.57 Glucose Level 143 Calcium Level 7.9 L Total Bilirubin 6.7 H Direct Bilirubin 5.50 H Indirect Bilirubin 1.2 H Aspartate Amino Transf (AST/SGOT) 121 H Alanine Aminotransferase (ALT/SGPT) 73 H Alkaline Phosphatase 1114 H Total Protein 6.6 Albumin 2.7 L Globulin 3.90 H Albumin/Globulin Ratio 0.69 Test 02/04/17 17:19 Bedside Glucose 180 Medications Medications Current Medications Ondansetron HCl (Zofran Inj) 4 mg Q6H PRN IV NAUSEA AND/OR VOMITING; Start at 04:00 Acetaminophen (Tylenol Supp) 650 mg Q6H PRN [place] PAIN LEVEL 1-3 OR FEVER Last administered on 01/26/17 08:06; Admin Dose 650 MG; Start 01/21/17 at 04:00 Acetaminophen (Tylenol Liquid) 325 mg Q4H PRN GTB PAIN OR TEMP ABOVE 38C Last administered on 02/04/17 08:16; Admin Dose 325 MG; Start 01/21/17 at 06:30 Eye Lubricant (Akwa Oint) 1 applic HS BOTH EYES Last administered on 02/04/17 21:39; Admin Dose 1 APPLIC; Start 01/21/17 at 21:00 Lorazepam (Ativan) 2 mg Q4H PRN IV SEIZURES Last administered on 01/22/17 01: 08; Admin Dose 2 MG; Start 01/22/17 at 01:04 Miscellaneous Information (Pending Santyl Order For Wound Care) This patient matos... PRN PRN XX WOUND CARE; Start 01/22/17 at 02:00 Miscellaneous Information 1 ea NOTE XX ; Start 01/22/17 at 16:00 Glucose (Glutose) 15 gm Q15M PRN PO DECREASED GLUCOSE; Start 01/22/17 at 16:00 Glucose (Glutose) 22.5 gm Q15M PRN PO DECREASED GLUCOSE; Start 01/22/17 at 16: 00 Dextrose (D50w Syringe) 25 ml Q15M PRN IV DECREASED GLUCOSE; Start 01/22/17 at 16:00 Dextrose (D50w Syringe) 50 ml Q15M PRN IV DECREASED GLUCOSE; Start 01/22/17 at 16:00 Glucagon (Glucagen) 1 mg Q15M PRN IM DECREASED GLUCOSE; Start 01/22/17 at 16:00 Glucose (Glutose) 15 gm Q15M PRN BUCCAL DECREASED GLUCOSE; Start 01/22/17 at 16 :00 Insulin Aspart (Novolog Insulin Pen) NOVOLOG *MILD* ALGORI... Q6 SC Last administered on 02/04/17 17:33; Admin Dose 1 UNIT; Start 01/25/17 at 00:00 Collagenase (Santyl) 1 applic DAILY PRN TOP PRN Last administered on 01/29/17 01:09; Admin Dose 1 APPLIC; Start 01/25/17 at 01:00 IV Flush (NS 10 ml) 10 ml PRN PRN IV IV PROTOCOL; Start 01/26/17 at 19:00 Bisacodyl (Dulcolax Supp) 10 mg Q24H PRN [place] CONSTIPATION; Start 01/27/17 at 11: 10 Senna (Senokot) 2 tab BID PRN GTB CONSTIPATION; Start 01/27/17 at 11:30 Metoclopramide HCl (Reglan) 10 mg Q6 IV Last administered on 02/04/17 12:14; Admin Dose 10 MG; Start 01/27/17 at 18:00 Ondansetron HCl (Zofran Tab) 4 mg Q4H GTB Last administered on 02/04/17 21:39 ; Admin Dose 4 MG; Start 01/28/17 at 08:30 Lansoprazole (Prevacid) 30 mg DAILY@06 GTB Last administered on 02/04/17 05:30 ; Admin Dose 30 MG; Start 02/02/17 at 06:00 DARELL YORK NP Feb 04, 2017 23:03
[2017-02-05] MEDS: ONDANSETRON 4 MG TAB GTB SCH ×6 (00:47→20:42)
[2017-02-05] MEDS: METOCLOPRAMIDE 10 MG INJ IV SCH ×2 (00:47→05:50)
[2017-02-05 03:18] VITALS: BP 134/62; RESP 19
[2017-02-05] MEDS: LANSOPRAZOLE 30 MG CAP GTB SCH (05:50)
[2017-02-05] MEDS: INSULIN ASPART [NOVOLOG] 3 ML PEN SC SCH ×4 (06:00→18:00)
[2017-02-05 07:35] VITALS: BP 130/72; RESP 18
[2017-02-05] MEDS: ACETAMINOPHEN 650MG/20.3ML CUP GTB PRN ×3 (11:24→23:46)
[2017-02-05 14:00] VITALS: BP 133/72; RESP 18
--- NOTE | 2017-02-05 17:07 | PN ---
DATE: 02/05/2017 SUBJECTIVE DATA: No acute changes. The patient is lying comfortably in bed, family at bedside. She is in no distress. ACCESS: Indwelling straight PEG. Mandel. OBJECTIVE DATA: VITAL SIGNS: T max 100, pulse 97, respirations 178, blood pressure 130/72. Saturation 94 percent on T-tube. GENERAL: This is a chronically ill-appearing, middle age, woman who is in no distress. HEENT: Head atraumatic, normocephalic. Sclerae are anicteric. Buccal mucosa dry. NECK: Supple. Tracheostomy present. CHEST: The chest rises symmetrically. Breath sounds diminished at bases. HEART: S1, S2. ABDOMEN: Soft. Bowel sound present. EXTREMITIES: Without cyanosis. ASSESSMENT: 1. Status post-sepsis secondary to complicated polymicrobial urinary tract infection. 2. Metastatic colon cancer. 3. Chronic respiratory failure. 4. History of renal failure, requiring hemodialysis. No longer on hemodialysis. PLAN: The patient is off antibiotics. Clinically and hemodynamically stable. Not a candidate for surgical or chemo radiation. The patient is full code, pending family decision regarding realistic goals of care. Dictated By: Annamarie Balderrama NP /luc/gin /Document#: [id number]
--- NOTE | 2017-02-05 18:36 | PN ---
Date/Time of Note Date/Time of Note DATE: 02/05/17 TIME: 18:35 Assessment/Plan VTE Prophylaxis VTE Prophylaxis Intervention: LMWH Lines/Catheters IV Catheter Type (from Nrsg): PICC Line Central line still needed: No Urinary Cath still in place: Yes Reason Cath still needed: urinary retention Assessment/Plan Chief Complaint/Hosp Course 51 yo female with h/o colon cancer w recurrence and metastatic disease to liver unamenable to further therapy, TBI with ICH s/p hemicraniectomy and trach/PEG who presented with sepsis. Found to have UTI. Marked progression of colon cancer to liver leading to jaundice. Plan for palliative/hospice transfer Sepsis - Holding further abx and monitoring as no localizing source Metastatic colon cancer to liver leading o jaundice - No further options for chemotherapy, hospice care Left-sided hemiplegia secondary to intracranial hemorrhage, s/p MANAGER COMPLIANCE shunt and hemicraniectomy, trach/PEG: - stable, continue trach Patient with dismal prognosis, demise imminent. Palliative care consulted Hospice referral. Family prefers home hospice Will discuss code status and comfort measures in coming days as family processes devastating information Problems: Subjective 24 Hr Interval Summary Free Text/Dictation Pt remains comfortable Family at bedside Awiating options for home hospice Exam/Review of Systems Vital Signs Vitals Vital Signs Date Time Temp Pulse Resp B/P Pulse Ox O2 Delivery O2 Flow Rate FiO2 02/05/17 17:26 90 18 96 Aerosol 5.0 28 T Tube 02/05/17 14:00 99.1 133/72 Intake and Output 02/04/17 02/04/17 02/05/17 15:00 23:00 07:00 Intake Total 1110 ml 860 ml Output Total 550 ml Balance 560 ml 860 ml Results Result Diagram: 02/04/17 1205 02/04/17 1205 Results 24 hrs Laboratory Tests Test 02/05/17 00:53 02/05/17 05:56 02/05/17 12:44 02/05/17 18:23 Bedside Glucose 148 166 159 127 Medications Medications Current Medications Ondansetron HCl (Zofran Inj) 4 mg Q6H PRN IV NAUSEA AND/OR VOMITING; Start at 04:00 Acetaminophen (Tylenol Supp) 650 mg Q6H PRN [place] PAIN LEVEL 1-3 OR FEVER Last administered on 01/26/17 08:06; Admin Dose 650 MG; Start 01/21/17 at 04:00 Acetaminophen (Tylenol Liquid) 325 mg Q4H PRN GTB PAIN OR TEMP ABOVE 38C Last administered on 02/05/17 17:22; Admin Dose 325 MG; Start 01/21/17 at 06:30 Eye Lubricant (Akwa Oint) 1 applic HS BOTH EYES Last administered on 02/04/17 21:39; Admin Dose 1 APPLIC; Start 01/21/17 at 21:00 Lorazepam (Ativan) 2 mg Q4H PRN IV SEIZURES Last administered on 01/22/17 01: 08; Admin Dose 2 MG; Start 01/22/17 at 01:04 Miscellaneous Information (Pending Santyl Order For Wound Care) This patient matos... PRN PRN XX WOUND CARE; Start 01/22/17 at 02:00 Miscellaneous Information 1 ea NOTE XX ; Start 01/22/17 at 16:00 Glucose (Glutose) 15 gm Q15M PRN PO DECREASED GLUCOSE; Start 01/22/17 at 16:00 Glucose (Glutose) 22.5 gm Q15M PRN PO DECREASED GLUCOSE; Start 01/22/17 at 16: 00 Dextrose (D50w Syringe) 25 ml Q15M PRN IV DECREASED GLUCOSE; Start 01/22/17 at 16:00 Dextrose (D50w Syringe) 50 ml Q15M PRN IV DECREASED GLUCOSE; Start 01/22/17 at 16:00 Glucagon (Glucagen) 1 mg Q15M PRN IM DECREASED GLUCOSE; Start 01/22/17 at 16:00 Glucose (Glutose) 15 gm Q15M PRN BUCCAL DECREASED GLUCOSE; Start 01/22/17 at 16 :00 Insulin Aspart (Novolog Insulin Pen) NOVOLOG *MILD* ALGORI... Q6 SC Last administered on 02/05/17 12:46; Admin Dose 1 UNIT; Start 01/25/17 at 00:00 Collagenase (Santyl) 1 applic DAILY PRN TOP PRN Last administered on 01/29/17 01:09; Admin Dose 1 APPLIC; Start 01/25/17 at 01:00 IV Flush (NS 10 ml) 10 ml PRN PRN IV IV PROTOCOL; Start 01/26/17 at 19:00 Bisacodyl (Dulcolax Supp) 10 mg Q24H PRN [place] CONSTIPATION; Start 01/27/17 at 11: 10 Senna (Senokot) 2 tab BID PRN GTB CONSTIPATION; Start 01/27/17 at 11:30 Ondansetron HCl (Zofran Tab) 4 mg Q4H GTB Last administered on 02/05/17 18:24 ; Admin Dose 4 MG; Start 01/28/17 at 08:30 CAROL ROSARIO MD Feb 05, 2017 18:36
[2017-02-05 19:56] VITALS: BP 131/66
[2017-02-05] MEDS: OCULAR LUBRICANT 3.5 GM OPH OINT BOTH EYES SCH (20:43)
[2017-02-06] MEDS: ONDANSETRON 4 MG TAB GTB SCH ×4 (00:53→12:20)
[2017-02-06] MEDS ORDERED: ALBUTEROL/IPRATROPIUM (NEB) 3 ML AMP HHN STA (01:25)
[2017-02-06 01:50] VITALS: BP 136/64; RESP 20
[2017-02-06] MEDS: INSULIN ASPART [NOVOLOG] 3 ML PEN SC SCH ×3 (06:00→12:33)
[2017-02-06 08:19] VITALS: BP 130/66; RESP 22
[2017-02-06 14:43] VITALS: BP 116/59; RESP 20
[2017-02-06] MEDS: ACETAMINOPHEN 650MG/20.3ML CUP GTB PRN (15:01)
--- NOTE | 2017-02-06 16:48 | DS ---
Date/Time of Note Date/Time of Note DATE: 02/06/17 TIME: 16:46 Discharge Summary Admission/Discharge Info Admit Date/Time Jan 21, 2017 at 02:17 Discharge Date/Time Feb 06, 2017 at 16:00 Hx of Present Illness Chief complaint: Intermittent fevers 1 week This is a 51-year-old female who is brought in by EMS and is accompanied by her son for intermittent fevers 1 week. Patient herself is arousable however she is very tired right now and the majority of the history was obtained from the son. Patient currently was at a postacute facility where she has been recovering from her recent brain hemorrhage status post craniotomy. Patient over the last course of the week had been noted to have intermittent fevers. Family had noticed that she had been acting confused over the last few days as well. Prior to that patient was showing relatively normal mentation and able to communicate appropriately. Patient was denying any chest pain or shortness of breath however because of her recent confusion proper history was not able to be obtained from her. Of note, patient was admitted to [facility] in September 2016 for a brain hemorrhage. At that time she had a craniotomy as well as a WOOD GOUGER shunt. Upon recovery from there she was transferred to [place] and then to a post acute facility where she is currently at for rehab. She is currently on trach collar. Allergies: NKDA Medications: See AUG Hospital Course The patient was treated with broad spectrum antibiotics and fevers resolved Her imaging showed marked progression of her cancer, with tumors extensively infiltrating her liver causing jaundice. GI and oncology were both consulted and concluded there are no available options for treatment Thus palliative care was recommended given her terminal diagnosis She and her family came to accept this and agreed to home hopsice The patient was discharge to home [facility] hospice services Home Meds Reported Medications Labetalol Hcl* (Labetalol Hcl*) 300 Mg Tablet, 300 MG GTB BID, TAB 01/21/17 Sennosides* (Senna Lax*) 8.6 Mg Tablet, 17.2 TAB GTB BID, TAB 01/21/17 Pantoprazole* (Pantoprazole*) 40 Mg Tablet.dr, 40 MG GTB AC BREAKFAST, TAB 01/21/17 Ondansetron Hcl* (Ondansetron Hcl*) 4 Mg Tablet, 4 MG GTB Q4H for NAUSEA AND/OR VOMITING, TAB 01/21/17 Metoclopramide Hcl* (Metoclopramide Hcl*) 10 Mg Tablet, 10 MG GTB Q6H Y for NAUSEA AND OR VOMITING, TAB 01/21/17 Insulin Detemir (Levemir) 100 Unit/1 Ml Vial, 20 UNIT SC BID, VIAL 01/21/17 Docusate Sodium* (Docusate Sodium*) 100 Mg Capsule, 100 MG GTB QHS, #30 CAP 01/21/17 Amlodipine Besylate* (Amlodipine Besylate*) 10 Mg Tablet, 10 MG PO DAILY for HTN , #30 TAB VIA GTUBE 10 mg DAILY FOR HTN HOLD IF SBP<110 01/21/17 Chlorhexidine Gluconate* (Chlorhexidine Gluconate*) 118 Ml Liquid, 10 ML TOP, ML SWAP AND SUCTION 10ml TWICE A DAILY 01/21/17 Bisacodyl (Biscolax) 10 Mg Supp.rect, 10 MG RC, SUPP.RECT DAILY: PRN FOR SLUGGISH BOWELL 01/21/17 Artificial Tears* (Akwa Oint*) 3.5 Gm Oint, 1 APPLIC BOTH EYES HS, #1 TUB I GTT OU BID; PRN FOR DRY EYES 01/21/17 Acetaminophen* (Acetaminophen* Susp) 160 Mg/5 Ml Oral.susp, 80 MG PO Q4H Y for PAIN OR TEMP ABOVE 38C, ML 01/21/17 Acetaminophen* (Acetaminophen* Susp) 325 Mg/10.15 Ml Solution, 325 MG PO Q4H Y for PAIN OR TEMP ABOVE 38C, ML 01/21/17 Primary Care Provider Care Physician No Primary Time spent on discharge: > 30 minutes Pending Labs Laboratory Tests Test 02/05/17 18:23 02/05/17 23:45 02/06/17 05:55 02/06/17 05:56 Bedside Glucose 127mg/dL (70-220) 134mg/dL (70-220) 130mg/dL (70-220) Lab Scanned Report BLOOD [id number] Test 02/06/17 12:22 Bedside Glucose 151mg/dL (70-220) CAROL ROSARIO MD Feb 06, 2017 16:48
== END 2017-02-06 16:00 | disposition hospice, home (50) | DRG 871 ==
LOC: E/R 00:20 → MS3 02:17 → TEL 19:40 → MS2 01-27 18:25
PROVIDERS: ADMIT Family Medicine; ATTEND Family Medicine
PROC: 02HV33Z Insertion of Infusion Device into Superior Vena Cava, Percutaneous Approach (ICD-10-PCS; principal; 2017-01-26)
PROC: B548ZZA Ultrasonography of Superior Vena Cava, Guidance (ICD-10-PCS; 2017-01-26)
PROC: 30233N1 Transfusion of Nonautologous Red Blood Cells into Peripheral Vein, Percutaneous Approach (ICD-10-PCS; 2017-01-28)
PROC: 30233N1 Transfusion of Nonautologous Red Blood Cells into Peripheral Vein, Percutaneous Approach (ICD-10-PCS; 2017-02-04)
DX: A41.9 Sepsis, unspecified organism (principal); G93.40 Encephalopathy, unspecified; J96.10 Chronic respiratory failure, unspecified whether with hypoxia or hypercapnia; E87.3 Alkalosis; L89.153 Pressure ulcer of sacral region, stage 3; C77.5 Secondary and unspecified malignant neoplasm of intrapelvic lymph nodes; C77.2 Secondary and unspecified malignant neoplasm of intra-abdominal lymph nodes; R53.2 Functional quadriplegia; C78.7 Secondary malignant neoplasm of liver and intrahepatic bile duct; N39.0 Urinary tract infection, site not specified; I69.054 Hemiplegia and hemiparesis following nontraumatic subarachnoid hemorrhage affecting left non-dominant side; B15.9 Hepatitis A without hepatic coma; K80.50 Calculus of bile duct without cholangitis or cholecystitis without obstruction; Z93.0 Tracheostomy status; E03.9 Hypothyroidism, unspecified; E11.9 Type 2 diabetes mellitus without complications; J44.9 Chronic obstructive pulmonary disease, unspecified; I10 Essential (primary) hypertension; Z93.1 Gastrostomy status; N31.9 Neuromuscular dysfunction of bladder, unspecified; B96.20 Unspecified Escherichia coli [E. coli] as the cause of diseases classified elsewhere; B96.1 Klebsiella pneumoniae [K. pneumoniae] as the cause of diseases classified elsewhere; Z16.35 Resistance to multiple antimicrobial drugs; D50.9 Iron deficiency anemia, unspecified; D47.3 Essential (hemorrhagic) thrombocythemia; R33.9 Retention of urine, unspecified; E87.6 Hypokalemia; Z79.4 Long term (current) use of insulin; Z85.038 Personal history of other malignant neoplasm of large intestine; Z74.01 Bed confinement status; Z98.2 Presence of cerebrospinal fluid drainage device; Z90.49 Acquired absence of other specified parts of digestive tract
CPT/HCPCS: 36415; 36430; 36569; 71010; 74177; 74181; 76705; 76937; 80048; 80053; 80076; 80150; 80202; 81001; 81003; 82105; 82140; 82306; 82378; 82565; 82728; 82962; 82977; 83540; 83605; 83615; 83690; 83735; 84100; 84145; 84443; 84484; 84520; 84560; 85025; 85045; 85610; 85651; 85730; 86704; 86706; 86708; 86709; 86803; 86850; 86900; 86901; 86920; 87040; 87070; 87075; 87081; 87086; 87340; 89220; 92507; 92524; 92610; 93005; 94664; 96372; 96374; 96375; C9113; J0278; J0692; J0744; J1644; J1815; J1956; J2060; J2185; J2765; J3370; J3475; J3480; J7030; J7040; J7050; P9016; Q9967